=== PATIENT | female | born 1950 | race Caucasian/White ===

== ENCOUNTER 2024-05-28 11:23 | Observation (INO) | payer MEDICARE, MEDICAID, SELFPAY ==
[2024-05-28] VITALS (17 sets, daily range): BP systolic 111–168; BP diastolic 46–69; PULSE 56–88; RESP 15–20; TEMP 36.1–37.3; O2SAT 97–100; BMI 27.0
--- OUTSIDE RECORDS SUMMARY | 2024-05-28 11:27 | XMS_ITS | Patient Health Record ---
Author Organization [facility] [address] Address [address] [place] [address] Care Team Providers Care Computational Sciences Professor Name Role Phone Rojas Hanson Primary Care Provider UnavailCarolyn Carlson Unavailable Allergies No Known Allergies Reason For Referral No Information Medications Medication SIG (Take, Route, Frequency, Duration) Notes Start Date End Date Status Ipratropium [place] 0.03 % 2 sprays in e ach nostril Nasally Twice a day Active Aspirin 81 MG 1 tablet Orally Once a day Active [place] 3 340 MG 1 capsule Orally Twi ce a day Active Flaxseed Oil 1000 MG as directed Orally Active Famotidine 20 MG 1 tablet at bedtime as needed Orally Once a day Active Claritin 10 MG 1 tablet Orally Once a day Active Carvedilol 12.5 MG 1 tablet with food O rally Twice a day Active Losartan Potassium 100 MG 0.5 tablet Ora lly Once a day Active metFORMIN HCl 1000 MG 0.5 tablet Orally Twice a day Active Vitamin D 25 MCG (1000 UT) 1 tablet Oral ly Once a day Active Atorvastatin Calcium 40 MG 1 tablet Oral ly Once a day Active Sertraline HCl 100 MG 1 tablet Orally On ce a day Active Albuterol Sulfate HFA 108 (90 Base) MCG/ACT 1 puff as needed Inhalation every 4 hrs Active Social History Tobacco Use: Social History Observation Description Date Details (start date - stop date) Current Smoker NA - NA Tobacco Use/Smoking Question Answer Notes Are you a current smoker How often do you smoke cigarettes? every day How many cigarettes a day do you smoke? 5 or les s Problems Problem Type SNOMED Code ICD Code Onset Dates Problem Status W/U Status Risk Notes Problem Atherosclerotic hear t disease of [place] coronary artery without angina pectoris (349992241463390) Atherosclerotic heart disease of [place] coronary artery without angina pectoris (I25.10) Active confirmed Problem hypercholesterolemia (disorder) (76572767) Hypercholesteremia (E78.00) Active confirmed Problem Hyperuricemia withou t signs of inflammatory arthritis and tophaceous disease (447199973) Hyperuricemia without signs inflammatory arthritis/tophaceou s disease (E79.0) Active confirmed Problem Cerebrovascular accident (093377784) Cerebrovascular accident (CVA), unspecified mechanism (I63.9) Active confirmed Problem Diabetic renal disea se (228587537) 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) Active confirmed Problem Smoking (49294767) Smoking (F17.200) Active con firmed Problem Renal cyst (043484512) Renal cyst (N28.1) Active confirmed Problem Peripheral arterial disease (018683349) Peripheral arterial disease (I73.9) Active confirmed Problem Benign essential hypertension (7961027) Benign essential hypertension (I10) Active confirmed Problem Chronic kidney disea se stage 2 (326006957) Stage 2 chronic kidney disease (N18.2) Active confirmed Plan Of Treatment Pending Test Test Name Order Date CBC With Platelet And Differential 09/15 Comprehensive Metabolic Panel (CMP) 11/2022 Complement C3 09/15/2022 Complement C4 09/15/2022 dsDNA Antibodies 09/15/2022 Hemoglobin A1C 09/15/2022 Protein Electrophoresis (serum) with Int erpretation, rfx TONIO 09/15/2022 Phosphorus 09/15/2022 Lipid Panel 09/15/2022 Parathyroid Hormone (PTH) Intact with To chandni Calcium 09/15/2022 Urinalysis (UA) with reflex to Microscop ic and Culture 09/15/2022 Microalbumin/Creatinine, Random Urine Sa mple 09/15/2022 Uric Acid 09/15/2022 Insurance Providers Payer Name Payer Address Payer Phone Subscriber Number Group Number Insured Name Patient Relationship to Insured Coverage Start Date Coverage End Date [employer] Care Plan [address] [address] [place] [phone] [id number] Rosa Martino Self - patient is the insured Medical (General) History Medical History History ICD Code CABG HTN Hyperlipidemia Anxiety Vitamin D deficiency Surgical History Surgery Date(Month/Year) Hysterectomy 1985 Heart surgery 2012 LT eye cataract 04/2022
--- OUTSIDE RECORDS SUMMARY | 2024-05-28 11:27 | XMS_ITS | Patient Health Record ---
Author Organization [facility] Address [address] [place] [address] Care Team Providers Care Ad Trafficker Name Role Phone [facility] Langston, Tanda Unavailable [phone] Rojas Hanson Unavailable Unavailable Allergies No Known Allergies Reason For Referral No Information Medications Medication SIG (Take, Route, Fr equency, Duration) Notes Start Date End Date Status atorvastatin 20 mg 1 tab(s) orally once a day for 30 day(s) Active Aspir 81 Active sertraline 50 mg 1 tab(s) orally once a day for 30 day(s) Active metFORMIN 500 mg 1 tab(s) orally 2 ti mes a day for 30 day(s) Active losartan 50 mg 1 tab(s) orally once a day for 30 day(s) Active Social History Tobacco Use: Social History Observation Description Date Details (start date - stop date) Never Smoker NA - NA Smoking Question Answer Notes Are you a: never smoker Additional Findings: Tobacco Non-User Current no n-smoker Problems No Known Problems Plan Of Treatment No Information Insurance Providers Payer Name Payer Address Payer Phone Subscriber Number Group Number Insured Name Patient Relationship to Insured Coverage Start Date Coverage End Date [employer] Claims [address] [address] [place], [place] [id number] Rosa Martino Self - patient is the insured Medical (General) History Medical History History ICD Code HTN Diabetes Hyperlipidemia, unspecified hyperlipidem ia type E78.5 Surgical History Surgery Date(Month/Year)
[2024-05-28 12:18] LABS: Basophils Percent Auto 0.3 % (0.2-1.2); Eosinophils Absolute Auto 0.1 K/mm3 (0-0.3); Eosinophils Percent Auto 1.2 % (0-4.4); Immature Granulocyte Absolute 0.04 K/mm3 (0.00-0.031); Immature Granulocyte Percent A 0.7 % (0-0.5); Lymphocytes Absolute Auto 1.25 K/mm3 (0.9-3.2); Lymphocytes Percent Auto 21.6 % (18.3-44.2); Mean Corpuscular HGB Conc 27.3 g/dl (32-36); Mean Corpuscular Hemoglobin 18.5 pg (26-34); Mean Corpuscular Volume 67.8 fl (80-100); Mean Platelet Volume 9.9 fl (7.4-10.4); Monocytes Absolute Auto 0.7 K/mm3 (0.1-0.6); Monocytes Percent Auto 11.8 % (2.6-8.5); Neutrophils Absolute Auto 3.7 K/mm3 (1.3-6.7); Neutrophils Percent Auto 64.4 % (45.5-73.1); Platelet Count Result 259 k/mm3 (150-375); Red Blood Count 2.92 M/mm3 (4.2-5.4); Red Cell Distribution Width 18.7 % (11.5-14.5); White Blood Count 5.8 K/mm3 (4.5-10.0)
--- NOTE | 2024-05-28 12:19 | ED_ITS ---
HPI - General Adult General Chief complaint: Recheck/Abnormal Lab/Rx Stated complaint: anemia Time Seen by Provider: 05/28/24 11:59 History of Present Illness HPI narrative: 73-year-old female presented emergency department for evaluation for increased fatigue he, exertional shortness of breath lightheaded dizziness. Patient does have a prior history of anemia but is unsure other than having level iron. Patient denies any prior history of GI bleed and patient has no complaints hematemesis melena or blood in her stool. Patient denies any associated chest pain. Patient's family had noted that she had been moving slowly but they thought it was most likely due to her hip pain for which he is currently being worked up by Orthopedics. When the family noticed that she was sleeping more they had her evaluated and patient was called to return to the emergency department after outpatient labs. Patient is alert but tired appearing and does have pallor. Patient does take aspirin Patient's initial episode of anemia requiring transfusion was approximately 4 years ago and occurred [facility]. Patient states that no source for the bleeding was identified at that time. Patient did have an additional colonoscopy EGD done at [facility] approximately 2 years ago and no evidence of GI bleeding was identified at that time. Related Data Home Medications ?Medication ?Instructions ?Recorded ?Confirmed ?Last Taken ?Type atorvastatin 40 mg tablet 40 mg PO DAILY 08/18/23 05/28/24 05/27/24 History metformin 500 mg tablet 500 mg PO BID 08/18/23 05/28/24 05/27/24 History sertraline 100 mg tablet 100 mg PO BID 08/18/23 05/28/24 05/27/24 History calcium 500 mg (as 1 tablet PO DAILY 11/22/23 05/28/24 05/27/24 History carbonate)-vitamin D3 10 mcg (400 unit) tablet metformin 500 mg tablet 500 mg PO BID 05/28/24 05/28/24 05/27/24 History Allergies Allergy/AdvReac Type Severity Reaction Status Date / Time No Known Allergies Allergy Verified 05/28/24 16:32 Review of Systems 2 Review of Systems: All systems reviewed & are unremarkable except as noted in HPI and below PMFSH Past Medical History Medical History Chronic obstructive pulmonary disease Osteoarthritis of hips, bilateral Cigarette nicotine dependence with nicotine-induced disorder Stage 3a chronic kidney disease Obstructive sleep apnea Major depressive disorder in partial remission Iron deficiency Atherosclerosis of [place] coronary artery of [place] heart without angina pectoris Pure hypercholesterolemia, unspecified Essential (primary) hypertension Type 2 diabetes mellitus with chronic kidney disease Carpal tunnel syndrome Surgical History Surgical History History of coronary artery bypass graft x 2 (2012) History of carotid endarterectomy (2007) Family History Family History Unknown Asthma Hypertension Depression Heart disease Lung disease Arthritis Cerebrovascular accident High cholesterol Social History Social History (Updated 05/28/24 @ 20:13 by Kyleigh Chowdary PA-C) Social History: Surrogate medical decision maker: Lynn Mccarthy, daughter. Code status: Full code. Smoking packs per day: 0.5 Smoking cigarettes per day: 10.0 Years smoked: 45 Smoking pack-years: 22.50 Smoking status: Current every day smoker Alcohol intake: never Substance use: never Substance use type: does not use Do You Feel Safe in your Home?: Yes Lack of Transportation: No Lack of Food: Never True Current Housing: I Have Housing Concerned About Future Housing: No Difficulty Paying Gas/Electric Bills: No Difficulty Paying for Meds: No Currently Unemployed: No Education: High School Diploma/GED Difficulty w/ Childcare or Family Care: No Living arrangements: with family Occupation/Education: retired Spiritual care concerns: No Exam 2 Narrative: APPEARANCE: Well appearing, no pain, no distress, well-nourished. HEAD: normocephalic, atraumatic. EYES: PERRLA/EOMI, pale conjunctiva NOSE: Normal no drainage EARS:TMS clear with good light reflex. THROAT: Pharynx clear, no exudate. NECK: Supple. No adenopathy, no masses. RESPIRATORY: Airway patent, respirations nonlabored. Clear to auscultation bilaterally, no rales, rhonchi, wheezing. CARDIOVASCULAR: Regular rate and rhythm without murmurs rubs or gallops. ABDOMINAL: Soft, nontender, nondistended, normal bowel sounds MUSCULOSKELETAL: Moves all extremities. Strength/ROM intact, No edema, No calf tenderness. NEURO: Alert. Cranial nerves II through XII intact. Good gait. Good coordination SKIN: Warm, dry. Normal Color Rectal exam: Hemoccult positive Course Vital Signs Vital signs: Vital Signs Temperature 97.5 F L 05/28/24 11:39 Pulse Rate 64 05/28/24 11:39 Respiratory Rate 16 05/28/24 11:39 Blood Pressure 129/46 L 05/28/24 11:39 Pulse Oximetry 100 05/28/24 11:39 Oxygen Delivery Room Air 05/28/24 11:39 Temperature 99.0 F 05/28/24 20:21 Pulse Rate 63 05/28/24 20:21 Respiratory Rate 18 05/28/24 20:21 Blood Pressure 153/60 H 05/28/24 20:21 Pulse Oximetry 99 05/28/24 20:21 Oxygen Delivery Room Air 05/28/24 17:16 Medical Decision Making MDM Narrative Medical decision making narrative: 73-year-old female present to the emergency department for evaluation for increased weakness and outpatient anemia. Patient's hemoglobin here was 5.4. Iron studies do show that the patient has iron deficiency. Patient was Hemoccult positive on the rectal exam and GI was consulted. With her hemoglobin of 5.42 units of packed red blood cells were ordered. Patient family updated on the results of the workup and plan for admission. Case was discussed with hospitalist patient was accepted for admission. Differential Diagnosis Differential Diagnosis: GI bleed, anemia, Vital Signs Vital Signs: Vital Signs Temperature 97.5 F L 05/28/24 11:39 Pulse Rate 64 05/28/24 11:39 Respiratory Rate 16 05/28/24 11:39 Blood Pressure 129/46 L 05/28/24 11:39 Pulse Oximetry 100 05/28/24 11:39 Oxygen Delivery Room Air 05/28/24 11:39 Temperature 99.0 F 05/28/24 20:21 Pulse Rate 63 05/28/24 20:21 Respiratory Rate 18 05/28/24 20:21 Blood Pressure 153/60 H 05/28/24 20:21 Pulse Oximetry 99 05/28/24 20:21 Oxygen Delivery Room Air 05/28/24 17:16 Lab Data Lab results reviewed: Yes I reviewed the patient's lab results. 05/28/24 12:11 05/28/24 12:11 Labs: Lab Results 05/28/24 Range/Units 12:11 WBC 5.8 (4.5-10.0) K/mm3 RBC 2.92 L (4.2-5.4) M/mm3 Hgb 5.4 L* (12.0-15.0) g/dL Hct 19.8 L* (37.0-47.0) % MCV 67.8 L (80-100) fl MCH 18.5 L (26-34) pg MCHC 27.3 L (32-36) g/dl RDW 18.7 H (11.5-14.5) % Plt Count 259 (150-375) k/mm3 MPV 9.9 (7.4-10.4) fl Immature Gran % (Auto) 0.7 H (0-0.5) % Neut % (Auto) 64.4 (45.5-73.1) % Lymph % (Auto) 21.6 (18.3-44.2) % [place] % (Auto) 11.8 H (2.6-8.5) % Eos % (Auto) 1.2 (0-4.4) % Baso % (Auto) 0.3 (0.2-1.2) % Lymph # (Auto) 1.25 (0.9-3.2) K/mm3 [place] # (Auto) 0.7 H (0.1-0.6) K/mm3 Eos # (Auto) 0.1 (0-0.3) K/mm3 Baso # (Auto) 0.0 (0.0-0.1) K/mm3 Abs Immat Gran (auto) 0.04 H (0.00-0.031) K/mm3 Absolute Neuts (auto) 3.7 (1.3-6.7) K/mm3 Absolute Nucleated RBC 0.000 (0.0-0.012) K/mm3 Band Neutrophils % 0 (0-6) % Nucleated RBC % 0.0 (0.0-0.2) % Platelet Estimate Adequate (Adequate) Polychromasia 1+ Hypochromasia 2+ Anisocytosis 1+ Microcytosis 1+ (NORMAL) Target Cells 1+ Ovalocytes 1+ Schistocytes None seen PT 13.7 (11.1-14.7) Seconds INR 1.0 APTT 23.2 (22.3-36.8) Seconds Sodium 139 (137-145) mmol/L Potassium 4.6 (3.4-5.0) mmol/L Chloride 103 (98-107) mmol/L Carbon Dioxide 26 (22-30) mmol/L Anion Gap 10 (4-12) mmol/L BUN 20 H (7-17) mg/dL Creatinine 0.95 (0.7-1.0) mg/dL Estim Creat Clear Calc 42 ml/min Estimated GFR 57 L (59 - ) Glucose 99 (65-110) mg/dL Hemoglobin A1c Cancelled Calcium 9.4 (8.4-10.2) mg/dL Iron 29 L (37-170) ug/dL TIBC 502 H (261-462) ug/dL % Saturation 6 L (20-50) % Transferrin 391 H (206-381) mg/dL Ferritin 6.26 L (11.1-264) ng/mL Total Bilirubin 0.4 (0.2-1.3) mg/dL AST 27 (14-36) U/L ALT 18 (6-35) U/L Alkaline Phosphatase 92 (38-126) U/L Total Protein 7.0 (6.3-8.2) g/dL Albumin 4.3 (3.5-5.1) g/dL Ref Lab Test Name Pending Ref Lab Test Result Pending Blood Type O Positive Antibody Screen Negative Crossmatch See Detail Critical Care Time Critical Care Time Critical Care Time: Yes Total Critical Care Time: 35 Discharge Plan Discharge Clinical Impression: GI bleed, Anemia Patient Disposition: Still a Patient Condition: Stable
[2024-05-28 12:24] LABS: Hematocrit 19.8 % (37.0-47.0); Hemoglobin 5.4 g/dL (12.0-15.0)
[2024-05-28 12:32] LABS: Alanine Aminotransferase 18 U/L (6-35); Albumin Level 4.3 g/dL (3.5-5.1); Alkaline Phosphatase 92 U/L (38-126); Anion Gap 10 mmol/L (4-12); Aspartate Amino Transferase 27 U/L (14-36); Bilirubin,Total 0.4 mg/dL (0.2-1.3); Blood Urea Nitrogen 20 mg/dL (7-17); Calcium 9.4 mg/dL (8.4-10.2); Carbon Dioxide 26 mmol/L (22-30); Chloride 103 mmol/L (98-107); Estimated CRCL calculation 42 ml/min; Estimated Glomerular Filt Rate 57; Glucose 99 mg/dL (65-110); Partial Thromboplastin Time 23.2 Seconds (22.3-36.8); Potassium 4.6 mmol/L (3.4-5.0); Prothrombin Time 13.7 Seconds (11.1-14.7); Sodium 139 mmol/L (137-145)
[2024-05-28 12:36] LABS: Iron 29 ug/dL (37-170)
[2024-05-28 12:39] LABS: Transferrin 391 mg/dL (206-381)
[2024-05-28 12:45] LABS: Anisocytosis 1+; Hypochromasia 2+; Microcytosis 1+ (NORMAL); Ovalocytes 1+; Platelet Estimate Adequate (Adequate); Polychromasia 1+; Schistocytes None Seen; Target Cells 1+
[2024-05-28 12:46] LABS: Band Neutrophils Percent 0 % (0-6); Percent Iron Saturation 6 % (20-50)
--- NOTE | 2024-05-28 12:50 | P.HP_ITS ---
H&P: HPI History of Present Illness Date/Time: 05/28/24 13:00 Chief Complaint: Anemic. Narrative: This is a 73-year-old female smoker with history of iron deficiency anemia, chronic obstructive pulmonary disease, obstructive sleep apnea on CPAP, coronary artery disease, hypertension, hyperlipidemia, chronic kidney disease, and type 2 diabetes who presented to the emergency department for evaluation after she was found to be anemic. The patient provides the following history. She had labs drawn yesterday in anticipation of a yearly visit with her doctor. She received a phone call today that her hemoglobin was 5.4 and she was directed to the ED.. She has history of iron deficiency anemia requiring blood transfusion and it sounds as though she had upper and lower endoscopies done about 5 years ago when she lived in [place] for evaluation. No source of bleeding was found and she was started on iron supplementation though was told that she could stop that about a year ago. With further questioning she reports ongoing problems with hemorrhoids and she has noticed occasional bright red blood per rectum. She denies overt melena. She has also been increasingly fatigued with low energy and dyspnea on exertion for the last several weeks and daughter reports that she appears pale. She denies syncope, near syncope, epistaxis, hemoptysis, hematemesis, epigastric and abdominal pain, bloating, belching, melena, and hematuria. She is not on blood thinners and denies NSAID use but does take a baby aspirin. In the ED: Vital signs were stable on arrival. Labs were significant for a hemoglobin of 5.4, hematocrit 19.8%, MCV 67.8, iron 29, TIBC 502, iron saturation 6%, transferrin 391, ferritin 6.26. Stool was Hemoccult positive on rectal exam per ED physician. 2 units packed red blood cells were ordered and she is being admitted in this setting for close monitoring and GI consultation. Review of Systems Review of Systems: 12 systems were reviewed and are negativ e except for as per HPI. COUNTS INCLUDE 234 BEDS AT THE [facility] Past Medical History Medical History Chronic obstructive pulmonary disease Osteoarthritis of hips, bilateral Cigarette nicotine dependence with nicotine-induced disorder Stage 3a chronic kidney disease Obstructive sleep apnea Major depressive disorder in partial remission Iron deficiency Atherosclerosis of [place] coronary artery of [place] heart without angina pectoris Pure hypercholesterolemia, unspecified Essential (primary) hypertension Type 2 diabetes mellitus with chronic kidney disease Carpal tunnel syndrome Surgical History Surgical History History of coronary artery bypass graft x 2 (2012) History of carotid endarterectomy (2007) Family History Family History Unknown Asthma Hypertension Depression Heart disease Lung disease Arthritis Cerebrovascular accident High cholesterol Social History Social History (Updated 05/28/24 @ 20:13 by Kyleigh Chowdary PA-C) Social History: Surrogate medical decision maker: Lynn Mccarthy, daughter. Code status: Full code. Smoking packs per day: 0.5 Smoking cigarettes per day: 10.0 Years smoked: 45 Smoking pack-years: 22.50 Smoking status: Current every day smoker Alcohol intake: never Substance use: never Substance use type: does not use Do You Feel Safe in your Home?: Yes Lack of Transportation: No Lack of Food: Never True Current Housing: I Have Housing Concerned About Future Housing: No Difficulty Paying Gas/Electric Bills: No Difficulty Paying for Meds: No Currently Unemployed: No Education: High School Diploma/GED Difficulty w/ Childcare or Family Care: No Living arrangements: with family Occupation/Education: retired Spiritual care concerns: No Meds Home Medications and Allergies Home Medications ?Medication ?Instructions ?Recorded ?Confirmed ?Type aspirin 81 mg tablet,delayed 81 mg PO DAILY #90 tabs 08/18/23 05/28/24 Rx release atorvastatin 40 mg tablet 40 mg PO DAILY 08/18/23 05/28/24 History famotidine 20 mg tablet 20 mg PO BID #180 tabs 08/18/23 05/28/24 Rx loratadine 10 mg tablet (Claritin) 10 mg PO DAILY #90 tabs 08/18/23 05/28/24 Rx metformin 500 mg tablet 500 mg PO BID 08/18/23 05/28/24 History xmsebila-pfg-ttxov acid 0.4 1 tablet PO DAILY #90 tabs 08/18/23 05/28/24 Rx mg-lycopene 300 mcg-lutein 250 mcg tablet (Centrum Silver) sertraline 100 mg tablet 100 mg PO BID 08/18/23 05/28/24 History albuterol sulfate 90 mcg/actuation 1 inh inhalation Q4H PRN shortness 11/22/23 05/28/24 Rx aerosol inhaler of breath or wheezing #8.5 grams calcium 500 mg (as 1 tablet PO DAILY 11/22/23 05/28/24 History carbonate)-vitamin D3 10 mcg (400 unit) tablet ipratropium bromide 21 mcg (0.03 2 spray intranasal TID #30 mL 02/13/24 05/28/24 Rx %) nasal spray clobetasol 0.05 % scalp solution 1 applic topical BID #50 mL 04/23/24 05/28/24 Rx ipratropium bromide 21 mcg (0.03 2 spray intranasal TID #30 mL 04/23/24 05/28/24 Rx %) nasal spray ketoconazole 2 % shampoo 1 applic topical 2XW #120 mL 04/23/24 05/28/24 Rx carvedilol 6.25 mg tablet 6.25 mg PO BID #180 tabs 05/10/24 05/28/24 Rx losartan 50 mg tablet 50 mg PO DAILY #90 tabs 05/10/24 05/28/24 Rx metformin 500 mg tablet 500 mg PO BID 05/28/24 05/28/24 History Allergies Allergy/AdvReac Type Severity Reaction Status Date / Time No Known Allergies Allergy Verified 05/28/24 16:32 Vital Signs Vital Signs - 24 hr 05/28/24 11:39 05/28/24 12:17 05/28/24 12:20 Temperature 97.5 F L 97.9 F Pulse Rate 64 56 L Respiratory Rate 16 15 15 Blood Pressure 129/46 L 125/53 L Pulse Oximetry 100 100 100 Oxygen Delivery Room Air Exam Narrative: General: Mildly ill-appearing female in the semi-Wright position in bed. Weight: 69.2 kg. BMI: 27. HEENT: PERRL, EOMI. Sclera anicteric. Pale conjunctiva. Tacky mucous membranes. Neck: Supple. Respiratory: Respirations are nonlabored and lungs are clear to auscultation though a bit diminished. Cardiovascular: Regular rate and rhythm with S1-S2. Gastrointestinal: Abdomen is soft, nontender, and nondistended with positive bowel sounds. Skin: Warm and dry. Generalized pallor. Extremities: No cyanosis, clubbing, or edema. Radial and pedal pulses intact. Neurological: Alert. Cranial nerves 2-12 are grossly intact. No gross focal deficits to casual conversation. Psychiatric: Pleasant and cooperative with normal mood and affect. Judgment and insight intact. H&P: Results Labs Labs: Short CBC 05/28/24 Range/Units 12:11 WBC 5.8 (4.5-10.0) K/mm3 Hgb 5.4 L* (12.0-15.0) g/dL Hct 19.8 L* (37.0-47.0) % Plt Count 259 (150-375) k/mm3 BMP 05/28/24 12:11 Sodium 139 Potassium 4.6 Chloride 103 Carbon Dioxide 26 BUN 20 H Creatinine 0.95 Glucose 99 Calcium 9.4 Liver Function 05/28/24 Range/Units 12:11 Total Bilirubin 0.4 (0.2-1.3) mg/dL AST 27 (14-36) U/L ALT 18 (6-35) U/L Alkaline Phosphatase 92 (38-126) U/L Albumin 4.3 (3.5-5.1) g/dL Assessment and Plan Assessment and plan (1) Symptomatic anemia: Code(s): D64.9 - Anemia, unspecified Status: Acute (2) Heme positive stool: Code(s): R19.5 - Other fecal abnormalities Status: Acute (3) Iron deficiency: Code(s): E61.1 - Iron deficiency Status: Acute (4) Coronary artery disease: Code(s): I25.10 - Atherosclerotic heart disease of [place] coronary artery without angina pectoris Status: Acute (5) Hypertension: Code(s): I10 - Essential (primary) hypertension Status: Acute (6) Type 2 diabetes mellitus: Code(s): E11.9 - Type 2 diabetes mellitus without complications Status: Acute (7) Stage 3a chronic kidney disease: Code(s): N18.31 - Chronic kidney disease, stage 3a Status: Acute (8) Chronic obstructive pulmonary disease: Code(s): J44.9 - Chronic obstructive pulmonary disease, unspecified Status: Acute (9) Obstructive sleep apnea: Code(s): G47.33 - Obstructive sleep apnea (adult) (pediatric) Status: Acute (10) Tobacco abuse: Code(s): Z72.0 - Tobacco use Status: Acute Plan The patient presented to the emergency department after she was found to be profoundly anemic on labs done for evaluation of fatigue and shortness of breath as detailed in HPI. Labs, imaging, EKG, and all reports were personally reviewed. Hemoglobin and hematocrit are 5.4 and 19.8% respectively with microcytic indices and 2 units packed red blood cells have been ordered as well as. Venofer 200 mg IV x1. GI has been consulted she will be NPO after midnight for probable upper and lower endoscopy tomorrow to evaluate for occult GI blood loss. Hold aspirin. Blood pressures were reviewed and they have been stable. No reports of chest pain or concerning history with regards to her cardiac status. Hold metformin while hospitalized. Initiate sliding scale insulin, Accu-Cheks, and hypoglycemic protocol. Renal function is stable on review of previous labs. No exam findings to suggest COPD exacerbation. Smoking cessation imperative and was this fall. She declines the need for nicotine patch at this time. CPAP will be provided for the patient to use while hospitalized. Her home medications will be reviewed and resumed as appropriate. Findings and treatment plan were discussed with the patient. Questions were solicited and answered to satisfaction. The patient's medical management will be taken over by the hospitalist team in a.m. Quality VTE Prophylaxis VTE prophylaxis: mechanical ordered If No VTE Prophylaxis Answer both mechanical and pharmacologic: Reason no pharmacologic proph: medical contraindication (anemia, GI bleed) Hospitalist MIPS Advance Care Plan I have confirmed that the patient's Advanced Care Plan is present, code status is documented, or surrogate decision maker is listed in patient medical record.: Yes Medication Reconciliation I have utilized all available resources to obtain, update and review the patients current medications (includes all prescriptions, OTC, herbals, cannabis, and nutritional supplements).: Yes
--- NOTE | 2024-05-28 12:52 | ECG_ITS ---
Test Date: 2024-05-28 13:25:56 Measurements Intervals [place] Rate: 62 P: 108 [place]: 214 QRS: 47 QRSD: 93 T: 52 QT: 406 QTc: 413 Interpretive Statements SINUS RHYTHM WITH FIRST DEGREE AV BLOCK EARLY PRECORDIAL R/S TRANSITION BORDERLINE ECG No previous ECG available for comparison Electronically Signed On 05-28-2024 13:33:36 REGULATORY LEADER by Jamie Babb D.O.
[2024-05-28 13:13] LABS: Ferritin 6.26 ng/mL (11.1-264)
[2024-05-28] MEDS: SODIUM CHLORIDE 0.9% IV 250 ML 30 ML IV CONT (14:31)
--- NOTE | 2024-05-28 16:29 | ADMGEN ---
This patient, Rosa Martino, was admitted to [facility] Surg Room 331-02. Patient/family oriented to hospital policies and general routines including ID bracelet, bed and alarms, visiting hours, pain management, procedures, bathroom and other care routines, personal items, smoking policy, room service/diet, and visiting hours. Information on how to activate the Rapid Response Team has been discussed. Patient/Family are encouraged to report perceived risks to care and to ask questions if they do not understand what they are told or what they should do.
--- NOTE | 2024-05-28 17:48 | P.CONGI_ITS ---
Assessment and Plan Assessment and plan (1) Iron deficiency anemia: Code(s): D50.9 - Iron deficiency anemia, unspecified Status: Acute Assessment and Plan: the patient has documented severe iron deficiency anemia with a hemoglobin of 5.4 requiring evaluation. Differential diagnosis includes gastro duodenal lesions, and erosive gastritis, hiatal hernia with Ras ulcers, erosive esophagitis or colorectal neoplasia. She will get stable last and transfused and will perform colonoscopy an EGD on 05/30. Plan - Obtain consent for EGD and colonoscopy - EGD and colonoscopy this coming around noon time GI Consult Note Consult date/time: 05/28/24 17:48 HPI: Rosa Martino, a 73-year-old female with a history of iron deficiency anemia requiring transfusion 4 years ago in [place], presented to the emergency room today with complaints of extreme fatigue, shortness of breath, and lightheadedness. At the time of her prior transfusion, she underwent a complete evaluation, including endoscopy and colonoscopy, which did not identify a source for the anemia. She denies any history of melena, hematemesis, changes in bowel habits, or abdominal pain. She takes Aspirin but no NSAIDS. Review of Systems 2 Review of Systems: All systems reviewed & are unremarkable except as noted in HPI and below PMFSH Past Medical History Medical History (Updated 05/28/24 @ 17:52 by Olegario Tinoco MD) Chronic obstructive pulmonary disease Osteoarthritis of hips, bilateral Cigarette nicotine dependence with nicotine-induced disorder Stage 3a chronic kidney disease Obstructive sleep apnea Major depressive disorder in partial remission Iron deficiency Atherosclerosis of [place] coronary artery of [place] heart without angina pectoris Pure hypercholesterolemia, unspecified Essential (primary) hypertension Type 2 diabetes mellitus with chronic kidney disease Carpal tunnel syndrome Surgical History Surgical History (Updated 05/28/24 @ 13:43 by Kyleigh Chowdary PA-C) History of coronary artery bypass graft x 2 (2012) History of carotid endarterectomy (2007) Family History Family History Unknown Asthma Hypertension Depression Heart disease Lung disease Arthritis Cerebrovascular accident High cholesterol Social History Social History (Updated 05/28/24 @ 13:44 by Kyleigh Chowdary PA-C) Social History: Surrogate medical decision maker: Code status: Full code. Smoking packs per day: 0.5 Smoking cigarettes per day: 10.0 Years smoked: 45 Smoking pack-years: 22.50 Smoking status: Current every day smoker Alcohol intake: never Substance use: never Substance use type: does not use Do You Feel Safe in your Home?: Yes Lack of Transportation: No Lack of Food: Never True Current Housing: I Have Housing Concerned About Future Housing: No Difficulty Paying Gas/Electric Bills: No Difficulty Paying for Meds: No Currently Unemployed: No Education: High School Diploma/GED Difficulty w/ Childcare or Family Care: No Living arrangements: with family Occupation/Education: retired Spiritual care concerns: No Meds Home Medications and Allergies Home Medications ?Medication ?Instructions ?Recorded ?Confirmed ?Type aspirin 81 mg tablet,delayed 81 mg PO DAILY #90 tabs 08/18/23 05/28/24 Rx release atorvastatin 40 mg tablet 40 mg PO DAILY 08/18/23 05/28/24 History famotidine 20 mg tablet 20 mg PO BID #180 tabs 08/18/23 05/28/24 Rx loratadine 10 mg tablet (Claritin) 10 mg PO DAILY #90 tabs 08/18/23 05/28/24 Rx metformin 500 mg tablet 500 mg PO BID 08/18/23 05/28/24 History jtgtafkg-izt-ebcay acid 0.4 1 tablet PO DAILY #90 tabs 08/18/23 05/28/24 Rx mg-lycopene 300 mcg-lutein 250 mcg tablet (Centrum Silver) sertraline 100 mg tablet 100 mg PO BID 08/18/23 05/28/24 History albuterol sulfate 90 mcg/actuation 1 inh inhalation Q4H PRN shortness 11/22/23 05/28/24 Rx aerosol inhaler of breath or wheezing #8.5 grams calcium 500 mg (as 1 tablet PO DAILY 11/22/23 05/28/24 History carbonate)-vitamin D3 10 mcg (400 unit) tablet ipratropium bromide 21 mcg (0.03 2 spray intranasal TID #30 mL 02/13/24 05/28/24 Rx %) nasal spray clobetasol 0.05 % scalp solution 1 applic topical BID #50 mL 04/23/24 05/28/24 Rx ipratropium bromide 21 mcg (0.03 2 spray intranasal TID #30 mL 04/23/24 05/28/24 Rx %) nasal spray ketoconazole 2 % shampoo 1 applic topical 2XW #120 mL 04/23/24 05/28/24 Rx carvedilol 6.25 mg tablet 6.25 mg PO BID #180 tabs 05/10/24 05/28/24 Rx losartan 50 mg tablet 50 mg PO DAILY #90 tabs 05/10/24 05/28/24 Rx metformin 500 mg tablet 500 mg PO BID 05/28/24 05/28/24 History Allergies Allergy/AdvReac Type Severity Reaction Status Date / Time No Known Allergies Allergy Verified 05/28/24 16:32 Vital Signs Vital Signs - 24 hr 05/28/24 11:39 05/28/24 12:17 05/28/24 12:20 Temperature 97.5 F L 97.9 F Pulse Rate 64 56 L Respiratory Rate 16 15 15 Blood Pressure 129/46 L 125/53 L Pulse Oximetry 100 100 100 Oxygen Delivery Room Air 05/28/24 13:11 05/28/24 14:26 05/28/24 14:42 Temperature 98.0 F 98.2 F Pulse Rate 68 66 67 Respiratory Rate 19 17 16 Blood Pressure 121/47 L 111/57 L 135/55 L Pulse Oximetry 97 100 99 Oxygen Delivery 05/28/24 14:42 05/28/24 15:42 05/28/24 16:15 Temperature 98.2 F 98.4 F 98.2 F Pulse Rate 67 64 65 Respiratory Rate 16 16 19 Blood Pressure 135/55 L 145/55 H 154/63 H Pulse Oximetry 99 99 100 Oxygen Delivery 05/28/24 17:06 05/28/24 17:16 05/28/24 17:21 Temperature 97.4 F L 96.9 F L Pulse Rate 64 62 Respiratory Rate 18 20 Blood Pressure 136/55 L 167/55 H Pulse Oximetry 99 99 100 Oxygen Delivery Room Air Exam 2 Narrative: APPEARANCE: Well appearing, no pain, no distress, well-nourished. HEAD: normocephalic, atraumatic. EYES: PERRLA/EOMI, pale conjunctiva NOSE: Normal no drainage EARS:TMS clear with good light reflex. THROAT: Pharynx clear, no exudate. NECK: Supple. No adenopathy, no masses. RESPIRATORY: Airway patent, respirations nonlabored. Clear to auscultation bilaterally, no rales, rhonchi, wheezing. CARDIOVASCULAR: Regular rate and rhythm without murmurs rubs or gallops. ABDOMINAL: Soft, nontender, nondistended, normal bowel sounds MUSCULOSKELETAL: Moves all extremities. Strength/ROM intact, No edema, No calf tenderness. NEURO: Alert. Cranial nerves II through XII intact. Good gait. Good coordination SKIN: Warm, dry. Normal Color Rectal exam: Hemoccult positive Results Labs 05/28/24 12:11 05/28/24 12:11 Labs: Short CBC 05/28/24 Range/Units 12:11 WBC 5.8 (4.5-10.0) K/mm3 Hgb 5.4 L* (12.0-15.0) g/dL Hct 19.8 L* (37.0-47.0) % Plt Count 259 (150-375) k/mm3 BMP 05/28/24 12:11 Sodium 139 Potassium 4.6 Chloride 103 Carbon Dioxide 26 BUN 20 H Creatinine 0.95 Glucose 99 Calcium 9.4 Liver Function 05/28/24 Range/Units 12:11 Total Bilirubin 0.4 (0.2-1.3) mg/dL AST 27 (14-36) U/L ALT 18 (6-35) U/L Alkaline Phosphatase 92 (38-126) U/L Albumin 4.3 (3.5-5.1) g/dL
[2024-05-28 17:49] LABS: Glucose Point of Care 119 mg/dl (65-105)
[2024-05-28 17:49] LABS: Glucose Point of Care 54 mg/dl (65-105)
[2024-05-28] MEDS: PANTOPRAZOLE SODIUM IV 40 MG VIAL IV PUSH (21:02)
[2024-05-28] MEDS: IRON SUCROSE COMPLEX 200 MG in SODIUM CHLORIDE 0.9% IV 100 ML 220 MG IVPB (21:02)
[2024-05-28] MEDS: SERTRALINE HCL 50 MG TABLET 100 MG PO (21:06)
[2024-05-28] MEDS: carvediloL 6.25 MG TABLET PO (21:06)
[2024-05-28] MEDS: FAMOTIDINE 20 MG TABLET PO (21:06)
[2024-05-28 21:44] LABS: Glucose Point of Care 79 mg/dl (65-105)
[2024-05-28 23:12] LABS: Hematocrit 25.6 % (37.0-47.0); Hemoglobin 7.6 g/dL (12.0-15.0)
[2024-05-29 06:00] VITALS: BP 130/44; PULSE 61; RESP 18; TEMP 36.7; O2SAT 95
[2024-05-29 06:42] VITALS: O2SAT 97
[2024-05-29 07:56] VITALS: PULSE 78
[2024-05-29] MEDS: ATORVASTATIN 40 MG TABLET PO (07:56)
[2024-05-29] MEDS: LORATADINE 10 MG TABLET PO (07:56)
[2024-05-29] MEDS: carvediloL 6.25 MG TABLET PO ×2 (07:56→20:08)
[2024-05-29] MEDS: CALCIUM/VITAMIN D 500 MG/5 MCG (200 I.U.) TABLET PO (07:56)
[2024-05-29] MEDS: FAMOTIDINE 20 MG TABLET PO ×2 (07:57→20:08)
[2024-05-29] MEDS: SERTRALINE HCL 50 MG TABLET 100 MG PO ×2 (07:57→20:08)
[2024-05-29] MEDS: MULTIVITAMINS /C LUTEIN (CENTRUM SILVER) TABLET *BKC 1 TAB PO (07:57)
[2024-05-29] MEDS: LOSARTAN POTASSIUM 50 MG TABLET PO (07:57)
[2024-05-29] MEDS: IPRATROPIUM NASAL SPRAY 0.03% 15 ML BOTTLE 2 SPRAY NASAL ×3 (07:58→17:36)
[2024-05-29] MEDS: CLOBETASOL PROPIONATE 0.05% CREAM 15 GM 1 APPLIC TOPICAL ×2 (07:58→20:08)
[2024-05-29 08:01] LABS: Basophils Percent Auto 0.6 % (0.2-1.2); Eosinophils Absolute Auto 0.1 K/mm3 (0-0.3); Eosinophils Percent Auto 1.6 % (0-4.4); Hematocrit 26.8 % (37.0-47.0); Hemoglobin 7.9 g/dL (12.0-15.0); Immature Granulocyte Absolute 0.05 K/mm3 (0.00-0.031); Lymphocytes Absolute Auto 1.11 K/mm3 (0.9-3.2); Lymphocytes Percent Auto 22.5 % (18.3-44.2); Mean Corpuscular HGB Conc 29.5 g/dl (32-36); Mean Corpuscular Hemoglobin 21.2 pg (26-34); Mean Corpuscular Volume 71.8 fl (80-100); Mean Platelet Volume 9.9 fl (7.4-10.4); Monocytes Absolute Auto 0.6 K/mm3 (0.1-0.6); Monocytes Percent Auto 12.3 % (2.6-8.5); Neutrophils Absolute Auto 3.1 K/mm3 (1.3-6.7); Nucleated Red Blood Cells Perc 0.6 % (0.0-0.2); Platelet Count Result 217 k/mm3 (150-375); Red Blood Count 3.73 M/mm3 (4.2-5.4); Red Cell Distribution Width 22.5 % (11.5-14.5); White Blood Count 4.9 K/mm3 (4.5-10.0)
[2024-05-29 08:27] LABS: Anion Gap 9 mmol/L (4-12); Blood Urea Nitrogen 14 mg/dL (7-17); Calcium 9.1 mg/dL (8.4-10.2); Carbon Dioxide 24 mmol/L (22-30); Chloride 106 mmol/L (98-107); Estimated CRCL calculation 42 ml/min; Estimated Glomerular Filt Rate 57; Glucose 92 mg/dL (65-110); Potassium 4.1 mmol/L (3.4-5.0); Sodium 139 mmol/L (137-145)
[2024-05-29 08:36] LABS: Glucose Point of Care 116 mg/dl (65-105)
[2024-05-29 09:07] LABS: Large Platelets Present; Platelet Estimate Adequate (Adequate)
[2024-05-29 09:08] LABS: Anisocytosis 2+; Hypochromasia 1+; Microcytosis 1+ (NORMAL); Ovalocytes 1+; Schistocytes None Seen
[2024-05-29 12:33] LABS: Glucose Point of Care 132 mg/dl (65-105)
[2024-05-29 14:00] VITALS: BP 126/43; PULSE 64; RESP 14; TEMP 36.3; O2SAT 97
[2024-05-29] MEDS: ACETAMINOPHEN 325 MG TABLET 650 MG PO (15:09)
--- NOTE | 2024-05-29 15:16 | P.PNIM_ITS ---
Progress Note: A&P Assessment and Plan (1) Symptomatic anemia: Code(s): D64.9 - Anemia, unspecified Status: Acute Assessment and Plan: pt sp 2 units packed red blood cells have been ordered as well as. Venofer 200 mg IV x1. GI has been consulted she will be NPO after midnight for probable upper and lower endoscopy on (2) Heme positive stool: Code(s): R19.5 - Other fecal abnormalities Status: Acute Assessment and Plan: history of colonic polyps (3) Iron deficiency: Code(s): E61.1 - Iron deficiency Status: Acute Assessment and Plan: sp blood and venofer hb was 5 on admission no obvious rectal bleed cntinue venofer for total of 3 days watch hb levels daily (4) Coronary artery disease: Code(s): I25.10 - Atherosclerotic heart disease of [place] coronary artery without angina pectoris Status: Acute Assessment and Plan: hold ASA continue statin coreg losartan (5) Hypertension: Code(s): I10 - Essential (primary) hypertension Status: Acute Assessment and Plan: monitor BPs in hospital (6) Type 2 diabetes mellitus: Code(s): E11.9 - Type 2 diabetes mellitus without complications Status: Acute Assessment and Plan: accuchecks ssi glucose is 92 keep npo hattie for EGD and colonoscopy (7) Stage 3a chronic kidney disease: Code(s): N18.31 - Chronic kidney disease, stage 3a Status: Acute Assessment and Plan: watch kidney function (8) Chronic obstructive pulmonary disease: Code(s): J44.9 - Chronic obstructive pulmonary disease, unspecified Status: Acute Assessment and Plan: inhalers restarted albuterol and ipratropium bromide (9) Obstructive sleep apnea: Code(s): G47.33 - Obstructive sleep apnea (adult) (pediatric) Status: Acute Assessment and Plan: CPAP will be provided for the patient to use while hospitalized. (10) Tobacco abuse: Code(s): Z72.0 - Tobacco use Status: Acute Assessment and Plan: nicotine patch ordered Subjective Date/time seen: 05/29/24 15:16 Interval history: 73-year-old female smoker with history of iron deficiency anemia, chronic obstructive pulmonary disease, obstructive sleep apnea on CPAP, coronary artery disease, hypertension, hyperlipidemia, chronic kidney disease, and type 2 diabetes who presented to the emergency department for evaluation after she was found to be anemic. The patient provides the following history. She had labs drawn yesterday in anticipation of a yearly visit with her doctor. She received a phone call today that her hemoglobin was 5.4 and she was directed to the ED.. She has history of iron deficiency anemia requiring blood transfusion and it sounds as though she had upper and lower endoscopies done about 5 years ago when she lived in [place] for evaluation. No source of bleeding was found and she was started on iron supplementation though was told that she could stop that about a year ago. With further questioning she reports ongoing problems with hemorrhoids and she has noticed occasional bright red blood per rectum. She denies overt melena. She has also been increasingly fatigued with low energy and dyspnea on exertion for the last several weeks and daughter reports that she appears pale. Pt states she has been having reflux symptoms for long time pt sp blood transfusion hb is 7.9 post transfusion pt had colonoscopy showing colonic polyps GI will do EGd and colonoscopy hattie watch hb hattie pt may benefit from iv venofer pt is a smoker and uses ASA daily Review of Systems Review of Systems: tired weak Exam Narrative: General: pale appearing middle aged lady Neck: Supple. Respiratory: Respirations are nonlabored and lungs are clear to auscultation though a bit diminished. Cardiovascular: Regular rate and rhythm with S1-S2. Gastrointestinal: Abdomen is soft, nontender, and nondistended with positive bowel sounds. Skin: Warm and dry. Generalized pallor. Extremities: No cyanosis, clubbing, or edema. Radial and pedal pulses intact. Neurological: Alert. Cranial nerves 2-12 are grossly intact. No gross focal deficits to casual conversation. Psychiatric: Pleasant and cooperative with normal mood and affect. Judgment and insight intact. Objective Data Vital Signs Vital Signs: Vital Signs - 24 hr 05/28/24 15:42 05/28/24 16:15 05/28/24 17:06 Temperature 36.9 C 36.8 C 36.3 C L Pulse Rate 64 65 64 Respiratory Rate 16 19 18 Blood Pressure 145/55 H 154/63 H 136/55 L Pulse Oximetry 99 100 99 Oxygen Delivery 05/28/24 17:16 05/28/24 17:21 05/28/24 18:21 Temperature 36.1 C L 36.5 C Pulse Rate 62 65 Respiratory Rate 20 18 Blood Pressure 167/55 H 153/57 H Pulse Oximetry 99 100 100 Oxygen Delivery Room Air 05/28/24 19:21 05/28/24 20:00 05/28/24 20:21 Temperature 36.9 C 37.2 C Pulse Rate 88 64 63 Respiratory Rate 18 18 18 Blood Pressure 168/69 H 153/60 H Pulse Oximetry 98 97 99 Oxygen Delivery Room Air 05/28/24 21:19 05/28/24 22:00 05/29/24 06:00 Temperature 36.7 C 37.3 C 36.7 C Pulse Rate 64 75 61 Respiratory Rate 18 18 18 Blood Pressure 143/53 H 142/53 H 130/44 L Pulse Oximetry 97 98 95 Oxygen Delivery 05/29/24 06:42 05/29/24 07:56 05/29/24 08:00 Temperature Pulse Rate 78 Respiratory Rate Blood Pressure Pulse Oximetry 97 Oxygen Delivery Room Air Room Air Intake/Output Intake/Output: Intake & Output 05/26/24 05/27/24 05/28/24 05/29/24 23:59 23:59 23:59 23:59 Intake Total 2024.5 797 Balance 2024.5 797 Meds/Results Medications: Active Medications Generic Name Dose Route Start Last Admin Trade Name Freq PRN Reason Stop Dose Admin Acetaminophen 650 mg 05/28/24 13:53 05/29/24 15:09 Acetaminophen 325 Mg Tablet PO 650 mg Q6H PRN Administration Mild Pain (1-3) or Fever Albuterol 1 puff 05/28/24 20:16 Albuterol Sulfate (*Sp) Aerosol 1 Puff INHALATION Q4HRT PRN shortness of breath or wheezing Atorvastatin Calcium 40 mg 05/29/24 09:00 05/29/24 07:56 Atorvastatin 40 Mg Tablet PO 40 mg DAILY JANNIE Administration Calcium Carbonate 500 mg 05/29/24 09:00 05/29/24 07:56 Calcium/Vitamin D 500 Mg/5 Mcg (200 I.U.) Tablet PO 500 mg DAILY JANNIE Administration Carvedilol 6.25 mg 05/28/24 21:00 05/29/24 07:56 Carvedilol 6.25 Mg Tablet PO 6.25 mg Q12HR JANNIE Administration Clobetasol Propionate 1 applic 05/28/24 21:00 05/29/24 07:58 Clobetasol Propionate 0.05% Cream 15 Gm TOPICAL 1 applic Q12HR JANNIE Administration Dextrose 12.5 gm 05/28/24 13:53 Dextrose 50% 25 Gm/50 Ml Syringe IV PUSH PRN PRN Hypoglycemia Protocol Famotidine 20 mg 05/28/24 21:00 05/29/24 07:57 Famotidine 20 Mg Tablet PO 20 mg Q12HR JANNIE Administration Glucagon 1 mg 05/28/24 13:53 Glucagon For Inj 1 Mg Vial IM PRN PRN Hypoglycemia Protocol Glucose 15 gm 05/28/24 13:53 Glucose Oral Gel 15 Gm Of Glucse In 37.5 Gm Tube PO PRN PRN Hypoglycemia Protocol Dextrose 1,000 mls @ 100 mls/hr 05/28/24 13:53 Dextrose 5% 1,000 Ml IVPB PRN PRN Hypoglycemia Protocol Lactated Ringer's 1,000 mls @ 150 mls/hr 05/29/24 14:00 Lr - Lactated Ringers Iv IV CONT .Q6H40M [facility] Insulin Aspart 2 - 5 units 05/28/24 17:00 05/29/24 12:34 Insulin Aspart (*Bkc) 100 Units/Ml SUB-Q Not Given TIDWM [facility] Protocol Insulin Aspart 1 - 2 units 05/28/24 21:00 05/29/24 01:07 Insulin Aspart (*Bkc) 100 Units/Ml SUB-Q Not Given HS [facility] Protocol Ipratropium Lysite 2 spray 05/29/24 09:00 05/29/24 12:44 Ipratropium Nasal [place] 0.03% 15 Ml Bottle NASAL 2 spray TID JANNIE Administration Loratadine 10 mg 05/29/24 09:00 05/29/24 07:56 Loratadine 10 Mg Tablet PO 10 mg DAILY JANNIE Administration Losartan Potassium 50 mg 05/29/24 09:00 05/29/24 07:57 Losartan Potassium 50 Mg Tablet PO 50 mg DAILY JANNIE Administration Multivitamins/Minerals 1 tab 05/29/24 09:00 05/29/24 07:57 Multivitamins /C Lutein (Centrum Silver) Tablet *Bkc PO 1 tab DAILY JANNIE Administration Polyethylene Glycol 119 gm 05/29/24 20:00 Polyethylene Glycol 3350 238 Gm Bottle PO 05/30/24 05:01 BID@0500,2000 [facility] Sertraline HCl 100 mg 05/28/24 21:00 05/29/24 07:57 Sertraline Hcl 50 Mg Tablet PO 100 mg Q12HR JANNIE Administration Labs Labs: Laboratory Results - last 24 hr 05/28/24 05/28/24 05/28/24 12:11 17:14 17:42 WBC RBC Hgb Hct MCV MCH MCHC RDW Plt Count MPV Immature Gran % (Auto) Neut % (Auto) Lymph % (Auto) [place] % (Auto) Eos % (Auto) Baso % (Auto) Lymph # (Auto) [place] # (Auto) Eos # (Auto) Baso # (Auto) Abs Immat Gran (auto) Absolute Neuts (auto) Absolute Nucleated RBC Band Neutrophils % Nucleated RBC % Platelet Estimate Large Platelets Hypochromasia Anisocytosis Microcytosis Ovalocytes Schistocytes Sodium Potassium Chloride Carbon Dioxide Anion Gap BUN Creatinine Estim Creat Clear Calc Estimated GFR Glucose POC Capillary Glucose 54 L* 119 H Hemoglobin A1c Cancelled Calcium Magnesium Blood Type O Positive Antibody Screen Negative Crossmatch See Detail 05/28/24 05/28/24 05/29/24 21:35 23:07 07:20 WBC 4.9 RBC 3.73 L Hgb 7.6 L 7.9 L Hct 25.6 L 26.8 L MCV 71.8 L D MCH 21.2 L D MCHC 29.5 L RDW 22.5 H Plt Count 217 MPV 9.9 Immature Gran % (Auto) 1.0 H Neut % (Auto) 62.0 Lymph % (Auto) 22.5 [place] % (Auto) 12.3 H Eos % (Auto) 1.6 Baso % (Auto) 0.6 Lymph # (Auto) 1.11 [place] # (Auto) 0.6 Eos # (Auto) 0.1 Baso # (Auto) 0.0 Abs Immat Gran (auto) 0.05 H Absolute Neuts (auto) 3.1 Absolute Nucleated RBC 0.030 H Band Neutrophils % Not Reportable Nucleated RBC % 0.6 H Platelet Estimate Adequate Large Platelets Present Hypochromasia 1+ Anisocytosis 2+ Microcytosis 1+ Ovalocytes 1+ Schistocytes None seen Sodium 139 Potassium 4.1 Chloride 106 Carbon Dioxide 24 Anion Gap 9 BUN 14 D Creatinine 0.95 Estim Creat Clear Calc 42 Estimated GFR 57 L Glucose 92 POC Capillary Glucose 79 Hemoglobin A1c Calcium 9.1 Magnesium 2.0 Blood Type Antibody Screen Crossmatch 05/29/24 05/29/24 08:32 11:47 WBC RBC Hgb Hct MCV MCH MCHC RDW Plt Count MPV Immature Gran % (Auto) Neut % (Auto) Lymph % (Auto) [place] % (Auto) Eos % (Auto) Baso % (Auto) Lymph # (Auto) [place] # (Auto) Eos # (Auto) Baso # (Auto) Abs Immat Gran (auto) Absolute Neuts (auto) Absolute Nucleated RBC Band Neutrophils % Nucleated RBC % Platelet Estimate Large Platelets Hypochromasia Anisocytosis Microcytosis Ovalocytes Schistocytes Sodium Potassium Chloride Carbon Dioxide Anion Gap BUN Creatinine Estim Creat Clear Calc Estimated GFR Glucose POC Capillary Glucose 116 H 132 H Hemoglobin A1c Calcium Magnesium Blood Type Antibody Screen Crossmatch
[2024-05-29] MEDS: IRON SUCROSE COMPLEX 200 MG, IRON SUCROSE COMPLEX 100 MG in SODIUM CHLORIDE 0.9% IV 250 ML 176.67 MG IVPB (16:51)
[2024-05-29 17:30] LABS: Glucose Point of Care 97 mg/dl (65-105)
[2024-05-29] MEDS: polyethylene glycoL 3350 238 GM BOTTLE 119 GM PO (17:33)
[2024-05-29 19:39] VITALS: PULSE 64; RESP 14; O2SAT 97
[2024-05-29 20:30] VITALS: BP 162/57; PULSE 60; RESP 18; TEMP 36.1; O2SAT 98
[2024-05-29 21:16] LABS: Glucose Point of Care 103 mg/dl (65-105)
[2024-05-30] MEDS: polyethylene glycoL 3350 238 GM BOTTLE 119 GM PO (05:46)
[2024-05-30 08:04] LABS: Glucose Point of Care 105 mg/dl (65-105)
[2024-05-30 08:18] LABS: Hematocrit 30.5 % (37.0-47.0); Hemoglobin 8.8 g/dL (12.0-15.0); Mean Corpuscular HGB Conc 28.9 g/dl (32-36); Mean Corpuscular Hemoglobin 21.4 pg (26-34); Mean Platelet Volume 10.3 fl (7.4-10.4); Platelet Count Result 238 k/mm3 (150-375); Red Blood Count 4.12 M/mm3 (4.2-5.4); Red Cell Distribution Width 23.5 % (11.5-14.5)
[2024-05-30 08:34] LABS: Anion Gap 11 mmol/L (4-12); Blood Urea Nitrogen 8 mg/dL (7-17); Calcium 9.8 mg/dL (8.4-10.2); Carbon Dioxide 25 mmol/L (22-30); Chloride 105 mmol/L (98-107); Estimated CRCL calculation 42 ml/min; Estimated Glomerular Filt Rate 58; Glucose 99 mg/dL (65-110); Potassium 4.4 mmol/L (3.4-5.0); Sodium 141 mmol/L (137-145)
--- NOTE | 2024-05-30 09:29 | P.PNAN_ITS ---
Anes - Initial Pre Proc Eval Procedure: Operation Date: 05/30/24 10:15 Proposed Procedures p Esophagogastroduodenoscopy & Colonoscopy - Olegario Tinoco MD Date/Time: 05/30/24 09:29 Surgeon: Eli Burks MD Pre Op Diagnosis: Anemia/Hemoccult Positive Stool Patient Data Age: 73 Gender: F Height: 1.6 m Weight: 69.1 kg Last Vital Signs Temp 97.0 F L 05/29/24 20:30 Pulse 60 05/29/24 20:30 Resp 18 05/29/24 20:30 BP 162/57 H 05/29/24 20:30 Pulse Ox 98 05/29/24 20:30 O2 Del Method Room Air 05/30/24 08:00 Allergies Allergy/AdvReac Type Severity Reaction Status Date / Time No Known Allergies Allergy Verified 05/28/24 16:32 Home Medications ?Medication ?Instructions ?Recorded ?Confirmed ?Type aspirin 81 mg tablet,delayed 81 mg PO DAILY #90 tabs 08/18/23 05/28/24 Rx release atorvastatin 40 mg tablet 40 mg PO DAILY 08/18/23 05/28/24 History famotidine 20 mg tablet 20 mg PO BID #180 tabs 08/18/23 05/28/24 Rx loratadine 10 mg tablet (Claritin) 10 mg PO DAILY #90 tabs 08/18/23 05/28/24 Rx metformin 500 mg tablet 500 mg PO BID 08/18/23 05/28/24 History jfosvfkb-nqg-amrhd acid 0.4 1 tablet PO DAILY #90 tabs 08/18/23 05/28/24 Rx mg-lycopene 300 mcg-lutein 250 mcg tablet (Centrum Silver) sertraline 100 mg tablet 100 mg PO BID 08/18/23 05/28/24 History albuterol sulfate 90 mcg/actuation 1 inh inhalation Q4H PRN shortness 11/22/23 05/28/24 Rx aerosol inhaler of breath or wheezing #8.5 grams calcium 500 mg (as 1 tablet PO DAILY 11/22/23 05/28/24 History carbonate)-vitamin D3 10 mcg (400 unit) tablet ipratropium bromide 21 mcg (0.03 2 spray intranasal TID #30 mL 02/13/24 05/28/24 Rx %) nasal spray clobetasol 0.05 % scalp solution 1 applic topical BID #50 mL 04/23/24 05/28/24 Rx ipratropium bromide 21 mcg (0.03 2 spray intranasal TID #30 mL 04/23/24 05/28/24 Rx %) nasal spray ketoconazole 2 % shampoo 1 applic topical 2XW #120 mL 04/23/24 05/28/24 Rx carvedilol 6.25 mg tablet 6.25 mg PO BID #180 tabs 05/10/24 05/28/24 Rx losartan 50 mg tablet 50 mg PO DAILY #90 tabs 05/10/24 05/28/24 Rx metformin 500 mg tablet 500 mg PO BID 05/28/24 05/28/24 History Laboratory Tests 05/29/24 05/29/24 05/29/24 11:47 16:55 21:03 WBC RBC Hgb Hct MCV MCH MCHC RDW Plt Count MPV Sodium Potassium Chloride Carbon Dioxide Anion Gap BUN Creatinine Estim Creat Clear Calc Estimated GFR Glucose POC Capillary Glucose 132 H mg/dl 97 mg/dl 103 mg/dl (65-105) (65-105) (65-105) Calcium 05/30/24 05/30/24 07:51 07:56 WBC 5.0 K/mm3 (4.5-10.0) RBC 4.12 L M/mm3 (4.2-5.4) Hgb 8.8 L g/dL (12.0-15.0) Hct 30.5 L % (37.0-47.0) MCV 74.0 L fl (80-100) MCH 21.4 L pg (26-34) MCHC 28.9 L g/dl (32-36) RDW 23.5 H % (11.5-14.5) Plt Count 238 k/mm3 (150-375) MPV 10.3 fl (7.4-10.4) Sodium 141 mmol/L (137-145) Potassium 4.4 mmol/L (3.4-5.0) Chloride 105 mmol/L (98-107) Carbon Dioxide 25 mmol/L (22-30) Anion Gap 11 mmol/L (4-12) BUN 8 D mg/dL (7-17) Creatinine 0.94 mg/dL (0.7-1.0) Estim Creat Clear Calc 42 ml/min Estimated GFR 58 L (59 - ) Glucose 99 mg/dL (65-110) POC Capillary Glucose 105 mg/dl (65-105) Calcium 9.8 mg/dL (8.4-10.2) Patient hx anesthesia problems: none Family hx anesthesia problems: none Results Review: All pre-operative results and documents have been reviewed as part of the pre- operative evaluation. [facility] Past Medical History Medical History Chronic obstructive pulmonary disease Osteoarthritis of hips, bilateral Cigarette nicotine dependence with nicotine-induced disorder Stage 3a chronic kidney disease Obstructive sleep apnea Major depressive disorder in partial remission Iron deficiency Atherosclerosis of [place] coronary artery of [place] heart without angina pectoris Pure hypercholesterolemia, unspecified Essential (primary) hypertension Type 2 diabetes mellitus with chronic kidney disease Carpal tunnel syndrome Surgical History Surgical History History of coronary artery bypass graft x 2 (2012) History of carotid endarterectomy (2007) Family History Family History Unknown Asthma Hypertension Depression Heart disease Lung disease Arthritis Cerebrovascular accident High cholesterol Social History Social History (Updated 05/28/24 @ 20:13 by Kyleigh Chowdary PA-C) Social History: Surrogate medical decision maker: Lynn Mccarthy, daughter. Code status: Full code. Smoking packs per day: 0.5 Smoking cigarettes per day: 10.0 Years smoked: 45 Smoking pack-years: 22.50 Smoking status: Current every day smoker Alcohol intake: never Substance use: never Substance use type: does not use Do You Feel Safe in your Home?: Yes Lack of Transportation: No Lack of Food: Never True Current Housing: I Have Housing Concerned About Future Housing: No Difficulty Paying Gas/Electric Bills: No Difficulty Paying for Meds: No Currently Unemployed: No Education: High School Diploma/GED Difficulty w/ Childcare or Family Care: No Living arrangements: with family Occupation/Education: retired Spiritual care concerns: No Anes - Eval Final PreProcedure Day of Procedure 05/30/24 09:29 Patient weight: overweight Lungs: normal air movement Airway: Mallampati scale and special considerations (Edentulous. ) Neurological: alert and oriented Last oral intake: >/= 8 hours ASA classification: IV Emergent: no Anesthetic plan: proceed Anesthesia type and monitoring: general GIVS and standard monitoring Results Review: All pre-operative results and documents have been reviewed as part of the pre- operative evaluation. Complicated pt w anemia on admission, now s/p transfusion 2 U PRBCs. HTN, hyperlipidemia, DM,CKD 3, ASPEN on CPAP. COPD still smoking 1/2 ppd. Informed Consent: The patient's anesthetic plan and its attendant risks and benefits were discussed with the patient/family/POA. Questions were solicited and answers provided to the satisfaction of the patient/family/POA.
[2024-05-30 09:30] VITALS: BP 155/52; PULSE 58; RESP 16; TEMP 36.6; O2SAT 97
[2024-05-30 09:39] LABS: Glucose Point of Care 108 mg/dl (65-105)
[2024-05-30] MEDS: SODIUM CHLORIDE 0.9% IV 500 ML IV CONT (09:41)
--- NOTE | 2024-05-30 10:35 | SUR.OPER ---
egd ended at 1028 and colonoscopy begun at 1035
[2024-05-30] MEDS: SODIUM CHLORIDE 0.9% IV 500 ML 10 ML IV CONT (10:58)
[2024-05-30 11:01] VITALS: BP 162/76; PULSE 79; RESP 20; O2SAT 99
--- NOTE | 2024-05-30 11:05 | P.PNGI_ITS ---
Progress Note: A&P Assessment and Plan (1) Iron deficiency anemia: Code(s): D50.9 - Iron deficiency anemia, unspecified Status: Acute Plan EGD did not reveal significant lesions. completing colonoscopy was not possible due to severe angulation in the sigmoid colon. Patient will be referred to [facility] for 2nd attempt completing colonoscopy with thinner scopes. She can be discharged with oral iron for 2 months and follow up with us in clinic. If colonoscopy is completed and did not reveal lesions, a capsule endoscopy is also requested To search for small-bowel lesions. Time Spent With Patient Time with patient: less than 15 minutes Subjective Date/time seen: 05/30/24 11:05 Interval history: See EGD and colonoscopy report. Objective Data Vital Signs Vital Signs: Vital Signs - 24 hr 05/29/24 14:00 05/29/24 19:39 05/29/24 20:30 Temperature 97.3 F L 97.0 F L Pulse Rate 64 64 60 Respiratory Rate 14 14 18 Blood Pressure 126/43 L 162/57 H Pulse Oximetry 97 97 98 Oxygen Delivery Room Air 05/30/24 08:00 05/30/24 09:30 Temperature 97.8 F Pulse Rate 58 L Respiratory Rate 16 Blood Pressure 155/52 H Pulse Oximetry 97 Oxygen Delivery Room Air Room Air Intake/Output Intake/Output: Intake & Output 05/27/24 05/28/24 05/29/24 05/30/24 23:59 23:59 23:59 23:59 Intake Total 5.5 1634 0 Balance 2024.5 1634 0 Meds/Results Medications: Active Medications Generic Name Dose Route Start Last Admin Trade Name Freq PRN Reason Stop Dose Admin Acetaminophen 650 mg 05/28/24 13:53 05/29/24 15:09 Acetaminophen 325 Mg Tablet PO 650 mg Q6H PRN Administration Mild Pain (1-3) or Fever Albuterol 1 puff 05/28/24 20:16 Albuterol Sulfate (*Sp) Aerosol 1 Puff INHALATION Q4HRT PRN shortness of breath or wheezing Atorvastatin Calcium 40 mg 05/29/24 09:00 05/29/24 07:56 Atorvastatin 40 Mg Tablet PO 40 mg DAILY JANNIE Administration Calcium Carbonate 500 mg 05/29/24 09:00 05/29/24 07:56 Calcium/Vitamin D 500 Mg/5 Mcg (200 I.U.) Tablet PO 500 mg DAILY JANNIE Administration Carvedilol 6.25 mg 05/28/24 21:00 05/29/24 20:08 Carvedilol 6.25 Mg Tablet PO 6.25 mg Q12HR JANNIE Administration Clobetasol Propionate 1 applic 05/28/24 21:00 05/29/24 20:08 Clobetasol Propionate 0.05% Cream 15 Gm TOPICAL 1 applic Q12HR JANNIE Administration Dextrose 12.5 gm 05/28/24 13:53 Dextrose 50% 25 Gm/50 Ml Syringe IV PUSH PRN PRN Hypoglycemia Protocol Glucagon 1 mg 05/28/24 13:53 Glucagon For Inj 1 Mg Vial IM PRN PRN Hypoglycemia Protocol Glucose 15 gm 05/28/24 13:53 Glucose Oral Gel 15 Gm Of Glucse In 37.5 Gm Tube PO PRN PRN Hypoglycemia Protocol Dextrose 1,000 mls @ 100 mls/hr 05/28/24 13:53 Dextrose 5% 1,000 Ml IVPB PRN PRN Hypoglycemia Protocol Lactated Ringer's 1,000 mls @ 150 mls/hr 05/29/24 14:00 Lr - Lactated Ringers Iv IV CONT .Q6H40M [facility] Sodium Chloride 500 mls @ 10 mls/hr 05/30/24 11:00 05/30/24 10:59 Normal Saline Iv IV CONT Infused .Q24H JANNIE Infusion Insulin Aspart 2 - 5 units 05/28/24 17:00 05/30/24 08:14 Insulin Aspart (*Bkc) 100 Units/Ml SUB-Q Not Given TIDWM [facility] Protocol Insulin Aspart 1 - 2 units 05/28/24 21:00 05/29/24 21:17 Insulin Aspart (*Bkc) 100 Units/Ml SUB-Q Not Given HS [facility] Protocol Ipratropium [place] 2 spray 05/29/24 09:00 05/29/24 17:36 Ipratropium Nasal [place] 0.03% 15 Ml Bottle NASAL 2 spray TID JANNIE Administration Loratadine 10 mg 05/29/24 09:00 05/29/24 07:56 Loratadine 10 Mg Tablet PO 10 mg DAILY JANNIE Administration Losartan Potassium 50 mg 05/29/24 09:00 05/29/24 07:57 Losartan Potassium 50 Mg Tablet PO 50 mg DAILY JANNIE Administration Multivitamins/Minerals 1 tab 05/29/24 09:00 05/29/24 07:57 Multivitamins /C Lutein (Centrum Silver) Tablet *Bkc PO 1 tab DAILY JANNIE Administration Sertraline HCl 100 mg 05/28/24 21:00 05/29/24 20:08 Sertraline Hcl 50 Mg Tablet PO 100 mg Q12HR JANNIE Administration Labs Labs: Laboratory Results - last 24 hr 05/29/24 05/29/24 05/29/24 11:47 16:55 21:03 WBC RBC Hgb Hct MCV MCH MCHC RDW Plt Count MPV Sodium Potassium Chloride Carbon Dioxide Anion Gap BUN Creatinine Estim Creat Clear Calc Estimated GFR Glucose POC Capillary Glucose 132 H 97 103 Calcium 05/30/24 05/30/24 05/30/24 07:51 07:56 09:37 WBC 5.0 RBC 4.12 L Hgb 8.8 L Hct 30.5 L MCV 74.0 L MCH 21.4 L MCHC 28.9 L RDW 23.5 H Plt Count 238 MPV 10.3 Sodium 141 Potassium 4.4 Chloride 105 Carbon Dioxide 25 Anion Gap 11 BUN 8 D Creatinine 0.94 Estim Creat Clear Calc 42 Estimated GFR 58 L Glucose 99 POC Capillary Glucose 105 108 H Calcium 9.8
[2024-05-30 11:11] VITALS: BP 145/75; PULSE 74; RESP 19; O2SAT 97
[2024-05-30 11:21] VITALS: BP 147/80; PULSE 76; RESP 19; O2SAT 98
[2024-05-30 11:58] LABS: Glucose Point of Care 97 mg/dl (65-105)
[2024-05-30 12:52] VITALS: PULSE 68
[2024-05-30] MEDS: carvediloL 6.25 MG TABLET PO (12:52)
[2024-05-30] MEDS: CALCIUM/VITAMIN D 500 MG/5 MCG (200 I.U.) TABLET PO (12:52)
[2024-05-30] MEDS: ATORVASTATIN 40 MG TABLET PO (12:52)
[2024-05-30] MEDS: CLOBETASOL PROPIONATE 0.05% CREAM 15 GM 1 APPLIC TOPICAL (12:52)
[2024-05-30] MEDS: IPRATROPIUM NASAL SPRAY 0.03% 15 ML BOTTLE 2 SPRAY NASAL (12:52)
[2024-05-30] MEDS: MULTIVITAMINS /C LUTEIN (CENTRUM SILVER) TABLET *BKC 1 TAB PO (12:53)
[2024-05-30] MEDS: LORATADINE 10 MG TABLET PO (12:53)
[2024-05-30] MEDS: SERTRALINE HCL 50 MG TABLET 100 MG PO (12:53)
[2024-05-30] MEDS: LOSARTAN POTASSIUM 50 MG TABLET PO (12:53)
--- NOTE | 2024-05-30 13:31 | PM.DS ---
DS: Admitting Diagnosis Discharge Date 05/30/2024 Admitting Diagnosis Anemia, GI bleed DS: Discharge Diagnosis Discharge Diagnosis (1) Symptomatic anemia: Code(s): D64.9 - Anemia, unspecified Status: Acute Assessment and Plan: ## 2 units packed red blood cells hg of 5.2 --> trended to 8.8 today --> Venofer 200 mg IV x3 total doses.. -->GI has been consulted NPO after midnight for probable upper and lower endoscopy --> upper and lower scope performed, however patient has thinned Sigmoid junction, unable to complete colonoscopy --> ok to D/c with PO Iron x 2 months, will refer to [facility] for colonoscopy outpatient at follow up. (2) Heme positive stool: Code(s): R19.5 - Other fecal abnormalities Status: Acute Assessment and Plan: history of colonic polyps (3) Iron deficiency: Code(s): E61.1 - Iron deficiency Status: Chronic Assessment and Plan: #sp PRBC x2 and venofer x3 -->hb was 5 on admission --> 8.8 today -no obvious rectal bleed -watch hb levels daily (4) Coronary artery disease: Code(s): I25.10 - Atherosclerotic heart disease of [place] coronary artery without angina pectoris Status: Acute Assessment and Plan: --hold ASA --continue statin coreg losartan (5) Hypertension: Code(s): I10 - Essential (primary) hypertension Status: Acute Assessment and Plan: --monitor BPs in hospital (6) Type 2 diabetes mellitus: Code(s): E11.9 - Type 2 diabetes mellitus without complications Status: Acute Assessment and Plan: --accuchecks ssi --glucose is 92 (7) Stage 3a chronic kidney disease: Code(s): N18.31 - Chronic kidney disease, stage 3a Status: Acute Assessment and Plan: stable (8) Chronic obstructive pulmonary disease: Code(s): J44.9 - Chronic obstructive pulmonary disease, unspecified Status: Acute Assessment and Plan: --inhalers restarted albuterol and ipratropium bromide (9) Obstructive sleep apnea: Code(s): G47.33 - Obstructive sleep apnea (adult) (pediatric) Status: Acute Assessment and Plan: --CPAP will be provided for the patient to use while hospitalized. (10) Tobacco abuse: Code(s): Z72.0 - Tobacco use Status: Acute Assessment and Plan: --nicotine patch ordered DS: Summary Hospital Course Reason for hospitalization: GI Bleed Anemia Hospital Course: This is a 73-year-old female smoker with history of iron deficiency anemia, chronic obstructive pulmonary disease, obstructive sleep apnea on CPAP, coronary artery disease, hypertension, hyperlipidemia, chronic kidney disease, and type 2 diabetes who presented to the emergency department for evaluation after she was found to be anemic. The patient provides the following history. She had labs drawn yesterday in anticipation of a yearly visit with her doctor. She received a phone call today that her hemoglobin was 5.4 and she was directed to the ED.. She has history of iron deficiency anemia requiring blood transfusion and it sounds as though she had upper and lower endoscopies done about 5 years ago when she lived in [place] for evaluation. No source of bleeding was found and she was started on iron supplementation though was told that she could stop that about a year ago. With further questioning she reports ongoing problems with hemorrhoids and she has noticed occasional bright red blood per rectum. She denies overt melena. She has also been increasingly fatigued with low energy and dyspnea on exertion for the last several weeks and daughter reports that she appears pale. She denies syncope, near syncope, epistaxis, hemoptysis, hematemesis, epigastric and abdominal pain, bloating, belching, melena, and hematuria. She is not on blood thinners and denies NSAID use but does take a baby aspirin. In the ED: Vital signs were stable on arrival. Labs were significant for a hemoglobin of 5.4, hematocrit 19.8%, MCV 67.8, iron 29, TIBC 502, iron saturation 6%, transferrin 391, ferritin 6.26. Stool was Hemoccult positive on rectal exam per ED physician. 2 units packed red blood cells were ordered and she is being admitted in this setting for close monitoring and GI consultation. Patient GI has been consulted and kept NPO after midnight for upper and lower endoscopy. The upper and lower scope performed, however patient has thinned Sigmoid junction, unable to complete colonoscopy. per GI, they refer to [facility] for colonoscopy outpatient at follow up. Patient received a total of 2 units packed red blood cells, a total of 3 units of Venofer. Patient hemoglobin was 8.8 today. Doing well after the scopes, requesting discharge. GI stated she was okay to be discharged longer she continued with oral iron x2 months. She is to follow up with them outpatient as well as PCP. Explained patient's sinus symptoms for immediately, diet discussed in great detail she is agreeable to this plan. Time Spent with Patient Time attestation: Total time spent providing and/or coordinating discharge services: Time spent: Greater than 30 minutes Exam Narrative: General: Normal appearing female in no signs of distress Neck: Supple. Respiratory: Respirations are nonlabored and lungs are clear to auscultation though a bit diminished. Cardiovascular: Regular rate and rhythm with S1-S2. Gastrointestinal: Abdomen is soft, nontender, and nondistended with positive bowel sounds. Skin: Warm and dry. Generalized pallor. Extremities: No cyanosis, clubbing, or edema. Radial and pedal pulses intact. Neurological: Alert. Cranial nerves 2-12 are grossly intact. No gross focal deficits to casual conversation. Psychiatric: Pleasant and cooperative with normal mood and affect. Judgment and insight intact. DS: Data Data Completed and Pending Pending studies at discharge: Pending at discharge 05/30/24 10:33 Surgical [PTH] Routine Labs on day of discharge: Labs from last 24 hours 05/30/24 05/30/24 05/30/24 11:50 09:37 07:56 WBC RBC Hgb Hct MCV MCH MCHC RDW Plt Count MPV Sodium Potassium Chloride Carbon Dioxide Anion Gap BUN Creatinine Estim Creat Clear Calc Estimated GFR Glucose POC Capillary Glucose 97 108 H 105 Calcium 05/30/24 05/29/24 05/29/24 07:51 21:03 16:55 WBC 5.0 RBC 4.12 L Hgb 8.8 L Hct 30.5 L MCV 74.0 L MCH 21.4 L MCHC 28.9 L RDW 23.5 H Plt Count 238 MPV 10.3 Sodium 141 Potassium 4.4 Chloride 105 Carbon Dioxide 25 Anion Gap 11 BUN 8 D Creatinine 0.94 Estim Creat Clear Calc 42 Estimated GFR 58 L Glucose 99 POC Capillary Glucose 103 97 Calcium 9.8 Discharge Plan Discharge Attending physician on discharge: Luz Maria Bridges Consulting providers: Olegario Tinoco Discharging Clinician: Luz Maria Bridges Anticipated Discharge Date/Time: 05/30/24 13:23 Patient Disposition: Home, Self-Care Activity: may shower, no straining and as tolerated Diet: heart healthy Discharge Instructions: Continue with oral iron as instructed daily. Avoid any heavy greasy or spicy foods. Increase fluid intake. No straining, heavy lifting. Follow up with GI and PCP in the next week. Call office for appointment. Return to the ER with any chest pain, Shortness of Breath or distress. Continue with home medications as prior. Patient Instructions: Iron Supplements (By mouth), Anemia (DC) Patient Language: [place] Stand Alone Forms: General Discharge Information Follow-up/Referrals: Santy Sarkar MD [Primary Care Provider] - Olegario Tinoco MD [Physician] - Discharge Medications: New ferrous gluconate 324 mg (38 mg iron) tablet 324 mg PO DAILY Qty: 30 3RF Continued sertraline 100 mg tablet 100 mg PO BID metformin 500 mg tablet 500 mg PO BID atorvastatin 40 mg tablet 40 mg PO DAILY aspirin 81 mg tablet,delayed release (DR/EC) 81 mg PO DAILY Qty: 90 0RF famotidine 20 mg tablet 20 mg PO BID Qty: 180 0RF loratadine [Claritin] 10 mg tablet 10 mg PO DAILY Qty: 90 0RF Centrum Silver 0.4 mg-300 mcg- 250 mcg tablet 1 tablet PO DAILY Qty: 90 0RF calcium carbonate-vitamin D3 500 mg-10 mcg (400 unit) tablet 1 tablet PO DAILY albuterol sulfate 90 mcg/actuation HFA aerosol inhaler 1 inh inhalation Q4H PRN (Reason: shortness of breath or wheezing) Qty: 8.5 0RF clobetasol 0.05 % solution 1 applic topical BID Qty: 50 1RF ketoconazole 2 % shampoo 1 applic topical 2XW Qty: 120 1RF ipratropium bromide 21 mcg (0.03 %) spray,non-aerosol 2 spray intranasal TID Qty: 30 3RF Rx Instructions: administer into each nostril metformin 500 mg tablet 500 mg PO BID ipratropium bromide 21 mcg (0.03 %) spray,non-aerosol 2 spray intranasal TID Qty: 30 0RF Rx Instructions: administer into each nostril carvedilol 6.25 mg tablet 6.25 mg PO BID Qty: 180 0RF losartan 50 mg tablet 50 mg PO DAILY Qty: 90 1RF Date of admission: 05/28/24 12:51 Primary Care Provider: Santy Sarkar Admitting Provider: Eli Burks Attending physician on admission: Eli Burks Condition: Stable Quality VTE Prophylaxis VTE prophylaxis: mechanical ordered Hospitalist MIPS Heart Failure (Exclusion) Patient has history of Heart Transplant or Left Ventricular Assistive Device?: No IF YES, STOP HERE Heart Failure (Qualifier) Patient has current or prior documentation of LVEF less than or equal to 40%, or mod/servere depressed LVSF?: No IF NO, STOP HERE
[2024-05-30 14:00] VITALS: BP 159/62; PULSE 58; RESP 18; TEMP 36.6; O2SAT 99
[2024-05-30] MEDS: IRON SUCROSE COMPLEX 200 MG in SODIUM CHLORIDE 0.9% IV 100 ML 220 MG IVPB (14:24)
== END 2024-05-30 15:55 | disposition home or self-care (01) ==
LOC: ANHED 12:55 → ANH3MEDSUR 14:37
PROVIDERS: Family Medicine; Internal Medicine Gastroenterology; Physician Assistant; Admitting Provider Hospitalist; Emergency Provider Emergency Medicine; PCP Family Medicine; Visit Provider Hospitalist
PROC: 0DJ08ZZ Inspection of Upper Intestinal Tract, Via Natural or Artificial Opening Endoscopic (ICD-10-PCS; CPT 45378; principal; 2024-05-30 10:15)
DX: D50.9 Iron deficiency anemia, unspecified (principal); R19.5 Other fecal abnormalities; K29.30 Chronic superficial gastritis without bleeding; Z12.11 Encounter for screening for malignant neoplasm of colon; K56.609 Unspecified intestinal obstruction, unspecified as to partial versus complete obstruction; F17.210 Nicotine dependence, cigarettes, uncomplicated; I25.10 Atherosclerotic heart disease of native coronary artery without angina pectoris; E11.22 Type 2 diabetes mellitus with diabetic chronic kidney disease; I12.9 Hypertensive chronic kidney disease with stage 1 through stage 4 chronic kidney disease, or unspecified chronic kidney disease; N18.31 Chronic kidney disease, stage 3a; E78.00 Pure hypercholesterolemia, unspecified; J44.9 Chronic obstructive pulmonary disease, unspecified; G47.33 Obstructive sleep apnea (adult) (pediatric); Z95.1 Presence of aortocoronary bypass graft; Z99.89 Dependence on other enabling machines and devices; Z79.51 Long term (current) use of inhaled steroids; Z79.84 Long term (current) use of oral hypoglycemic drugs; Z79.82 Long term (current) use of aspirin; Z79.899 Other long term (current) drug therapy
CPT/HCPCS: 43239; 45330; 36415; 36430; 80048; 80053; 82728; 82948; 83540; 83550; 83735; 84466; 85014; 85018; 85025; 85027; 85610; 85730; 86850; 86900; 86901; 86923; 88305; 93005; 96361; 96365; 96375; 96376; 99285; A9270; G0378; J1596; J1756; J2470; J2704; J7040; J7050; P9016

== ENCOUNTER 2024-06-21 13:58 | Outpatient (CLI) | payer MEDICARE, MEDICAID, SELFPAY ==
--- NOTE | ~2024-06-21 | CT_ITS ---
CT Scan of the Chest without Contrast: Clinical Indication: Lung cancer screening, nicotine dependence Technique: Contiguous sections were acquired throughout the chest without intravenous contrast. Dose reduction technique was used on this scan by utilizing automated exposure control and iterative recon struction technique. The dose-length product (DLP) was 81.13 mGy-cm. Findings: There is no evidence of any significant mediastinal, hilar or axillary lymphadenopathy. There are ath erosclerotic calcifications of the aorta and coronary arteries. There is no evidence of pleural or pericardial effusion. There is focal scarring in the anteromedial right upper lobe. No pulmonary nodule evident. Images through the upper abdomen reveal no abnormalities. Impression: Lung RADS 1: Negative. 12 month follow-up screening CT advised. Reviewed, dictated and finalized at location . Impression: Lung RADS 1: Negative. 12 month follow-up screening CT advised.
--- NOTE | ~2024-06-21 | XR_ITS ---
EXAMINATION: XR lg joint inject/asp w image DATE: 06/21/2024 16:07 INDICATION: Left hip pain TECHNIQUE: Radiographs of the left hip were obtained. A time-out was performed to verify the patien t's name, date of , and procedure to be performed. The procedure including the risks, benefits, and alternatives was discussed with the patient. Risks discussed included bleeding and infection. The patient understood the risks and agreed to proceed. The skin overlying the left hip joint was preppe d and draped in usual sterile fashion. Anesthetic was administered with 1% lidocaine subcutaneously. A 22 G spinal needle was advanced under fluoroscopic guidance into the right hip joint. Injectate consisting of 5;1 concentration of 1% lidocaine and Omnipaque 240 was instilled to confirm appropriat e placement within the right joint capsule. Once appropriate positioning was confirmed, an injectate consisting of 5% Marcaine (5 mL) along with 80 mg of Depo-Medrol, and 4 mL of 1% lidocaine was instil led. The needle was then removed and the entry site was cleaned and dressed. There were no immediate complications. Fluoroscopy exposure time was 1.9 minutes. DOSE AREA PRODUCT: 9.45 Gy-cm2 The total number of images was 1. FINDINGS: Real-time fluoroscopy demonstrates the needle and contrast in the left femoral acetabular j oint. IMPRESSION: Technically successful fluoroscopic guided left hip injection, as detailed above. Reviewed, dictated and finalized at location A. IMPRESSION: Technically successful fluoroscopic guided left hip injection, as detailed boo schulte
--- NOTE | ~2024-06-21 | XR_ITS ---
EXAMINATION: XR lg joint inject/asp w image DATE: 06/21/2024 16:07 INDICATION: Right hip pain TECHNIQUE: Radiographs of the right hip were obtained. A time-out was performed to verify the patie nt's name, date of , and procedure to be performed. The procedure including the risks, benefits, and alternatives was discussed with the patient. Risks discussed included bleeding and infection. Th e patient understood the risks and agreed to proceed. The skin overlying the right hip joint was prep ped and draped in usual sterile fashion. Anesthetic was administered with 1% lidocaine subcutaneousl y. A 22 G spinal needle was advanced under fluoroscopic guidance into the right hip joint. Injectat e consisting of 5;1 concentration of 1% lidocaine and Omnipaque 240 was instilled to confirm appropri ate placement within the right joint capsule. Once appropriate positioning was confirmed, an injectat e consisting of 5% Marcaine (5 mL) along with 80 mg of Depo-Medrol, and 4 mL of 1% lidocaine was inst illed. The needle was then removed and the entry site was cleaned and dressed. There were no immedia te complications. Fluoroscopy exposure time was 1.9 minutes. DOSE AREA PRODUCT: 9.45 Gy-cm2 The total number of images was 1. FINDINGS: Real-time fluoroscopy demonstrates the needle and contrast in the right femoral acetabular joint. IMPRESSION: Technically successful fluoroscopic guided right hip injection, as detailed above. Reviewed, dictated and finalized at location A. IMPRESSION: Technically successful fluoroscopic guided right hip injection, as detailed abo ve.
--- OUTSIDE RECORDS SUMMARY | 2024-06-21 14:02 | XMS_ITS | Clinical Summary ---
Author Organization [facility] Address [address] [place] [address] Care Team Providers Care Sports Administrator Name Role Phone Unavailable Primary Care Provider Unavailabl e Source Comments [facility],non-owned Affiliates and Associated Physician Practices is amultiple site organization consisting of ambulatory clinics and hospital sitesin [place], [place], [place] and [place]. This disclosure is being madepursuant to the Care Everywhere program and may not contain all information available regarding this patient. Last updated 17.[facility] Encounters Date Type Department Care Team Description 06/10/2024 Telephone [facility] ENDOSCOPY [address] [place] [address] Phyllis Hi Procedure (Colonoscopy Referral) from Last 3 Months Social History Tobacco Use Types Packs/Day Years Used Date Smoking Tobacco: Never Assessed Sex and Gender Information Value Date Recorded Sex Assigned at Not on file Gender Identity Not on file Sexual Orientation Not on file Plan of Treatment Health Maintenance Due Date Last Done Comments BONE DENSITY TESTING 1948 COLOGUARD (AGES 45-75) - COL ON CA SCREENING 1948 COLON MONITORING 1948 COLONOSCOPY - COLON CA SCREENING 1948 CT COLONOGRAPHY - COLON CA SCREENING 1948 Colorectal Cancer Screening 1948 FIT - COLON CA SCREENING 1948 FLEX SIG - COLON CA SCREENING 1948 LIPID TESTING 1948 MAMMOGRAM 1948 HEPATITIS C SCREENING 09/24/1966 DTAP/TDAP/TD VACCINES (1 - Tdap) 09/29/1967 PNEUMOCOCCAL VACCINE 50+ (1 of 1 - PCV) 1998 ZOSTER VACCINE (1 of 2) 1998 Respiratory Syncytial Virus (RSV) Vaccine Pt: or over 60 yrs (1 - 1-dose 75+ series) 09/29/2023 COVID-19 VACCINE (2023-2 5 season) 2023 INFLUENZA VACCINE (#1) 2023 01/08/2023 DEPRESSION SCREENING 04/10/2024 HEPATITIS B VACCINE Aged Out No longe r eligible based on patient's age to complete this topic HIB VACCINE Aged Out No longer eligi ble based on patient's age to complete this topic HPV VACCINE Aged Out No longer eligi ble based on patient's age to complete this topic MENINGOCOCCAL (Group B) VACC INE SHARED DECISION-MAKING Aged Out No longer eligibl e based on patient's age to complete this topic MENINGOCOCCAL GROUPS A/C/Y/W VACCINE Aged Out No longer eligible b ased on patient's age to complete this topic
--- OUTSIDE RECORDS SUMMARY | 2024-06-21 14:02 | XMS_ITS | Referral Summary ---
Author Organization [facility] Address [address] [place] [address] Care Team Providers Care Talent Scout Name Role Phone Unavailable Primary Care Provider Unavailabl e Source Comments [facility],non-owned Affiliates and Associated Physician Practices is amultiple site organization consisting of ambulatory clinics and hospital sitesin [place], [place], [place] and [place]. This disclosure is being madepursuant to the Care Everywhere program and may not contain all information available regarding this patient. Last updated 17.[facility] Encounters Date Type Department Care Team Description 06/10/2024 Telephone [facility] ENDOSCOPY [address] [place] [address] Phyllis Hi Procedure (Colonoscopy Referral) from Last 3 Months Social History Tobacco Use Types Packs/Day Years Used Date Smoking Tobacco: Never Assessed Sex and Gender Information Value Date Recorded Sex Assigned at Not on file Gender Identity Not on file Sexual Orientation Not on file Plan of Treatment Not on file
--- OUTSIDE RECORDS SUMMARY | 2024-06-21 14:02 | XMS_ITS | Patient Health Record ---
Author Organization [facility] Address [address] [place] [address] Care Team Providers Care Importer Or Exporter Name Role Phone [facility] Langston, Tanda Unavailable [phone] Rojas Hanson Unavailable Unavailable Allergies No Known [...] Coverage End Date [employer] Claims [address] [address] [place], [place] [id number] Rosa Martino Self - patient is the insured Medical (General) History Medical History History ICD Code HTN Diabetes Hyperlipidemia, unspecified hyperlipidem ia type E78.5 Surgical History Surgery Date(Month/Year)
--- OUTSIDE RECORDS SUMMARY | 2024-06-21 14:02 | XMS_ITS | Patient Health Summary ---
Author Organization [facility] Address [address] [place] [address] Care Team Providers Care Ceramic Worker Name Role Phone Unavailable Primary Care Provider Unavailabl e Note from [facility],non-owned Affiliates and Associated Physician Practices is amultiple site organization consisting of ambulatory clinics and hospital sitesin [place], [place], [place] and [place]. This disclosure is being madepursuant to the Care Everywhere program and may not contain all information available regarding this patient. Last updated 17.[facility] Social History Tobacco Use Types Packs/Day Years Used Date Smoking Tobacco: Never Assessed Sex and Gender Information Value Date Recorded Sex Assigned at Not on file Gender Identity Not on file Sexual Orientation Not on file
--- OUTSIDE RECORDS SUMMARY | 2024-06-21 14:02 | XMS_ITS | Patient Health Record ---
Author Organization [facility] Address [address] [place] [address] Care Team Providers Care Yarn Mercerizer Operator Helper Name Role Phone Rojas Hanson Primary Care Provider UnavailCarolyn Carlson Unavailable Allergies No Known Allergies Reason For Referral No Information Medications Medication SIG (Take, Route, Frequency, Duration) Notes Start Date End Date Status Ipratropium [place] 0.03 % 2 sprays in e ach nostril Nasally Twice a day Active Aspirin 81 MG 1 tablet Orally Once a day Active [place] 3 340 MG 1 capsule Orally Twi [...] Notes Problem Atherosclerotic hear t disease of [place] coronary artery without angina pectoris (359121847856004) Atherosclerotic heart disease of [place] coronary artery without angina pectoris (I25.10) Active confirmed Problem hypercholesterolemia (disorder) (62575517) Hypercholesteremia (E78.00) Active confirmed Problem Hyperuricemia withou t signs of inflammatory arthritis and tophaceous disease (820711315) Hyperuricemia without signs inflammatory arthritis/tophaceou s disease (E79.0) Active confirmed Problem Cerebrovascular accident (512379068) Cerebrovascular accident (CVA), unspecified mechanism (I63.9) Active confirmed Problem Diabetic renal disea se (219894244) 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) Active confirmed Problem Smoking (43786270) Smoking (F17.200) Active con firmed Problem Renal cyst (799895569) Renal cyst (N28.1) Active confirmed Problem Peripheral arterial disease (875443843) Peripheral arterial disease (I73.9) Active confirmed Problem Benign essential hypertension (3189036) Benign essential hypertension (I10) Active confirmed Problem Chronic kidney disea se stage 2 (087722140) Stage 2 chronic kidney disease (N18.2) Active [...] End Date [employer] Care Plan [address] [address] [place] [address] [id number] Rosa Martino Self - patient is the insured Medical (General) History Medical History History ICD Code CABG HTN Hyperlipidemia Anxiety Vitamin D deficiency Surgical History Surgery Date(Month/Year) Hysterectomy 1985 Heart surgery 2012 LT eye cataract 04/2022
== END 2024-06-21 13:59 | disposition home or self-care (01) ==
LOC: ANHIMG 14:00
PROVIDERS: PCP Family Medicine; Visit Provider Orthopaedic Surgery
DX: Z12.2 Encounter for screening for malignant neoplasm of respiratory organs (principal); Z87.891 Personal history of nicotine dependence; M16.11 Unilateral primary osteoarthritis, right hip; M16.12 Unilateral primary osteoarthritis, left hip
CPT/HCPCS: 20610; 71271; 77002

== ENCOUNTER 2024-07-09 14:14 | Outpatient (CLI) | payer MEDICARE, MEDICAID, SELFPAY ==
--- NOTE | ~2024-07-09 | MM_ITS ---
EXAMINATION: MM screening sebastian BI w gee HISTORY: Screening TECHNIQUE: Craniocaudal and mediolateral oblique 3-D tomosynthesis images were obtained and synthetic 2-D images were generated. CAD analysis was submitted and interpreted. COMPARISON: No prior mammogram is available for comparison at this institution. BREAST PARENCHYMAL COMPOSITION: Dense: The breasts are extremely dense, which lowers the sensitivity of mammography. FINDINGS: There is no evidence of suspicious mass, calcification, or architectural distortion to sugg est malignancy in either breast. There has been no suspicious interval change. IMPRESSION: 1. No mammographic evidence of malignancy. 2. Recommend routine screening mammography in one year. BI-RADS Category 1: Negative Reviewed, dictated and finalized at location A.
== END 2024-07-09 14:15 | disposition home or self-care (01) ==
LOC: MICIMG 14:14
PROVIDERS: PCP Family Medicine; Visit Provider Family Medicine
DX: Z12.31 Encounter for screening mammogram for malignant neoplasm of breast (principal)
CPT/HCPCS: 77063; 77067

== ENCOUNTER 2024-07-12 11:41 | Emergency (ER) | payer MEDICARE, MEDICAID, SELFPAY ==
--- NOTE | ~2024-07-12 | XR_ITS ---
XR chest 2V 07/12/2024 13:03 Indication: Stroke symptoms Procedure: 2 view chest Comparison: No prior studies for comparison. Findings: Status post median sternotomy for CABG. Heart size normal. Left basilar atelectasis. No foc al pneumonia, pleural effusion, edema or pneumothorax. Impression: 1: Subsegmental atelectasis left lung base. Reviewed, dictated and finalized at location A. Impression: 1: Subsegmental atelectasis left lung base.
--- NOTE | ~2024-07-12 | CT_ITS ---
EXAMINATION: CTA BRAIN/CAROTID DATE: 07/12/2024 12:59 INDICATION: Dysarthria. Visual changes. TECHNIQUE: Computed tomographic angiography (CTA) of the head and neck was performed with 100 mL Omni paque-350 intravenous contrast. Multiplanar reconstructions and maximum intensity projection 3D-recon structions of the carotid arteries and of the intracranial arteries were created by the technologist on a separate workstation. Precontrast CT of the head was also obtained. Automated exposure control and iterative reconstruction technique were employed.The dose-length product was 1478.83 mGy-cm. COMPARISON: None. FINDINGS: Carotid arteries: Atherosclerotic calcification without hemodynamically significant stenosis along the normal caliber a ortic arch and great vessels arising from the arch with no dissection. There is atherosclerotic plaqu e with 0% stenosis of the right carotid bulb relative to normal distal artery lumen diameter (NASCET criteria). There are some surgical clips about the right carotid bulb suggesting prior carotid endart erectomy. There is 25% stenosis of the left carotid bulb relative to normal distal artery lumen diame ter. Mild emphysema. Moderate cervical spondylosis. Head: Small old lacunar infarct in the right frontal lobe arvizu radiata. No acute intracranial hemorrhage, acute infarction or abnormal extra axial fluid collection. There is mild scattered white matter hypo attenuation consistent with chronic small vessel ischemic disease. Symmetric prominence of the sulci and subarachnoid spaces overlying the convexities and cerebellar hemispheres consistent with mild to moderate age-appropriate diffuse cerebral volume loss. Ventricles are normal and symmetric. No mass/m ass effect. No abnormally enhancing lesions on the postcontrast imaging. Changes of bilateral intraoc ular lens replacement. The orbits, paranasal sinuses and mastoid air cells are normal. Intracranial arteries Left vertebral artery is dominant. Mild atherosclerotic plaque at the bilateral carotid siphons and a long the right vertebral artery without hemodynamically significant stenosis. There is no hemodynamic ally significant stenosis in the vertebral, basilar and internal carotid arteries. There are no aneur ysms identified. Both A1 and P1 segments are patent. Cerebral arterial arborization appears symmetr ic. IMPRESSION: 1. Atherosclerotic plaque with 0% stenosis of the right carotid bulb relative to normal distal artery lumen diameter (NASCET criteria). 2. 25% stenosis of the left carotid bulb relative to normal distal artery lumen diameter. 3. No hemodynamically significant stenosis, aneurysm or thrombosis of the intracranial arteries. 4. Small old lacunar infarct at the right frontal lobe arvizu radiata. No acute intracranial process or abnormally enhancing brain lesions. 5. Age-related changes including mild to moderate diffuse on loss and mild scattered white matter hyp oattenuation consistent with chronic small vessel ischemic disease. Reviewed, dictated and finalized at location A. IMPRESSION: 1. Atherosclerotic plaque with 0% stenosis of the right carotid bulb relative t o normal distal artery lumen diameter (NASCET criteria). 2. 25% stenosis of the left carotid bulb relative to normal distal artery lumen diameter. 3. No hemodynamically significant stenosis, aneurysm or thrombosis of the intra cranial arteries. 4. Small old lacunar infarct at the right frontal lobe arvizu radiata. No acute intracranial process or abnormally enhancing brain lesions. 5. Age-related changes including mild to moderate diffuse on loss and mild scat tered white matter hypoattenuation consistent with chronic small vessel ischemi c disease.
[2024-07-12 11:46] VITALS: BP 140/59; PULSE 56; RESP 18; TEMP 36.2; O2SAT 99
--- NOTE | 2024-07-12 11:56 | ECG_ITS ---
Test Date: 2024-07-12 12:30:57 Measurements Intervals Sutton Rate: 57 P: 87 DC: 207 QRS: 36 QRSD: 93 T: 52 QT: 425 QTc: 416 Interpretive Statements SINUS BRADYCARDIA WITH OCCASIONAL SUPRAVENTRICULAR PREMATURE COMPLEXES BORDERLINE ECG Compared to ECG 05/28/2024 13:25:56 HEART RATE HAS DECREASED Electronically Signed On 07-12-2024 13:54:29 CDT by Jamie Babb D.O.
--- OUTSIDE RECORDS SUMMARY | 2024-07-12 11:58 | XMS_ITS | Clinical Summary ---
Author Organization [facility] Address [address] [place] [address] Care Team Providers Care Quality Control Director Name Role Phone Unavailable Primary Care Provider Unavailabl e Source Comments [facility],non-owned Affiliates and Associated Physician Practices is amultiple site organization consisting of ambulatory clinics and hospital sitesin [place], [place], [place] and [place]. This disclosure is being madepursuant to the Care Everywhere program and may not contain all information available regarding this patient. Last updated 17.[facility] Encounters Date Type Department Care Team Description 06/10/2024 Telephone [facility] [address] [place] [address] Phyllis Hi Procedure (Colonoscopy Referral) [...]
--- OUTSIDE RECORDS SUMMARY | 2024-07-12 11:58 | XMS_ITS | Patient Health Record ---
Author Organization [facility] Address [address] [place] [address] Care Team Providers Care Gre Tutor Name Role Phone Rojas Hanson Primary Care Provider UnavailCarolyn Carlson Unavailable Allergies No Known Allergies Reason For Referral No Information Medications Medication SIG (Take, Route, Frequency, Duration) Notes Start Date End Date Status Ipratropium Lanse 0.03 % 2 sprays in e ach nostril Nasally Twice a day Active Aspirin 81 MG 1 tablet Orally Once a day Active [place] 3 340 MG 1 capsule Orally Twi [...] Notes Problem Atherosclerotic hear t disease of [place] coronary artery without angina pectoris (318242506698986) 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.10) Active confirmed Problem hypercholesterolemia (disorder) (01275571) Hypercholesteremia (E78.00) Active confirmed Problem Hyperuricemia withou t signs of inflammatory arthritis and tophaceous disease (530193462) Hyperuricemia without signs inflammatory arthritis/tophaceou s disease (E79.0) Active confirmed Problem Cerebrovascular accident (004691893) Cerebrovascular accident (CVA), unspecified mechanism (I63.9) Active confirmed Problem Diabetic renal disea se (663140042) 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) Active confirmed Problem Smoking (64976512) Smoking (F17.200) Active con firmed Problem Renal cyst (071574567) Renal cyst (N28.1) Active confirmed Problem Peripheral arterial disease (452577587) Peripheral arterial disease (I73.9) Active confirmed Problem Benign essential hypertension (8148668) Benign essential hypertension (I10) Active confirmed Problem Chronic kidney disea se stage 2 (633044613) Stage 2 chronic kidney disease (N18.2) Active [...] End Date [employer] Care Plan [address] [address] [place] [address] [id number] Rosa Martino Self - patient is the insured Medical (General) History Medical History History ICD Code CABG HTN Hyperlipidemia Anxiety Vitamin D deficiency Surgical History Surgery Date(Month/Year) Hysterectomy 1985 Heart surgery 2012 LT eye cataract 04/2022
--- OUTSIDE RECORDS SUMMARY | 2024-07-12 11:58 | XMS_ITS | Patient Health Record ---
Author Organization [facility] Address [address] [place] [address] Care Team Providers Care Grocery Manager Name Role Phone [facility] Langston, Tanda Unavailable [phone] Rojas Hanson Unavailable Unavailable Allergies No Known [...] Coverage End Date [employer] Claims [address] [address] [place], [place] [id number] Rosa Martino Self - patient is the insured Medical (General) History Medical History History ICD Code HTN Diabetes Hyperlipidemia, unspecified hyperlipidem ia type E78.5 Surgical History Surgery Date(Month/Year)
[2024-07-12 12:02] VITALS: BP 150/73; RESP 18; TEMP 36.9; O2SAT 100
[2024-07-12 12:06] VITALS: RESP 18; O2SAT 100
[2024-07-12 12:24] VITALS: BP 141/63; PULSE 87; O2SAT 100
[2024-07-12 12:34] LABS: Basophils Percent Auto 0.2 % (0.2-1.2); Eosinophils Absolute Auto 0.2 K/mm3 (0-0.3); Eosinophils Percent Auto 3.2 % (0-4.4); Hematocrit 37.5 % (37.0-47.0); Hemoglobin 11.5 g/dL (12.0-15.0); Immature Granulocyte Absolute 0.02 K/mm3 (0.00-0.031); Immature Granulocyte Percent A 0.4 % (0-0.5); Lymphocytes Percent Auto 26.2 % (18.3-44.2); Mean Corpuscular HGB Conc 30.7 g/dl (32-36); Mean Corpuscular Hemoglobin 26.4 pg (26-34); Mean Corpuscular Volume 86.2 fl (80-100); Mean Platelet Volume 10.2 fl (7.4-10.4); Monocytes Absolute Auto 0.5 K/mm3 (0.1-0.6); Monocytes Percent Auto 10.7 % (2.6-8.5); Neutrophils Absolute Auto 2.9 K/mm3 (1.3-6.7); Neutrophils Percent Auto 59.3 % (45.5-73.1); Platelet Count Result 213 k/mm3 (150-375); Red Blood Count 4.35 M/mm3 (4.2-5.4)
[2024-07-12 12:38] LABS: Alanine Aminotransferase 28 U/L (6-35); Albumin Level 4.5 g/dL (3.5-5.1); Alkaline Phosphatase 82 U/L (38-126); Anion Gap 8 mmol/L (4-12); Aspartate Amino Transferase 43 U/L (14-36); Bilirubin,Total 0.4 mg/dL (0.2-1.3); Blood Urea Nitrogen 20 mg/dL (7-17); Calcium 9.4 mg/dL (8.4-10.2); Carbon Dioxide 29 mmol/L (22-30); Chloride 102 mmol/L (98-107); Estimated CRCL calculation 39 ml/min; Estimated Glomerular Filt Rate 53; Glucose 92 mg/dL (65-110); Potassium 4.5 mmol/L (3.4-5.0); Sodium 139 mmol/L (137-145)
[2024-07-12 12:40] LABS: Prothrombin Time 13.3 Seconds (11.1-14.7)
[2024-07-12 12:50] LABS: Troponin I < 0.012 ng/mL (0.000-0.034)
[2024-07-12 12:55] LABS: Anisocytosis 2+; Ovalocytes 1+; Platelet Estimate Adequate (Adequate)
--- NOTE | 2024-07-12 13:53 | ED_ITS ---
HPI - General Adult General Chief complaint: Unspecified Stated complaint: sent in by PMD for CVA eval-several days old Time Seen by Provider: 07/12/24 12:05 History of Present Illness HPI narrative: Patient is a 73-year-old female who presents ER with concerns for stroke symptoms. Four days ago patient began having expressive aphasia with dysarthria as well as having floating white spots in her vision. She would get dizzy when she would lean forward. The symptoms were constant until this morning when they resolved after waking. She had called her PCP yesterday who told her she should come to the ER for evaluation but she opted wait till today. Denies any medication changes. No complaints at this time. Daughter present reports patient has history of CVA 2007. Daughter witnessed poor speech over last few days. She 2 reports that the patient is back to her baseline. Related Data Home Medications ?Medication ?Instructions ?Recorded ?Confirmed ?Last Taken ?Type atorvastatin 40 mg tablet 40 mg PO DAILY 08/18/23 06/14/24 05/27/24 History sertraline 100 mg tablet 100 mg PO BID 08/18/23 06/14/24 05/27/24 History calcium 500 mg (as 1 tablet PO DAILY 11/22/23 06/14/24 05/27/24 History carbonate)-vitamin D3 10 mcg (400 unit) tablet Allergies Allergy/AdvReac Type Severity Reaction Status Date / Time No Known Allergies Allergy Verified 07/12/24 11:43 Review of Systems 2 Review of Systems: All systems reviewed & are unremarkable except as noted in HPI and below Constitutional: Constitutional: Reports no additional constitutional complaints ENT: Reports system reviewed and no additional complaints, except as documented Cardiovascular: Cardiovascular: Reports no additional cardiovascular complaints Respiratory: Respiratory: Reports no additional respiratory complaints Gastrointestinal: Gastrointestinal: Reports no additional gastrointestinal complaints Musculoskeletal: Musculoskeletal: Reports no additional musculoskeletal complaints [facility] Past Medical History Medical History Chronic obstructive pulmonary disease Osteoarthritis of hips, bilateral Cigarette nicotine dependence with nicotine-induced disorder Stage 3a chronic kidney disease Obstructive sleep apnea Major depressive disorder in partial remission Iron deficiency Atherosclerosis of [place] coronary artery of [place] heart without angina pectoris Pure hypercholesterolemia, unspecified Essential (primary) hypertension Type 2 diabetes mellitus with chronic kidney disease Carpal tunnel syndrome Surgical History Surgical History History of coronary artery bypass graft x 2 (2013) History of carotid endarterectomy (2007) Family History Family History Unknown Asthma Hypertension Depression Heart disease Lung disease Arthritis Cerebrovascular accident High cholesterol Social History Social History Social History: Surrogate medical decision maker: Lynn Mccarthy, daughter. Code status: Full code. Smoking packs per day: 0.5 Smoking cigarettes per day: 10.0 Years smoked: 45 Smoking pack-years: 22.50 Smoking status: Current every day smoker Alcohol intake: never Substance use: never Substance use type: does not use Do You Feel Safe in your Home?: Yes Lack of Transportation: No Lack of Food: Never True Current Housing: I Have Housing Concerned About Future Housing: No Difficulty Paying Gas/Electric Bills: No Difficulty Paying for Meds: No Currently Unemployed: No Education: High School Diploma/GED Difficulty w/ Childcare or Family Care: No Living arrangements: with family Occupation/Education: retired Spiritual care concerns: No Exam 2 Narrative: GENERAL: Well-appearing, well-nourished, and in no acute distress. HEAD: Normocephalic, atraumatic. EYES: PERRL and EOMI. ENT: Mucous membranes moist. CHEST: Clear to auscultation. No respiratory distress. HEART: Regular rate and rhythm. Normal peripheral pulses. EXTREMITIES: Normal range of motion. No edema. SKIN: Warm, dry, no rash. NEURO: No focal deficits. Clear speech and no expressive aphasia. No upper or lower extremity drift. Normal swde-jt-uliy testing and hivfov-hf-qhot testing. Face symmetric. Alert and oriented x3. NIH stroke scale 0. PSYCH: Normal mood and affect. Course Course Emergency Course: Patient and family informed of results. Recommend admission to hospitalist service for further workup and Neurology consultation tomorrow. Patient declines, she is not willing to stay in the hospital. I have discussed with her PCP, though he would recommend she stay in the hospital she continues to refuse. She will be started on dual anti-platelet therapy for the next 21 days and can follow-up with her PCP. Vital Signs Vital signs: Vital Signs Temperature 97.2 F L 07/12/24 11:46 Pulse Rate 56 L 07/12/24 11:46 Respiratory Rate 18 07/12/24 11:46 Blood Pressure 140/59 L 07/12/24 11:46 Pulse Oximetry 99 07/12/24 11:46 Oxygen Delivery Room Air 07/12/24 11:46 Temperature 98.4 F 07/12/24 12:02 Pulse Rate 87 07/12/24 12:24 Respiratory Rate 18 07/12/24 12:06 Blood Pressure 141/63 H 07/12/24 12:24 Pulse Oximetry 100 07/12/24 12:24 Oxygen Delivery Room Air 07/12/24 12:02 Medical Decision Making Vital Signs Vital Signs: Vital Signs Temperature 97.2 F L 07/12/24 11:46 Pulse Rate 56 L 07/12/24 11:46 Respiratory Rate 18 07/12/24 11:46 Blood Pressure 140/59 L 07/12/24 11:46 Pulse Oximetry 99 07/12/24 11:46 Oxygen Delivery Room Air 07/12/24 11:46 Temperature 98.4 F 07/12/24 12:02 Pulse Rate 87 07/12/24 12:24 Respiratory Rate 18 07/12/24 12:06 Blood Pressure 141/63 H 07/12/24 12:24 Pulse Oximetry 100 07/12/24 12:24 Oxygen Delivery Room Air 07/12/24 12:02 Lab Data 07/12/24 12:22 07/12/24 12:22 Labs: Lab Results 07/12/24 Range/Units 12:22 WBC 5.0 (4.5-10.0) K/mm3 RBC 4.35 (4.2-5.4) M/mm3 Hgb 11.5 L (12.0-15.0) g/dL Hct 37.5 (37.0-47.0) % MCV 86.2 (80-100) fl MCH 26.4 (26-34) pg MCHC 30.7 L (32-36) g/dl RDW TNP Plt Count 213 (150-375) k/mm3 MPV 10.2 (7.4-10.4) fl Immature Gran % (Auto) 0.4 (0-0.5) % Neut % (Auto) 59.3 (45.5-73.1) % Lymph % (Auto) 26.2 (18.3-44.2) % [place] % (Auto) 10.7 H (2.6-8.5) % Eos % (Auto) 3.2 (0-4.4) % Baso % (Auto) 0.2 (0.2-1.2) % Lymph # (Auto) 1.30 (0.9-3.2) K/mm3 [place] # (Auto) 0.5 (0.1-0.6) K/mm3 Eos # (Auto) 0.2 (0-0.3) K/mm3 Baso # (Auto) 0.0 (0.0-0.1) K/mm3 Abs Immat Gran (auto) 0.02 (0.00-0.031) K/mm3 Absolute Neuts (auto) 2.9 (1.3-6.7) K/mm3 Absolute Nucleated RBC 0.000 (0.0-0.012) K/mm3 Band Neutrophils % Not Reportable Nucleated RBC % 0.0 (0.0-0.2) % Platelet Estimate Adequate (Adequate) Anisocytosis 2+ Ovalocytes 1+ Schistocytes Not Reportable PT 13.3 (11.1-14.7) Seconds INR 1.0 APTT 23.0 (22.3-36.8) Seconds Sodium 139 (137-145) mmol/L Potassium 4.5 (3.4-5.0) mmol/L Chloride 102 (98-107) mmol/L Carbon Dioxide 29 (22-30) mmol/L Anion Gap 8 (4-12) mmol/L BUN 20 H D (7-17) mg/dL Creatinine 1.01 H (0.7-1.0) mg/dL Estim Creat Clear Calc 39 ml/min Estimated GFR 53 L (59 - ) Glucose 92 (65-110) mg/dL Calcium 9.4 (8.4-10.2) mg/dL Total Bilirubin 0.4 (0.2-1.3) mg/dL AST 43 H (14-36) U/L ALT 28 (6-35) U/L Alkaline Phosphatase 82 (38-126) U/L Troponin I < 0.012 (0.000-0.034) ng/mL Total Protein 8.0 (6.3-8.2) g/dL Albumin 4.5 (3.5-5.1) g/dL Imaging Data Radiologist's impression: ITS Impressions Head/Neck CTA 07/12/24 13:05 IMPRESSION: 1. Atherosclerotic plaque with 0% stenosis of the right carotid bulb relative to normal distal artery lumen diameter (NASCET criteria). 2. 25% stenosis of the left carotid bulb relative to normal distal artery lumen diameter. 3. No hemodynamically significant stenosis, aneurysm or thrombosis of the intracranial arteries. 4. Small old lacunar infarct at the right frontal lobe arvizu radiata. No acute intracranial process or abnormally enhancing brain lesions. 5. Age-related changes including mild to moderate diffuse on loss and mild scattered white matter hypoattenuation consistent with chronic small vessel ischemic disease. Chest X-Ray 07/12/24 13:15 Impression: 1: Subsegmental atelectasis left lung base. ECG Data EKG #1: ECG completion date: 07/12/24 ECG completion time: 12:30 EKG Interpretation: bradycardia (57), sinus rhythm, PACs, normal QRS, normal QT and NL axis Discharge Plan Discharge Clinical Impression: Brain TIA Patient Disposition: Home, Self-Care Condition: Stable Instructions: Transient Ischemic Attack (ED) Additional Instructions: Return the ER if you have new weakness or numbness to any arm or leg, you have slurred speech, or you have additional concerns. Follow-up with your primary care doctor. Continue to take your baby aspirin and also begin taking Plavix. Patient Language: Jordanian Prescriptions: New clopidogrel [Plavix] 75 mg tablet 75 mg PO DAILY Qty: 21 0RF No Action sertraline 100 mg tablet 100 mg PO BID atorvastatin 40 mg tablet 40 mg PO DAILY aspirin 81 mg tablet,delayed release (DR/EC) 81 mg PO DAILY Qty: 90 0RF famotidine 20 mg tablet 20 mg PO BID Qty: 180 0RF loratadine [Claritin] 10 mg tablet 10 mg PO DAILY Qty: 90 0RF Centrum Silver 0.4 mg-300 mcg- 250 mcg tablet 1 tablet PO DAILY Qty: 90 0RF calcium carbonate-vitamin D3 500 mg-10 mcg (400 unit) tablet 1 tablet PO DAILY clobetasol 0.05 % solution 1 applic topical BID Qty: 50 1RF ketoconazole 2 % shampoo 1 applic topical 2XW Qty: 120 1RF ferrous gluconate 324 mg (38 mg iron) tablet 324 mg PO DAILY Qty: 30 3RF ipratropium bromide 21 mcg (0.03 %) spray,non-aerosol 2 spray intranasal TID Qty: 30 0RF Rx Instructions: administer into each nostril carvedilol 6.25 mg tablet 6.25 mg PO BID Qty: 180 0RF losartan 50 mg tablet 50 mg PO DAILY Qty: 90 1RF fluticasone propion-salmeterol [Advair Diskus] 250-50 mcg/dose blister with device 1 inh inhalation BID Qty: 60 1RF Follow-up/Referrals: Santy Sarkar MD [Primary Care Provider] - 1 Week
[2024-07-12] MEDS: CLOPIDOGREL BISULFATE 300 MG TABLET PO (15:31)
== END 2024-07-12 15:46 | disposition home or self-care (01) ==
PROVIDERS: Emergency Provider Emergency Medicine; PCP Family Medicine
DX: G45.9 Transient cerebral ischemic attack, unspecified (principal); J44.9 Chronic obstructive pulmonary disease, unspecified; I12.9 Hypertensive chronic kidney disease with stage 1 through stage 4 chronic kidney disease, or unspecified chronic kidney disease; E11.22 Type 2 diabetes mellitus with diabetic chronic kidney disease; N18.31 Chronic kidney disease, stage 3a; I25.10 Atherosclerotic heart disease of native coronary artery without angina pectoris; F17.210 Nicotine dependence, cigarettes, uncomplicated
CPT/HCPCS: 36415; 70496; 70498; 71046; 80053; 84484; 85025; 85610; 85730; 93005; 99284; A9270; Q9967

== ENCOUNTER 2024-08-06 07:38 | Outpatient (CLI) | payer MEDICARE, MEDICAID, SELFPAY ==
--- NOTE | ~2024-08-06 | MR_ITS ---
EXAMINATION: MR brain/brain stem wo con DATE: 08/06/2024 08:20 INDICATION: Transient cerebral ischemic attack TECHNIQUE: Magnetic resonance imaging (MRI) of the brain and brainstem was performed without intraven ous contrast. Sequences included sagittal and axial T1-weighted SE, axial diffusion-weighted FS SE, a xial 3D SWAN, axial T2-weighted FLAIR, and axial T2-weighted FSE. Apparent diffusion coefficient (ADC ) maps were created. COMPARISON: Head CT and CT angiogram dated 07/12/2024 FINDINGS: Again seen are small infarcts along a right parieto-occipital gyrus and in the right frontal lobe whi te matter. There are no areas of restricted diffusion to suggest acute infarction. No intracranial he morrhage or abnormal intracranial mass lesion. There are no intraparenchymal signal abnormalities se en on the other pulse sequences. Symmetric prominence of the sulci and and subarachnoid spaces overly ing the convexities consistent with mild to moderate age-appropriate diffuse cerebral volume loss. T he ventricles are symmetric and normal in size. There are no abnormal extra-axial fluid collections. Flow voids are seen in the cerebral arteries on the T2-weighted sequences consistent with their expec kaley patency. Changes of bilateral intraocular lens replacement. Visualized orbits and soft tissues a re unremarkable. IMPRESSION: 1. Small old right parieto-occipital and right frontal lobe infarcts. No acute intracranial process. Reviewed, dictated and finalized at location B.
--- OUTSIDE RECORDS SUMMARY | 2024-08-06 07:45 | XMS_ITS | Clinical Summary ---
Author Organization [facility] Address [address] [place] [address] Care Team Providers Care Director Private Name Role Phone Unavailable Primary Care Provider Unavailabl e Source Comments [facility],non-owned Affiliates and Associated Physician Practices is amultiple site organization consisting of ambulatory clinics and hospital sitesin [place], [place], [place] and [place]. This disclosure is being madepursuant to the Care Everywhere program and may not contain all information available regarding this patient. 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 Gender Identity Not on file Sexual Orientation [...] - 1-dose 75+ series) 09/29/2023 COVID-19 VACCINE ( - 2023-2 5 season) 2023 DEPRESSION SCREENING 04/10/2024 INFLUENZA VACCINE (Season Ended) 2024 01/09/20 23 HEPATITIS B VACCINE Aged Out No longe [...] on patient's age to complete this topic Insurance [employer] MED[employer] - [place] SELF PAY NO INSURANCE Member Subscriber Plan / Payer (Ef fective for All Dates) Name:Jagdeep Leon Member ID:Not on file Relation to Subscriber:Not on file Name:JAGDEEP LEON Subscriber ID:Not on file (Home) Address: [address] [place] [phone] Payer ID:Not on file Group ID:Not on file Type:Self Pay Address: [place], [place]
== END 2024-08-06 07:39 | disposition home or self-care (01) ==
PROVIDERS: PCP Family Medicine; Visit Provider Family Medicine
DX: I69.314 Frontal lobe and executive function deficit following cerebral infarction (principal); I63.9 Cerebral infarction, unspecified; G45.9 Transient cerebral ischemic attack, unspecified
CPT/HCPCS: 70551

== ENCOUNTER 2024-09-08 12:29 | Outpatient (CLI) | payer MEDICARE, MEDICAID, SELFPAY ==
--- NOTE | ~2024-09-08 | CT_ITS ---
EXAMINATION: CT abdomen pelvis wo con DATE: 09/08/2024 12:56 INDICATION: Left lower quadrant pain TECHNIQUE: Computed tomography (CT) of the abdomen and pelvis was performed without intravenous contr ast. The dose-length product was 188.28 mGy-cm. Automated exposure control and iterative reconstructi on technique were employed. COMPARISON: None. FINDINGS: Lung bases are unremarkable. Heart size normal. No significant pleural or pericardial effus ion. The liver, spleen, pancreas, adrenal glands and left kidney are unremarkable. There is focal cor tical thinning of the lower pole of the left kidney. There is a 3.8 cm lower pole cyst of the right k idney. No hydronephrosis. Gallbladder is present. There is thickening of the sigmoid colon with diver ticulosis and focal areas of surrounding inflammation in the proximal sigmoid colon, consistent with acute diverticulitis. Cannot exclude underlying mass. No evidence for perforation or abscess. There i s suprarenal 3.1 cm abdominal aortic aneurysm. Severe lumbar spondylosis. No free air or lymphadenopa thy. IMPRESSION: 1. Acute uncomplicated severe lumbar spondylosis. There is focal suprarenal abdominal aortic aneurysm measuring 3.1 cm. No free air. Proximal sigmoid diverticulitis. Cannot exclude underlying mass. Steven mmend GI consultation. Reviewed, dictated and finalized at location A. IMPRESSION: 1. Acute uncomplicated severe lumbar spondylosis. There is focal suprarenal abd ominal aortic aneurysm measuring 3.1 cm. No free air. Proximal sigmoid divertic ulitis. Cannot exclude underlying mass. Recommend GI consultation.
--- OUTSIDE RECORDS SUMMARY | 2024-09-08 18:05 | XMS_ITS | Referral Summary ---
Author Organization [facility] [address] [place] [address] Address [address] [facility] [address] [place] [address] Care Team Providers Care Brewery Representative Name Role Phone Shana Sarkar MD Primary Care Provider [phone] Encounters Date Type Department Care Team Description 08/22/2024 9:15 AM CDT Ancillary Procedure [facility] Medical [facility] Cardiology [address] [place] [address] [address] [place] [address] Transient cerebral ischemia, unspecified type 08/14/2024 11:45 AM CDT Office Visit [facility] Cardiology [address] [place] [address] [address] [place] [address] Jr Petit MD Preop cardiovascular exam (Primary Dx); Coronary artery disease involving ambler coronary artery 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 pectoris; S/P CABG x 2; Primary hypertension; Chronic obstructive pulmonary disease, unspecified COPD type (HCC); Tobacco abuse from Last 3 Months Allergies No known active allergies Medications carvediloL (COREG) 6.25 mg tablet Take 1 tablet (6.25 mg total) by mouth 2 (two) times a day with meals 5 Active fluticasone propion-salmet Allegra (ADVAIR DISKUS) 250-50 mcg/dose diskus inhaler Inhale 1 puff 2 (two) times a day 5 Active losartan (COZAAR) 50 mg tablet Take 1 tablet (50 mg total) by mouth daily 5 Active ipratropium (ATROVENT) 21 mcg (0.03 %) nasal spray Administer 1 spray into each nostril 2 (two) times a day 5 Active sertraline (ZOLOFT) 100 mg tablet Take 1 tablet (100 mg total) by mouth daily 5 Active ferrous gluconate 324 mg (37.5 mg of elemental iron) tablet Take 1 tablet (324 mg total) by mouth daily Active aspirin 81 mg enteric coated tablet Take 1 tablet (81 mg total) by mouth daily Active famotidine (PEPCID) 20 mg tablet Take 1 tablet (20 mg total) by mouth 2 (two) times a day Active atorvastatin (LIPITOR) 80 mg tablet Take 1 tablet (80 mg total) by mouth nightly 90 tablet 6 5 Active atorvastatin (LIPITOR) 40 mg tablet Take 1 tablet (40 mg total) by mouth daily 5 08/15/19 25 Discontinu ed(Alterna te therapy) Active Problems No known active problems Social History Tobacco Use Types Packs/Day Years Used Date Smoking Tobacco: Never Assessed Comments Unknown Sex and Gender Information Value Date Recorded Sex Assigned at Not on file 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 Gender Identity Not on file Sexual Orientation Not on file Last Filed Vital Signs Vital Sign Reading Time Taken Comments Blood Pressure 114/62 08/14/2024 12:08 PM CDT Pulse 66 08/14/2024 12:08 PM CDT Temperature - - Respiratory Rate - - Oxygen Saturation 99% 08/14/2024 12:08 PM CDT Inhaled Oxygen Concentration - - Weight 68 kg (150 lb) 08/14/2024 12:08 PM CDT Height 160 cm (5' 3) 08/14/2024 12:08 PM CDT Body Mass Index 26.57 08/14/2024 12:08 PM CDT Plan of Treatment Not on file Procedures Procedure Name Priority Date/Time Associated Diagnosis Comments TRANSTHORACIC ECHO (TTE) COMPLETE W DOPPLER/CF WO CONTRAST W BUBBLE Routine 08/22/2024 10:15 AM CDT Transient cerebral ischemia, unspecified type POCT LIPID PANEL Routine 08/14/2024 11:4 3 AM CDT Coronary artery disease involving ambler coronary artery 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 pectoris ELECTROCARDIOGRAM REPORT Routine 08/14/2024 Preop cardiovascular exam Coronary artery disease involving ambler coronary artery 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 pectoris S/P CABG x 2 from Last 3 Months Results * TRANSTHORACIC ECHO (TTE) COMPLETE W DOPPLER/CF WO CONTRAST W BUBBLE (08/22/2024 10:15 AM CDT) Estimated EF 60-65 % CONS SCIMAGE EF Mod BP 66 % CONS SCIMAGE Anatomical Region Laterality Modality Ultrasound 08/22/2024 9:17 AM CDT Narrative 08/22/2024 12:43 PM CDT [facility] Medical Group Cardiology [address], [place] [address] [address] [facility] [address], [place] [address] P:[phone] P:[phone] Echocardiographic Report Patient Name: ROSA LEON : 1950 Study Date: 08/22/2024 9:17:44 AM Gender: F Tech: [facility] Location: [facility] Provider: SHANA SARKAR Height(Cm): 160 BSA: 1.74 Weight(Kg): 68 Heart Rate: 56 BP: 114 / 62 Quality: Good Order Provider: SHANA SARKAR PROCEDURES: Echocardiographic Report: Transthoracic echocardiogram with complete 2D, M-Mode, and color Doppler examination. Saline Contrast Study. INDICATIONS: Transient Cerebral Ischemia. MEASUREMENTS: 2D/MM Value Range Doppler Value Range EF Mod BP 66 % [ 54 - 74 ] SAMIR Vmax 2.13 cm2 [ 2.00 - 4.00 ] EF Teich MM 68 % [ 54 - 74 ] AV Mean PG 4 mmHg Estimated EF 60-65 % AV Peak Ambrose 1.44 m/s [ 1.00 - 1.70 ] LVIDd 2D 5.00 cm [ 3.80 - 5.20 ] AV Peak PG 8 mmHg LVIDd MM 5.19 cm [ 3.80 - 5.20 ] AV VTI 32.36 cm LVIDs 2D 2.91 cm [ 2.20 - 3.50 ] LVOT Diam 2.00 cm [ 1.70 - 2.10 ] LVIDs MM 3.20 cm [ 2.20 - 3.50 ] LVOT Peak Ambrose 0.98 m/s [ 0.70 - 1.10 ] LVPWd 2D 0.79 cm [ 0.60 - 0.90 ] LVOT VTI 22.22 cm LVPWd MM 0.92 cm [ 0.60 - 0.90 ] MV E Peak Ambrose 0.79 m/s [ 0.60 - 1.30 ] IVSd 2D 0.83 cm [ 0.60 - 0.90 ] MV A Peak Ambrose 0.75 m/s [ 1.00 - 1.20 ] IVSd MM 0.84 cm [ 0.60 - 0.90 ] MV Mean PG 1 mmHg [ 0 - 5 ] LA Dimension 2D 3.45 cm [ 2.70 - 3.80 ] MV PHT 65 msec [ 20 - 100 ] LA Dimension MM 3.95 cm [ 2.70 - 3.80 ] MVA PHT 3.41 cm2 [ 2.00 - 4.00 ] AoR Diam 2D 3.40 cm [ 2.70 - 3.70 ] MV Decel Time 191 msec [ 104 - 258 ] AoR Diam MM 3.32 cm [ 2.70 - 3.70 ] PV Peak Ambrose 0.89 m/s [ 0.40 - 0.80 ] LA Volume Index 52 cc/m2 [ 16 - 34 ] TR Peak Ambrose 2.00 m/s [ 1.00 - 2.80 ] TR Peak PG 16 mmHg RVSP 19.00 mmHg [ 10.00 - 36.00 ] Lateral E` 0.10 m/s [ 0.10 - 0.15 ] E` 0.09 m/s E/E` 8 2D/MM Value Range Doppler Value Range - FINDINGS: Interpretation Site: Exam was interpreted at [facility]. Left Ventricle: Normal left ventricular systolic function. No focal wall motion abnormalities. Normal left ventricular size. Normal left ventricular wall thickness. Impaired diastolic relaxation Grade I. Ejection fraction is measured at 66 %. Ejection Fraction is visually estimated to be 60-65 %. Global Longitudinal Strain is -18 %. GLS is borderline. Right Ventricle: Normal right ventricular size. Normal right ventricular systolic function. Left Atrium: There is mild enlargement of left atrium. Right Atrium: The right atrium is normal in size. Atrial Septum: Normal atrial septum. Saline contrast study performed without evidence of right to left shunt. Mitral Valve: Normal appearance of the mitral valve. Mild mitral valve regurgitation. There is no hemodynamically significant mitral stenosis by Doppler. Aortic Valve: No evidence of hemodynamically significant aortic stenosis by Doppler. Aortic cusps appear mildly calcified. Trileaflet aortic valve. Trace aortic valve regurgitation. Tricuspid Valve: Normal appearance of the tricuspid valve. Normal right ventricular systolic pressure. Estimated peak RVSP is 19 mmHg. Mild tricuspid regurgitation. Pulmonic Valve: Normal appearance of the pulmonic valve. No pulmonic stenosis. Trivial regurgitation in the pulmonic valve. Pericardium: Normal pericardium with no significant pericardial effusion. Aorta: There is mild atherosclerosis in the aortic root. IVC: Normal size and normal respiratory collapse consistent with normal right atrial pressure (<5 mmHg). CONCLUSIONS: Normal left ventricular systolic function. No focal wall motion abnormalities. Normal left ventricular size. Normal left ventricular wall thickness. Impaired diastolic relaxation Grade I. Ejection fraction is measured at 66 %. Ejection Fraction is visually estimated to be 60-65 %. Global Longitudinal Strain is -18 %. GLS is borderline. There is mild enlargement of left atrium. Normal atrial septum. Saline contrast study performed without evidence of right to left shunt. Mild mitral valve regurgitation. Aortic cusps appear mildly calcified. Mild tricuspid regurgitation. Normal sinus rhythm. Electronically Signed By: Sacha Younger MD 08/22/2024 12:43:01 PM CDT Procedure Note Sacha Younger MD - 08/22/2024 [facility] Medical Group Cardiology [address] [facility] [address], [place] [address] [address] [facility] [address], [place] [address] P:[phone] P:[phone] Echocardiographic Report Patient Name: ROSA LEON : 1950 Study Date: 08/22/2024 9:17:44 AM Gender: F Tech: TIANA Location: [facility] Provider: SHANA SARKAR Height(Cm): 160 BSA: 1.74 Weight(Kg): 68 Heart Rate: 56 BP: 114 / 62 Quality: Good Order Provider: SHANA SARKAR PROCEDURES: Echocardiographic Report: Transthoracic echocardiogram with complete 2D, M-Mode, and color Dopplerexamination. Saline Contrast Study. INDICATIONS: Transient Cerebral Ischemia. MEASUREMENTS: 2D/MM Value Range Doppler ValueRange EF Mod BP 66 % [ 54 - 74 ] SAMIR Vmax 2.13cm2 [ 2.00 - 4.00 ] EF Teich MM 68 % [ 54 - 74 ] AV Mean PG 4mmHg Estimated EF 60-65 % AV Peak Ambrose 1.44m/s [ 1.00 - 1.70 ] LVIDd 2D 5.00 cm [ 3.80 - 5.20 ] AV Peak PG 8mmHg LVIDd MM 5.19 cm [ 3.80 - 5.20 ] AV VTI 32.36cm LVIDs 2D 2.91 cm [ 2.20 - 3.50 ] LVOT Diam 2.00 cm[ 1.70 - 2.10 ] LVIDs MM 3.20 cm [ 2.20 - 3.50 ] LVOT Peak Ambrose 0.98m/s [ 0.70 - 1.10 ] LVPWd 2D 0.79 cm [ 0.60 - 0.90 ] LVOT VTI 22.22cm LVPWd MM 0.92 cm [ 0.60 - 0.90 ] MV E Peak Ambrose 0.79m/s [ 0.60 - 1.30 ] IVSd 2D 0.83 cm [ 0.60 - 0.90 ] MV A Peak Ambrose 0.75m/s [ 1.00 - 1.20 ] IVSd MM 0.84 cm [ 0.60 - 0.90 ] MV Mean PG 1 mmHg[ 0 - 5 ] LA Dimension 2D 3.45 cm [ 2.70 - 3.80 ] MV PHT 65 msec[ 20 - 100 ] LA Dimension MM 3.95 cm [ 2.70 - 3.80 ] MVA PHT 3.41cm2 [ 2.00 - 4.00 ] AoR Diam 2D 3.40 cm [ 2.70 - 3.70 ] MV Decel Time 191msec [ 104 - 258 ] AoR Diam MM 3.32 cm [ 2.70 - 3.70 ] PV Peak Ambrose 0.89m/s [ 0.40 - 0.80 ] LA Volume Index 52 cc/m2 [ 16 - 34 ] TR Peak Ambrose 2.00m/s [ 1.00 - 2.80 ] TR Peak PG 16 mmHg RVSP 19.00 mmHg [ 10.00 - 36.00 ] Lateral E` 0.10 m/s [ 0.10 - 0.15 ] E` 0.09 m/s E/E` 8 2D/MM Value Range Doppler ValueRange - FINDINGS: Interpretation Site: Exam was interpreted at [facility]. Left Ventricle: Normal left ventricular systolic function. No focal wall motionabnormalities. Normal left ventricular size. Normal left ventricular wall thickness. Impaireddiastolic relaxation Grade I. Ejection fraction is measured at 66 %. EjectionFraction is visually estimated to be 60-65 %. Global Longitudinal Strain is -18 %. GLS isborderline. Right Ventricle: Normal right ventricular size. Normal right ventricular systolicfunction. Left Atrium: There is mild enlargement of left atrium. Right Atrium: The right atrium is normal in size. Atrial Septum: Normal atrial septum. Saline contrast study performed without evidence ofright to left shunt. Mitral Valve: Normal appearance of the mitral valve. Mild mitral valve regurgitation.There is no hemodynamically significant mitral stenosis by Doppler. Aortic Valve: No evidence of hemodynamically significant aortic stenosis by Doppler.Aortic cusps appear mildly calcified. Trileaflet aortic valve. Trace aortic valveregurgitation. Tricuspid Valve: Normal appearance of the tricuspid valve. Normal right ventricularsystolic pressure. Estimated peak RVSP is 19 mmHg. Mild tricuspid regurgitation. Pulmonic Valve: Normal appearance of the pulmonic valve. No pulmonic stenosis. Trivialregurgitation in the pulmonic valve. Pericardium: Normal pericardium with no significant pericardial effusion. Aorta: There is mild atherosclerosis in the aortic root. IVC: Normal size and normal respiratory collapse consistent with normal rightatrial pressure (<5 mmHg). CONCLUSIONS: Normal left ventricular systolic function. No focal wall motionabnormalities. Normal left ventricular size. Normal left ventricular wall thickness. Impaireddiastolic relaxation Grade I. Ejection fraction is measured at 66 %. EjectionFraction is visually estimated to be 60-65 %. Global Longitudinal Strain is -18 %. GLS isborderline. There is mild enlargement of left atrium. Normal atrial septum. Saline contrast study performed without evidence ofright to left shunt. Mild mitral valve regurgitation. Aortic cusps appear mildly calcified. Mild tricuspid regurgitation. Normal sinus rhythm. Electronically Signed By: Sacha Younger MD 08/22/2024 12:43:01 PM CDT Shana Sarkar MD CV ECHO PROCEDURES Final Resu lt * (ABNORMAL) POCT lipid panel (08/14/2024 11:43 AM CDT) Cholesterol, POC 243 <200 MG/DL HDL, POC 16(A) >=40 mg/dL Triglycerides, POC 85 <=149 mg/dL LDL Cholesterol POC 210(A) <=129 mg/dL Chol/HDL Ratio, POC 12.9 NONE Non-HDL Cholesterol, POC 227 NONE mg/dL Cholesterol Total, POC 243(A) 30 - 199 mg/dL Capillary blood 08/14/2024 1 1:43 AM CDT Jr Petit MD POINT OF CARE TEST ORDERABLES Fi nal Result * Electrocardiogram Report (08/14/2024) 08/14/2024 Jr Petit MD ECG ORDERABLES Edited Result - Final from Last 3 Months Insurance [employer] MEDICARE HMO Care Teams Brewery Representative Relationship Specialty Start Date End Date Shana Sarkar MD [address] [place] [address] [place] [id number] PCP - General Family Medicine 05/22/24
--- OUTSIDE RECORDS SUMMARY | 2024-09-08 18:05 | XMS_ITS | Clinical Summary ---
Author Organization [facility] [address] Address [address] [place] [address] Care Team Providers Care Claim Inspector Name Role Phone Shana Sarkar MD Primary Care Provider [phone] Allergies No known active allergies Medications carvediloL [...] tablet (40 mg total) by mouth daily 08/15/19 25 Discontinu ed(Alterna te therapy) Active Problems No known active problems Encounters Date Type Department Care Team Description 08/22/2024 9:15 AM CDT Ancillary Procedure [facility] Medical [facility] Cardiology [address] [place] [address] Transient cerebral ischemia, unspecified type 08/14/2024 11:45 AM CDT Office Visit [facility] Medical [facility] Cardiology [address] [place] [address] Jr Petit MD Preop cardiovascular exam (Primary Dx); Coronary artery disease involving [place] coronary artery of [place] heart without angina pectoris; S/P CABG x 2; Primary hypertension; Chronic obstructive pulmonary disease, unspecified COPD type (HCC); Tobacco abuse from Last 3 Months Social History Tobacco Use Types Packs/Day Years Used Date Smoking Tobacco: Never Assessed Comments Unknown Sex and Gender Information Value Date Recorded Sex Assigned at Not on file 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 Gender Identity Not on file Sexual Orientation [...] 08/14/2024 12:08 PM CDT Plan of Treatment Health Maintenance Due Date Last Done Comments Colon Cancer Screening-Colonoscopy 1950 Depression Screening 1950 Fall Risk Assessment 1950 Hepatitis C Screening 1950 Osteoporosis Screening-Bone Density Scan 1950 DTaP/Tdap/Td Vaccine (1 - Tdap) 09/29/1959 Hepatitis B Screening 1966 Pneumococcal vaccine 65+ (1 of 2 - PCV) 09/29/1967 Well Visit 65+ 2013 Zoster Vaccine Completed 10/24/2023, 08/25/2023 Influenza Vaccine Completed 01/23/2024 Procedures Procedure Name Priority Date/Time Associated Diagnosis Comments TRANSTHORACIC ECHO (TTE) COMPLETE W DOPPLER/CF WO CONTRAST W BUBBLE Routine 08/22/2024 10:15 AM CDT Transient cerebral ischemia, unspecified type POCT LIPID PANEL Routine 08/14/2024 11:4 3 AM CDT Coronary artery disease involving [place] coronary artery of [place] heart without angina pectoris ELECTROCARDIOGRAM REPORT Routine 08/14/2024 Preop cardiovascular exam Coronary artery disease involving [place] coronary artery of [place] heart without angina pectoris S/P CABG x 2 from Last 3 Months Results * TRANSTHORACIC ECHO (TTE) COMPLETE W DOPPLER/CF WO CONTRAST W BUBBLE (08/22/2024 10:15 AM CDT) Estimated EF 60-65 % CONS SCIMAGE EF Mod BP 66 % CONS SCIMAGE Anatomical Region Laterality Modality Ultrasound 08/22/2024 9:17 AM CDT Narrative 08/22/2024 12:43 PM CDT [facility] Medical Group Cardiology [address] [facility] [address] [address] [address] [facility] [address], [place] [address] P:[phone] P:[phone] Echocardiographic Report Patient Name: ROSA LEON : 1950 Study Date: 08/22/2024 9:17:44 AM Gender: F Tech: [facility] Location: [place] Ref Provider: SHANA SARKAR Height(Cm): 160 BSA: 1.74 [...] FINDINGS: Interpretation Site: Exam was interpreted at [facility]. Left Ventricle: Normal left ventricular systolic function. [...] Procedure Note Sacha Younger MD - 08/22/2024 [facility] Cardiology [address], [place] [address] [address] [facility] [address], [place] [address] P:[phone] P:[phone] Echocardiographic Report Patient Name: ROSA LEON : 1950 Study Date: 08/22/2024 9:17:44 AM Gender: F Tech: [facility] Location: [facility] Provider: SHANA SARKAR Height(Cm): 160 BSA: [...] FINDINGS: Interpretation Site: Exam was interpreted at [facility]. Left Ventricle: Normal left ventricular systolic function. [...] Capillary blood 08/14/2024 1 1:43 AM CDT us Jr Petit MD POINT OF CARE TEST ORDERABLES Fi nal Result * Electrocardiogram Report (08/14/2024) 08/14/2024 Jr Petit MD ECG ORDERABLES Edited Result - Final from Last 3 Months Insurance [employer] MEDICARE HMO Care Teams Claim Inspector Relationship Specialty Start Date End Date Shana Sarkar MD [address] [place] [address] [place] [id number] PCP - General Family Medicine 05/22/24
--- OUTSIDE RECORDS SUMMARY | 2024-09-08 18:05 | XMS_ITS | Patient Health Record ---
Author Organization [facility] Address [address] [place] [address] Care Team Providers Care Is Analyst Name Role Phone Rojas Hanson Primary Care Provider UnavailCarolyn Carlson Unavailable Allergies No Known Allergies Reason For Referral No Information Medications Medication SIG (Take, Route, Frequency, Duration) Notes Start Date End Date Status Ipratropium [place] 0.03 % 2 sprays in e ach nostril Nasally Twice a day Active Aspirin 81 MG 1 tablet Orally Once a day Active Challis 3 340 MG 1 capsule Orally Twi [...] Notes Problem Atherosclerotic hear t disease of [place] coronary artery without angina pectoris (822253217030064) Atherosclerotic heart disease of [place] coronary artery without angina pectoris (I25.10) Active confirmed Problem hypercholesterolemia (disorder) (90039816) Hypercholesteremia (E78.00) Active confirmed Problem Hyperuricemia withou t signs of inflammatory arthritis and tophaceous disease (758590855) Hyperuricemia without signs inflammatory arthritis/tophaceou s disease (E79.0) Active confirmed Problem Cerebrovascular accident (319679038) Cerebrovascular accident (CVA), unspecified mechanism (I63.9) Active confirmed Problem Diabetic renal disea se (652395068) 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) Active confirmed Problem Smoking (54604419) Smoking (F17.200) Active con firmed Problem Renal cyst (414920373) Renal cyst (N28.1) Active confirmed Problem Peripheral arterial disease (477185852) Peripheral arterial disease (I73.9) Active confirmed Problem Benign essential hypertension (0712613) Benign essential hypertension (I10) Active confirmed Problem Chronic kidney disea se stage 2 (906585742) Stage 2 chronic kidney disease (N18.2) Active [...] End Date [employer] Care Plan [address] [address] [place] [address] [phone] [id number] Rosa Martino Self - patient is the insured Medical (General) History Medical History History ICD Code CABG HTN Hyperlipidemia Anxiety Vitamin D deficiency Surgical History Surgery Date(Month/Year) Hysterectomy 1985 Heart surgery 2012 LT eye cataract 04/2022
--- OUTSIDE RECORDS SUMMARY | 2024-09-08 18:05 | XMS_ITS | Clinical Summary ---
Author Organization [facility] Address [address] [facility] [place] [address] Care Team Providers Care Dynamite Shooter Name Role Phone Unavailable Primary Care Provider Unavailabl e Source Comments [facility],non-owned Affiliates and Associated Physician Practices is amultiple site organization consisting of ambulatory clinics and hospital sitesin [place] and [place]. This disclosure is being madepursuant to the Care Everywhere program and may not contain all information available regarding this patient. 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
--- OUTSIDE RECORDS SUMMARY | 2024-09-08 18:05 | XMS_ITS | Patient Health Record ---
Author Organization [facility] Address [address] [place] [address] Care Team Providers Care Clinical Program Director Name Role Phone [facility] Langston, Tanda Unavailable [phone] Rojas Hanson Unavailable Unavailable Allergies No Known [...] Coverage End Date [employer] Claims [address] [address] [place], [place] [id number] Rosa Martino Self - patient is the insured Medical (General) History Medical History History ICD Code HTN Diabetes Hyperlipidemia, unspecified hyperlipidem ia type E78.5 Surgical History Surgery Date(Month/Year)
== END 2024-09-08 12:30 | disposition home or self-care (01) ==
PROVIDERS: PCP Family Medicine; Visit Provider Family Medicine
DX: M47.816 Spondylosis without myelopathy or radiculopathy, lumbar region (principal); I71.41 Pararenal abdominal aortic aneurysm, without rupture; K57.32 Diverticulitis of large intestine without perforation or abscess without bleeding
CPT/HCPCS: 74176

== ENCOUNTER 2024-09-19 02:27 | Day surgery (SDC) | payer MEDICARE, MEDICAID, SELFPAY ==
[2024-09-09 10:04] VITALS: BMI 26.7
--- OUTSIDE RECORDS SUMMARY | 2024-09-19 02:30 | XMS_ITS | Patient Health Record ---
Author Organization [facility] Address [address] [place] [address] Care Team Providers Care Metal Punch Press Operator Name Role Phone Benjamin Langston, Tanda Unavailable [phone] Rojas Hanson Unavailable Unavailable Allergies No Known [...] Coverage End Date [employer] Claims [address] [address] [place], [place] [id number] Rosa Martino Self - patient is the insured Medical (General) History Medical History History ICD Code HTN Diabetes Hyperlipidemia, unspecified hyperlipidem ia type E78.5 Surgical History Surgery Date(Month/Year)
--- OUTSIDE RECORDS SUMMARY | 2024-09-19 02:30 | XMS_ITS | Clinical Summary ---
Author Organization [facility] [address] Address [address] [place] [address] Care Team Providers Care Batch And Furnace Manager Name Role Phone Shana Sarkar MD Primary Care Provider [phone] Allergies No known active allergies Medications carvediloL (COREG) 6.25 mg tablet Take 1 tablet (6.25 mg total) by mouth 2 (two) times a day with meals 5 Active fluticasone propion-salmete roL (ADVAIR DISKUS) 250-50 mcg/dose diskus inhaler Inhale [...] mouth nightly 90 tablet 6 5 Active Active Problems No known active problems Encounters Date Type Department Care Team Description 08/22/2024 9:15 AM CDT Ancillary Procedure [facility]iology [address] [place] [address] Transient cerebral ischemia, unspecified type 08/14/2024 11:45 AM CDT Office Visit [facility] Cardiology [address] [place] [address] Jr Petit MD Preop cardiovascular exam (Primary Dx); Coronary artery disease involving [place] coronary artery of [place] heart without angina pectoris; S/P CABG x 2; Primary hypertension; Chronic obstructive pulmonary disease, unspecified COPD type (HCC); Tobacco abuse from Last 3 Months Social History Tobacco Use Types Packs/Day Years Used Date Smoking Tobacco: Never Assessed Comments Unknown Sex and Gender Information Value Date Recorded Sex Assigned at Not on file 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 Gender Identity Not on file Sexual Orientation [...] 3 AM CDT Coronary artery disease involving [place] coronary artery of [place] heart without angina pectoris ELECTROCARDIOGRAM REPORT Routine 08/14/2024 Preop cardiovascular exam Coronary artery disease involving [place] coronary artery of [place] heart without angina pectoris S/P CABG x 2 from Last 3 Months Results * TRANSTHORACIC ECHO (TTE) COMPLETE W DOPPLER/CF WO CONTRAST W BUBBLE (08/22/2024 10:15 AM CDT) Estimated EF 60-65 % CONS SCIMAGE EF Mod BP 66 % CONS SCIMAGE Anatomical Region Laterality Modality Ultrasound 08/22/2024 9:17 AM CDT Narrative 08/22/2024 12:43 PM CDT [facility] Cardiology [address] [facility] [address], [place] [address] [address] [facility] [address], [place] [address] P:[phone] P:[phone] Echocardiographic Report Patient Name: ROSA LEON : 1950 Study Date: 08/22/2024 9:17:44 AM Gender: F Tech: [facility] Location: [facility] [place] Provider: SHANA SARKAR Height(Cm): 160 BSA: 1.74 [...] FINDINGS: Interpretation Site: Exam was interpreted at [facility]. Left Ventricle: Normal left ventricular [...] Procedure Note Sacha Younger MD - 08/22/2024 [facility] Cardiology [address] [facility] [address], [place] [address] [address] [facility] [address], [place] [address] P:[phone] P:[phone] Echocardiographic Report Patient Name: ROSA LEON : 1950 Study Date: 08/22/2024 9:17:44 AM Gender: F Tech: [facility] Location: [facility] Provider: SHANA SARKAR Height(Cm): 160 BSA: 1.74 [...] FINDINGS: Interpretation Site: Exam was interpreted at [facility]. Left Ventricle: Normal left ventricular [...] nal Result * Electrocardiogram Report (08/14/2024) 08/14/2024 us Jr Petit MD ECG ORDERABLES Edited Result - Final from Last 3 Months Insurance [employer] MEDICARE HMO Care Teams Batch And Furnace Manager Relationship Specialty Start Date End Date Shana Sarkar MD [address] [place] [address] GINNY RANDALL [id number] PCP - General Family Medicine 05/22/24
--- OUTSIDE RECORDS SUMMARY | 2024-09-19 02:30 | XMS_ITS | Referral Summary ---
Author Organization [facility] [address] [place] [address] [address] [place] [address] Care Team Providers Care Client Relations Representative Name Role Phone Shana Sarkar MD Primary Care Provider [phone] Encounters Date Type Department Care Team Description 08/22/2024 9:15 AM CDT Ancillary Procedure [facility] Medical [facility] Cardiology [address] [place] [address] [address] [place] [address] Transient cerebral ischemia, unspecified type 08/14/2024 11:45 AM CDT Office Visit [facility] Cardiology [address] [place] [address] [address] [place] [address] Jr Petit MD Preop cardiovascular exam (Primary Dx); Coronary artery disease involving [place] coronary artery of [place] heart without angina pectoris; S/P CABG x [...] tablet (100 mg total) by mouth daily Active ferrous gluconate 324 mg (37.5 mg [...] Active Active Problems No known active problems Social History Tobacco Use Types Packs/Day Years Used Date Smoking Tobacco: Never Assessed Comments Unknown Sex and Gender Information Value Date Recorded Sex Assigned at Not on file 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 Gender Identity Not on file Sexual Orientation [...] 3 AM CDT Coronary artery disease involving [place] coronary artery of [place] heart without angina pectoris ELECTROCARDIOGRAM REPORT Routine 08/14/2024 Preop cardiovascular exam Coronary artery disease involving [place] coronary artery of [place] heart without angina pectoris S/P CABG x 2 from Last 3 Months Results * TRANSTHORACIC ECHO (TTE) COMPLETE W DOPPLER/CF WO CONTRAST W BUBBLE (08/22/2024 10:15 AM CDT) Estimated EF 60-65 % CONS SCIMAGE EF Mod BP 66 % CONS SCIMAGE Anatomical Region Laterality Modality Ultrasound 08/22/2024 9:17 AM CDT Narrative 08/22/2024 12:43 PM CDT [facility] Cardiology [address] [facility] [address], [place] [address] [address] [facility] [address], [place] [address] P:[phone] P:[phone] Echocardiographic Report Patient Name: ROSA LEON : 1950 Study Date: 08/22/2024 9:17:44 AM Gender: F Tech: [facility] Location: [facility] Provider: SHANA SARKAR Height(Cm): 160 BSA: [...] Site: Exam was interpreted at [facility]. Left Ventricle: Normal left ventricular systolic [...] Procedure Note Sacha Younger MD - 08/22/2024 [facility] Cardiology [address] [facility] [address] [address] [address] [facility] [address], [address], [place] [address] P:[phone] P:[phone] Echocardiographic Report Patient Name: ROSA LEON : 1950 Study Date: 08/22/2024 9:17:44 AM Gender: F Tech: [facility] Location: [place] Ref Provider: SHANA SARKAR Height(Cm): 160 BSA: [...] Site: Exam was interpreted at [facility]. Left Ventricle: Normal left ventricular systolic [...] Months Insurance [employer] MEDICARE HMO Care Teams Client Relations Representative Relationship Specialty Start Date End Date Shana Sarkar MD [address] [place] [id number] PCP - General Family Medicine 05/22/24
--- OUTSIDE RECORDS SUMMARY | 2024-09-19 02:30 | XMS_ITS | Clinical Summary ---
Author Organization [facility] Address [address] [facility] [place] [address] Care Team Providers Care Batch Dumper Name Role Phone Unavailable Primary Care Provider Unavailabl e Source Comments [facility],non-owned Affiliates and Associated Physician Practices is amultiple site organization consisting of ambulatory clinics and hospital sitesin [place] and [place]. This disclosure is being madepursuant to the Care Everywhere program and may not contain all information available regarding this patient. 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
--- OUTSIDE RECORDS SUMMARY | 2024-09-19 02:31 | XMS_ITS | Patient Health Record ---
Author Organization [facility] Address [address] [place] [address] Care Team Providers Care Moving Picture Operator Name Role Phone Rojas Hanson Primary Care Provider UnavailCarolyn Carlson Unavailable Allergies No Known Allergies Reason For Referral No Information Medications Medication SIG (Take, Route, Frequency, Duration) Notes Start Date End Date Status Ipratropium [place] 0.03 % 2 sprays in e ach nostril Nasally Twice a day Active Aspirin 81 MG 1 tablet Orally Once a day Active [place] 3 340 MG 1 capsule Orally Twi [...] Notes Problem Atherosclerotic hear t disease of [place] coronary artery without angina pectoris (937169100255009) Atherosclerotic heart disease of [place] coronary artery without angina pectoris (I25.10) Active confirmed Problem hypercholesterolemia (disorder) (49431979) Hypercholesteremia (E78.00) Active confirmed Problem Hyperuricemia withou t signs of inflammatory arthritis and tophaceous disease (920403945) Hyperuricemia without signs inflammatory arthritis/tophaceou s disease (E79.0) Active confirmed Problem Cerebrovascular accident (384805495) Cerebrovascular accident (CVA), unspecified mechanism (I63.9) Active confirmed Problem Diabetic renal disea se (669458561) 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) Active confirmed Problem Smoking (65666392) Smoking (F17.200) Active con firmed Problem Renal cyst (600939276) Renal cyst (N28.1) Active confirmed Problem Peripheral arterial disease (106813871) Peripheral arterial disease (I73.9) Active confirmed Problem Benign essential hypertension (5525924) Benign essential hypertension (I10) Active confirmed Problem Chronic kidney disea se stage 2 (569881608) Stage 2 chronic kidney disease (N18.2) Active [...] End Date [employer] Care Plan [address] [address] [place] [address] [id number] Rosa Martino Self - patient is the insured Medical (General) History Medical History History ICD Code CABG HTN Hyperlipidemia Anxiety Vitamin D deficiency Surgical History Surgery Date(Month/Year) Hysterectomy 1985 Heart surgery 2012 LT eye cataract 04/2022
[2024-09-19 12:30] VITALS: BP 125/64; PULSE 79; RESP 20; TEMP 36.7; O2SAT 98
[2024-09-19] MEDS: LACTATED RINGERS 1,000 ML 150 ML IV CONT (12:46)
--- NOTE | 2024-09-19 13:39 | P.PNAN_ITS ---
Anes - Initial Pre Proc Eval Procedure: Operation Date: 09/19/24 13:30 Proposed Procedures p Colonoscopy - Franklin Leyva MD Date/Time: 09/19/24 13:39 Surgeon: Franklin Leyva MD Pre Op Diagnosis: Personal history of colon polyps, unspecified Patient Data Age: 73 Gender: F Height: 1.6 m Weight: 63.3 kg Last Vital Signs Temp 98.1 F 09/19/24 12:30 Pulse 79 09/19/24 12:30 Resp 20 09/19/24 12:30 BP 125/64 09/19/24 12:30 Pulse Ox 98 09/19/24 12:30 O2 Del Method Room Air 09/19/24 12:30 Allergies Allergy/AdvReac Type Severity Reaction Status Date / Time No Known Allergies Allergy Verified 09/19/24 12:27 Home Medications ?Medication ?Instructions ?Recorded ?Confirmed ?Type aspirin 81 mg tablet,delayed 81 mg PO DAILY #90 tabs 08/18/23 09/19/24 Rx release famotidine 20 mg tablet 20 mg PO BID #180 tabs 08/18/23 09/19/24 Rx loratadine 10 mg tablet (Claritin) 10 mg PO DAILY #90 tabs 08/18/23 09/19/24 Rx kbbxveot-mqe-zczss acid 0.4 1 tablet PO DAILY #90 tabs 08/18/23 09/19/24 Rx mg-lycopene 300 mcg-lutein 250 mcg tablet (Centrum Silver) sertraline 100 mg tablet 100 mg PO BID 08/18/23 09/19/24 History calcium 500 mg (as 1 tablet PO DAILY 11/22/23 09/19/24 History carbonate)-vitamin D3 10 mcg (400 unit) tablet ipratropium bromide 21 mcg (0.03 2 spray intranasal TID #30 mL 02/13/24 09/19/24 Rx %) nasal spray losartan 50 mg tablet 50 mg PO DAILY #90 tabs 05/10/24 09/19/24 Rx carvedilol 6.25 mg tablet 6.25 mg PO BID #180 tabs 08/07/24 09/19/24 Rx ferrous gluconate 324 mg (38 mg 324 mg PO DAILY #30 tabs 08/28/24 09/09/24 Rx iron) tablet fluticasone 250 mcg-salmeterol 50 1 inh inhalation BID #60 ea 08/28/24 09/19/24 Rx mcg/dose blistr powdr for inhalation (Advair Diskus) atorvastatin 40 mg tablet 80 mg PO DAILY 09/03/24 09/19/24 History ciprofloxacin HCl 500 mg tablet 500 mg PO Q12H #20 tabs 09/03/24 09/19/24 Rx Patient hx anesthesia problems: none Family hx anesthesia problems: none Results Review: All pre-operative results and documents have been reviewed as part of the pre- operative evaluation. COUNTS INCLUDE 234 BEDS AT [facility] Past Medical History Medical History Chronic obstructive pulmonary disease Osteoarthritis of hips, bilateral Cigarette nicotine dependence with nicotine-induced disorder Stage 3a chronic kidney disease Obstructive sleep apnea Major depressive disorder in partial remission Iron deficiency Atherosclerosis of [place] coronary artery of [place] heart without angina pectoris Pure hypercholesterolemia, unspecified Essential (primary) hypertension Type 2 diabetes mellitus with chronic kidney disease Carpal tunnel syndrome Surgical History Surgical History History of coronary artery bypass graft x 2 (2012) History of carotid endarterectomy (2007) Family History Family History Unknown Asthma Hypertension Depression Heart disease Lung disease Arthritis Cerebrovascular accident High cholesterol Social History Social History Social History: Surrogate medical decision maker: Lynn Mccarthy, daughter. Code status: Full code. Smoking packs per day: 0.5 Smoking cigarettes per day: 10.0 Years smoked: 45 Smoking pack-years: 22.50 Smoking status: Current every day smoker Tobacco type: cigarettes Alcohol intake: never Substance use: never Substance use type: does not use Do You Feel Safe in your Home?: Yes Lack of Transportation: No Lack of Food: Never True Current Housing: I Have Housing Concerned About Future Housing: No Difficulty Paying Gas/Electric Bills: No Difficulty Paying for Meds: No Currently Unemployed: No Education: High School Diploma/GED Difficulty w/ Childcare or Family Care: No Living arrangements: with family Occupation/Education: retired Spiritual care concerns: No Anes - Eval Final PreProcedure Day of Procedure 06/12/25 13:39 Patient weight: normal Heart: regular rate and rhythm Lungs: clear to auscultation Airway: Mallampati scale class II Neurological: alert and oriented Last oral intake: >/= 8 hours ASA classification: III Emergent: no Anesthetic plan: proceed Anesthesia type and monitoring: general GIVS and standard monitoring Results Review: All pre-operative results and documents have been reviewed as part of the pre- operative evaluation. Informed Consent: The patient's anesthetic plan and its attendant risks and benefits were discussed with the patient/family/POA. Questions were solicited and answers provided to the satisfaction of the patient/family/POA.
--- NOTE | 2024-09-19 13:52 | P.HP_ITS ---
History of Present Illness History of Present Illness Consent: Risks, benefits, and alternatives have been discussed and questions answered. Patient agrees to proceed with procedure. Chief complaint: Personal history of colon polyps, unspecified Narrative: Rosa Martino is a 73 year old female with recent diverticulitis in sigmoid treated with abx, had colonoscopy 5 years elsewhere with polyp. May 2024 attempted colonoscopy because [place] but unable to complete because sharp angulation. Review of Systems Review of Systems: All systems reviewed & are unremarkable except as noted in HPI and below PMFSH Past Medical History Medical History (Updated 09/19/24 @ 13:53 by Franklin Leyva MD) History of diverticulitis Chronic obstructive pulmonary disease Osteoarthritis of hips, bilateral Cigarette nicotine dependence with nicotine-induced disorder Stage 3a chronic kidney disease Obstructive sleep apnea Major depressive disorder in partial remission Iron deficiency Atherosclerosis of [place] coronary artery of [place] heart without angina pectoris Pure hypercholesterolemia, unspecified Essential (primary) hypertension Type 2 diabetes mellitus with chronic kidney disease Carpal tunnel syndrome Surgical History Surgical History History of coronary artery bypass graft x 2 (2012) History of carotid endarterectomy (2007) Family History Family History Unknown Asthma Hypertension Depression Heart disease Lung disease Arthritis Cerebrovascular accident High cholesterol Social History Social History Social History: Surrogate medical decision maker: Lynn Mccarthy, daughter. Code status: Full code. Smoking packs per day: 0.5 Smoking cigarettes per day: 10.0 Years smoked: 45 Smoking pack-years: 22.50 Smoking status: Current every day smoker Tobacco type: cigarettes Alcohol intake: never Substance use: never Substance use type: does not use Do You Feel Safe in your Home?: Yes Lack of Transportation: No Lack of Food: Never True Current Housing: I Have Housing Concerned About Future Housing: No Difficulty Paying Gas/Electric Bills: No Difficulty Paying for Meds: No Currently Unemployed: No Education: High School Diploma/GED Difficulty w/ Childcare or Family Care: No Living arrangements: with family Occupation/Education: retired Spiritual care concerns: No Meds Home Medications and Allergies Home Medications ?Medication ?Instructions ?Recorded ?Confirmed ?Type aspirin 81 mg tablet,delayed 81 mg PO DAILY #90 tabs 08/18/23 09/19/24 Rx release famotidine 20 mg tablet 20 mg PO BID #180 tabs 08/18/23 09/19/24 Rx loratadine 10 mg tablet (Claritin) 10 mg PO DAILY #90 tabs 08/18/23 09/19/24 Rx awfgnxdq-icb-bqeai acid 0.4 1 tablet PO DAILY #90 tabs 08/18/23 09/19/24 Rx mg-lycopene 300 mcg-lutein 250 mcg tablet (Centrum Silver) sertraline 100 mg tablet 100 mg PO BID 08/18/23 09/19/24 History calcium 500 mg (as 1 tablet PO DAILY 11/22/23 09/19/24 History carbonate)-vitamin D3 10 mcg (400 unit) tablet ipratropium bromide 21 mcg (0.03 2 spray intranasal TID #30 mL 02/13/24 09/19/24 Rx %) nasal spray losartan 50 mg tablet 50 mg PO DAILY #90 tabs 05/10/24 09/19/24 Rx carvedilol 6.25 mg tablet 6.25 mg PO BID #180 tabs 08/07/24 09/19/24 Rx ferrous gluconate 324 mg (38 mg 324 mg PO DAILY #30 tabs 08/28/24 09/09/24 Rx iron) tablet fluticasone 250 mcg-salmeterol 50 1 inh inhalation BID #60 ea 08/28/24 09/19/24 Rx mcg/dose blistr powdr for inhalation (Advair Diskus) atorvastatin 40 mg tablet 80 mg PO DAILY 09/03/24 09/19/24 History ciprofloxacin HCl 500 mg tablet 500 mg PO Q12H #20 tabs 09/03/24 09/19/24 Rx Allergies Allergy/AdvReac Type Severity Reaction Status Date / Time No Known Allergies Allergy Verified 09/19/24 12:27 Vital Signs Vital Signs - 24 hr 09/19/24 12:30 Temperature 98.1 F Pulse Rate 79 Respiratory Rate 20 Blood Pressure 125/64 Pulse Oximetry 98 Oxygen Delivery Room Air Exam Const: General: comfortable and no acute distress HENMT: Face/Nose/Sinus: Normal nares present Eyes: General: appearance normal, both eyes and all related structures Neck: Neck: no JVD Resp: Auscultation: clear to auscultation bilaterally Cardio: Rate: regular rate Rhythm: regular rhythm GI: Inspection: non-distended GI Palp: Yes Soft to palpation Skin: General skin exam: normal color Neuro: Speech: normal speech Extrem: General: normal to inspection Psych: Mental Status: mental status grossly normal Assessment and Plan Assessment and plan (1) History of diverticulitis: Code(s): Z87.19 - Personal history of other diseases of the digestive system Status: Acute Assessment and Plan: completed treatment no more abdominal pain will attempt colonoscopy (last time could not advance scope)- this discussed with patient and family (2) Anemia: Code(s): D64.9 - Anemia, unspecified Status: Acute
[2024-09-19 14:12] VITALS: BP 109/52; PULSE 64; RESP 22; O2SAT 98
[2024-09-19 14:22] VITALS: BP 104/72; PULSE 57; RESP 19; O2SAT 99
[2024-09-19 14:32] VITALS: BP 116/66; PULSE 63; RESP 20; O2SAT 99
== END 2024-09-19 14:49 | disposition home or self-care (01) ==
PROVIDERS: PCP Family Medicine; Referring Provider Family Medicine; Visit Provider Internal Medicine Gastroenterology
PROC: 0DJD8ZZ Inspection of Lower Intestinal Tract, Via Natural or Artificial Opening Endoscopic (ICD-10-PCS; CPT 45378; principal; 2024-09-19 13:30)
DX: D64.9 Anemia, unspecified (principal); K56.699 Other intestinal obstruction unspecified as to partial versus complete obstruction; K57.30 Diverticulosis of large intestine without perforation or abscess without bleeding; E11.22 Type 2 diabetes mellitus with diabetic chronic kidney disease; I12.9 Hypertensive chronic kidney disease with stage 1 through stage 4 chronic kidney disease, or unspecified chronic kidney disease; N18.31 Chronic kidney disease, stage 3a; J44.9 Chronic obstructive pulmonary disease, unspecified; M16.0 Bilateral primary osteoarthritis of hip; G47.33 Obstructive sleep apnea (adult) (pediatric); F32.4 Major depressive disorder, single episode, in partial remission; E61.1 Iron deficiency; I25.10 Atherosclerotic heart disease of native coronary artery without angina pectoris; E78.00 Pure hypercholesterolemia, unspecified; G56.00 Carpal tunnel syndrome, unspecified upper limb; F17.210 Nicotine dependence, cigarettes, uncomplicated; Z79.82 Long term (current) use of aspirin; Z79.51 Long term (current) use of inhaled steroids; Z98.890 Other specified postprocedural states; Z95.5 Presence of coronary angioplasty implant and graft; Z86.0100 Personal history of colon polyps, unspecified; Z87.19 Personal history of other diseases of the digestive system; Z82.49 Family history of ischemic heart disease and other diseases of the circulatory system
CPT/HCPCS: 45330; J2003; J2704; J7120

== ENCOUNTER 2024-10-18 10:12 | Outpatient (CLI) | payer MEDICARE, MEDICAID, SELFPAY ==
--- NOTE | ~2024-10-18 | XR_ITS ---
EXAMINATION: XR enema water soluble DATE: 10/18/2024 11:19 INDICATION: Constipation, anemia and bloating. Incomplete colonoscopy. TECHNIQUE: A manufacturing accountant radiograph was obtained. A catheter was inserted into the patient's rectum. Initia l attempt was made with barium contrast which was infused by gravity. A high-grade stenosis was encou ntered in the distal distal sigmoid colon and the catheter was spontaneously ejected. Given the steno sis was elected to transition to water-soluble contrast for a second attempt. After several minutes o nly minimal amount of contrast can be seen extending through the region of stenosis with no contrast reaching a more normal caliber lumen. At this point it was elected to terminate the study. Fluoroscop y exposure time was 1.1 minutes. COMPARISON: None. FINDINGS/IMPRESSION: Normal rectum. Contrast was unable to be passes beyond a high-grade stricture in the distal sigmoid c olon which could be related to acute diverticulitis, scarring related to chronic diverticulitis or ma lignancy. Reviewed, dictated and finalized at location A.
--- OUTSIDE RECORDS SUMMARY | 2024-10-18 10:19 | XMS_ITS | Patient Health Record ---
Author Organization [facility] Address [address] [place] [address] Care Team Providers Care Traffic Supervisor Name Role Phone Rojas Hanson Primary Care Provider UnavailCarolyn Carlson Unavailable [phone] Allergies No Known Allergies Reason For Referral No Information Medications Medication SIG (Take, Route, Frequency, Duration) Notes Start Date End Date Status Ipratropium [place] 0.03 % 2 sprays in e ach nostril Nasally Twice a day Active Aspirin 81 MG 1 tablet Orally Once a day Active [place] 3 340 MG 1 capsule Orally Twi [...] Notes Problem Atherosclerotic hear t disease of [place] coronary artery without angina pectoris (706492089291352) Atherosclerotic heart disease of [place] coronary artery without angina pectoris (I25.10) Active confirmed Problem hypercholesterolemia (disorder) (37031581) Hypercholesteremia (E78.00) Active confirmed Problem Hyperuricemia withou t signs of inflammatory arthritis and tophaceous disease (264733066) Hyperuricemia without signs inflammatory arthritis/tophaceou s disease (E79.0) Active confirmed Problem Cerebrovascular accident (950539755) Cerebrovascular accident (CVA), unspecified mechanism (I63.9) Active confirmed Problem Diabetic renal disea se (272175997) 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) Active confirmed Problem Smoking (68465458) Smoking (F17.200) Active con firmed Problem Renal cyst (049214157) Renal cyst (N28.1) Active confirmed Problem Peripheral arterial disease (004539254) Peripheral arterial disease (I73.9) Active confirmed Problem Benign essential hypertension (2349141) Benign essential hypertension (I10) Active confirmed Problem Chronic kidney disea se stage 2 (379485689) Stage 2 chronic kidney disease (N18.2) Active [...] End Date [employer] Care Plan [address] [address] [place] [address] [id number] Rosa Martino Self - patient is the insured Medical (General) History Medical History History ICD Code CABG HTN Hyperlipidemia Anxiety Vitamin D deficiency Surgical History Surgery Date(Month/Year) Hysterectomy 1985 Heart surgery 2012 LT eye cataract 04/2022
--- OUTSIDE RECORDS SUMMARY | 2024-10-18 10:19 | XMS_ITS | Referral Summary ---
Author Organization [facility] [address] [place] [address] [address] [place] [address] Care Team Providers Care Flagger Name Role Phone Shana Sarkar MD Primary Care Provider [phone] Encounters Date Type Department Care Team Description 08/22/2024 9:15 AM CDT Ancillary Procedure 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 Gender Identity Not on file Sexual Orientation [...] 3 AM CDT Coronary artery disease involving [place] coronary artery of [place] heart without angina pectoris ELECTROCARDIOGRAM REPORT Routine 08/14/2024 Preop cardiovascular exam Coronary artery disease involving [place] coronary artery of [place] heart without angina pectoris S/P CABG x 2 from Last 3 Months Results * TRANSTHORACIC ECHO (TTE) COMPLETE W DOPPLER/CF WO CONTRAST W BUBBLE (08/22/2024 10:15 AM CDT) Estimated EF 60-65 % CONS SCIMAGE EF Mod BP 66 % CONS SCIMAGE Anatomical Region Laterality Modality Ultrasound 08/22/2024 9:17 AM CDT Narrative 08/22/2024 12:[address] [facility] Cardiology [address] [facility] [place] [facility] [address], [place] [address] [address] [facility] [address], [place] [address] P:[phone] P:[phone] Echocardiographic Report Patient Name: ROSA LEON : 1950 Study Date: 08/22/2024 9:17:44 AM Gender: F Tech: [facility] Location: [facility] Provider: SHANA SARKAR Height(Cm): 160 BSA: [...] FINDINGS: Interpretation Site: Exam was interpreted at [facility]. Left Ventricle: Normal left ventricular systolic [...] Procedure Note Sacha Younger MD - 08/22/2024 [facility] Medical Group Cardiology [address] [facility] [place] [facility] [address] [address] [address] [facility] [address], [place] [address] P:[phone] P:[phone] Echocardiographic Report Patient Name: ROSA LEON : 1950 Study Date: 08/22/2024 9:17:44 AM Gender: F Tech: [facility] Location: [place] Ref Provider: SHANA SARKAR Height(Cm): 160 BSA: [...] FINDINGS: Interpretation Site: Exam was interpreted at [facility]. Left Ventricle: Normal left ventricular systolic [...] Months Insurance [employer] MEDICARE HMO Care Teams Flagger Relationship Specialty Start Date End Date Shana Sarkar MD [address] [place] [id number] PCP - General Family Medicine 05/22/24
--- OUTSIDE RECORDS SUMMARY | 2024-10-18 10:19 | XMS_ITS | Clinical Summary ---
Author Organization [facility] [address] Address [address] [place] [address] Care Team Providers Care Cigar Brander Name Role Phone Shana Sarkar MD Primary Care Provider [phone] Allergies No known active allergies Medications carvediloL [...] Cardiology [address] [place] [address] Transient cerebral ischemia, unspecified type 08/14/2024 11:45 AM CDT Office Visit [facility] Medical Group Cardiology [address] [place] [address] Jr Petit MD Preop cardiovascular exam (Primary Dx); Coronary artery disease involving [place] coronary artery of [place] heart without angina pectoris; S/P CABG x 2; Primary hypertension; Chronic obstructive pulmonary disease, unspecified COPD type (HCC); Tobacco abuse from Last 3 Months Social History Tobacco Use Types Packs/Day Years Used Date Smoking Tobacco: Never Assessed Comments Unknown Sex and Gender Information Value Date Recorded Sex Assigned at Not on file Legal Sex 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 Gender Identity Not on file Sexual Orientation [...] Health Maintenance Due Date Last Done Comments Depression Screening 1950 Fall Risk Assessment 1950 [...] 3 AM CDT Coronary artery disease involving [place] coronary artery of [place] heart without angina pectoris ELECTROCARDIOGRAM REPORT Routine 08/14/2024 Preop cardiovascular exam Coronary artery disease involving [place] coronary artery of [place] heart without angina pectoris S/P CABG x 2 from Last 3 Months Results * TRANSTHORACIC ECHO (TTE) COMPLETE W DOPPLER/CF WO CONTRAST W BUBBLE (08/22/2024 10:15 AM CDT) Estimated EF 60-65 % CONS SCIMAGE EF Mod BP 66 % CONS SCIMAGE Anatomical Region Laterality Modality Ultrasound 08/22/2024 9:17 AM CDT Narrative 08/22/2024 12:43 PM CDT [facility] Medical Group Cardiology [address] [facility] [address], [place] [address] [address] [facility] [address], [place] [address] P:[phone] P:[phone] Echocardiographic Report Patient Name: ROSA LEON : 1950 Study Date: 08/22/2024 9:17:44 AM Gender: F Tech: [facility] Location: [facility] Provider: SHANA SARKAR Height(Cm): 160 BSA: [...] FINDINGS: Interpretation Site: Exam was interpreted at [facility]. Left Ventricle: Normal left ventricular systolic function. [...] Procedure Note Sacha Younger MD - 08/22/2024 [facility] Medical Group Cardiology [address], [place] [address] [address] [facility] [address], [place] [address] P:[phone] P:[phone] Echocardiographic Report Patient Name: ROSA LEON : 1950 Study Date: 08/22/2024 9:17:44 AM Gender: F Tech: [facility] Location: [facility] Provider: SHANA SARKAR Height(Cm): 160 BSA: [...] FINDINGS: Interpretation Site: Exam was interpreted at [facility]. Left Ventricle: Normal left ventricular systolic function. [...] Months Insurance [employer] MEDICARE HMO Care Teams Cigar Brander Relationship Specialty Start Date End Date Shana Sarkar MD [address] [place] [address] G[place] RANDALL [phone] PCP - General Family Medicine 05/22/24
--- OUTSIDE RECORDS SUMMARY | 2024-10-18 10:19 | XMS_ITS | Clinical Summary ---
Author Organization [facility] Address [address] [place] [address] Care Team Providers Care Pan Tank Worker Name Role Phone Unavailable Primary Care Provider Unavailabl e Source Comments [facility] [employer],non-owned Affiliates and Associated Physician Practices is amultiple site organization consisting of ambulatory clinics and hospital sitesin [place], [place], [place] and [place]. This disclosure is being madepursuant to the Care Everywhere program and may not contain all information available regarding this patient. 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 Gender Identity Not on file Sexual Orientation Not on file Plan of Treatment Health Maintenance Due Date Last Done Comments BONE DENSITY TESTING 1950 HEPATITIS C SCREENING 09/24/1966 DTAP/TDAP/TD VACCINES (1 - Tdap) 09/29/1967 PNEUMOCOCCAL VACCINE 50+ (1 of 1 - PCV) 1998 ZOSTER VACCINE (1 of 2) 1998 Respiratory Syncytial Virus (RSV) Vaccine Pt: or over 60 yrs (1 - 1-dose 75+ series) 09/29/2023 COVID-19 VACCINE (1 - 2023-2 5 season) 2023 DEPRESSION SCREENING 04/10/2024 INFLUENZA VACCINE (#1) 2024 01/08/2023 HEPATITIS B VACCINE Aged Out No longe [...] LEON Subscriber ID:Not on file (Home) Address: [address] [place] [id number] Payer ID:Not on file Group ID:Not on file Type:Self Pay Address: [place], [place]
--- OUTSIDE RECORDS SUMMARY | 2024-10-18 10:19 | XMS_ITS | Patient Health Record ---
Author Organization [facility] Address [address] [place] [address] Care Team Providers Care Utility Bill Collection Clerk Name Role Phone Benjamin Langston, Tanda Unavailable [phone] Rojas Hanson Unavailable Unavailable Allergies No Known Allergies Reason For Referral No Information Medications Medication SIG (Take, Route, Fr equency, Duration) Notes Start Date End Date Status atorvastatin 20 mg 1 tab(s) orally once a day; Duration: 30 day(s) Active Aspir 81 Active sertraline 50 mg 1 tab(s) orally once a day; Duration: 30 day(s) Active metFORMIN 500 mg 1 tab(s) orally 2 ti mes a day; Duration: 30 day(s) Active losartan 50 mg 1 tab(s) orally once a day; Duration: 30 day(s) Active Social History Tobacco Use: [...] Coverage End Date [employer] Claims [address] [address] [place], [place] [id number] Rosa Martino Self - patient is the insured Medical (General) History Medical History History ICD Code HTN Diabetes Hyperlipidemia, unspecified hyperlipidem ia type E78.5 Surgical History Surgery Date(Month/Year)
== END 2024-10-18 10:13 | disposition home or self-care (01) ==
LOC: ANHIMG 10:14
PROVIDERS: PCP Family Medicine; Visit Provider Internal Medicine Gastroenterology
DX: K56.699 Other intestinal obstruction unspecified as to partial versus complete obstruction (principal); D64.9 Anemia, unspecified
CPT/HCPCS: 74270

== ENCOUNTER 2024-10-29 14:10 | Inpatient (IN) | payer MEDICARE, MEDICAID, SELFPAY ==
--- NOTE | ~2024-10-29 | XR_ITS ---
CHEST RADIOGRAPH CLINICAL HISTORY: sob . COMPARISON: 11/03/2024 TECHNIQUE: Single portable view of the chest. FINDINGS Sternal wires and mediastinal clips are identified, the wires are midline and intact. The remainder of the cardiomediastinal silhouette is enlarged, but otherwise unremarkable. Worsening bilateral pulmonary edema when compared with previous examination. Hazy opacification of the left hemidiaphragm, consistent with a small left-sided pleural effusion The right costophrenic sulcus is unremarkable. IMPRESSION: Worsening bilateral pulmonary edema, when compared with previous examinations for which aggressive di uresis is recommended, if the patient is clinically able. A CTA of the chest is ordered, for which the patient will likely not be able to tolerate given her cu rrent respiratory status) respiratory rate close to 30, with a pCO2 within the 60's on BIPAP. Reviewed, dictated and finalized at location A. IMPRESSION: Worsening bilateral pulmonary edema, when compared with previous examinations f or which aggressive diuresis is recommended, if the patient is clinically able. A CTA of the chest is ordered, for which the patient will likely not be able to tolerate given her current respiratory status) respiratory rate close to 30, w ith a pCO2 within the 60's on BIPAP.
--- NOTE | ~2024-10-29 | XR_ITS ---
EXAMINATION: XR chest 1V portable Exam Date/Time: 11/03/2024 21:25 CDT HISTORY: dyspnea Comparison: 11/03/2024 at 5:49 AM; 11/02/2024. RESULT: Lines, tubes, and devices: Intact sternotomy wires. Lungs and pleura: Moderate bilateral patchy airspace disease and worsening interstitial opacities. Cardiomediastinal silhouette: Stable. Other: No acute osseous or upper abdominal finding. IMPRESSION: Worsening bilateral pulmonary opacities may reflect worsening moderate pulmonary edema, with or witho ut infection. Reviewed, dictated and finalized at location K. IMPRESSION: Worsening bilateral pulmonary opacities may reflect worsening moderate pulmonar y edema, with or without infection.
--- NOTE | ~2024-10-29 | XR_ITS ---
XR chest 1V portable 11/05/2024 06:09 Indication: Shortness of breath Procedure: AP portable chest Comparison: Comparison to multiple prior studies sequentially, with oldest reviewed study dated 11/02. Findings: Status post median sternotomy for CABG. Diffuse bilateral airspace disease is not significa ntly changed. No significant effusion or pneumothorax. There is likely a background of chronic inters titial lung disease. Impression: 1: Diffuse bilateral airspace disease stable, most likely edema versus pneumonia. Reviewed, dictated and finalized at location B. Impression: 1: Diffuse bilateral airspace disease stable, most likely edema versus pneumoni a.
--- NOTE | ~2024-10-29 | XR_ITS ---
XR chest 1V portable 11/06/2024 08:21 Indication: Shortness of breath Procedure: AP portable chest Comparison: Comparison to multiple prior studies sequentially, with oldest reviewed study dated 11/04. Findings: Diffuse bilateral airspace disease with possible mild subtle improvement. Status post media n sternotomy for CABG. Cardiomediastinal silhouette is normal. PICC line tip in the SVC. No pneumotho rax. No significant effusion. Impression: 1: Possible mild improvement of diffuse bilateral airspace disease which may represent edema, pneumon ia or ARDS. Reviewed, dictated and finalized at location [] Impression: 1: Possible mild improvement of diffuse bilateral airspace disease which may re present edema, pneumonia or ARDS.
--- NOTE | ~2024-10-29 | CT_ITS ---
CLINICAL INDICATION: Abdominal pain and distention. Sigmoid colon obstruction suspected clinically COMPARISON: Reference is made to a CT examination of the abdomen and pelvis dated 09/08/2024. Reference is also made to a Gastrografin enema performed 10/18/2024 which demonstrated high-grade obstruction r etrograde through the sigmoid colon. TECHNIQUE: Multiple contiguous axial images of the abdomen and pelvis were performed following the ad ministration of with 100 mL Omnipaque-350 intravenous contrast The dose-length product (DLP) was 353.11 mGy-cm. Automated exposure control and iterative reconstruction technique were employed. FINDINGS/OBSERVATIONS: Visualized lower thorax: Peripheral honeycombing is identified within the right lung base. The remainder of the bilateral lung bases are clear. The heart is of normal size, without pericardial effusion. Liver: The liver demonstrates homogeneous enhancement and is not enlarged. Gallbladder and biliary system: The gallbladder is only minimally distended, and otherwise unremarkable. Pancreas: The pancreas enhances homogeneously without ductal dilatation. Spleen: The spleen enhances homogeneously and is not enlarged. Kidneys: Rounded focus of fluid attenuation is identified within the lower pole of the right kidney, consistent with a simple cyst. The remainder of the bilateral kidneys otherwise enhance symmetrically without hydronephrosis or carmen al calculi. Adrenal glands: Unremarkable. Gastrointestinal tract: Aerated stool (versus pneumatosis) distends the entirety of the colon. Edematous mural thickening is identified within the distal colon to the level of the mid to distal sigmoid colon, likely the source of patient's left lower quadrant pain, for which a malignancy is suspected. Intraluminal contrast is identified within the rectum, consistent with prior Gastrografin enema. Appendix: The appendix is not definitively visualized. However, no pericecal inflammatory change is identified suggest the presence of acute appendicitis. Vasculature: Redemonstration of saccular aneurysmal dilatation of the infrarenal abdominal aorta measuring 3.1 cm in greatest dimension, unchanged from prior. The inferior vena cava is slit like, consistent with severe hypovolemia. Lymph nodes: Within the soft tissues of the upper pelvis, just beneath the undersurface of the anteri or abdominal wall is a focus of soft tissue attenuation measuring 14.5 x 17 x 20 mm, consistent with an enlarged mesenteric lymph node. Scattered lymph nodes are identified within the retroperitoneum, the largest at the level of the retr oaortic left renal vein measuring 12 mm in short axis dimension. Pelvic structures: The bladder is only minimally distended, and otherwise unremarkable. The uterus is anteverted and anteflexed. Soft tissue attenuation within the left hemipelvis adjacent to the focus of narrowing measuring 4.5 x 3.0 cm, possibly representing the left ovary. Body wall and musculoskeletal: Fat-containing bilateral inguinal hernias. Age-appropriate degenerative disease within the lower thoracic and lumbosacral spine. IMPRESSION: High-grade obstruction within the mid to distal sigmoid colon for which a malignancy is suspected. Aerated stool (with pneumatosis less likely) within the entirety of the colon, proximal to the mid to distal sigmoid colon. Retroperitoneal and mesenteric lymphadenopathy. Secondary signs suggesting hypovolemia. 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 Reviewed, dictated and finalized at location A. IMPRESSION: High-grade obstruction within the mid to distal sigmoid colon for which a malig paloma is suspected. Aerated stool (with pneumatosis less likely) within the entirety of the colon, proximal to the mid to distal sigmoid colon. Retroperitoneal and mesenteric lymphadenopathy. Secondary signs suggesting hypovolemia. Redemonstration of saccular aneurysmal dilatation of the infrarenal abdominal a rebecca.
--- NOTE | ~2024-10-29 | XR_ITS ---
CHEST RADIOGRAPH CLINICAL HISTORY: abnormal xr/CONGESTION . COMPARISON: 11/02/2024 TECHNIQUE: Single portable view of the chest. FINDINGS Sternal wires and mediastinal clips are identified, the wires are midline and intact. The remainder of the cardiomediastinal silhouette is otherwise unremarkable. Improved aeration of the bilateral lung zamorano when compared with previous days examination. Peribronchial thickening persists, although to a lesser degree. Groundglass opacification of the left hemithorax entirety, an interval change. Persistent right-sided coarse lung markings with patchy opacification suggesting multifocal pneumonia . Left-sided pleural plaques persist. IMPRESSION: Improved aeration of the bilateral lung zones with interval development of hazy opacification of the left hemithorax for which posterior layering of the pleural effusion is suspected. Multifocal infiltrates, right greater than left, persist. Reviewed, dictated and finalized at location A. IMPRESSION: Improved aeration of the bilateral lung zones with interval development of hazy opacification of the left hemithorax for which posterior layering of the pleur al effusion is suspected. Multifocal infiltrates, right greater than left, persist.
--- NOTE | ~2024-10-29 | XR_ITS ---
CHEST RADIOGRAPH CLINICAL HISTORY: cough . COMPARISON: 07/12/2024 TECHNIQUE: Single portable view of the chest. FINDINGS Sternal wires and mediastinal clips are identified, the wires are midline and intact. The remainder of the cardiomediastinal silhouette is otherwise unremarkable. Interval development of patchy opacification of the bilateral lung zamorano with significant peribronch ial thickening and air bronchograms suggesting multifocal pneumonia. Small left-sided pleural effusion and left pleural plaques are suspected. IMPRESSION: Significant peribronchial thickening. Multifocal infiltrates and small left-sided pleural effusion, as detailed above. Reviewed, dictated and finalized at location A. IMPRESSION: Significant peribronchial thickening. Multifocal infiltrates and small left-sided pleural effusion, as detailed above .
--- NOTE | ~2024-10-29 | XR_ITS ---
XR chest PICC line 11/05/2024 12:16 Indication: PICC line placement Procedure: AP portable chest Comparison: 11/03/2024 Findings: Stable diffuse bilateral airspace disease. PICC line tip in the SVC. Status post median taylor rnotomy for CABG. Stable cardiomediastinal silhouette. No pneumothorax or significant effusion. No ac dinorah osseous abnormality. Impression: 1: Stable diffuse bilateral airspace disease, most likely edema. Reviewed, dictated and finalized at location B. Impression: 1: Stable diffuse bilateral airspace disease, most likely edema.
--- OUTSIDE RECORDS SUMMARY | 2024-10-29 14:18 | XMS_ITS | Clinical Summary ---
Author Organization [facility] Address [address] [place] [address] Care Team Providers Care Laboratory Technician Name Role Phone Unavailable Primary Care Provider Unavailabl e Source Comments [facility] [employer],non-owned Affiliates and Associated Physician Practices is amultiple site organization consisting of ambulatory clinics and hospital sitesin [place], [place], [place] and [place]. This disclosure is being madepursuant to the Care Everywhere program and may not contain all information available regarding this patient. 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
--- OUTSIDE RECORDS SUMMARY | 2024-10-29 14:18 | XMS_ITS | Referral Summary ---
Author Organization [facility] [address] [place] [address] Address [address] [place] [address] Care Team Providers Care Math And Science Instructor Name Role Phone Shana Sarkar MD Primary Care Provider [phone] Encounters Date Type Department Care Team Description 08/22/2024 9:15 AM CDT Ancillary Procedure [facility] Medical [facility] Cardiology [address] [place] [address] [address] [place] [address] Transient cerebral ischemia, unspecified type 08/14/2024 11:45 AM CDT Office Visit [facility] Cardiology [address] [place] [address] [address] [place] [address] Jr Petit MD Preop cardiovascular exam (Primary Dx); Coronary artery disease involving [place] coronary artery of campo heart without angina pectoris; S/P CABG x [...] on file 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 Gender Identity Not on file Sexual Orientation [...] 3 AM CDT Coronary artery disease involving [place] coronary artery of campo heart without angina pectoris ELECTROCARDIOGRAM REPORT Routine 08/14/2024 Preop cardiovascular exam Coronary artery disease involving [place] coronary artery of campo heart without angina pectoris S/P CABG x 2 from Last 3 Months Results * TRANSTHORACIC ECHO (TTE) COMPLETE W DOPPLER/CF WO CONTRAST W BUBBLE (08/22/2024 10:15 AM CDT) Estimated EF 60-65 % CONS SCIMAGE EF Mod BP 66 % CONS SCIMAGE Anatomical Region Laterality Modality Ultrasound 08/22/2024 9:17 AM CDT Narrative 08/22/2024 12:43 PM CDT [facility] Medical Group Cardiology [address] [facility] [address], [place] [address] [address] [facility] [address], [place] [address] P:[phone] P:[phone] Echocardiographic Report Patient Name: ROSA LEON : 1950 Study Date: 08/22/2024 9:17:44 AM Gender: F Tech: [facility] Location: [facility] Provider: SHANA SARKAR Height(Cm): 160 BSA: 1.74 [...] Procedure Note Sacha Younger MD - 08/22/2024 [facility] Medical Group Cardiology [address] [facility] [address] [address] [address] [facility] [address], [address], [place] [address] P:[phone] P:[phone] Echocardiographic Report Patient Name: ROSA LEON : 1950 Study Date: 08/22/2024 9:17:44 AM Gender: F Tech: [facility] Location: [place] Ref Provider: SHANA SARKAR Height(Cm): 160 BSA: [...] Months Insurance [employer] MEDICARE HMO Care Teams Math And Science Instructor Relationship Specialty Start Date End Date Shana Sarkar MD [address] [place] [id number] PCP - General Family Medicine 05/22/24
--- OUTSIDE RECORDS SUMMARY | 2024-10-29 14:18 | XMS_ITS | Clinical Summary ---
Author Organization [facility] [address] Address [address] [place] [address] Care Team Providers Care Fire Inspector Name Role Phone Shana Sarkar MD Primary Care Provider [phone] Allergies No known active allergies Medications carvediloL [...] Cardiology [address] [place] [address] Transient cerebral ischemia, unspecified type 08/14/2024 11:45 AM CDT Office Visit [facility] Medical Group Cardiology [address] [place] [address] Jr Petit MD Preop cardiovascular exam (Primary Dx); Coronary artery disease involving [place] coronary artery of [place] heart without angina pectoris; S/P CABG x 2; Primary hypertension; Chronic obstructive pulmonary disease, unspecified COPD type (HCC); Tobacco abuse from Last 3 Months Social History Tobacco Use Types Packs/Day Years Used Date Smoking Tobacco: Never Assessed Comments Unknown Sex and Gender Information Value Date Recorded Sex Assigned at Not on file 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 Gender Identity Not on file Sexual Orientation [...] 3 AM CDT Coronary artery disease involving [place] coronary artery of [place] heart without angina pectoris ELECTROCARDIOGRAM REPORT Routine 08/14/2024 Preop cardiovascular exam Coronary artery disease involving [place] coronary artery of [place] heart without angina pectoris S/P CABG x 2 from Last 3 Months Results * TRANSTHORACIC ECHO (TTE) COMPLETE W DOPPLER/CF WO CONTRAST W BUBBLE (08/22/2024 10:15 AM CDT) Estimated EF 60-65 % CONS SCIMAGE EF Mod BP 66 % CONS SCIMAGE Anatomical Region Laterality Modality Ultrasound 08/22/2024 9:17 AM CDT Narrative 08/22/2024 12:43 PM CDT [facility] Medical Group Cardiology [address] [facility] [address], [place] [address] [address] [facility] [address], [place] [address] P:[phone] P:[phone] Echocardiographic Report Patient Name: ROSA LEON : 1950 Study Date: 08/22/2024 9:17:44 AM Gender: F Tech: [facility] Location: [facility] Provider: SHANA SARKAR Height(Cm): 160 BSA: [...] FINDINGS: Interpretation Site: Exam was interpreted at [facility]. Left Ventricle: Normal left ventricular systolic [...] Procedure Note Sacha Younger MD - 08/22/2024 [facility] Medical Group Cardiology [address], [place] [address] [address] [facility] [address], [place] [address] P:[phone] P:[phone] Echocardiographic Report Patient Name: ROSA LEON : 1950 Study Date: 08/22/2024 9:17:44 AM Gender: F Tech: [facility] Location: [facility] Provider: SHANA SARKAR Height(Cm): 160 BSA: [...] FINDINGS: Interpretation Site: Exam was interpreted at [facility]. Left Ventricle: Normal left ventricular systolic [...] Months Insurance [employer] MEDICARE HMO Care Teams Fire Inspector Relationship Specialty Start Date End Date Shana Sarkar MD [address] [place] [address] G[place] [id number] PCP - General Family Medicine 05/22/24
--- NOTE | 2024-10-29 14:30 | ADMGEN ---
This patient, Rosa Martino, was admitted to [facility] Surg Room 330-01. Patient/family oriented to hospital policies and general routines including ID bracelet, bed and alarms, visiting hours, pain management, procedures, bathroom and other care routines, personal items, smoking policy, room service/diet, and visiting hours. Information on how to activate the Rapid Response Team has been discussed. Patient/Family are encouraged to report perceived risks to care and to ask questions if they do not understand what they are told or what they should do.
[2024-10-29 14:42] VITALS: BMI 25.0
--- NOTE | 2024-10-29 14:57 | P.HP_ITS ---
H&P: HPI History of Present Illness Date/Time: 10/29/24 14:57 Chief Complaint: Abdominal pain Narrative: Patient is a 74-year-old female with past medical history of diverticulitis, COPD, stage IIIA CKD, ASPEN, HTN, T2DM and multiple other medical problems who was seen earlier today in outpatient general surgery clinic by Dr. Campos for evaluation of diverticulitis. Patient had been experiencing lower abdominal p ain, nausea and constipation for roughly 2 months. She has previously been following with Dr. Templeton in GI, who referred her to our office. Patient was hospitalized roughly 5 months ago for iron deficiency anemia. GI was consulted at this time and obtained EGD and colonoscopy. Stool was hemoccult positive at this time. EGD was fairly benign. Colonoscopy was attempted, but due to extreme angulation in the sigmoid, only sigmoidoscopy was performed. The instrument was changed to a gastroscope but it was still not possible to advance proximally. Patient had a repeat sigmoidoscopy done on 09/19/2024, but again was unable to have full colonoscopy due to stenosis noted in the sigmoid colon with significant sigmoid angulation. Multiple nonbleeding diverticula present in sigmoid colon. On 10/18/2024, a barium enema was performed and demonstrated a normal rectum, however contrast was unable to be passed beyond the high-grade stricture in the distal sigmoid colon which could be related to acute diverticulitis, scarring related to chronic diverticulitis, or malignancy. At this point, patient was referred to general surgery. Upon office visit this morning, patient's abdomen was soft, moderately distended with mild diffuse tenderness. It was noted that patient likely has a near total obstruction of the sigmoid colon based on clinical evidence and imaging. Patient also admitted that she has not had a bowel movement in almost [address] Campos recommended admission to the hospital and possible urgent colonic diversion. Upon my interview on the floor with the patient, she notes that the abdominal pain has worsened to a level she rated as a 10. Daughter at bedside mentions that she will get the abdominal pain more frequently after eating unhealthy foods that are not homemade. She has had a lack of appetite and has not been eating an adequate amount for the past 2 months. She notes some associated nausea and bloating. Past abdominal surgical history includes vaginal hysterectomy. [facility] Past Medical History Medical History History of diverticulitis Chronic obstructive pulmonary disease Osteoarthritis of hips, bilateral Cigarette nicotine dependence with nicotine-induced disorder Stage 3a chronic kidney disease Obstructive sleep apnea Major depressive disorder in partial remission Iron deficiency Atherosclerosis of [place] coronary artery of [place] heart without angina pectoris Pure hypercholesterolemia, unspecified Essential (primary) hypertension Type 2 diabetes mellitus with chronic kidney disease Carpal tunnel syndrome Surgical History Surgical History History of coronary artery bypass graft x 2 (2012) History of carotid endarterectomy (2007) Family History Family History Unknown Asthma Hypertension Depression Heart disease Lung disease Arthritis Cerebrovascular accident High cholesterol Social History Social History Social History: Surrogate medical decision maker: Lynn Mccarthy, daughter. Code status: Full code. Smoking packs per day: 0.5 Smoking cigarettes per day: 10.0 Years smoked: 45 Smoking pack-years: 22.50 Smoking status: Current every day smoker Tobacco type: cigarettes Alcohol intake: never Substance use: never Substance use type: does not use Do You Feel Safe in your Home?: Yes Lack of Transportation: No Lack of Food: Never True Current Housing: I Have Housing Concerned About Future Housing: No Difficulty Paying Gas/Electric Bills: No Difficulty Paying for Meds: No Currently Unemployed: No Education: High School Diploma/GED Difficulty w/ Childcare or Family Care: No Living arrangements: with family Occupation/Education: retired Spiritual care concerns: No Meds Home Medications and Allergies Home Medications ?Medication ?Instructions ?Recorded ?Confirmed ?Type aspirin 81 mg tablet,delayed 81 mg PO DAILY #90 tabs 08/18/23 10/29/24 Rx release famotidine 20 mg tablet 20 mg PO BID #180 tabs 08/18/23 10/29/24 Rx loratadine 10 mg tablet (Claritin) 10 mg PO DAILY #90 tabs 08/18/23 10/29/24 Rx rrddrbdc-znw-fqmuv acid 0.4 1 tablet PO DAILY #90 tabs 08/18/23 10/29/24 Rx mg-lycopene 300 mcg-lutein 250 mcg tablet (Centrum Silver) calcium 500 mg (as 1 tablet PO DAILY 11/22/23 10/29/24 History carbonate)-vitamin D3 10 mcg (400 unit) tablet losartan 50 mg tablet 50 mg PO DAILY #90 tabs 05/10/24 10/29/24 Rx carvedilol 6.25 mg tablet 6.25 mg PO BID #180 tabs 08/07/24 10/29/24 Rx ferrous gluconate 324 mg (38 mg 324 mg PO DAILY #30 tabs 08/28/24 10/29/24 Rx iron) tablet atorvastatin 40 mg tablet 80 mg PO DAILY 09/03/24 10/29/24 History sertraline 100 mg tablet 100 mg PO BID #200 tabs 10/14/24 10/29/24 Rx ciprofloxacin HCl 500 mg tablet 500 mg PO Q12H #20 tabs 10/21/24 10/29/24 Rx ipratropium bromide 21 mcg (0.03 2 spray intranasal TID #30 mL 10/21/24 10/29/24 Rx %) nasal spray metronidazole 500 mg tablet 500 mg PO TID 10 days #30 tabs 10/21/24 10/29/24 Rx fluticasone 250 mcg-salmeterol 50 1 inh inhalation BID PRN COPD 10/29/24 10/29/24 History mcg/dose blistr powdr for inhalation (Advair Diskus) Allergies Allergy/AdvReac Type Severity Reaction Status Date / Time No Known Allergies Allergy Verified 10/29/24 10:13 Exam Const: General: uncomfortable Eyes: General: appearance normal, both eyes and all related structures Neck: Neck: supple Resp: Effort & Inspection: normal respiratory effort Cardio: Rate: regular rate GI: Inspection: distended GI Palp: Yes Tenderness to palpation present (GI) and Yes Guarding due to palpation present (GI) Other: Diffuse abdominal tenderness with guarding. Skin: General skin exam: normal color and no rashes or lesions noted Neuro: Speech: normal speech Sensory Exam: normal sensation Extrem: General: normal to inspection Psych: Mental Status: mental status grossly normal Assessment and Plan Assessment and plan (1) Colonic obstruction: Code(s): K56.609 - Unspecified intestinal obstruction, unspecified as to partial versus complete obstruction Status: Acute Assessment and Plan: Patient presented with 2 months of lower abdominal pain, nausea, and constipation. She has been followed by GI for this issue and after multiple failed attempts at colonoscopy and barium enema due to obstruction, she was referred to general surgery. Patient was seen in outpatient clinic this morning and recommended admission to hospital for possible urgent colonic diversion. Patient now rating pain a 10. No BM since 10/17. Notes nausea and bloating. Labs obtained - potassium 3.2. Oral KCl given. Normal BUN/Cr. Normal albumin. CEA 2.6. Plan for slow bowel prep tomorrow pending CT results. (2) Type 2 diabetes mellitus with chronic kidney disease: Qualifiers: Diabetes mellitus termite control representative insulin use: without termite control representative use Chronic kidney disease stage: unspecified stage Qualified Code(s): E11.22 - Type 2 diabetes mellitus with diabetic chronic kidney disease Code(s): E11.22 - Type 2 diabetes mellitus with diabetic chronic kidney disease Status: Acute Assessment and Plan: Well controlled. Manage per hospitalist recs. (3) COPD (chronic obstructive pulmonary disease): Qualifiers: COPD type: chronic bronchitis Chronic bronchitis type: mixed simple and mucopurulent Qualified Code(s): J41.8 - Mixed simple and mucopurulent chronic bronchitis Code(s): J44.9 - Chronic obstructive pulmonary disease, unspecified Status: Acute Plan Discussed patient's case and plan of care with Dr. Campos.
[2024-10-29 15:09] LABS: Hematocrit 39.7 % (37.0-47.0); Hemoglobin 12.5 g/dL (12.0-15.0); Immature Granulocyte Percent A 0.9 % (0-0.5); Lymphocytes Absolute Auto 1.81 K/mm3 (0.9-3.2); Mean Corpuscular HGB Conc 31.5 g/dl (32-36); Mean Corpuscular Hemoglobin 27.8 pg (26-34); Mean Corpuscular Volume 88.2 fl (80-100); Nucleated Red Blood Cells Absolute Auto 0.000 K/mm3 (0.0-0.012); Nucleated Red Blood Cells Perc 0.0 % (0.0-0.2); Platelet Count Result 256 k/mm3 (150-375); Red Blood Count 4.50 M/mm3 (4.2-5.4); White Blood Count 6.7 K/mm3 (4.5-10.0)
[2024-10-29 15:17] LABS: Alanine Aminotransferase 26 U/L (6-35); Albumin Level 4.0 g/dL (3.5-5.1); Alkaline Phosphatase 81 U/L (38-126); Anion Gap 9 mmol/L (4-12); Aspartate Amino Transferase 55 U/L (14-36); Bilirubin,Total 0.4 mg/dL (0.2-1.3); Blood Urea Nitrogen 16 mg/dL (7-17); Calcium 9.0 mg/dL (8.4-10.2); Carbon Dioxide 23 mmol/L (22-30); Chloride 107 mmol/L (98-107); Estimated Glomerular Filt Rate 54; Glucose 110 mg/dL (65-110); Potassium 3.2 mmol/L (3.4-5.0); Sodium 139 mmol/L (137-145); Total Protein 7.0 g/dL (6.3-8.2)
[2024-10-29 15:21] VITALS: BP 106/58; PULSE 54; RESP 16; TEMP 36.8; O2SAT 96
[2024-10-29 15:53] LABS: Carcinoembryonic Antigen 2.6 ng/mL (0.0-3.0)
[2024-10-29] MEDS: SERTRALINE HCL 50 MG TABLET 100 MG PO (17:36)
[2024-10-29] MEDS: CEFEPIME 2 GM in SODIUM CHLORIDE 0.9% IV 50 ML 100 ML IVPB (17:37)
[2024-10-29] MEDS: POTASSIUM CHLORIDE 20 MEQ PACKET (FOR LIQUID) 40 MEQ PO (17:37)
[2024-10-29] MEDS: metroNIDAZOLE 500 MG/ISO 100ML 500 MG/100 ML BAG 100 MG IVPB (18:27)
[2024-10-29] MEDS: MORPHINE SULFATE (*CRX) 2 MG/ML INJ IV PUSH (20:47)
[2024-10-29 21:08] VITALS: PULSE 62
--- NOTE | 2024-10-29 21:10 | P.CONIM_ITS ---
Assessment and Plan Assessment and plan (1) Colonic obstruction: Code(s): K56.609 - Unspecified intestinal obstruction, unspecified as to partial versus complete obstruction Status: Acute Assessment and Plan: CT scan today showed high-grade obstruction within the mid to distal sigmoid colon, lymphadenopathy, and aerated stool within the entirety of the colon. Sigmoidoscopy in mid September showed diverticulosis but was otherwise unremarkable. Continue empiric antibiotic to cover for possible diverticulitis. Further and definitive management as per the surgical service. (2) Hypertension: Code(s): I10 - Essential (primary) hypertension Status: Acute Assessment and Plan: Blood pressures were reviewed and they have been stable. Continue to monitor closely as she is currently NPO. (3) Obstructive sleep apnea: Code(s): G47.33 - Obstructive sleep apnea (adult) (pediatric) Status: Acute Assessment and Plan: CPAP will be provided for the patient to use while hospitalized. (4) Chronic obstructive pulmonary disease: Code(s): J44.9 - Chronic obstructive pulmonary disease, unspecified Status: Acute Assessment and Plan: No acute issues. Continue Advair Diskus. Plan Thank you for allowing us to participate in this patient's care. Please do not hesitate to contact us with any questions. HPI Date of Consult Consult date: 10/30/24 Requesting Physician: Subhash Campos MD Primary Care Provider: Santy Sarkar MD Consult Narrative Reason for consult: Medical management. Narrative: This is a 74-year-old female with history of diverticulitis, chronic kidney disease, coronary artery disease with history of bypass, stroke, carotid artery disease status post carotid endarterectomy, hypertension, hyperlipidemia, type 2 diabetes mellitus, obstructive sleep apnea on CPAP, and iron deficiency anemia whom the hospitalist service has been consulted for help managing her medical conditions. She was admitted to the hospital per Dr. Campos with concerns for colonic obstruction. Over the past couple of months she has had several episodes of lower abdominal pain, nausea, and constipation. A sigmoidoscopy on 09/19/2024 showed diverticulosis without evidence of perforation, abscess, bleeding, or colonic stenosis. She was unable to have a full colonoscopy due to colon angulation and torturous colon. A barium enema on 10/18/2024 showed a normal rectum with the contrast was unable to pass beyond a high-grade stricture in the distal sigmoid colon. She has not had a good, full bowel movement since the day prior to the enema and she has ongoing nausea and bloating. She was referred to Dr. Campos and he saw her in office today at which time the decision was made to admit the patient for further testing and possible urgent colonic diversion pending that workup. She continues to have nausea and no bowel movement. No fever, vomiting, or rectal bleeding. Review of Systems 2 Review of Systems: 12 systems were reviewed and are negativ e except for as per HPI. 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 History of diverticulitis Chronic obstructive pulmonary disease Osteoarthritis of hips, bilateral Cigarette nicotine dependence with nicotine-induced disorder Stage 3a chronic kidney disease Obstructive sleep apnea Major depressive disorder in partial remission Iron deficiency Atherosclerosis of [place] coronary artery of [place] heart without angina pectoris Pure hypercholesterolemia, unspecified Essential (primary) hypertension Type 2 diabetes mellitus with chronic kidney disease Carpal tunnel syndrome Surgical History Surgical History History of coronary artery bypass graft x 2 (2012) History of carotid endarterectomy (2007) Family History Family History Unknown Asthma Hypertension Depression Heart disease Lung disease Arthritis Cerebrovascular accident High cholesterol Social History Social History Social History: Surrogate medical decision maker: Lynn Mccarthy, daughter. Code status: Full code. Smoking packs per day: 0.5 Smoking cigarettes per day: 10.0 Years smoked: 45 Smoking pack-years: 22.50 Smoking status: Current every day smoker Alcohol intake: never Substance use: never Substance use type: does not use Do You Feel Safe in your Home?: Yes Lack of Transportation: No Lack of Food: Never True Current Housing: I Have Housing Concerned About Future Housing: No Difficulty Paying Gas/Electric Bills: No Difficulty Paying for Meds: No Currently Unemployed: No Education: High School Diploma/GED Difficulty w/ Childcare or Family Care: No Living arrangements: with family Occupation/Education: retired Spiritual care concerns: No Meds Home Medications and Allergies Home Medications ?Medication ?Instructions ?Recorded ?Confirmed ?Type aspirin 81 mg tablet,delayed 81 mg PO DAILY #90 tabs 08/18/23 10/29/24 Rx release famotidine 20 mg tablet 20 mg PO BID #180 tabs 08/18/23 10/29/24 Rx loratadine 10 mg tablet (Claritin) 10 mg PO DAILY #90 tabs 08/18/23 10/29/24 Rx vxcfhavc-tya-lhrip acid 0.4 1 tablet PO DAILY #90 tabs 08/18/23 10/29/24 Rx mg-lycopene 300 mcg-lutein 250 mcg tablet (Centrum Silver) calcium 500 mg (as 1 tablet PO DAILY 11/22/23 10/29/24 History carbonate)-vitamin D3 10 mcg (400 unit) tablet losartan 50 mg tablet 50 mg PO DAILY #90 tabs 05/10/24 10/29/24 Rx carvedilol 6.25 mg tablet 6.25 mg PO BID #180 tabs 08/07/24 10/29/24 Rx ferrous gluconate 324 mg (38 mg 324 mg PO DAILY #30 tabs 08/28/24 10/29/24 Rx iron) tablet atorvastatin 40 mg tablet 80 mg PO DAILY 09/03/24 10/29/24 History sertraline 100 mg tablet 100 mg PO BID #200 tabs 10/14/24 10/29/24 Rx ciprofloxacin HCl 500 mg tablet 500 mg PO Q12H #20 tabs 10/21/24 10/29/24 Rx ipratropium bromide 21 mcg (0.03 2 spray intranasal TID #30 mL 10/21/24 10/29/24 Rx %) nasal spray metronidazole 500 mg tablet 500 mg PO TID 10 days #30 tabs 10/21/24 10/29/24 Rx fluticasone 250 mcg-salmeterol 50 1 inh inhalation BID PRN COPD 10/29/24 10/29/24 History mcg/dose blistr powdr for inhalation (Advair Diskus) Allergies Allergy/AdvReac Type Severity Reaction Status Date / Time No Known Allergies Allergy Verified 10/29/24 10:13 Vital Signs Vital Signs - 24 hr 10/29/24 15:21 10/29/24 21:08 Temperature 98.2 F Pulse Rate 54 L 62 Respiratory Rate 16 Blood Pressure 106/58 L Pulse Oximetry 96 Exam 2 Narrative: General: Nontoxic. Weight: 64 kg. BMI: 25. HEENT: PERRL, EOMI. Moist mucous membranes. Neck: Supple. Respiratory: Respirations are nonlabored and lungs are clear to auscultation though a bit diminished. Cardiovascular: Regular rate and rhythm with S1-S2. Gastrointestinal: Abdomen is a bit distended and tender to palpation throughout the abdomen. No rebound tenderness. Skin: Warm and dry. Extremities: No cyanosis, clubbing, or edema. Radial and pedal pulses intact. Neurological: Alert. Cranial nerves grossly intact. No gross focal deficits to casual conversation. Psychiatric: Pleasant and cooperative. Results Labs 10/29/24 14:52 10/29/24 14:52 Labs: Short CBC 10/29/24 Range/Units 14:52 WBC 6.7 (4.5-10.0) K/mm3 Hgb 12.5 (12.0-15.0) g/dL Hct 39.7 (37.0-47.0) % Plt Count 256 (150-375) k/mm3 BMP 10/29/24 14:52 Sodium 139 Potassium 3.2 L Chloride 107 Carbon Dioxide 23 BUN 16 Creatinine 1.00 Glucose 110 Calcium 9.0 Liver Function 10/29/24 Range/Units 14:52 Total Bilirubin 0.4 (0.2-1.3) mg/dL AST 55 H (14-36) U/L ALT 26 (6-35) U/L Alkaline Phosphatase 81 (38-126) U/L Albumin 4.0 (3.5-5.1) g/dL Imaging Abdomen/Pelvis CT 10/29/24 17:43 IMPRESSION: High-grade obstruction within the mid to distal sigmoid colon for which a malignancy is suspected. Aerated stool (with pneumatosis less likely) within the entirety of the colon, proximal to the mid to distal sigmoid colon. Retroperitoneal and mesenteric lymphadenopathy. Secondary signs suggesting hypovolemia. 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 Quality VTE Prophylaxis VTE prophylaxis: mechanical ordered If No VTE Prophylaxis Answer both mechanical and pharmacologic: Reason no pharmacologic proph: medical contraindication (may require surgery) Hospitalist MIPS Advance Care Plan I have confirmed that the patient's Advanced Care Plan is present, code status is documented, or surrogate decision maker is listed in patient medical record.: Yes Medication Reconciliation I have utilized all available resources to obtain, update and review the patients current medications (includes all prescriptions, OTC, herbals, cannabis, and nutritional supplements).: Yes
[2024-10-29 22:00] VITALS: BP 146/61; PULSE 55; RESP 18; TEMP 36.3; O2SAT 98
[2024-10-29] MEDS: FLUTICASONE/SALMETEROL 115-21 MCG INHALER 1 PUFF 2 PUFF INHALATION (22:03)
[2024-10-29 22:06] VITALS: PULSE 60; RESP 20
[2024-10-29 22:24] VITALS: PULSE 80; O2SAT 97
[2024-10-30] VITALS (9 sets, daily range): BP systolic 124–137; BP diastolic 56–69; PULSE 52–61; RESP 18–20; TEMP 36.4–36.6; O2SAT 94–99; BMI 25.0
[2024-10-30] MEDS: ONDANSETRON INJ 4 MG/2 ML VIAL IV PUSH ×2 (01:05→21:43)
[2024-10-30] MEDS: CEFEPIME 2 GM in SODIUM CHLORIDE 0.9% IV 50 ML 100 ML IVPB ×2 (03:32→16:10)
[2024-10-30] MEDS: metroNIDAZOLE 500 MG/ISO 100ML 500 MG/100 ML BAG 100 MG IVPB ×3 (05:18→21:50)
[2024-10-30 06:09] LABS: INR 1.2; Prothrombin Time 14.6 Seconds (11.1-14.7)
[2024-10-30 06:30] LABS: Alanine Aminotransferase 21 U/L (6-35); Albumin Level 3.3 g/dL (3.5-5.1); Alkaline Phosphatase 67 U/L (38-126); Anion Gap 5 mmol/L (4-12); Aspartate Amino Transferase 47 U/L (14-36); Bilirubin,Total 0.1 mg/dL (0.2-1.3); Blood Urea Nitrogen 14 mg/dL (7-17); Calcium 8.6 mg/dL (8.4-10.2); Carbon Dioxide 22 mmol/L (22-30); Chloride 108 mmol/L (98-107); Estimated CRCL calculation 37 ml/min; Estimated Glomerular Filt Rate 57; Glucose 106 mg/dL (65-110); Potassium 3.5 mmol/L (3.4-5.0); Sodium 135 mmol/L (137-145); Total Protein 5.9 g/dL (6.3-8.2)
[2024-10-30] MEDS: CALCIUM/VITAMIN D 500 MG/5 MCG (200 I.U.) TABLET PO (08:57)
[2024-10-30] MEDS: SERTRALINE HCL 50 MG TABLET 100 MG PO ×2 (08:57→16:11)
[2024-10-30] MEDS: ATORVASTATIN 40 MG TABLET 80 MG PO (08:57)
[2024-10-30] MEDS: LOSARTAN POTASSIUM 50 MG TABLET PO (08:57)
[2024-10-30] MEDS: PANTOPRAZOLE SODIUM IV 40 MG VIAL IV PUSH (08:58)
[2024-10-30] MEDS: FLUTICASONE/SALMETEROL 115-21 MCG INHALER 1 PUFF 2 PUFF INHALATION ×2 (09:17→20:40)
--- NOTE | 2024-10-30 09:41 | PM.IMPN ---
Progress Note: A&P Assessment and Plan (1) Colonic obstruction: Code(s): K56.609 - Unspecified intestinal obstruction, unspecified as to partial versus complete obstruction Status: Acute Plan (1) Colonic obstruction: Code(s): K56.609 - Unspecified intestinal obstruction, unspecified as to partial versus complete obstruction Status: Acute Assessment and Plan: CT scan today showed high-grade obstruction within the mid to distal sigmoid colon, lymphadenopathy, and aerated stool within the entirety of the colon. Sigmoidoscopy in mid September showed diverticulosis but was otherwise unremarkable. Continue empiric antibiotic to cover for possible diverticulitis. Further and definitive management as per the surgical service. possible urgent colonic diversion. CKD stage 3 Kidney function stable Hypokalemia, hyponatremia Replete with potassium chloride Patient is on normal saline IV Hypertension: Code(s): I10 - Essential (primary) hypertension Status: Acute Assessment and Plan: Blood pressures stable. Continue to monitor closely as she is currently NPO. Obstructive sleep apnea: Code(s): G47.33 - Obstructive sleep apnea (adult) (pediatric) Status: Acute Assessment and Plan: CPAP will be provided for the patient to use while hospitalized. (4) Chronic obstructive pulmonary disease: Code(s): J44.9 - Chronic obstructive pulmonary disease, unspecified Status: Acute Assessment and Plan: No acute issues. Continue Advair Diskus. Subjective Date/time seen: 10/30/24 09:41 Interval history: Patient feels comfortable, denies nausea vomiting, still has moderate lower abdominal pain. Patient denies chest pain shortness breast cough Exam Narrative: GENERAL: Pleasant, in no acute distress. Well-nourished. - EYES: EOMI. Anicteric. - HENT: Moist mucous membranes. - LUNGS: Clear to auscultation bilaterally, no wheezing, rhonchi, or rales. - CARDIOVASCULAR: Regular rate and rhythm. No murmur. No JVD. - ABDOMEN: Soft, diffuse abdominal tender and non-distended. No palpable masses. - EXTREMITIES: No edema. Peripheral pulses 2+. Non-tender. - NEUROLOGIC: No focal neurological deficits. CN II-XII grossly intact. - PSYCHIATRIC: Awake, Alert and oriented x 3. Appropriate mood and affect. - SKIN: No rashes or lesions. Warm. - LYMPH: No cervical lymphadenopathy. Objective Data Vital Signs Vital Signs: Vital Signs - 24 hr 07/22/25 15:21 10/29/24 21:08 10/29/24 22:00 Temperature 98.2 F 97.4 F L Pulse Rate 54 L 62 55 L Respiratory Rate 16 18 Blood Pressure 106/58 L 146/61 H Pulse Oximetry 96 98 Oxygen Delivery Fraction of Inspired Oxygen 10/29/24 22:06 10/29/24 22:24 10/30/24 04:08 Temperature Pulse Rate 60 80 Respiratory Rate 20 Blood Pressure Pulse Oximetry 97 Oxygen Delivery Autopap Room Air Fraction of Inspired Oxygen 10/30/24 05:13 10/30/24 06:00 10/30/24 08:58 Temperature 97.7 F Pulse Rate 58 L 61 Respiratory Rate 18 Blood Pressure 137/69 Pulse Oximetry 95 99 Oxygen Delivery Room Air Fraction of Inspired Oxygen 21 10/30/24 09:18 10/30/24 09:18 Temperature Pulse Rate 58 L 58 L Respiratory Rate 20 20 Blood Pressure Pulse Oximetry 96 Oxygen Delivery Room Air Fraction of Inspired Oxygen Intake/Output Intake/Output: Intake & Output 10/27/24 10/28/24 10/29/24 10/30/24 23:59 23:59 23:59 23:59 Intake Total 540 440 Balance 540 440 Meds/Results Medications: Active Medications Generic Name Dose Route Start Last Admin Trade Name Augieq PRN Reason Stop Dose Admin Atorvastatin Calcium 80 mg 10/30/24 09:00 10/30/24 08:57 Atorvastatin 40 Mg Tablet PO 80 mg DAILY JANNIE Administration Calcium Carbonate 500 mg 10/30/24 09:00 10/30/24 08:57 Calcium/Vitamin D 500 Mg/5 Mcg (200 I.U.) Tablet PO 500 mg DAILY JANNIE Administration Carvedilol 6.25 mg 10/29/24 21:00 10/30/24 08:58 Carvedilol 6.25 Mg Tablet PO 6.25 mg Q12HR JANNIE Administration Dextrose 12.5 gm 10/29/24 22:59 Dextrose 50% 25 Gm/50 Ml Syringe IV PUSH PRN PRN Hypoglycemia Protocol Glucagon 1 mg 10/29/24 22:59 Glucagon For Inj 1 Mg Vial IM PRN PRN Hypoglycemia Protocol Glucose 15 gm 10/29/24 22:59 Glucose Oral Gel 15 Gm Of Glucse In 37.5 Gm Tube PO PRN PRN Hypoglycemia Protocol Cefepime HCl 2 gm/ Sodium 50 mls @ 100 mls/hr 10/29/24 16:00 10/30/24 03:32 Chloride IVPB 100 mls/hr Q12H JANNIE Administration Metronidazole 500 mg in 100 mls @ 100 mls/hr 10/30/24 06:00 10/30/24 05:18 Flagyl 500 Mg/Iso Soln 100 Ml IVPB 100 mls/hr Q8HR JANNIE Administration Dextrose 1,000 mls @ 100 mls/hr 10/29/24 22:59 Dextrose 5% 1,000 Ml IVPB PRN PRN Hypoglycemia Protocol Insulin Aspart 2 - 5 units 10/30/24 00:00 10/30/24 07:11 Insulin Aspart (*Bkc) 100 Units/Ml SUB-Q Not Given Q6HR [facility] Protocol Ipratropium [place] 2 spray 10/29/24 17:00 10/30/24 08:58 Ipratropium Nasal [place] 0.03% 15 Ml Bottle NASAL Not Given TID [facility] Losartan Potassium 50 mg 10/30/24 09:00 10/30/24 08:57 Losartan Potassium 50 Mg Tablet PO 50 mg DAILY JANNIE Administration Morphine Sulfate 2 mg 10/29/24 14:54 10/29/24 20:47 Morphine Sulfate (*Crx) 2 Mg/Ml Inj IV PUSH 2 mg Q2H PRN Administration Pain Rated 4-6 Morphine Sulfate 4 mg 10/29/24 14:54 Morphine Sulfate (*Crx) 4 Mg/Ml Inj IV PUSH Q2H PRN Pain Rated 7-10 Ondansetron HCl 4 mg 10/29/24 15:17 10/30/24 01:05 Ondansetron Inj 4 Mg/2 Ml Vial IV PUSH 4 mg Q4H PRN Administration Nausea And Vomiting Ondansetron HCl 4 mg 10/29/24 15:30 Ondansetron Inj 4 Mg/2 Ml Vial IV PUSH Q4H PRN Nausea And Vomiting Pantoprazole Sodium 40 mg 10/30/24 09:00 10/30/24 08:58 Pantoprazole Sodium Iv 40 Mg Vial IV PUSH 40 mg QAM JANNIE Administration Fluticasone/Salmeterol 2 puff 10/29/24 20:00 10/30/24 09:17 Fluticasone/Salmeterol 115-21 Mcg Inhaler 1 Puff INHALATION 2 puff Q12HRT JANNIE Administration Sertraline HCl 100 mg 10/29/24 17:00 10/30/24 08:57 Sertraline Hcl 50 Mg Tablet PO 100 mg BID JANNIE Administration Radiology Results: ITS Impressions Abdomen/Pelvis CT 10/29/24 17:43 IMPRESSION: High-grade obstruction within the mid to distal sigmoid colon for which a malignancy is suspected. Aerated stool (with pneumatosis less likely) within the entirety of the colon, proximal to the mid to distal sigmoid colon. Retroperitoneal and mesenteric lymphadenopathy. Secondary signs suggesting hypovolemia. 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 Labs Labs: Laboratory Results - last 24 hr 10/29/24 10/30/24 10/30/24 14:52 00:55 05:47 WBC 6.7 RBC 4.50 Hgb 12.5 Hct 39.7 MCV 88.2 MCH 27.8 MCHC 31.5 L RDW 14.8 H Plt Count 256 MPV 9.5 Immature Gran % (Auto) 0.9 H Neut % (Auto) 59.9 Lymph % (Auto) 26.9 [place] % (Auto) 10.5 H Eos % (Auto) 1.5 Baso % (Auto) 0.3 Lymph # (Auto) 1.81 [place] # (Auto) 0.7 H Eos # (Auto) 0.1 Baso # (Auto) 0.0 Abs Immat Gran (auto) 0.06 H Absolute Neuts (auto) 4.0 Absolute Nucleated RBC 0.000 Nucleated RBC % 0.0 PT 14.6 INR 1.2 Sodium 139 135 L Potassium 3.2 L 3.5 Chloride 107 108 H Carbon Dioxide 23 22 Anion Gap 9 5 BUN 16 14 Creatinine 1.00 0.95 Estim Creat Clear Calc Not Reportable 37 Estimated GFR 54 L 57 L Glucose 110 106 POC Capillary Glucose 120 H Calcium 9.0 8.6 Total Bilirubin 0.4 0.1 L AST 55 H 47 H ALT 26 21 Alkaline Phosphatase 81 67 Total Protein 7.0 5.9 L Albumin 4.0 3.3 L Carcinoembryonic Ag 2.6 Blood Type O Positive Antibody Screen Negative
--- NOTE | 2024-10-30 12:19 | WPDPN ---
Progress Note: A&P Assessment and Plan (1) Colonic obstruction: Code(s): K56.609 - Unspecified intestinal obstruction, unspecified as to partial versus complete obstruction Status: Acute Assessment and Plan: Patient has a near obstructive her completely obstructed stricture in the mid to distal sigmoid colon. This could be due to recurrent diverticulitis versus malignancy. CT scan did show evidence of possible mesenteric lymphadenopathy raising the question of malignancy. At this point she is symptomatic for her colonic obstruction. Inability to pass colonoscope by GI with fixation of the colon making tortuous pre clues her from being able to get another colonoscopy. For now will need to address the colonic obstruction before she has a perforation. I discussed this with the patient and explained to her that we need to relieve the obstruction likely with a diverting loop colostomy. My plan is to attempt to do a robotic assisted laparoscopic loop colostomy to the possible conversion to an open placement of the loop colostomy tomorrow to relieve the obstruction and then further workup the mass to see if it is malignant or just a benign stricture. As a right now she is not able to eat or drink and so the obstruction well help us address her malnutrition. If it is malignant then there possibly could be options for neoadjuvant therapy prior to definitive resection. The patient understands and wished to proceed with surgery as outlined. 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 We need to do the diverting colostomy on a more urgent basis and so will have to go ahead and take the risk of the surgery despite the cardiac risk. Subjective Date/time seen: 10/30/24 12:19 Interval history: Patient complains of having some mild diffuse abdominal pain today. About the same as yesterday. Had 1 episode of emesis with nausea last evening. No bowel movements or flatus. No fever tachycardia. CT scan abdomen pelvis with IV contrast last evening showed a stricture which could be a malignant stricture in the mid to distal sigmoid colon. There was stool throughout the colon consistent with the distal colonic obstruction. No perforation or free air was seen. Suggestion of some insert lymphadenopathy the which raises the question of possible malignancy rather than just a benign diverticular stricture. CEA level was normal however. No definite liver lesions seen on CT scan. Exam GI: Other: Abdomen is soft and moderately distended. Minimal diffuse tenderness to palpation. No masses. No ventral hernias. No generalized peritoneal signs. Objective Data Vital Signs Vital Signs: Vital Signs - 24 hr 10/29/24 15:21 10/29/24 21:08 10/29/24 22:00 Temperature 36.8 C 36.3 C L Pulse Rate 54 L 62 55 L Respiratory Rate 16 18 Blood Pressure 106/58 L 146/61 H Pulse Oximetry 96 98 Oxygen Delivery Fraction of Inspired Oxygen 10/29/24 22:06 10/29/24 22:24 10/30/24 04:08 Temperature Pulse Rate 60 80 Respiratory Rate 20 Blood Pressure Pulse Oximetry 97 Oxygen Delivery Autopap Room Air Fraction of Inspired Oxygen 10/30/24 05:13 10/30/24 06:00 10/30/24 08:00 Temperature 36.5 C Pulse Rate 58 L Respiratory Rate 18 Blood Pressure 137/69 Pulse Oximetry 95 99 Oxygen Delivery Room Air Room Air Fraction of Inspired Oxygen 21 10/30/24 08:58 10/30/24 09:18 10/30/24 09:18 Temperature Pulse Rate 61 58 L 58 L Respiratory Rate 20 20 Blood Pressure Pulse Oximetry 96 Oxygen Delivery Room Air Fraction of Inspired Oxygen Intake/Output Intake/Output: Intake & Output 10/27/24 10/28/24 10/29/24 10/30/24 23:59 23:59 23:59 23:59 Intake Total 540 440 Balance 540 440 Meds/Results Medications: Active Medications Generic Name Dose Route Start Last Admin Trade Name Freq PRN Reason Stop Dose Admin Atorvastatin Calcium 80 mg 10/30/24 09:00 10/30/24 08:57 Atorvastatin 40 Mg Tablet PO 80 mg DAILY JANNIE Administration Calcium Carbonate 500 mg 10/30/24 09:00 10/30/24 08:57 Calcium/Vitamin D 500 Mg/5 Mcg (200 I.U.) Tablet PO 500 mg DAILY JANNIE Administration Carvedilol 6.25 mg 10/29/24 21:00 10/30/24 08:58 Carvedilol 6.25 Mg Tablet PO 6.25 mg Q12HR JANNIE Administration Dextrose 12.5 gm 10/29/24 22:59 Dextrose 50% 25 Gm/50 Ml Syringe IV PUSH PRN PRN Hypoglycemia Protocol Glucagon 1 mg 10/29/24 22:59 Glucagon For Inj 1 Mg Vial IM PRN PRN Hypoglycemia Protocol Glucose 15 gm 10/29/24 22:59 Glucose Oral Gel 15 Gm Of Glucse In 37.5 Gm Tube PO PRN PRN Hypoglycemia Protocol Cefepime HCl 2 gm/ Sodium 50 mls @ 100 mls/hr 10/29/24 16:00 10/30/24 03:32 Chloride IVPB 100 mls/hr Q12H JANNIE Administration Metronidazole 500 mg in 100 mls @ 100 mls/hr 10/30/24 06:00 10/30/24 05:18 Flagyl 500 Mg/Iso Soln 100 Ml IVPB 100 mls/hr Q8HR JANNIE Administration Dextrose 1,000 mls @ 100 mls/hr 10/29/24 22:59 Dextrose 5% 1,000 Ml IVPB PRN PRN Hypoglycemia Protocol Insulin Aspart 2 - 5 units 10/30/24 00:00 10/30/24 12:04 Insulin Aspart (*Bkc) 100 Units/Ml SUB-Q Not Given Q6HR [facility] Protocol Ipratropium [place] 2 spray 10/29/24 17:00 10/30/24 08:58 Ipratropium Nasal [place] 0.03% 15 Ml Bottle NASAL Not Given TID JANNIE Losartan Potassium 50 mg 10/30/24 09:00 10/30/24 08:57 Losartan Potassium 50 Mg Tablet PO 50 mg DAILY JANNIE Administration Morphine Sulfate 2 mg 10/29/24 14:54 10/29/24 20:47 Morphine Sulfate (*Crx) 2 Mg/Ml Inj IV PUSH 2 mg Q2H PRN Administration Pain Rated 4-6 Morphine Sulfate 4 mg 10/29/24 14:54 Morphine Sulfate (*Crx) 4 Mg/Ml Inj IV PUSH Q2H PRN Pain Rated 7-10 Ondansetron HCl 4 mg 10/29/24 15:17 10/30/24 01:05 Ondansetron Inj 4 Mg/2 Ml Vial IV PUSH 4 mg Q4H PRN Administration Nausea And Vomiting Ondansetron HCl 4 mg 10/29/24 15:30 Ondansetron Inj 4 Mg/2 Ml Vial IV PUSH Q4H PRN Nausea And Vomiting Pantoprazole Sodium 40 mg 10/30/24 09:00 10/30/24 08:58 Pantoprazole Sodium Iv 40 Mg Vial IV PUSH 40 mg QAM JANNIE Administration Fluticasone/Salmeterol 2 puff 10/29/24 20:00 10/30/24 09:17 Fluticasone/Salmeterol 115-21 Mcg Inhaler 1 Puff INHALATION 2 puff Q12HRT JANNIE Administration Sertraline HCl 100 mg 10/29/24 17:00 10/30/24 08:57 Sertraline Hcl 50 Mg Tablet PO 100 mg BID JANNIE Administration Radiology Results: ITS Impressions Abdomen/Pelvis CT 10/29/24 17:43 IMPRESSION: High-grade obstruction within the mid to distal sigmoid colon for which a malignancy is suspected. Aerated stool (with pneumatosis less likely) within the entirety of the colon, proximal to the mid to distal sigmoid colon. Retroperitoneal and mesenteric lymphadenopathy. Secondary signs suggesting hypovolemia. 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 Labs Labs: Laboratory Results - last 24 hr 10/29/24 10/30/24 10/30/24 14:52 00:55 05:47 WBC 6.7 RBC 4.50 Hgb 12.5 Hct 39.7 MCV 88.2 MCH 27.8 MCHC 31.5 L RDW 14.8 H Plt Count 256 MPV 9.5 Immature Gran % (Auto) 0.9 H Neut % (Auto) 59.9 Lymph % (Auto) 26.9 [place] % (Auto) 10.5 H Eos % (Auto) 1.5 Baso % (Auto) 0.3 Lymph # (Auto) 1.81 [place] # (Auto) 0.7 H Eos # (Auto) 0.1 Baso # (Auto) 0.0 Abs Immat Gran (auto) 0.06 H Absolute Neuts (auto) 4.0 Absolute Nucleated RBC 0.000 Nucleated RBC % 0.0 PT 14.6 INR 1.2 Sodium 139 135 L Potassium 3.2 L 3.5 Chloride 107 108 H Carbon Dioxide 23 22 Anion Gap 9 5 BUN 16 14 Creatinine 1.00 0.95 Estim Creat Clear Calc Not Reportable 37 Estimated GFR 54 L 57 L Glucose 110 106 POC Capillary Glucose 120 H Calcium 9.0 8.6 Total Bilirubin 0.4 0.1 L AST 55 H 47 H ALT 26 21 Alkaline Phosphatase 81 67 Total Protein 7.0 5.9 L Albumin 4.0 3.3 L Carcinoembryonic Ag 2.6 Blood Type O Positive Antibody Screen Negative 10/30/24 11:40 WBC RBC Hgb Hct MCV MCH MCHC RDW Plt Count MPV Immature Gran % (Auto) Neut % (Auto) Lymph % (Auto) [place] % (Auto) Eos % (Auto) Baso % (Auto) Lymph # (Auto) [place] # (Auto) Eos # (Auto) Baso # (Auto) Abs Immat Gran (auto) Absolute Neuts (auto) Absolute Nucleated RBC Nucleated RBC % PT INR Sodium Potassium Chloride Carbon Dioxide Anion Gap BUN Creatinine Estim Creat Clear Calc Estimated GFR Glucose POC Capillary Glucose 95 Calcium Total Bilirubin AST ALT Alkaline Phosphatase Total Protein Albumin Carcinoembryonic Ag Blood Type Antibody Screen
[2024-10-30] MEDS: SODIUM CHLORIDE 0.9% IV 1,000 ML 120 ML IV CONT (12:42)
[2024-10-30 14:50] LABS: Hematocrit 38.6 % (37.0-47.0); Hemoglobin 11.8 g/dL (12.0-15.0); Immature Granulocyte Percent A 0.5 % (0-0.5); Lymphocytes Absolute Auto 1.49 K/mm3 (0.9-3.2); Mean Corpuscular HGB Conc 30.6 g/dl (32-36); Mean Corpuscular Hemoglobin 27.5 pg (26-34); Mean Corpuscular Volume 90.0 fl (80-100); Nucleated Red Blood Cells Absolute Auto 0.000 K/mm3 (0.0-0.012); Nucleated Red Blood Cells Perc 0.0 % (0.0-0.2); Platelet Count Result 209 k/mm3 (150-375); Red Blood Count 4.29 M/mm3 (4.2-5.4); White Blood Count 5.6 K/mm3 (4.5-10.0)
[2024-10-31] VITALS (16 sets, daily range): BP systolic 101–170; BP diastolic 51–95; PULSE 56–70; RESP 12–20; TEMP 36.1–36.6; O2SAT 91–100
[2024-10-31] MEDS: SODIUM CHLORIDE 0.9% IV 1,000 ML 120 ML IV CONT ×2 (02:25→21:04)
[2024-10-31] MEDS: CEFEPIME 2 GM in SODIUM CHLORIDE 0.9% IV 50 ML 100 ML IVPB ×2 (04:06→17:02)
[2024-10-31] MEDS: metroNIDAZOLE 500 MG/ISO 100ML 500 MG/100 ML BAG 100 MG IVPB ×2 (05:34→21:06)
--- NOTE | 2024-10-31 06:26 | PC.NURSE ---
Patient left S unit at 0600 for Colostomy procedure with Dr. Campos.
[2024-10-31] MEDS: ONDANSETRON INJ 4 MG/2 ML VIAL IV PUSH (07:39)
[2024-10-31] MEDS: MORPHINE SULFATE (*CRX) 2 MG/ML INJ IV PUSH (07:40)
--- NOTE | 2024-10-31 07:49 | P.CDI_ITS ---
CDI Query Clarification Request BMI: 25.0 Nutritional Diagnostic Statement: Please refer to the comprehensive nutrition assessment for further information. If you agree with diagnosis of Moderate protein calorie malnutrition related to altered GI function as evidenced by intakes <75% needs >1 month; weight loss 6%/1 month; moderate muscle wasting and fat loss. Please specify severity if known: * Mild * Moderate * Severe * Other/Unknown <Phyllis Blount RN - Last Filed: 10/31/24 07:50> BMI: 25.0 Nutritional Diagnostic Statement: Please refer to the comprehensive nutrition assessment for further information. If you agree with diagnosis of Moderate protein calorie malnutrition related to altered GI function as evidenced by intakes <75% needs >1 month; weight loss 6%/1 month; moderate muscle wasting and fat loss. Please specify severity if known: * mild * Moderate * Severe * Other/Unknown <Eli Burks MD - Last Filed: 10/31/24 08:28> Clarified Diagnosis Clarified Diagnosis: mild <Eli Burks MD - Last Filed: 10/31/24 08:28>
--- NOTE | 2024-10-31 08:28 | P.PNIM_ITS ---
Progress Note: A&P Assessment and Plan (1) Colonic obstruction: Code(s): K56.609 - Unspecified intestinal obstruction, unspecified as to partial versus complete obstruction Status: Acute Plan (1) Colonic obstruction: Code(s): K56.609 - Unspecified intestinal obstruction, unspecified as to partial versus complete obstruction Status: Acute Assessment and Plan: CT scan today showed high-grade obstruction within the mid to distal sigmoid colon, lymphadenopathy, and aerated stool within the entirety of the colon. Sigmoidoscopy in mid September showed diverticulosis but was otherwise unremarkable. Continue empiric antibiotic to cover for possible diverticulitis. Further and definitive management as per the surgical service. robotic assisted laparoscopic loop colostomy today CKD stage 3 Kidney function stable Hypokalemia, hyponatremia Replete with potassium chloride Patient is on normal saline IV Hypertension: Code(s): I10 - Essential (primary) hypertension Status: Acute Assessment and Plan: Blood pressures stable. Continue to monitor closely as she is currently NPO. Obstructive sleep apnea: Code(s): G47.33 - Obstructive sleep apnea (adult) (pediatric) Status: Acute Assessment and Plan: CPAP will be provided for the patient to use while hospitalized. (4) Chronic obstructive pulmonary disease: Code(s): J44.9 - Chronic obstructive pulmonary disease, unspecified Status: Acute Assessment and Plan: No acute issues. Continue Advair Diskus. 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 Well-nourished. - EYES: EOMI. Anicteric. - HENT: Moist mucous membranes. - LUNGS: Clear to auscultation bilateral ly, no wheezing, rhonchi, or rales. - CARDIOVASCULAR: Regular rate and rhyth m. No murmur. No JVD. - ABDOMEN: Soft, diffuse abdominal tende r and non-distended. No palpable masses. - EXTREMITIES: No edema. Peripheral puls es 2+. Non-tender. - NEUROLOGIC: No focal neurological defi cits. CN II-XII grossly intact. - PSYCHIATRIC: Awake, Alert and oriented x 3. Appropriate mood and affect. - SKIN: No rashes or lesions. Warm. - LYMPH: No cervical lymphadenopathy. Objective Data Vital Signs Vital Signs: Vital Signs - 24 hr 10/30/24 08:58 10/30/24 09:18 10/30/24 09:18 Temperature Pulse Rate 61 58 L 58 L Respiratory Rate 20 20 Blood Pressure Pulse Oximetry 96 Oxygen Delivery Room Air 10/30/24 16:00 10/30/24 20:48 10/30/24 20:50 Temperature 97.6 F Pulse Rate 55 L 57 L Respiratory Rate 18 Blood Pressure 125/58 L Pulse Oximetry 97 94 96 Oxygen Delivery Room Air Room Air 10/30/24 21:43 10/30/24 22:00 10/31/24 06:30 Temperature 97.8 F 97.2 F L Pulse Rate 59 L 52 L 56 L Respiratory Rate 18 Blood Pressure 124/56 L 142/58 H Pulse Oximetry 96 94 Oxygen Delivery Room Air Intake/Output Intake/Output: Intake & Output 10/28/24 10/29/24 10/30/24 10/31/24 23:59 23:59 23:59 23:59 Intake Total 540 1320 1870 Balance 540 1320 1870 Meds/Results Medications: Active Medications Generic Name Dose Route Start Last Admin Trade Name Freq PRN Reason Stop Dose Admin Atorvastatin Calcium 80 mg 10/30/24 09:00 10/30/24 08:57 Atorvastatin 40 Mg Tablet PO 80 mg DAILY JANNIE Administration Calcium Carbonate 500 mg 10/30/24 09:00 10/30/24 08:57 Calcium/Vitamin D 500 Mg/5 Mcg (200 I.U.) Tablet PO 500 mg DAILY JANNIE Administration Carvedilol 6.25 mg 10/29/24 21:00 10/30/24 21:43 Carvedilol 6.25 Mg Tablet PO 6.25 mg Q12HR JANNIE Administration Dextrose 12.5 gm 10/29/24 22:59 Dextrose 50% 25 Gm/50 Ml Syringe IV PUSH PRN PRN Hypoglycemia Protocol Glucagon 1 mg 10/29/24 22:59 Glucagon For Inj 1 Mg Vial IM PRN PRN Hypoglycemia Protocol Glucose 15 gm 10/29/24 22:59 Glucose Oral Gel 15 Gm Of Glucse In 37.5 Gm Tube PO PRN PRN Hypoglycemia Protocol Cefepime HCl 2 gm/ Sodium 50 mls @ 100 mls/hr 10/29/24 16:00 10/31/24 04:36 Chloride IVPB Infused Q12H JANNIE Infusion Metronidazole 500 mg in 100 mls @ 100 mls/hr 10/30/24 06:00 10/31/24 07:05 Flagyl 500 Mg/Iso Soln 100 Ml IVPB Infused Q8HR [facility] Infusion Dextrose 1,000 mls @ 100 mls/hr 10/29/24 22:59 Dextrose 5% 1,000 Ml IVPB PRN PRN Hypoglycemia Protocol Sodium Chloride 1,000 mls @ 120 mls/hr 10/30/24 12:30 10/31/24 05:55 Normal Saline Iv IV CONT 0 mls/hr .Q8H20M [facility] Infusion Insulin Aspart 2 - 5 units 10/30/24 00:00 10/31/24 06:12 Insulin Aspart (*Bkc) 100 Units/Ml SUB-Q Not Given Q6HR [facility] Protocol Ipratropium [place] 2 spray 10/29/24 17:00 10/30/24 16:12 Ipratropium Nasal [place] 0.03% 15 Ml Bottle NASAL Not Given TID [facility] Losartan Potassium 50 mg 10/30/24 09:00 10/30/24 08:57 Losartan Potassium 50 Mg Tablet PO 50 mg DAILY [facility] Administration Morphine Sulfate 2 mg 10/29/24 14:54 10/29/24 20:47 Morphine Sulfate (*Crx) 2 Mg/Ml Inj IV PUSH 2 mg Q2H PRN Administration Pain Rated 4-6 Morphine Sulfate 4 mg 10/29/24 14:54 Morphine Sulfate (*Crx) 4 Mg/Ml Inj IV PUSH Q2H PRN Pain Rated 7-10 Ondansetron HCl 4 mg 10/29/24 15:17 10/30/24 21:43 Ondansetron Inj 4 Mg/2 Ml Vial IV PUSH 4 mg Q4H PRN Administration Nausea And Vomiting Ondansetron HCl 4 mg 10/29/24 15:30 Ondansetron Inj 4 Mg/2 Ml Vial IV PUSH Q4H PRN Nausea And Vomiting Pantoprazole Sodium 40 mg 10/30/24 09:00 10/30/24 08:58 Pantoprazole Sodium Iv 40 Mg Vial IV PUSH 40 mg QAM JANNIE Administration Fluticasone/Salmeterol 2 puff 10/29/24 20:00 10/30/24 20:40 Fluticasone/Salmeterol 115-21 Mcg Inhaler 1 Puff INHALATION 2 puff Q12HRT JANNIE Administration Sertraline HCl 100 mg 10/29/24 17:00 10/30/24 16:11 Sertraline Hcl 50 Mg Tablet PO 100 mg BID JANNIE Administration Radiology Results: ITS Impressions Abdomen/Pelvis CT 10/29/24 17:43 IMPRESSION: High-grade obstruction within the mid to distal sigmoid colon for which a malignancy is suspected. Aerated stool (with pneumatosis less likely) within the entirety of the colon, proximal to the mid to distal sigmoid colon. Retroperitoneal and mesenteric lymphadenopathy. Secondary signs suggesting hypovolemia. 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 Labs Labs: Laboratory Results - last 24 hr 10/30/24 10/30/24 10/30/24 11:40 14:32 16:52 WBC 5.6 RBC 4.29 Hgb 11.8 L Hct 38.6 MCV 90.0 MCH 27.5 MCHC 30.6 L RDW 15.1 H Plt Count 209 MPV 9.9 Immature Gran % (Auto) 0.5 Neut % (Auto) 61.3 Lymph % (Auto) 26.5 [place] % (Auto) 10.1 H Eos % (Auto) 1.4 Baso % (Auto) 0.2 Lymph # (Auto) 1.49 [place] # (Auto) 0.6 Eos # (Auto) 0.1 Baso # (Auto) 0.0 Abs Immat Gran (auto) 0.03 Absolute Neuts (auto) 3.4 Absolute Nucleated RBC 0.000 Nucleated RBC % 0.0 POC Capillary Glucose 95 99 10/31/24 10/31/24 10/31/24 00:42 05:39 06:13 WBC RBC Hgb Hct MCV MCH MCHC RDW Plt Count MPV Immature Gran % (Auto) Neut % (Auto) Lymph % (Auto) [place] % (Auto) Eos % (Auto) Baso % (Auto) Lymph # (Auto) [place] # (Auto) Eos # (Auto) Baso # (Auto) Abs Immat Gran (auto) Absolute Neuts (auto) Absolute Nucleated RBC Nucleated RBC % POC Capillary Glucose 99 103 103
--- NOTE | 2024-10-31 09:08 | WPDHPUPDATE1 ---
History and Physical Update Update Date/Time: 10/31/24 09:08 History and Physical has been reviewed, including an updated exam of the patient. There are NO changes in the patient's condition. Risks, benefits, and alternatives have been discussed and questions answered. Patient agrees to proceed with procedure.
--- NOTE | 2024-10-31 09:16 | P.PNAN_ITS ---
Anes - Initial Pre Proc Eval Procedure: Operation Date: 10/31/24 11:15 Proposed Procedures p Robotic Assisted Laparoscopic Loop Transverse Colostomy, Possible Open - Subhash Campos MD Date/Time: 10/31/24 09:16 Surgeon: Subhash Campos MD Pre Op Diagnosis: colonic obstruction Patient Data Age: 74 Gender: F Height: 1.6 m Weight: 64 kg Last Vital Signs Temp 97.2 F L 10/31/24 06:30 Pulse 56 L 10/31/24 06:30 Resp 18 10/30/24 22:00 BP 142/58 H 10/31/24 06:30 Pulse Ox 94 10/31/24 06:30 O2 Del Method Room Air 10/31/24 06:30 FiO2 21 10/30/24 05:13 Allergies Allergy/AdvReac Type Severity Reaction Status Date / Time No Known Allergies Allergy Verified 10/31/24 06:22 Home Medications ?Medication ?Instructions ?Recorded ?Confirmed ?Type aspirin 81 mg tablet,delayed 81 mg PO DAILY #90 tabs 08/18/23 10/29/24 Rx release famotidine 20 mg tablet 20 mg PO BID #180 tabs 08/18/23 10/29/24 Rx loratadine 10 mg tablet (Claritin) 10 mg PO DAILY #90 tabs 08/18/23 10/29/24 Rx nwuzheqv-hdk-dnhft acid 0.4 1 tablet PO DAILY #90 tabs 08/18/23 10/29/24 Rx mg-lycopene 300 mcg-lutein 250 mcg tablet (Centrum Silver) calcium 500 mg (as 1 tablet PO DAILY 11/22/23 10/29/24 History carbonate)-vitamin D3 10 mcg (400 unit) tablet losartan 50 mg tablet 50 mg PO DAILY #90 tabs 05/10/24 10/29/24 Rx carvedilol 6.25 mg tablet 6.25 mg PO BID #180 tabs 08/07/24 10/29/24 Rx ferrous gluconate 324 mg (38 mg 324 mg PO DAILY #30 tabs 08/28/24 10/29/24 Rx iron) tablet atorvastatin 40 mg tablet 80 mg PO DAILY 09/03/24 10/29/24 History sertraline 100 mg tablet 100 mg PO BID #200 tabs 10/14/24 10/29/24 Rx ciprofloxacin HCl 500 mg tablet 500 mg PO Q12H #20 tabs 10/21/24 10/29/24 Rx ipratropium bromide 21 mcg (0.03 2 spray intranasal TID #30 mL 10/21/24 10/29/24 Rx %) nasal spray metronidazole 500 mg tablet 500 mg PO TID 10 days #30 tabs 10/21/24 10/29/24 Rx fluticasone 250 mcg-salmeterol 50 1 inh inhalation BID PRN COPD 10/29/24 10/29/24 History mcg/dose blistr powdr for inhalation (Advair Diskus) Laboratory Tests 10/30/24 10/30/24 10/30/24 11:40 14:32 16:52 WBC 5.6 K/mm3 (4.5-10.0) RBC 4.29 M/mm3 (4.2-5.4) Hgb 11.8 L g/dL (12.0-15.0) Hct 38.6 % (37.0-47.0) MCV 90.0 fl (80-100) MCH 27.5 pg (26-34) MCHC 30.6 L g/dl (32-36) RDW 15.1 H % (11.5-14.5) Plt Count 209 k/mm3 (150-375) MPV 9.9 fl (7.4-10.4) Immature Gran % (Auto) 0.5 % (0-0.5) Neut % (Auto) 61.3 % (45.5-73.1) Lymph % (Auto) 26.5 % (18.3-44.2) [place] % (Auto) 10.1 H % (2.6-8.5) Eos % (Auto) 1.4 % (0-4.4) Baso % (Auto) 0.2 % (0.2-1.2) Lymph # (Auto) 1.49 K/mm3 (0.9-3.2) [place] # (Auto) 0.6 K/mm3 (0.1-0.6) Eos # (Auto) 0.1 K/mm3 (0-0.3) Baso # (Auto) 0.0 K/mm3 (0.0-0.1) Abs Immat Gran (auto) 0.03 K/mm3 (0.00-0.031) Absolute Neuts (auto) 3.4 K/mm3 (1.3-6.7) Absolute Nucleated RBC 0.000 K/mm3 (0.0-0.012) Nucleated RBC % 0.0 % (0.0-0.2) POC Capillary Glucose 95 mg/dl 99 mg/dl (65-105) (65-105) 10/31/24 10/31/24 10/31/24 00:42 05:39 06:13 WBC RBC Hgb Hct MCV MCH MCHC RDW Plt Count MPV Immature Gran % (Auto) Neut % (Auto) Lymph % (Auto) [place] % (Auto) Eos % (Auto) Baso % (Auto) Lymph # (Auto) [place] # (Auto) Eos # (Auto) Baso # (Auto) Abs Immat Gran (auto) Absolute Neuts (auto) Absolute Nucleated RBC Nucleated RBC % POC Capillary Glucose 99 mg/dl 103 mg/dl 103 mg/dl (65-105) (65-105) (65-105) Patient hx anesthesia problems: none Family hx anesthesia problems: none Results Review: All pre-operative results and documents have been reviewed as part of the pre- operative evaluation. 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 History of diverticulitis Chronic obstructive pulmonary disease Osteoarthritis of hips, bilateral Cigarette nicotine dependence with nicotine-induced disorder Stage 3a chronic kidney disease Obstructive sleep apnea Major depressive disorder in partial remission Iron deficiency Atherosclerosis of [place] coronary artery of [place] heart without angina pect ashly Pure hypercholesterolemia, unspecified Essential (primary) hypertension Type 2 diabetes mellitus with chronic kidney disease Carpal tunnel syndrome Surgical History Surgical History History of coronary artery bypass graft x 2 (2012) History of carotid endarterectomy (2007) Family History Family History Unknown Asthma Hypertension Depression Heart disease Lung disease Arthritis Cerebrovascular accident High cholesterol Social History Social History Social History: Surrogate medical decision maker: Lynn Mccarthy, daughter. Code status: Full code. Smoking packs per day: 0.5 Smoking cigarettes per day: 10.0 Years smoked: 45 Smoking pack-years: 22.50 Smoking status: Current every day smoker Alcohol intake: never Substance use: never Substance use type: does not use Do You Feel Safe in your Home?: Yes Lack of Transportation: No Lack of Food: Never True Current Housing: I Have Housing Concerned About Future Housing: No Difficulty Paying Gas/Electric Bills: No Difficulty Paying for Meds: No Currently Unemployed: No Education: High School Diploma/GED Difficulty w/ Childcare or Family Care: No Living arrangements: with family Occupation/Education: retired Spiritual care concerns: No Anes - Eval Final PreProcedure Day of Procedure 10/31/24 09:16 Patient weight: normal Lungs: normal air movement Airway: Mallampati scale class II and special considerations (Edentulous. ) Neurological: alert and oriented Last oral intake: >/= 8 hours ASA classification: IV Emergent: no Anesthetic plan: proceed Anesthesia type and monitoring: general ETT and standard monitoring Results Review: All pre-operative results and documents have been reviewed as part of the pre-operative evaluation. HTN, hyperlipidemia, hx CABG 2012, hx R CEA 2007, pt w COPD and cont to smoke 5- 6 cigs/day. Now for colon sx for bowel obstruction. Informed Consent: The patient's anesthetic plan and its attendant risks and benefits were discussed with the patient/family/POA. Questions were solicited and answers provided to the satisfaction of the patient/family/POA.
[2024-10-31] MEDS: LACTATED RINGERS 1,000 ML 30 ML IV CONT ×2 (09:41→13:30)
--- NOTE | 2024-10-31 10:52 | S_PTH ---
PATIENT: Rosa Martino LOC: [facility] U#:[id number] AGE/SX: 74/F ROOM: 231 RE10/29/[address]: Jasmin Stubbs MD : [id number] BED: 01 DIS: 11/08/2024 SPEC #: [id number] RECD: 10/31/24 10:58 STATUS: TITA REJessica #: [id number] CARROL: 10/31/24 10:[address]: Subhash Campos DEPT: [facility] Surgical RECD BY: Sol Rose ENTERED: 10/31/24 10:59 SP TYPE: Surgical OTHR DR: JOSÉ Luna MD Tissues: FSA - Frozen Section B - Peritoneal Bx Procedures: Kiser Keratin Hematoxylin and Eosin Stain Frozen Section Gross and Microscopic Level 4 CD45 CDX2
[2024-10-31] MEDS: LIDO 1%/EPINEPHRINE 1:100,000 20 ML VIAL 30 ML INFILTRATE (11:19)
[2024-10-31] MEDS: BUPivacaine HCL 0.5% 10 ML AMP 30 ML INFILTRATE (11:21)
--- NOTE | 2024-10-31 11:23 | SUR.OPER ---
Peritoneum biopsy Frozen specimen excised at 1053, transported to Pathology per [facility] Bridget. Specimen handed to [facility] at 1058. Pathologist called and spoke to Dr. Campos at 1122.
[2024-10-31] MEDS: fentaNYL CITRATE INJ (*CRX) 100 MCG/2 ML VIAL 25 MCG IV PUSH ×2 (14:13→14:48)
[2024-10-31] MEDS: IBUPROFEN IV 800 MG/200 ML 800 MG/200 ML BAG 400 MG IVPB ×2 (15:25→21:06)
[2024-10-31 16:22] LABS: Hematocrit 39.8 % (37.0-47.0); Hemoglobin 12.3 g/dL (12.0-15.0); Immature Granulocyte Percent A 0.7 % (0-0.5); Lymphocytes Absolute Auto 0.72 K/mm3 (0.9-3.2); Mean Corpuscular HGB Conc 30.9 g/dl (32-36); Mean Corpuscular Hemoglobin 27.4 pg (26-34); Mean Corpuscular Volume 88.6 fl (80-100); Nucleated Red Blood Cells Absolute Auto 0.000 K/mm3 (0.0-0.012); Nucleated Red Blood Cells Perc 0.0 % (0.0-0.2); Platelet Count Result 243 k/mm3 (150-375); Red Blood Count 4.49 M/mm3 (4.2-5.4); White Blood Count 6.9 K/mm3 (4.5-10.0)
--- NOTE | 2024-10-31 16:29 | P.OP_ITS ---
Procedure Note - Detailed Date of Procedure 10/31/24 Pre-op Diagnosis Distal sigmoid colonic obstruction Post-op Diagnosis Other (Distal sigmoid colonic obstruction, diffuse lower abdominal peritoneal nodules) Procedure Performed Attempted robotic assisted laparoscopic transverse loop colostomy with conversion open transverse end colostomy and placement of mucous fistula Laparoscopic incisional peritoneal biopsy x2 Surgeon Subhash Campos MD Adjunct Art History Instructor Jimmy Cunningham FLE[employer] TIER Anesthesia General Indications Patient is a 74-year-old female who was initially sent to my office for an outpatient evaluation due to a diagnosis of diverticulitis. She had had episodes of diverticulitis in the past and had a colonoscopy performed about 2 weeks ago at which time the endoscopist was not able to traverse a strictured area in the mid to distal sigmoid colon with the colonoscope. A barium enema wa s then ordered and the barium would not traverse the area and so Gastrografin was then used and it showed a small amount of contrast that we get past the near obstruction. The patient then presented to my office for evaluation and she stated she had been feeling nauseous and not eating well for the past 2 weeks. She had not had a bowel movement in almost 2 weeks. She was admitted to the hospital because of the obstruction and CT scan abdomen pelvis was done showing severe stricturing of the mid to distal sigmoid colon with a differential diagnosis including diverticular stricture and but malignancy certainly was a possibility as well. There were no liver lesions. CEA level was within normal limits. There was copious amounts of stool within the colon consistent with a distal colonic obstruction. No evidence of perforation was seen. She presents now for an attempt at a robotic assisted laparoscopic transverse loop colostomy with possible conversion open. Findings The patient very long redundant transverse colon. It was dilated due to the large amount of stool within the transverse colon. Upon entering the abdomen laparoscopically I could see that there was diffuse to peritoneal nodules in the lower abdomen below the umbilicus. These were whitish and there were additional but few were scattered whitish nodules on the serosa on a few loops of small bowel. I was concerned this could represent peritoneal metastasis of a malignant process which probably be from the sigmoid colon. Incisional laparoscopic biopsy x2 of the peritoneum with some of these nodules was obtained. The 1st was sent to pathology for frozen section and fortunately the results were indeterminate. A 2nd piece was then taken and sent to pathology for permanent sections. Description of Procedure After informed consent was obtained patient brought to the operating room she was placed supine position and general endotracheal anesthesia was administered. Alas catheter was placed decompress the bladder. An orogastric tube was placed decompress the stomach. The abdomen was then prepped and draped usual sterile fashion. A time-out was then performed correctly identifying the patient as well as the procedure to be performed. She was already on scheduled IV antibiotics. I then started by entering the abdomen left upper quadrant utilizing a 5mm Optiview port. Once inside the abdomen insufflated to adequate pneumoperitoneum of 15mmHg of CO2. The laparoscopic was advanced into the abdo men to revealed diffuse to peritoneal nodularity in the lower abdomen and pelvis below the area the umbilicus. There were also a few scattered whitish nodules on the serosal of some loops of bowel but no matting between loops of bowel with these nodules or masses. There did not appear to be in the the nodules or masses in the omentum. I did not see any abnormal masses in the surface of liver. The small bowel was all decompressed but the colon was mildly dilated full of stool. I then proceeded to place additional robotic trocar ports across the mid abdomen at the level the umbilicus. This is all done under direct visualization. Working through these robotic trocar port utilizing traditional laparoscopic instruments I then proceeded to perform an incisional peritoneal biopsy to include some of these nodules in the lower anterior abdominal wall. Laparoscopic Endo-DOUG tessie was used to remove the tissue and was sent to pathology for frozen section. Unfortunately the results of the frozen section as per the pathologist was inconclusive for the tentative diagnosis of metastatic disease. With this being the case the pathologist requested a 2nd piece of tissue to be sent for permanent sections. I then sent a 2nd piece of peritoneum with these nodules in it removed in a similar fashion to what was just described above. This tissue was sent to pathology for permanent section ing. The area the biopsy was hemostatic. I then turned my attention towards trying to perform the robotic assisted laparoscopic transverse loop colostomy. I 1st started by having Paul robot brought to the patient's bedside and docked. The robotic arms were then attached robotic ports. Robotic instruments were then advanced into the abdomen under direct visualization. I then scrubbed out the procedure sent down at the robotic console to perform the dissection. The patient had a very redundant transverse colon. I traced the colon back to the hepatic flexure and identified by visualization the right ascending colon. I then went distal into the redundant transverse colon and what I would think was the midportion and then lifted this up and held with robotic graspers. Utilizing the tip up instrument and the vessel sealer I then tried to make a defect through the mesentery close to the wall of the transverse colon. I started to dissect through the mesentery with the vessel sealer which was successful and then I attempted to place the tip up through the mesenteric defect to make a corresponding defect through the other side of the mesentery. Unforeseen due to the dilated colon I made a enterotomy within the colon on the mesenteric side. This small defect and a small amount of stool came out of the defect. This was quickly suctioned up with the robotic suction device. At this point I felt it would be difficult to perform a transverse loop colostomy given that the defect was in the mesenteric side. I then decided to convert the procedure to an open placement of a diverting colostomy and placement of a long mucous fistula. The robotic instruments were then removed from the abdomen and I scrubbed back into the procedure. The [employer] robot was undocked from the patient's bedside. I then proceeded to make an upper midline incision measuring about 10cm in length. Dissection was carried down through the subcutaneous tissue electrocautery. Midline fascia in this area was incised and the abdomen was opened in the pneumoperitoneum was allowed to decompress. The area had dissected out with the small colonic perforation was identified and delivered up into the incision. I then completed making the defect through the mesentery and then divided the transverse colon this area with a single firing of a 75mm DOUG stapler. I then divided the patched omentum with the LigaSure energy device and then divided more the mesentery utilizing LigaSure device. I then proceeded to place the end transverse colostomy in the right upper quadrant of the abdomen and then the distal part of the transverse colon will be brought up to the left upper quadrant of the abdomen for a long mucous fistula. I 1st started by making a transverse incision in the right upper quadrant over the rectus muscle. Dissection was carried down through the subcu tissue electrocautery. The anterior rectus fascia was incised utilized electrocautery and then the rectus muscle fibers were split bluntly with finger dissection and then the posterior rectus fascia was incised utilized electrocautery. The proximal end of the transverse colon was then brought through the abdominal wall and then the bowel was secured to the undersurface of the anterior abdominal wall with 3-0 silk sutures. I then made transverse incision left upper quadrant of the abdomen and then dissected down through the subcu tissue electrocautery. The anterior rectus fascia to the left rectus muscle was incised electrocautery and the muscle fibers were split and the posterior rectus fascia was divided elect rocautery. The aperture was dilated to a diameter 2 finger breath. The distal end of the stapled transverse colon was then brought up through the abdominal wall in the left upper quadrant for the mucous fistula. It was secured to the undersurface of the anterior abdominal wall utilizing some 3-0 silk sutures. I then proceeded to close the midline incision. This is done utilizing a running 1. Looped PDS suture started at each an incision around to the middle with then the sutures were then tied together. The subcutaneous tissues were irrigated sterile saline solution and then the skin edges were closed utilizing skin ernie. I then irrigated out the port site incisions with sterile saline solution and then these were closed at the skin level utilizing skin ernie as well. I then proceeded to resect off the staple line to include the small enterotomy in the transverse colon this area. I then proceeded to suture the mucosa and serosa to the dermis of the skin in the left upper quadrant to create the mucous fistula. This done with interrupted 3-0 Vicryl sutures. I then turned my attention towards creating the diverting end colostomy in the right upper quadrant. The staple line to the and the proximal segment of the transverse colon was resected utilizing scissors and then on the 4 cardinal points I attempted to place 3-0 Vicryl sutures to latia the mucosa and serosa. A portion of this was not very successful but I was able to secure the mucosa and serosa to the dermis. I then placed additional interrupted 3-0 Vicryl sutures to approximate the mucosa and serosa to the dermis in between these 4 cardinal sutures. I then placed my finger into the colostomy opening at easily went into the abdomen without any evidence of twisting of the end of the colon. This was also done with the mucous fistula and again there was no evidence of twisting of the colon. I then proceeded to clean out the incisions and then sterile dressings were applied to the incisions. Ostomy appliances were applied to the right upper quadrant end transverse colostomy and the left upper quadrant mucous fistula. The patient tolerated the procedure well no complications. All sponges, needles, and instrument counts were correct at the end procedure. EBL was _50__cc. The patient was awakened and taken to recovery in stable and satisfactory condition. Implants None Estimated Blood Loss 50 Drains No Packing No Pathology Yes (Peritoneal biopsies x2 to pathology) Complications No immediate complications Condition Stable Disposition PACU [facility] Billing Surgery - Charge Forward: Surgery Billing
[2024-10-31 16:52] LABS: Alanine Aminotransferase 19 U/L (6-35); Albumin Level 3.3 g/dL (3.5-5.1); Alkaline Phosphatase 70 U/L (38-126); Anion Gap 11 mmol/L (4-12); Aspartate Amino Transferase 41 U/L (14-36); Bilirubin,Total 0.3 mg/dL (0.2-1.3); Blood Urea Nitrogen 12 mg/dL (7-17); Calcium 8.5 mg/dL (8.4-10.2); Carbon Dioxide 19 mmol/L (22-30); Chloride 111 mmol/L (98-107); Estimated CRCL calculation 41 ml/min; Estimated Glomerular Filt Rate > 60; Glucose 131 mg/dL (65-110); Potassium 3.9 mmol/L (3.4-5.0); Sodium 141 mmol/L (137-145); Total Protein 6.1 g/dL (6.3-8.2)
[2024-10-31] MEDS: HYDROmorphone HCL INJ (*CRX) 2 MG/ML VIAL 1 MG IV PUSH (18:24)
[2024-10-31] MEDS: SERTRALINE HCL 50 MG TABLET 100 MG PO (18:24)
[2024-10-31] MEDS: IPRATROPIUM NASAL SPRAY 0.03% 15 ML BOTTLE 2 SPRAY NASAL (18:24)
[2024-10-31] MEDS: FLUTICASONE/SALMETEROL 115-21 MCG INHALER 1 PUFF 2 PUFF INHALATION (21:20)
[2024-11-01] VITALS (9 sets, daily range): BP systolic 83–135; BP diastolic 49–77; PULSE 60–67; RESP 16–20; TEMP 36.4–36.9; O2SAT 88–99
[2024-11-01] MEDS: HYDROmorphone HCL INJ (*CRX) 2 MG/ML VIAL 1 MG IV PUSH ×4 (00:52→23:47)
[2024-11-01] MEDS: CEFEPIME 2 GM in SODIUM CHLORIDE 0.9% IV 50 ML 100 ML IVPB ×2 (03:26→17:05)
[2024-11-01] MEDS: metroNIDAZOLE 500 MG/ISO 100ML 500 MG/100 ML BAG 100 MG IVPB ×3 (05:11→21:57)
[2024-11-01] MEDS: IBUPROFEN IV 800 MG/200 ML 800 MG/200 ML BAG 400 MG IVPB ×3 (05:12→21:14)
[2024-11-01 06:21] LABS: Hematocrit 34.3 % (37.0-47.0); Hemoglobin 10.5 g/dL (12.0-15.0); Immature Granulocyte Percent A 0.5 % (0-0.5); Lymphocytes Absolute Auto 1.18 K/mm3 (0.9-3.2); Mean Corpuscular HGB Conc 30.6 g/dl (32-36); Mean Corpuscular Hemoglobin 27.7 pg (26-34); Mean Corpuscular Volume 90.5 fl (80-100); Nucleated Red Blood Cells Absolute Auto 0.000 K/mm3 (0.0-0.012); Nucleated Red Blood Cells Perc 0.0 % (0.0-0.2); Platelet Count Result 210 k/mm3 (150-375); Red Blood Count 3.79 M/mm3 (4.2-5.4); White Blood Count 10.3 K/mm3 (4.5-10.0)
[2024-11-01 06:52] LABS: Anisocytosis 1+; Ovalocytes 1+
[2024-11-01 06:53] LABS: Burr Cells 1+; Schistocytes None Seen
[2024-11-01 07:01] LABS: Alanine Aminotransferase 19 U/L (6-35); Albumin Level 2.8 g/dL (3.5-5.1); Alkaline Phosphatase 51 U/L (38-126); Anion Gap 7 mmol/L (4-12); Aspartate Amino Transferase 37 U/L (14-36); Bilirubin,Total 0.4 mg/dL (0.2-1.3); Blood Urea Nitrogen 16 mg/dL (7-17); Calcium 7.8 mg/dL (8.4-10.2); Carbon Dioxide 19 mmol/L (22-30); Chloride 113 mmol/L (98-107); Estimated CRCL calculation 37 ml/min; Estimated Glomerular Filt Rate 59; Glucose 106 mg/dL (65-110); Potassium 3.6 mmol/L (3.4-5.0); Sodium 139 mmol/L (137-145); Total Protein 5.4 g/dL (6.3-8.2)
[2024-11-01] MEDS: FLUTICASONE/SALMETEROL 115-21 MCG INHALER 1 PUFF 2 PUFF INHALATION ×2 (08:28→20:22)
[2024-11-01] MEDS: SODIUM CHLORIDE 0.9% IV 1,000 ML 120 ML IV CONT ×2 (09:13→21:12)
[2024-11-01] MEDS: CALCIUM/VITAMIN D 500 MG/5 MCG (200 I.U.) TABLET PO (09:14)
[2024-11-01] MEDS: ATORVASTATIN 40 MG TABLET 80 MG PO (09:14)
[2024-11-01] MEDS: PANTOPRAZOLE SODIUM IV 40 MG VIAL IV PUSH (09:14)
[2024-11-01] MEDS: SERTRALINE HCL 50 MG TABLET 100 MG PO ×2 (09:14→17:06)
[2024-11-01] MEDS: LOSARTAN POTASSIUM 50 MG TABLET PO (09:14)
[2024-11-01] MEDS: ENOXAPARIN 40 MG/0.4 ML SYRINGE SUB-Q (09:15)
[2024-11-01] MEDS: IPRATROPIUM NASAL SPRAY 0.03% 15 ML BOTTLE 2 SPRAY NASAL ×3 (09:15→17:08)
--- NOTE | 2024-11-01 13:31 | PM.IMPN ---
Progress Note: A&P Assessment and Plan (1) Colonic obstruction: Code(s): K56.609 - Unspecified intestinal obstruction, unspecified as to partial versus complete obstruction Status: Acute Plan # Colonic obstruction: CT scan showed high-grade obstruction within the mid to distal sigmoid colon, lymphadenopathy, and aerated stool within the entirety of the colon. Sigmoidoscopy in mid September showed diverticulosis but was otherwise unremarkable. Continue empiric antibiotic to cover for possible diverticulitis. Further and definitive management as per the surgical service. Status post open transverse end colostomy and placement of mucous fistula and peritoneal biopsy x2 on 10/31/2024 # CKD stage 3 Kidney function stable # Hypokalemia, hyponatremia Replete with potassium chloride Patient is on normal saline IV # Hypertension: # Obstructive sleep apnea: CPAP will be provided for the patient to use while hospitalized. # Chronic obstructive pulmonary disease: No acute issues. Continue Advair Diskus. # postoperative hypoxia mild improving continue incentive spirometry. Discussed with the patient Subjective Date/time seen: 11/01/24 13:31 Interval history: No overnight events. Sore in her abdomen. Denies shortness of breath or chest pain. Review of Systems Review of Systems: All systems reviewed & are unremarkable except as noted in HPI and below Exam Narrative: GENERAL: Pleasant, in no acute distress. Well-nourished. - EYES: EOMI. Anicteric. - HENT: Moist mucous membranes. - LUNGS: Diminished breath sounds bilaterally, no wheezing, rhonchi, or rales. - CARDIOVASCULAR: Regular rate and rhythm. No murmur. No JVD. - ABDOMEN: Soft, mildly distended bowel sound positive, colostomy on left and ostomy bag on right midline incision covered with dressing which is clean dry and intact. - EXTREMITIES: No edema. Peripheral pulses 2+. Non-tender. - NEUROLOGIC: No focal neurological deficits. CN II-XII grossly intact. - PSYCHIATRIC: Awake, Alert and oriented x 3. Appropriate mood and affect. - SKIN: No rashes or lesions. Warm. - LYMPH: No cervical lymphadenopathy. Objective Data Vital Signs Vital Signs: Vital Signs - 24 hr 10/31/24 13:45 10/31/24 14:00 10/31/24 14:15 Temperature Pulse Rate 58 L 59 L 61 Respiratory Rate 12 14 12 Blood Pressure 170/58 H 166/95 H 163/71 H Pulse Oximetry 100 99 100 Oxygen Delivery Simple Face Mask Simple Face Mask Simple Face Mask Oxygen Flow Rate 8 8 8 10/31/24 14:30 10/31/24 14:45 10/31/24 14:59 Temperature Pulse Rate 64 63 64 Respiratory Rate 14 14 16 Blood Pressure 129/58 L 158/62 H 150/88 H Pulse Oximetry 94 94 94 Oxygen Delivery Nasal Cannula Room Air Nasal Cannula Oxygen Flow Rate 2 2 10/31/24 15:15 10/31/24 15:30 10/31/24 16:00 Temperature 97.6 F 97.6 F 97.5 F L Pulse Rate 63 70 63 Respiratory Rate 20 20 20 Blood Pressure 165/59 H 158/62 H 121/58 L Pulse Oximetry 91 93 94 Oxygen Delivery Oxygen Flow Rate 10/31/24 17:00 10/31/24 21:28 10/31/24 21:28 Temperature 97.8 F Pulse Rate 65 64 64 Respiratory Rate 20 16 16 Blood Pressure 141/70 H Pulse Oximetry 97 98 Oxygen Delivery Nasal Cannula Oxygen Flow Rate 1 10/31/24 22:00 10/31/24 23:00 11/01/24 05:59 Temperature 97 F L 97.5 F L Pulse Rate 61 64 66 Respiratory Rate 18 17 Blood Pressure 101/51 L 106/59 L Pulse Oximetry 98 99 Oxygen Delivery Oxygen Flow Rate 11/01/24 08:29 11/01/24 08:31 Temperature Pulse Rate 60 Respiratory Rate 17 Blood Pressure Pulse Oximetry 92 Oxygen Delivery Nasal Cannula Oxygen Flow Rate 1 Intake/Output Intake/Output: Intake & Output 10/29/24 10/30/24 10/31/24 11/01/24 23:59 23:59 23:59 23:59 Intake Total 540 1320 3260 3010 Output Total 110 700 Balance 540 1320 3150 2310 Meds/Results Medications: Active Medications Generic Name Dose Route Start Last Admin Trade Name Freq PRN Reason Stop Dose Admin Atorvastatin Calcium 80 mg 10/30/24 09:00 11/01/24 09:14 Atorvastatin 40 Mg Tablet PO 80 mg DAILY JANNIE Administration Calcium Carbonate 500 mg 10/30/24 09:00 11/01/24 09:14 Calcium/Vitamin D 500 Mg/5 Mcg (200 I.U.) Tablet PO 500 mg DAILY JANNIE Administration Carvedilol 6.25 mg 10/29/24 21:00 11/01/24 09:14 Carvedilol 6.25 Mg Tablet PO 6.25 mg Q12HR JANNIE Administration Dextrose 12.5 gm 10/29/24 22:59 Dextrose 50% 25 Gm/50 Ml Syringe IV PUSH PRN PRN Hypoglycemia Protocol Enoxaparin Sodium 40 mg 11/01/24 09:00 11/01/24 09:15 Enoxaparin 40 Mg/0.4 Ml Syringe SUB-Q 40 mg DAILY JANNIE Administration Glucagon 1 mg 10/29/24 22:59 Glucagon For Inj 1 Mg Vial IM PRN PRN Hypoglycemia Protocol Glucose 15 gm 10/29/24 22:59 Glucose Oral Gel 15 Gm Of Glucse In 37.5 Gm Tube PO PRN PRN Hypoglycemia Protocol Hydromorphone HCl 1 mg 10/31/24 13:20 11/01/24 06:03 Hydromorphone Hcl Inj (*Crx) 2 Mg/Ml Vial IV PUSH 1 mg Q3H PRN Administration Pain Rated 7-10 Cefepime HCl 2 gm/ Sodium 50 mls @ 100 mls/hr 10/29/24 16:00 11/01/24 03:26 Chloride IVPB 100 mls/hr Q12H JANNIE Administration Metronidazole 500 mg in 100 mls @ 100 mls/hr 10/30/24 06:00 11/01/24 05:11 Flagyl 500 Mg/Iso Soln 100 Ml IVPB 100 mls/hr Q8HR JANNIE Administration Dextrose 1,000 mls @ 100 mls/hr 10/29/24 22:59 Dextrose 5% 1,000 Ml IVPB PRN PRN Hypoglycemia Protocol Sodium Chloride 1,000 mls @ 120 mls/hr 10/30/24 12:30 11/01/24 09:13 Normal Saline Iv IV CONT 120 mls/hr .Q8H20M JANNIE Administration Ibuprofen 800 mg in 200 mls @ 400 mls/hr 10/31/24 15:02 11/01/24 05:12 Caldolor 800 Mg/200 Ml IVPB 400 mls/hr Q8HR JANNIE Administration Insulin Aspart 2 - 5 units 10/30/24 00:00 11/01/24 12:12 Insulin Aspart (*Bkc) 100 Units/Ml SUB-Q Not Given Q6HR JANNIE Protocol Ipratropium [place] 2 spray 10/29/24 17:00 11/01/24 09:15 Ipratropium Nasal [place] 0.03% 15 Ml Bottle NASAL 2 spray TID JANNIE Administration Losartan Potassium 50 mg 10/30/24 09:00 11/01/24 09:14 Losartan Potassium 50 Mg Tablet PO 50 mg DAILY JANNIE Administration Ondansetron HCl 4 mg 10/29/24 15:17 10/30/24 21:43 Ondansetron Inj 4 Mg/2 Ml Vial IV PUSH 4 mg Q4H PRN Administration Nausea And Vomiting Ondansetron HCl 4 mg 10/29/24 15:30 Ondansetron Inj 4 Mg/2 Ml Vial IV PUSH Q4H PRN Nausea And Vomiting Pantoprazole Sodium 40 mg 10/30/24 09:00 11/01/24 09:14 Pantoprazole Sodium Iv 40 Mg Vial IV PUSH 40 mg QAM JANNIE Administration Fluticasone/Salmeterol 2 puff 10/29/24 20:00 11/01/24 08:28 Fluticasone/Salmeterol 115-21 Mcg Inhaler 1 Puff INHALATION 2 puff Q12HRT JANNIE Administration Sertraline HCl 100 mg 10/29/24 17:00 11/01/24 09:14 Sertraline Hcl 50 Mg Tablet PO 100 mg BID JANNIE Administration Radiology Results: ITS Impressions Abdomen/Pelvis CT 10/29/24 17:43 IMPRESSION: High-grade obstruction within the mid to distal sigmoid colon for which a malignancy is suspected. Aerated stool (with pneumatosis less likely) within the entirety of the colon, proximal to the mid to distal sigmoid colon. Retroperitoneal and mesenteric lymphadenopathy. Secondary signs suggesting hypovolemia. 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 Labs Labs: Laboratory Results - last 24 hr 10/31/24 10/31/24 10/31/24 14:08 16:17 17:08 WBC 6.9 RBC 4.49 Hgb 12.3 Hct 39.8 MCV 88.6 MCH 27.4 MCHC 30.9 L RDW 15.3 H Plt Count 243 MPV 9.5 Immature Gran % (Auto) 0.7 H Neut % (Auto) 82.7 H Lymph % (Auto) 10.4 L [place] % (Auto) 6.1 Eos % (Auto) 0.0 Baso % (Auto) 0.1 L Lymph # (Auto) 0.72 L [place] # (Auto) 0.4 Eos # (Auto) 0.0 Baso # (Auto) 0.0 Abs Immat Gran (auto) 0.05 H Absolute Neuts (auto) 5.7 Absolute Nucleated RBC 0.000 Band Neutrophils % Nucleated RBC % 0.0 Platelet Estimate Anisocytosis Ovalocytes [place] Cells Schistocytes Sodium 141 Potassium 3.9 Chloride 111 H Carbon Dioxide 19 L Anion Gap 11 BUN 12 Creatinine 0.84 Estim Creat Clear Calc 41 Estimated GFR > 60 Glucose 131 H POC Capillary Glucose 159 H 124 H Calcium 8.5 Total Bilirubin 0.3 AST 41 H ALT 19 Alkaline Phosphatase 70 Total Protein 6.1 L Albumin 3.3 L 11/01/24 11/01/24 11/01/24 00:27 05:43 06:19 WBC 10.3 H RBC 3.79 L Hgb 10.5 L Hct 34.3 L MCV 90.5 MCH 27.7 MCHC 30.6 L RDW 15.4 H Plt Count 210 MPV 10.2 Immature Gran % (Auto) 0.5 Neut % (Auto) 81.8 H Lymph % (Auto) 11.5 L [place] % (Auto) 6.0 Eos % (Auto) 0.1 Baso % (Auto) 0.1 L Lymph # (Auto) 1.18 [place] # (Auto) 0.6 Eos # (Auto) 0.0 Baso # (Auto) 0.0 Abs Immat Gran (auto) 0.05 H Absolute Neuts (auto) 8.4 H Absolute Nucleated RBC 0.000 Band Neutrophils % Not Reportable Nucleated RBC % 0.0 Platelet Estimate Adequate Anisocytosis 1+ Ovalocytes 1+ [place] Cells 1+ Schistocytes None seen Sodium 139 Potassium 3.6 Chloride 113 H Carbon Dioxide 19 L Anion Gap 7 BUN 16 Creatinine 0.93 Estim Creat Clear Calc 37 Estimated GFR 59 Glucose 106 POC Capillary Glucose 96 113 H Calcium 7.8 L Total Bilirubin 0.4 AST 37 H ALT 19 Alkaline Phosphatase 51 Total Protein 5.4 L Albumin 2.8 L 11/01/24 11/01/24 08:05 12:04 WBC RBC Hgb Hct MCV MCH MCHC RDW Plt Count MPV Immature Gran % (Auto) Neut % (Auto) Lymph % (Auto) [place] % (Auto) Eos % (Auto) Baso % (Auto) Lymph # (Auto) [place] # (Auto) Eos # (Auto) Baso # (Auto) Abs Immat Gran (auto) Absolute Neuts (auto) Absolute Nucleated RBC Band Neutrophils % Nucleated RBC % Platelet Estimate Anisocytosis Ovalocytes [place] Cells Schistocytes Sodium Potassium Chloride Carbon Dioxide Anion Gap BUN Creatinine Estim Creat Clear Calc Estimated GFR Glucose POC Capillary Glucose 102 90 Calcium Total Bilirubin AST ALT Alkaline Phosphatase Total Protein Albumin
--- NOTE | 2024-11-01 14:02 | PCNFU ---
Nutrition Follow-Up Complete: Moderate protein calorie malnutrition related to altered GI function as evidenced by intakes <75% needs >1 month; weight loss 6%/1 month; moderate muscle wasting and fat loss Goal:Meet estimated nutrition needs Diet advancement as medically able Pt slowly progressing to goal Pt current nutrition is Clear liquids. Nutrition recommendation: continue and advance as appropriate Last recorded weight is 65.2 kg. Bowel Motility: No BM yet, pt has had gas Labs Reviewed: Hgb:13.3, HCT:39.6, NA:132 Meds Noted: protonix, lovenox Skin: WNL Additional Notes: Pt continues on clear liquids, tolerating ok, encouraged Ensure Clear. No stool output yet. Monitoring diet orders, output, weights, labs, plan of care Follow up in 3 days for NPO/CL
--- NOTE | 2024-11-01 14:24 | P.PNAN_ITS ---
Anes - Prog Note Post-Op Date/Time: 11/01/24 14:24 Cardiovascular status: normal Respiratory status: normal Airway patency: baseline Mental status: baseline Post-Op hydration status: normal Vital Signs: Last Vital Signs Temp 36.4 C L 11/01/24 05:59 Pulse 60 11/01/24 08:31 Resp 17 11/01/24 08:31 BP 106/59 L 11/01/24 05:59 Pulse Ox 92 11/01/24 08:29 O2 Del Method Nasal Cannula 11/01/24 08:29 O2 Flow Rate 1 11/01/24 08:29 FiO2 21 10/31/24 08:00 Pain Score (VAS): 06/17 I/O: Intake & Output 10/31/24 11/01/24 11/01/24 23:59 07:59 15:59 Intake Total 637 559 7864 Output Total 700 Balance 990 -220 2730 Laboratory Tests 11/01/24 05:43 11/01/24 05:43 10/31/24 10/31/24 11/01/24 16:17 17:08 00:27 WBC 6.9 RBC 4.49 Hgb 12.3 Hct 39.8 MCV 88.6 MCH 27.4 MCHC 30.9 L RDW 15.3 H Plt Count 243 MPV 9.5 Immature Gran % (Auto) 0.7 H Neut % (Auto) 82.7 H Lymph % (Auto) 10.4 L [place] % (Auto) 6.1 Eos % (Auto) 0.0 Baso % (Auto) 0.1 L Lymph # (Auto) 0.72 L [place] # (Auto) 0.4 Eos # (Auto) 0.0 Baso # (Auto) 0.0 Abs Immat Gran (auto) 0.05 H Absolute Neuts (auto) 5.7 Absolute Nucleated RBC 0.000 Band Neutrophils % Nucleated RBC % 0.0 Platelet Estimate Anisocytosis Ovalocytes [place] Cells Schistocytes Sodium 141 Potassium 3.9 Chloride 111 H Carbon Dioxide 19 L Anion Gap 11 BUN 12 Creatinine 0.84 Estim Creat Clear Calc 41 Estimated GFR > 60 Glucose 131 H POC Capillary Glucose 124 H 96 Calcium 8.5 Total Bilirubin 0.3 AST 41 H ALT 19 Alkaline Phosphatase 70 Total Protein 6.1 L Albumin 3.3 L 11/01/24 11/01/24 11/01/24 05:43 06:19 08:05 WBC 10.3 H RBC 3.79 L Hgb 10.5 L Hct 34.3 L MCV 90.5 MCH 27.7 MCHC 30.6 L RDW 15.4 H Plt Count 210 MPV 10.2 Immature Gran % (Auto) 0.5 Neut % (Auto) 81.8 H Lymph % (Auto) 11.5 L [place] % (Auto) 6.0 Eos % (Auto) 0.1 Baso % (Auto) 0.1 L Lymph # (Auto) 1.18 [place] # (Auto) 0.6 Eos # (Auto) 0.0 Baso # (Auto) 0.0 Abs Immat Gran (auto) 0.05 H Absolute Neuts (auto) 8.4 H Absolute Nucleated RBC 0.000 Band Neutrophils % Not Reportable Nucleated RBC % 0.0 Platelet Estimate Adequate Anisocytosis 1+ Ovalocytes 1+ [place] Cells 1+ Schistocytes None seen Sodium 139 Potassium 3.6 Chloride 113 H Carbon Dioxide 19 L Anion Gap 7 BUN 16 Creatinine 0.93 Estim Creat Clear Calc 37 Estimated GFR 59 Glucose 106 POC Capillary Glucose 113 H 102 Calcium 7.8 L Total Bilirubin 0.4 AST 37 H ALT 19 Alkaline Phosphatase 51 Total Protein 5.4 L Albumin 2.8 L 11/01/24 12:04 WBC RBC Hgb Hct MCV MCH MCHC RDW Plt Count MPV Immature Gran % (Auto) Neut % (Auto) Lymph % (Auto) [place] % (Auto) Eos % (Auto) Baso % (Auto) Lymph # (Auto) [place] # (Auto) Eos # (Auto) Baso # (Auto) Abs Immat Gran (auto) Absolute Neuts (auto) Absolute Nucleated RBC Band Neutrophils % Nucleated RBC % Platelet Estimate Anisocytosis Ovalocytes [place] Cells Schistocytes Sodium Potassium Chloride Carbon Dioxide Anion Gap BUN Creatinine Estim Creat Clear Calc Estimated GFR Glucose POC Capillary Glucose 90 Calcium Total Bilirubin AST ALT Alkaline Phosphatase Total Protein Albumin Post-procedural complaints: none Patient Feedback: Patient satisfied with anesthetic care.
--- NOTE | 2024-11-01 14:37 | P.PNGS_ITS ---
Progress Note: A&P Assessment and Plan (1) Colonic obstruction: Code(s): K56.609 - Unspecified intestinal obstruction, unspecified as to partial versus complete obstruction Status: Acute Assessment and Plan: Pod 1 status post attempted robotic assisted laparoscopic transverse loop colostomy with conversion to open transverse end-colostomy placed mucous fistula. Patient tolerating clear liquids, with mild nausea but no vomiting. WBC 10.3, likely reactive to surgery. Afebrile overnight. Ostomy and fistula seem to be functioning well with dark fluid in each bag. We will discontinue Alas catheter today. Continue with clear liquids, and consider advancing diet later this weekend. Pathology still pending. Will follow up with the results. (2) Coronary artery disease: Code(s): I25.10 - Atherosclerotic heart disease of [place] coronary artery without angina pectoris Status: Acute Assessment and Plan: Patient tolerated surgery yesterday with no complications. Plan Discussed patient's case and plan of care with Dr. Campos. Subjective Subjective Date/Time Seen: 11/01/24 14:37 Post Op day: 1 Patient reports: no new complaints Interval history: Pod 1 status post attempted robotic assisted laparoscopic transverse loop colostomy with conversion open transverse and colostomy and placement of mucous fistula. Patient tolerated the procedure well with no complications. Tolerating clear liquids. She did note some nausea with soup and Jell-O, but no vomiting. Exam Const: General: comfortable and no acute distress GI: Inspection: non-distended GI Palp: Yes Soft to palpation and No Tenderness to palpation present (GI) Other: Both mucous fistula and colostomy with dark fluid in bag. Stoma slightly darkened, but appear viable. All dressings clean, dry, and intact. Objective Data Vital Signs Vital Signs: Vital Signs - 24 hr 10/31/24 14:45 10/31/24 14:59 10/31/24 15:15 Temperature 97.6 F Pulse Rate 63 64 63 Respiratory Rate 14 16 20 Blood Pressure 158/62 H 150/88 H 165/59 H Pulse Oximetry 94 94 91 Oxygen Delivery Room Air Nasal Cannula Oxygen Flow Rate 2 10/31/24 15:30 10/31/24 16:00 10/31/24 17:00 Temperature 97.6 F 97.5 F L 97.8 F Pulse Rate 70 63 65 Respiratory Rate 20 20 20 Blood Pressure 158/62 H 121/58 L 141/70 H Pulse Oximetry 93 94 97 Oxygen Delivery Oxygen Flow Rate 10/31/24 21:28 10/31/24 21:28 10/31/24 22:00 Temperature 97 F L Pulse Rate 64 64 61 Respiratory Rate 16 16 18 Blood Pressure 101/51 L Pulse Oximetry 98 98 Oxygen Delivery Nasal Cannula Oxygen Flow Rate 1 10/31/24 23:00 11/01/24 05:59 11/01/24 08:29 Temperature 97.5 F L Pulse Rate 64 66 Respiratory Rate 17 Blood Pressure 106/59 L Pulse Oximetry 99 92 Oxygen Delivery Nasal Cannula Oxygen Flow Rate 1 11/01/24 08:31 Temperature Pulse Rate 60 Respiratory Rate 17 Blood Pressure Pulse Oximetry Oxygen Delivery Oxygen Flow Rate Intake/Output Intake/Output: Intake & Output 10/29/24 10/30/24 10/31/24 11/01/24 23:59 23:59 23:59 23:59 Intake Total 540 1320 3260 3210 Output Total 110 700 Balance 540 1320 3150 2510 Meds/Results Medications: Active Medications Generic Name Dose Route Start Last Admin Trade Name Freq PRN Reason Stop Dose Admin Atorvastatin Calcium 80 mg 10/30/24 09:00 11/01/24 09:14 Atorvastatin 40 Mg Tablet PO 80 mg DAILY JANNIE Administration Calcium Carbonate 500 mg 10/30/24 09:00 11/01/24 09:14 Calcium/Vitamin D 500 Mg/5 Mcg (200 I.U.) Tablet PO 500 mg DAILY JANNIE Administration Carvedilol 6.25 mg 10/29/24 21:00 11/01/24 09:14 Carvedilol 6.25 Mg Tablet PO 6.25 mg Q12HR JANNIE Administration Dextrose 12.5 gm 10/29/24 22:59 Dextrose 50% 25 Gm/50 Ml Syringe IV PUSH PRN PRN Hypoglycemia Protocol Enoxaparin Sodium 40 mg 11/01/24 09:00 11/01/24 09:15 Enoxaparin 40 Mg/0.4 Ml Syringe SUB-Q 40 mg DAILY JANNIE Administration Glucagon 1 mg 10/29/24 22:59 Glucagon For Inj 1 Mg Vial IM PRN PRN Hypoglycemia Protocol Glucose 15 gm 10/29/24 22:59 Glucose Oral Gel 15 Gm Of Glucse In 37.5 Gm Tube PO PRN PRN Hypoglycemia Protocol Hydromorphone HCl 1 mg 10/31/24 13:20 11/01/24 13:58 Hydromorphone Hcl Inj (*Crx) 2 Mg/Ml Vial IV PUSH 1 mg Q3H PRN Administration Pain Rated 7-10 Cefepime HCl 2 gm/ Sodium 50 mls @ 100 mls/hr 10/29/24 16:00 11/01/24 03:26 Chloride IVPB 100 mls/hr Q12H JANNIE Administration Metronidazole 500 mg in 100 mls @ 100 mls/hr 10/30/24 06:00 11/01/24 05:11 Flagyl 500 Mg/Iso Soln 100 Ml IVPB 100 mls/hr Q8HR JANNIE Administration Dextrose 1,000 mls @ 100 mls/hr 10/29/24 22:59 Dextrose 5% 1,000 Ml IVPB PRN PRN Hypoglycemia Protocol Sodium Chloride 1,000 mls @ 120 mls/hr 10/30/24 12:30 11/01/24 09:13 Normal Saline Iv IV CONT 120 mls/hr .Q8H20M JANNIE Administration Ibuprofen 800 mg in 200 mls @ 400 mls/hr 10/31/24 15:02 11/01/24 13:58 Caldolor 800 Mg/200 Ml IVPB 400 mls/hr Q8HR JANNIE Administration Insulin Aspart 2 - 5 units 10/30/24 00:00 11/01/24 12:12 Insulin Aspart (*Bkc) 100 Units/Ml SUB-Q Not Given Q6HR JANNIE Protocol Ipratropium [place] 2 spray 10/29/24 17:00 11/01/24 09:15 Ipratropium Nasal [place] 0.03% 15 Ml Bottle NASAL 2 spray TID JANNIE Administration Losartan Potassium 50 mg 10/30/24 09:00 11/01/24 09:14 Losartan Potassium 50 Mg Tablet PO 50 mg DAILY JANNIE Administration Ondansetron HCl 4 mg 10/29/24 15:17 10/30/24 21:43 Ondansetron Inj 4 Mg/2 Ml Vial IV PUSH 4 mg Q4H PRN Administration Nausea And Vomiting Ondansetron HCl 4 mg 10/29/24 15:30 Ondansetron Inj 4 Mg/2 Ml Vial IV PUSH Q4H PRN Nausea And Vomiting Pantoprazole Sodium 40 mg 10/30/24 09:00 11/01/24 09:14 Pantoprazole Sodium Iv 40 Mg Vial IV PUSH 40 mg QAM JANNIE Administration Fluticasone/Salmeterol 2 puff 10/29/24 20:00 11/01/24 08:28 Fluticasone/Salmeterol 115-21 Mcg Inhaler 1 Puff INHALATION 2 puff Q12HRT JANNIE Administration Sertraline HCl 100 mg 10/29/24 17:00 11/01/24 09:14 Sertraline Hcl 50 Mg Tablet PO 100 mg BID JANNIE Administration Radiology Results: ITS Impressions Abdomen/Pelvis CT 10/29/24 17:43 IMPRESSION: High-grade obstruction within the mid to distal sigmoid colon for which a malignancy is suspected. Aerated stool (with pneumatosis less likely) within the entirety of the colon, proximal to the mid to distal sigmoid colon. Retroperitoneal and mesenteric lymphadenopathy. Secondary signs suggesting hypovolemia. 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 Labs Labs: Laboratory Results - last 24 hr 10/31/24 10/31/24 11/01/24 16:17 17:08 00:27 WBC 6.9 RBC 4.49 Hgb 12.3 Hct 39.8 MCV 88.6 MCH 27.4 MCHC 30.9 L RDW 15.3 H Plt Count 243 MPV 9.5 Immature Gran % (Auto) 0.7 H Neut % (Auto) 82.7 H Lymph % (Auto) 10.4 L [place] % (Auto) 6.1 Eos % (Auto) 0.0 Baso % (Auto) 0.1 L Lymph # (Auto) 0.72 L [place] # (Auto) 0.4 Eos # (Auto) 0.0 Baso # (Auto) 0.0 Abs Immat Gran (auto) 0.05 H Absolute Neuts (auto) 5.7 Absolute Nucleated RBC 0.000 Band Neutrophils % Nucleated RBC % 0.0 Platelet Estimate Anisocytosis Ovalocytes [place] Cells Schistocytes Sodium 141 Potassium 3.9 Chloride 111 H Carbon Dioxide 19 L Anion Gap 11 BUN 12 Creatinine 0.84 Estim Creat Clear Calc 41 Estimated GFR > 60 Glucose 131 H POC Capillary Glucose 124 H 96 Calcium 8.5 Total Bilirubin 0.3 AST 41 H ALT 19 Alkaline Phosphatase 70 Total Protein 6.1 L Albumin 3.3 L 11/01/24 11/01/24 11/01/24 05:43 06:19 08:05 WBC 10.3 H RBC 3.79 L Hgb 10.5 L Hct 34.3 L MCV 90.5 MCH 27.7 MCHC 30.6 L RDW 15.4 H Plt Count 210 MPV 10.2 Immature Gran % (Auto) 0.5 Neut % (Auto) 81.8 H Lymph % (Auto) 11.5 L [place] % (Auto) 6.0 Eos % (Auto) 0.1 Baso % (Auto) 0.1 L Lymph # (Auto) 1.18 [place] # (Auto) 0.6 Eos # (Auto) 0.0 Baso # (Auto) 0.0 Abs Immat Gran (auto) 0.05 H Absolute Neuts (auto) 8.4 H Absolute Nucleated RBC 0.000 Band Neutrophils % Not Reportable Nucleated RBC % 0.0 Platelet Estimate Adequate Anisocytosis 1+ Ovalocytes 1+ [place] Cells 1+ Schistocytes None seen Sodium 139 Potassium 3.6 Chloride 113 H Carbon Dioxide 19 L Anion Gap 7 BUN 16 Creatinine 0.93 Estim Creat Clear Calc 37 Estimated GFR 59 Glucose 106 POC Capillary Glucose 113 H 102 Calcium 7.8 L Total Bilirubin 0.4 AST 37 H ALT 19 Alkaline Phosphatase 51 Total Protein 5.4 L Albumin 2.8 L 25/25 12:04 WBC RBC Hgb Hct MCV MCH MCHC RDW Plt Count MPV Immature Gran % (Auto) Neut % (Auto) Lymph % (Auto) [place] % (Auto) Eos % (Auto) Baso % (Auto) Lymph # (Auto) [place] # (Auto) Eos # (Auto) Baso # (Auto) Abs Immat Gran (auto) Absolute Neuts (auto) Absolute Nucleated RBC Band Neutrophils % Nucleated RBC % Platelet Estimate Anisocytosis Ovalocytes [place] Cells Schistocytes Sodium Potassium Chloride Carbon Dioxide Anion Gap BUN Creatinine Estim Creat Clear Calc Estimated GFR Glucose POC Capillary Glucose 90 Calcium Total Bilirubin AST ALT Alkaline Phosphatase Total Protein Albumin
[2024-11-01 15:06] LABS: Hematocrit 28.8 % (37.0-47.0); Hemoglobin 8.8 g/dL (12.0-15.0); Immature Granulocyte Percent A 0.5 % (0-0.5); Lymphocytes Absolute Auto 0.94 K/mm3 (0.9-3.2); Mean Corpuscular HGB Conc 30.6 g/dl (32-36); Mean Corpuscular Hemoglobin 27.9 pg (26-34); Mean Corpuscular Volume 91.4 fl (80-100); Nucleated Red Blood Cells Absolute Auto 0.000 K/mm3 (0.0-0.012); Nucleated Red Blood Cells Perc 0.0 % (0.0-0.2); Platelet Count Result 150 k/mm3 (150-375); Red Blood Count 3.15 M/mm3 (4.2-5.4); White Blood Count 7.5 K/mm3 (4.5-10.0)
[2024-11-02] VITALS (8 sets, daily range): BP systolic 103–134; BP diastolic 50–72; PULSE 61–72; RESP 16–20; TEMP 36.4–36.8; O2SAT 88–94
[2024-11-02] MEDS: CEFEPIME 2 GM in SODIUM CHLORIDE 0.9% IV 50 ML 100 ML IVPB ×2 (04:07→16:59)
--- NOTE | 2024-11-02 04:27 | PC.NURSE ---
Patient stated after using bathroom independently, she felt increased weakness when getting back in bed, and felt like she was wobbly on her feet. I assessed patient stand and ambulate, she had unsteady gait, denies dizziness, confusion, and is orientated x4 at baseline. Vital signs LA 106/51, p 60, R 20, 96.7F, 90% on 2L NC. Rated pain 5 on 1-10 scale which patient says is tolerable for her without medication at that time. Patient stable at this time, call light within reach, bed lowest position, fall precaution alarm turned on with bedside commode next to bed. Instructed patient to call when she needs to use bathroom when needed. Will continue to monitor patient progress with weakness and pain management.
[2024-11-02] MEDS: IBUPROFEN IV 800 MG/200 ML 800 MG/200 ML BAG 400 MG IVPB ×3 (05:08→21:18)
[2024-11-02] MEDS: metroNIDAZOLE 500 MG/ISO 100ML 500 MG/100 ML BAG 100 MG IVPB ×3 (06:08→22:52)
[2024-11-02 06:35] LABS: Hematocrit 33.5 % (37.0-47.0); Hemoglobin 10.1 g/dL (12.0-15.0); Immature Granulocyte Percent A 0.4 % (0-0.5); Lymphocytes Absolute Auto 0.72 K/mm3 (0.9-3.2); Mean Corpuscular HGB Conc 30.1 g/dl (32-36); Mean Corpuscular Hemoglobin 27.6 pg (26-34); Mean Corpuscular Volume 91.5 fl (80-100); Nucleated Red Blood Cells Absolute Auto 0.000 K/mm3 (0.0-0.012); Nucleated Red Blood Cells Perc 0.0 % (0.0-0.2); Platelet Count Result 176 k/mm3 (150-375); Red Blood Count 3.66 M/mm3 (4.2-5.4); White Blood Count 8.2 K/mm3 (4.5-10.0)
[2024-11-02 07:01] LABS: Alanine Aminotransferase 15 U/L (6-35); Albumin Level 2.6 g/dL (3.5-5.1); Alkaline Phosphatase 56 U/L (38-126); Anion Gap 7 mmol/L (4-12); Aspartate Amino Transferase 37 U/L (14-36); Bilirubin,Total 0.4 mg/dL (0.2-1.3); Blood Urea Nitrogen 22 mg/dL (7-17); Calcium 7.8 mg/dL (8.4-10.2); Carbon Dioxide 18 mmol/L (22-30); Chloride 114 mmol/L (98-107); Estimated CRCL calculation 36 ml/min; Estimated Glomerular Filt Rate 55; Glucose 84 mg/dL (65-110); Magnesium 2.0 mg/dL (1.6-2.3); Potassium 3.4 mmol/L (3.4-5.0); Sodium 139 mmol/L (137-145); Total Protein 5.1 g/dL (6.3-8.2)
[2024-11-02] MEDS: FLUTICASONE/SALMETEROL 115-21 MCG INHALER 1 PUFF 2 PUFF INHALATION ×2 (08:15→22:09)
[2024-11-02] MEDS: SERTRALINE HCL 50 MG TABLET 100 MG PO ×2 (09:00→17:00)
[2024-11-02] MEDS: CALCIUM/VITAMIN D 500 MG/5 MCG (200 I.U.) TABLET PO (09:00)
[2024-11-02] MEDS: ATORVASTATIN 40 MG TABLET 80 MG PO (09:00)
[2024-11-02] MEDS: IPRATROPIUM NASAL SPRAY 0.03% 15 ML BOTTLE 2 SPRAY NASAL ×3 (09:01→17:00)
[2024-11-02] MEDS: LOSARTAN POTASSIUM 50 MG TABLET PO (09:01)
[2024-11-02] MEDS: ENOXAPARIN 40 MG/0.4 ML SYRINGE SUB-Q (09:01)
[2024-11-02] MEDS: PANTOPRAZOLE SODIUM IV 40 MG VIAL IV PUSH (09:02)
--- NOTE | 2024-11-02 11:27 | PM.IMPN ---
Progress Note: A&P Assessment and Plan (1) Colonic obstruction: Code(s): K56.609 - Unspecified intestinal obstruction, unspecified as to partial versus complete obstruction Status: Acute Plan # Colonic obstruction: CT scan showed high-grade obstruction within the mid to distal sigmoid colon, lymphadenopathy, and aerated stool within the entirety of the colon. Sigmoidoscopy in mid September showed diverticulosis but was otherwise unremarkable. Continue empiric antibiotic to cover for possible diverticulitis. Further and definitive management as per the surgical service. Status post open transverse end colostomy and placement of mucous fistula and peritoneal biopsy x2 on 10/31/2024 diet advancement as tolerated per general surgery # CKD stage 3 Kidney function stable # Hypokalemia, hyponatremia Replete with potassium chloride Patient is on normal saline IV # Hypertension: # cough: mild. check xr incentive spirometry already on cefepime and flagyl # Obstructive sleep apnea: CPAP will be provided for the patient to use while hospitalized. # Chronic obstructive pulmonary disease: No acute issues. Continue Advair Diskus. # postoperative hypoxia mild improving continue incentive spirometry. Discussed with the patient. recheck cxr Subjective Date/time seen: 11/02/24 11:27 Interval history: no overnight events, rpeorts abdominal soreness. no nausea, vomiting. on clear liquid diet Review of Systems Review of Systems: All systems reviewed & are unremarkable except as noted in HPI and below Exam Narrative: GENERAL: Pleasant, in no acute distress. Well-nourished. - EYES: EOMI. Anicteric. - HENT: Moist mucous membranes. - LUNGS: Diminished breath sounds bilaterally, no wheezing, rhonchi, or rales. - CARDIOVASCULAR: Regular rate and rhythm. No murmur. No JVD. - ABDOMEN: Soft, mildly distended bowel sound positive, colostomy on left and ostomy bag on right midline incision covered with dressing which is clean dry and intact. - EXTREMITIES: No edema. Peripheral pulses 2+. Non-tender. - NEUROLOGIC: No focal neurological deficits. CN II-XII grossly intact. - PSYCHIATRIC: Awake, Alert and oriented x 3. Appropriate mood and affect. - SKIN: No rashes or lesions. Warm. - LYMPH: No cervical lymphadenopathy. Objective Data Vital Signs Vital Signs: Vital Signs - 24 hr 11/01/24 14:30 11/01/24 20:23 11/01/24 20:25 Temperature 98.4 F Pulse Rate 61 67 Respiratory Rate 20 16 Blood Pressure 83/49 L Pulse Oximetry 90 91 Oxygen Delivery Nasal Cannula Oxygen Flow Rate 2 11/01/24 21:17 11/01/24 21:44 11/01/24 22:00 Temperature 97.8 F Pulse Rate 66 66 Respiratory Rate 18 Blood Pressure 135/77 Pulse Oximetry 93 88 L Oxygen Delivery Nasal Cannula Oxygen Flow Rate 2 11/02/24 06:00 11/02/24 08:00 11/02/24 08:15 Temperature 97.7 F Pulse Rate 61 Respiratory Rate 18 Blood Pressure 131/72 Pulse Oximetry 89 L 94 92 Oxygen Delivery Nasal Cannula Nasal Cannula Oxygen Flow Rate 2 2 11/02/24 08:15 Temperature Pulse Rate 72 Respiratory Rate 16 Blood Pressure Pulse Oximetry Oxygen Delivery Oxygen Flow Rate Intake/Output Intake/Output: Intake & Output 10/30/24 10/31/24 11/01/24 11/02/24 23:59 23:59 23:59 23:59 Intake Total 1320 3260 6590 1140 Output Total 110 1100 Balance 1320 3150 5490 1140 Meds/Results Medications: Active Medications Generic Name Dose Route Start Last Admin Trade Name Freq PRN Reason Stop Dose Admin Atorvastatin Calcium 80 mg 10/30/24 09:00 11/02/24 09:00 Atorvastatin 40 Mg Tablet PO 80 mg DAILY JANNIE Administration Calcium Carbonate 500 mg 10/30/24 09:00 11/02/24 09:00 Calcium/Vitamin D 500 Mg/5 Mcg (200 I.U.) Tablet PO 500 mg DAILY JANNIE Administration Carvedilol 6.25 mg 10/29/24 21:00 11/02/24 09:01 Carvedilol 6.25 Mg Tablet PO 6.25 mg Q12HR JANNIE Administration Dextrose 12.5 gm 10/29/24 22:59 Dextrose 50% 25 Gm/50 Ml Syringe IV PUSH PRN PRN Hypoglycemia Protocol Enoxaparin Sodium 40 mg 11/01/24 09:00 11/02/24 09:01 Enoxaparin 40 Mg/0.4 Ml Syringe SUB-Q 40 mg DAILY JANNIE Administration Glucagon 1 mg 10/29/24 22:59 Glucagon For Inj 1 Mg Vial IM PRN PRN Hypoglycemia Protocol Glucose 15 gm 10/29/24 22:59 Glucose Oral Gel 15 Gm Of Glucse In 37.5 Gm Tube PO PRN PRN Hypoglycemia Protocol Hydromorphone HCl 1 mg 10/31/24 13:20 11/01/24 23:47 Hydromorphone Hcl Inj (*Crx) 2 Mg/Ml Vial IV PUSH 1 mg Q3H PRN Administration Pain Rated 7-10 Cefepime HCl 2 gm/ Sodium 50 mls @ 100 mls/hr 10/29/24 16:00 11/02/24 04:37 Chloride IVPB Infused Q12H JANNIE Infusion Metronidazole 500 mg in 100 mls @ 100 mls/hr 10/30/24 06:00 11/02/24 07:08 Flagyl 500 Mg/Iso Soln 100 Ml IVPB Infused Q8HR JANNIE Infusion Dextrose 1,000 mls @ 100 mls/hr 10/29/24 22:59 Dextrose 5% 1,000 Ml IVPB PRN PRN Hypoglycemia Protocol Sodium Chloride 1,000 mls @ 120 mls/hr 10/30/24 12:30 11/02/24 09:00 Normal Saline Iv IV CONT Not Given .Q8H20M JANNIE Ibuprofen 800 mg in 200 mls @ 400 mls/hr 10/31/24 15:02 11/02/24 05:38 Caldolor 800 Mg/200 Ml IVPB Infused Q8HR JANNIE Infusion Insulin Aspart 2 - 5 units 10/30/24 00:00 11/02/24 06:12 Insulin Aspart (*Bkc) 100 Units/Ml SUB-Q Not Given Q6HR [facility] Protocol Ipratropium [place] 2 spray 10/29/24 17:00 11/02/24 09:01 Ipratropium Nasal [place] 0.03% 15 Ml Bottle NASAL 2 spray TID JANNIE Administration Losartan Potassium 50 mg 10/30/24 09:00 11/02/24 09:01 Losartan Potassium 50 Mg Tablet PO 50 mg DAILY JANNIE Administration Ondansetron HCl 4 mg 10/29/24 15:17 10/30/24 21:43 Ondansetron Inj 4 Mg/2 Ml Vial IV PUSH 4 mg Q4H PRN Administration Nausea And Vomiting Ondansetron HCl 4 mg 10/29/24 15:30 Ondansetron Inj 4 Mg/2 Ml Vial IV PUSH Q4H PRN Nausea And Vomiting Pantoprazole Sodium 40 mg 10/30/24 09:00 11/02/24 09:02 Pantoprazole Sodium Iv 40 Mg Vial IV PUSH 40 mg QAM JANNIE Administration Fluticasone/Salmeterol 2 puff 10/29/24 20:00 11/02/24 08:15 Fluticasone/Salmeterol 115-21 Mcg Inhaler 1 Puff INHALATION 2 puff Q12HRT JANNIE Administration Sertraline HCl 100 mg 10/29/24 17:00 11/02/24 09:00 Sertraline Hcl 50 Mg Tablet PO 100 mg BID JANNIE Administration Radiology Results: ITS Impressions Abdomen/Pelvis CT 10/29/24 17:43 IMPRESSION: High-grade obstruction within the mid to distal sigmoid colon for which a malignancy is suspected. Aerated stool (with pneumatosis less likely) within the entirety of the colon, proximal to the mid to distal sigmoid colon. Retroperitoneal and mesenteric lymphadenopathy. Secondary signs suggesting hypovolemia. 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 Labs Labs: Laboratory Results - last 24 hr 11/01/24 11/01/24 11/01/24 12:04 14:57 19:10 WBC 7.5 RBC 3.15 L Hgb 8.8 L Hct 28.8 L MCV 91.4 MCH 27.9 MCHC 30.6 L RDW 15.8 H Plt Count 150 MPV 9.6 Immature Gran % (Auto) 0.5 Neut % (Auto) 78.2 H Lymph % (Auto) 12.6 L [place] % (Auto) 8.2 Eos % (Auto) 0.4 Baso % (Auto) 0.1 L Lymph # (Auto) 0.94 [place] # (Auto) 0.6 Eos # (Auto) 0.0 Baso # (Auto) 0.0 Abs Immat Gran (auto) 0.04 H Absolute Neuts (auto) 5.9 Absolute Nucleated RBC 0.000 Nucleated RBC % 0.0 Sodium Potassium Chloride Carbon Dioxide Anion Gap BUN Creatinine Estim Creat Clear Calc Estimated GFR Glucose POC Capillary Glucose 90 103 Calcium Magnesium Total Bilirubin AST ALT Alkaline Phosphatase Total Protein Albumin 11/01/24 11/02/24 11/02/24 23:51 00:17 06:11 WBC RBC Hgb Hct MCV MCH MCHC RDW Plt Count MPV Immature Gran % (Auto) Neut % (Auto) Lymph % (Auto) [place] % (Auto) Eos % (Auto) Baso % (Auto) Lymph # (Auto) [place] # (Auto) Eos # (Auto) Baso # (Auto) Abs Immat Gran (auto) Absolute Neuts (auto) Absolute Nucleated RBC Nucleated RBC % Sodium Potassium Chloride Carbon Dioxide Anion Gap BUN Creatinine Estim Creat Clear Calc Estimated GFR Glucose POC Capillary Glucose 101 90 87 Calcium Magnesium Total Bilirubin AST ALT Alkaline Phosphatase Total Protein Albumin 11/02/24 06:18 WBC 8.2 RBC 3.66 L Hgb 10.1 L Hct 33.5 L MCV 91.5 MCH 27.6 MCHC 30.1 L RDW 15.9 H Plt Count 176 MPV 10.4 Immature Gran % (Auto) 0.4 Neut % (Auto) 82.0 H Lymph % (Auto) 8.8 L [place] % (Auto) 7.2 Eos % (Auto) 1.5 Baso % (Auto) 0.1 L Lymph # (Auto) 0.72 L [place] # (Auto) 0.6 Eos # (Auto) 0.1 Baso # (Auto) 0.0 Abs Immat Gran (auto) 0.03 Absolute Neuts (auto) 6.7 Absolute Nucleated RBC 0.000 Nucleated RBC % 0.0 Sodium 139 Potassium 3.4 Chloride 114 H Carbon Dioxide 18 L Anion Gap 7 BUN 22 H Creatinine 0.98 Estim Creat Clear Calc 36 Estimated GFR 55 L Glucose 84 POC Capillary Glucose Calcium 7.8 L Magnesium 2.0 Total Bilirubin 0.4 AST 37 H ALT 15 Alkaline Phosphatase 56 Total Protein 5.1 L Albumin 2.6 L
[2024-11-02] MEDS: FUROSEMIDE INJ 40 MG/4 ML VIAL 20 MG IV PUSH (13:31)
[2024-11-02 13:45] LABS: Procalcitonin 2.3 ng/mL
--- NOTE | 2024-11-02 14:02 | P.PNGS_ITS ---
Progress Note: A&P Assessment and Plan (1) Colonic obstruction: Code(s): K56.609 - Unspecified intestinal obstruction, unspecified as to partial versus complete obstruction Status: Acute Assessment and Plan: * advance to full liquids today * final pathology pending (2) Coronary artery disease: Code(s): I25.10 - Atherosclerotic heart disease of [place] coronary artery without angina pectoris Status: Acute Assessment and Plan: Patient tolerated surgery yesterday with no complications. Subjective Subjective Date/Time Seen: 11/02/24 14:02 Interval history: tolerating clear liquids, ostomy output noted, pain controlled Exam GI: Inspection: other ( ostomy patent and functioning, still slightly dark) GI Palp: Yes Soft to palpation and No Guarding due to palpation present (GI) Objective Data Vital Signs Vital Signs: Vital Signs - 24 hr 11/01/24 14:30 11/01/24 20:23 11/01/24 20:25 Temperature 98.4 F Pulse Rate 61 67 Respiratory Rate 20 16 Blood Pressure 83/49 L Pulse Oximetry 90 91 Oxygen Delivery Nasal Cannula Oxygen Flow Rate 2 11/01/24 21:17 11/01/24 21:44 11/01/24 22:00 Temperature 97.8 F Pulse Rate 66 66 Respiratory Rate 18 Blood Pressure 135/77 Pulse Oximetry 93 88 L Oxygen Delivery Nasal Cannula Oxygen Flow Rate 2 11/02/24 06:00 11/02/24 08:00 11/02/24 08:15 Temperature 97.7 F Pulse Rate 61 Respiratory Rate 18 Blood Pressure 131/72 Pulse Oximetry 89 L 94 92 Oxygen Delivery Nasal Cannula Nasal Cannula Oxygen Flow Rate 2 2 11/02/24 08:15 Temperature Pulse Rate 72 Respiratory Rate 16 Blood Pressure Pulse Oximetry Oxygen Delivery Oxygen Flow Rate Intake/Output Intake/Output: Intake & Output 10/30/24 10/31/24 11/01/24 11/02/24 23:59 23:59 23:59 23:59 Intake Total 1320 3260 6590 1140 Output Total 110 1100 Balance 1320 3150 5490 1140 Meds/Results Medications: Active Medications Generic Name Dose Route Start Last Admin Trade Name Freq PRN Reason Stop Dose Admin Atorvastatin Calcium 80 mg 10/30/24 09:00 11/02/24 09:00 Atorvastatin 40 Mg Tablet PO 80 mg DAILY JANNIE Administration Calcium Carbonate 500 mg 10/30/24 09:00 11/02/24 09:00 Calcium/Vitamin D 500 Mg/5 Mcg (200 I.U.) Tablet PO 500 mg DAILY JANNIE Administration Carvedilol 6.25 mg 10/29/24 21:00 11/02/24 09:01 Carvedilol 6.25 Mg Tablet PO 6.25 mg Q12HR JANNIE Administration Dextrose 12.5 gm 10/29/24 22:59 Dextrose 50% 25 Gm/50 Ml Syringe IV PUSH PRN PRN Hypoglycemia Protocol Enoxaparin Sodium 40 mg 11/01/24 09:00 11/02/24 09:01 Enoxaparin 40 Mg/0.4 Ml Syringe SUB-Q 40 mg DAILY JANNIE Administration Glucagon 1 mg 10/29/24 22:59 Glucagon For Inj 1 Mg Vial IM PRN PRN Hypoglycemia Protocol Glucose 15 gm 10/29/24 22:59 Glucose Oral Gel 15 Gm Of Glucse In 37.5 Gm Tube PO PRN PRN Hypoglycemia Protocol Hydromorphone HCl 1 mg 10/31/24 13:20 11/01/24 23:47 Hydromorphone Hcl Inj (*Crx) 2 Mg/Ml Vial IV PUSH 1 mg Q3H PRN Administration Pain Rated 7-10 Cefepime HCl 2 gm/ Sodium 50 mls @ 100 mls/hr 10/29/24 16:00 11/02/24 04:37 Chloride IVPB Infused Q12H JANNIE Infusion Metronidazole 500 mg in 100 mls @ 100 mls/hr 10/30/24 06:00 11/02/24 07:08 Flagyl 500 Mg/Iso Soln 100 Ml IVPB Infused Q8HR JANNIE Infusion Dextrose 1,000 mls @ 100 mls/hr 10/29/24 22:59 Dextrose 5% 1,000 Ml IVPB PRN PRN Hypoglycemia Protocol Ibuprofen 800 mg in 200 mls @ 400 mls/hr 10/31/24 15:02 11/02/24 13:32 Caldolor 800 Mg/200 Ml IVPB 400 mls/hr Q8HR JANNIE Administration Insulin Aspart 2 - 5 units 10/30/24 00:00 11/02/24 11:58 Insulin Aspart (*Bkc) 100 Units/Ml SUB-Q Not Given Q6HR [facility] Protocol Ipratropium [place] 2 spray 10/29/24 17:00 11/02/24 09:01 Ipratropium Nasal [place] 0.03% 15 Ml Bottle NASAL 2 spray TID JANNIE Administration Losartan Potassium 50 mg 10/30/24 09:00 11/02/24 09:01 Losartan Potassium 50 Mg Tablet PO 50 mg DAILY JANNIE Administration Ondansetron HCl 4 mg 10/29/24 15:17 10/30/24 21:43 Ondansetron Inj 4 Mg/2 Ml Vial IV PUSH 4 mg Q4H PRN Administration Nausea And Vomiting Ondansetron HCl 4 mg 10/29/24 15:30 Ondansetron Inj 4 Mg/2 Ml Vial IV PUSH Q4H PRN Nausea And Vomiting Pantoprazole Sodium 40 mg 10/30/24 09:00 11/02/24 09:02 Pantoprazole Sodium Iv 40 Mg Vial IV PUSH 40 mg QAM JANNIE Administration Fluticasone/Salmeterol 2 puff 10/29/24 20:00 11/02/24 08:15 Fluticasone/Salmeterol 115-21 Mcg Inhaler 1 Puff INHALATION 2 puff Q12HRT JANNIE Administration Sertraline HCl 100 mg 10/29/24 17:00 11/02/24 09:00 Sertraline Hcl 50 Mg Tablet PO 100 mg BID JANNIE Administration Radiology Results: ITS Impressions Abdomen/Pelvis CT 10/29/24 17:43 IMPRESSION: High-grade obstruction within the mid to distal sigmoid colon for which a malignancy is suspected. Aerated stool (with pneumatosis less likely) within the entirety of the colon, proximal to the mid to distal sigmoid colon. Retroperitoneal and mesenteric lymphadenopathy. Secondary signs suggesting hypovolemia. 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 Chest X-Ray 11/02/24 12:41 IMPRESSION: Significant peribronchial thickening. Multifocal infiltrates and small left-sided pleural effusion, as detailed above. Labs Labs: Laboratory Results - last 24 hr 11/01/24 11/01/24 11/01/24 14:57 19:10 23:51 WBC 7.5 RBC 3.15 L Hgb 8.8 L Hct 28.8 L MCV 91.4 MCH 27.9 MCHC 30.6 L RDW 15.8 H Plt Count 150 MPV 9.6 Immature Gran % (Auto) 0.5 Neut % (Auto) 78.2 H Lymph % (Auto) 12.6 L [place] % (Auto) 8.2 Eos % (Auto) 0.4 Baso % (Auto) 0.1 L Lymph # (Auto) 0.94 [place] # (Auto) 0.6 Eos # (Auto) 0.0 Baso # (Auto) 0.0 Abs Immat Gran (auto) 0.04 H Absolute Neuts (auto) 5.9 Absolute Nucleated RBC 0.000 Nucleated RBC % 0.0 Sodium Potassium Chloride Carbon Dioxide Anion Gap BUN Creatinine Estim Creat Clear Calc Estimated GFR Glucose POC Capillary Glucose 103 101 Calcium Magnesium Total Bilirubin AST ALT Alkaline Phosphatase Total Protein Albumin Procalcitonin 11/02/24 11/02/24 11/02/24 00:17 06:11 06:18 WBC 8.2 RBC 3.66 L Hgb 10.1 L Hct 33.5 L MCV 91.5 MCH 27.6 MCHC 30.1 L RDW 15.9 H Plt Count 176 MPV 10.4 Immature Gran % (Auto) 0.4 Neut % (Auto) 82.0 H Lymph % (Auto) 8.8 L [place] % (Auto) 7.2 Eos % (Auto) 1.5 Baso % (Auto) 0.1 L Lymph # (Auto) 0.72 L [place] # (Auto) 0.6 Eos # (Auto) 0.1 Baso # (Auto) 0.0 Abs Immat Gran (auto) 0.03 Absolute Neuts (auto) 6.7 Absolute Nucleated RBC 0.000 Nucleated RBC % 0.0 Sodium 139 Potassium 3.4 Chloride 114 H Carbon Dioxide 18 L Anion Gap 7 BUN 22 H Creatinine 0.98 Estim Creat Clear Calc 36 Estimated GFR 55 L Glucose 84 POC Capillary Glucose 90 87 Calcium 7.8 L Magnesium 2.0 Total Bilirubin 0.4 AST 37 H ALT 15 Alkaline Phosphatase 56 Total Protein 5.1 L Albumin 2.6 L Procalcitonin 2.3 11/02/24 11:51 WBC RBC Hgb Hct MCV MCH MCHC RDW Plt Count MPV Immature Gran % (Auto) Neut % (Auto) Lymph % (Auto) [place] % (Auto) Eos % (Auto) Baso % (Auto) Lymph # (Auto) [place] # (Auto) Eos # (Auto) Baso # (Auto) Abs Immat Gran (auto) Absolute Neuts (auto) Absolute Nucleated RBC Nucleated RBC % Sodium Potassium Chloride Carbon Dioxide Anion Gap BUN Creatinine Estim Creat Clear Calc Estimated GFR Glucose POC Capillary Glucose 85 Calcium Magnesium Total Bilirubin AST ALT Alkaline Phosphatase Total Protein Albumin Procalcitonin
[2024-11-02 15:07] LABS: Hematocrit 35.6 % (37.0-47.0); Hemoglobin 10.6 g/dL (12.0-15.0); Immature Granulocyte Percent A 0.3 % (0-0.5); Lymphocytes Absolute Auto 0.60 K/mm3 (0.9-3.2); Mean Corpuscular HGB Conc 29.8 g/dl (32-36); Mean Corpuscular Hemoglobin 27.8 pg (26-34); Mean Corpuscular Volume 93.4 fl (80-100); Nucleated Red Blood Cells Absolute Auto 0.020 K/mm3 (0.0-0.012); Nucleated Red Blood Cells Perc 0.2 % (0.0-0.2); Platelet Count Result 183 k/mm3 (150-375); Red Blood Count 3.81 M/mm3 (4.2-5.4); White Blood Count 8.7 K/mm3 (4.5-10.0)
[2024-11-02 15:46] LABS: Anisocytosis 1+; Burr Cells 1+
[2024-11-02 15:47] LABS: Schistocytes None Seen
[2024-11-03] VITALS (21 sets, daily range): BP systolic 105–171; BP diastolic 51–82; PULSE 62–86; RESP 16–27; TEMP 36.4–36.9; O2SAT 84–94
[2024-11-03] MEDS: CEFEPIME 2 GM in SODIUM CHLORIDE 0.9% IV 50 ML 100 ML IVPB (03:02)
[2024-11-03] MEDS: IBUPROFEN IV 800 MG/200 ML 800 MG/200 ML BAG 400 MG IVPB ×2 (05:29→22:13)
[2024-11-03] MEDS: metroNIDAZOLE 500 MG/ISO 100ML 500 MG/100 ML BAG 100 MG IVPB (06:11)
[2024-11-03 06:42] LABS: Alanine Aminotransferase 16 U/L (6-35); Albumin Level 2.7 g/dL (3.5-5.1); Alkaline Phosphatase 80 U/L (38-126); Anion Gap 10 mmol/L (4-12); Aspartate Amino Transferase 37 U/L (14-36); Bilirubin,Total 0.6 mg/dL (0.2-1.3); Blood Urea Nitrogen 28 mg/dL (7-17); Calcium 8.2 mg/dL (8.4-10.2); Carbon Dioxide 17 mmol/L (22-30); Chloride 111 mmol/L (98-107); Estimated CRCL calculation 32 ml/min; Estimated Glomerular Filt Rate 49; Glucose 96 mg/dL (65-110); Magnesium 2.0 mg/dL (1.6-2.3); Potassium 2.8 mmol/L (3.4-5.0); Sodium 138 mmol/L (137-145); Total Protein 5.4 g/dL (6.3-8.2)
[2024-11-03] MEDS: FLUTICASONE/SALMETEROL 115-21 MCG INHALER 1 PUFF 2 PUFF INHALATION ×2 (07:42→19:35)
[2024-11-03] MEDS: POTASSIUM CHLORIDE INJ 40 MEQ in SODIUM CHLORIDE 0.9% IV 500 ML 130 MEQ IVPB (07:43)
[2024-11-03] MEDS: PANTOPRAZOLE SODIUM IV 40 MG VIAL IV PUSH (08:57)
[2024-11-03] MEDS: LOSARTAN POTASSIUM 50 MG TABLET PO (08:57)
[2024-11-03] MEDS: SERTRALINE HCL 50 MG TABLET 100 MG PO ×2 (08:57→17:26)
[2024-11-03] MEDS: CALCIUM/VITAMIN D 500 MG/5 MCG (200 I.U.) TABLET PO (08:57)
[2024-11-03] MEDS: ATORVASTATIN 40 MG TABLET 80 MG PO (08:57)
[2024-11-03] MEDS: ENOXAPARIN 40 MG/0.4 ML SYRINGE SUB-Q (08:58)
[2024-11-03] MEDS: IPRATROPIUM NASAL SPRAY 0.03% 15 ML BOTTLE 2 SPRAY NASAL ×3 (08:58→17:26)
[2024-11-03 09:54] LABS: NT Pro B Type Natriuretic Pept 15800 pg/mL (19.9-100)
[2024-11-03] MEDS: IPRATROPIUM 0.5 MG/ALBUTEROL SULFATE 2.5 MG AMPUL.NEB 3 ML INHALATION ×3 (09:55→19:35)
[2024-11-03] MEDS: FUROSEMIDE INJ 40 MG/4 ML VIAL IV PUSH (10:03)
[2024-11-03 10:17] LABS: Alveolar/Arterial O2 Gradient 324.1 mmHg; Fractional Inspired Oxygen 60 %; HCO3 ABG 18.4 mEq/l (22.0-26.0); Modified Allen's Test Pass; Oxygen Content ABG 13.5 %vol (16.0-22.0); Oxygen Saturation ABG 92.5 % (95.0-100.0); PCO2 ABG 34.0 mmHg (35.0-45.0); PO2 ABG 66.3 mmHg (80.0-100.0); PO2 FiO2 Ratio Arterial Blood 1.11 %; Site Drawn LEFT RADIAL
[2024-11-03 10:18] LABS: Liters per Minute 8.0 LPM
--- NOTE | 2024-11-03 11:45 | P.PNIM_ITS ---
Progress Note: A&P Assessment and Plan (1) Colonic obstruction: Code(s): K56.609 - Unspecified intestinal obstruction, unspecified as to partial versus complete obstruction Status: Acute Plan # Colonic obstruction: CT scan showed high-grade obstruction within the mid to distal sigmoid colon, lymphadenopathy, and aerated stool within the entirety of the colon. Sigmoidoscopy in mid September showed diverticulosis but was otherwise unremarkable. Continue empiric antibiotic to cover for possible diverticulitis. Further and definitive management as per the surgical service. Status post open transverse end colostomy and placement of mucous fistula and peritoneal biopsy x2 on 10/31/2024 diet advancement as tolerated per general surgery # CKD stage 3 Kidney function stable # Hypokalemia, hyponatremia Replete with potassium chloride Patient is on normal saline IV # Hypertension: # cough: mild. check xr incentive spirometry already on cefepime and flagyl # acute on chronic hypoxic respiratory failure requiring high oxygen 11/03/2024 Procalcitonin was elevated 2.3 Will change antibiotic to meropenem and add vancomycin Sputum culture Chest x-ray with bilateral opacities noted. I suspect these are congestive changes and received 20 mg of Lasix 11/02/2024 Will give another dose of IV Lasix today. She is cumulatively positive 16 L since admission BNP came back elevated at 15,000 as well. Use of CPAP at night time Placed on monitor and continuous oxygen Could also be COPD exacerbation With active wheezing. Give a dose of Solu- Medrol # Obstructive sleep apnea: CPAP will be provided for the patient to use while hospitalized. # Chronic obstructive pulmonary disease: No acute issues. Continue Advair Diskus. # postoperative hypoxia mild improving continue incentive spirometry. Subjective Date/time seen: 11/03/24 11:45 Interval history: Patient more hypoxic this a.m.. Having more cough. No leg swelling. Denies any chest pain. Feels more short of breath. Oxygen was increased to 8 L with improvement in oxygenation. ABG reviewed. Chest x-ray reviewed. Review of Systems Review of Systems: All systems reviewed & are unremarkable except as noted in HPI and below Exam Narrative: GENERAL: Pleasant, in no acute distress. Well-nourished. - EYES: EOMI. Anicteric. - HENT: Moist mucous membranes. - LUNGS: Diminished breath sounds bilat erally, coarse breath sounds with wheezing no respiratory distress - CARDIOVASCULAR: Regular rate and rhyth m. No murmur. No JVD. - ABDOMEN: Soft, mildly distended bowel sound positive, colostomy on left and ostomy bag on right midline incision covered with dressing which is clean dry and intact. - EXTREMITIES: No edema. Peripheral puls es 2+. Non-tender. - NEUROLOGIC: No focal neurological defi cits. CN II-XII grossly intact. - PSYCHIATRIC: Awake, Alert and oriented x 3. Appropriate mood and affect. - SKIN: No rashes or lesions. Warm. - LYMPH: No cervical lymphadenopathy. Objective Data Vital Signs Vital Signs: Vital Signs - 24 hr 11/02/24 14:00 11/02/24 21:03 11/02/24 21:48 Temperature 98.3 F Pulse Rate 67 70 Respiratory Rate 20 Blood Pressure 134/59 L Pulse Oximetry 88 L 92 Oxygen Delivery Nasal Cannula Oxygen Flow Rate 2 11/02/24 22:00 11/02/24 22:10 11/02/24 22:10 Temperature 97.6 F Pulse Rate 66 70 Respiratory Rate 18 18 Blood Pressure 103/50 L Pulse Oximetry 91 92 Oxygen Delivery Nasal Cannula Oxygen Flow Rate 2 11/03/24 05:52 11/03/24 07:42 11/03/24 10:10 Temperature 97.8 F Pulse Rate 62 72 Respiratory Rate 16 18 Blood Pressure 105/51 L Pulse Oximetry 91 84 L Oxygen Delivery Nasal Cannula Oxygen Flow Rate 3 11/03/24 10:20 11/03/24 10:28 Temperature Pulse Rate 77 Respiratory Rate 18 Blood Pressure Pulse Oximetry 92 Oxygen Delivery High Flow Nasal Cannula Oxygen Flow Rate 8 Intake/Output Intake/Output: Intake & Output 10/31/24 11/01/24 11/02/24 11/03/24 23:59 23:59 23:59 23:59 Intake Total 3260 6590 4090 1560 Output Total 110 1100 Balance 3150 5490 4090 1560 Meds/Results Medications: Active Medications Generic Name Dose Route Start Last Admin Trade Name Freq PRN Reason Stop Dose Admin Albuterol/Ipratropium 3 ml 11/03/24 14:00 Ipratropium 0.5 Mg/Albuterol Sulfate 2.5 Mg Ampul.Neb 3 Ml INHALATION Q6HRT [facility] Atorvastatin Calcium 80 mg 10/30/24 09:00 11/03/24 08:57 Atorvastatin 40 Mg Tablet PO 80 mg DAILY JANNIE Administration Calcium Carbonate 500 mg 10/30/24 09:00 11/03/24 08:57 Calcium/Vitamin D 500 Mg/5 Mcg (200 I.U.) Tablet PO 500 mg DAILY JANNIE Administration Carvedilol 6.25 mg 10/29/24 21:00 11/03/24 08:57 Carvedilol 6.25 Mg Tablet PO 6.25 mg Q12HR JANNIE Administration Dextrose 12.5 gm 10/29/24 22:59 Dextrose 50% 25 Gm/50 Ml Syringe IV PUSH PRN PRN Hypoglycemia Protocol Enoxaparin Sodium 40 mg 11/01/24 09:00 11/03/24 08:58 Enoxaparin 40 Mg/0.4 Ml Syringe SUB-Q 40 mg DAILY JANNIE Administration Glucagon 1 mg 10/29/24 22:59 Glucagon For Inj 1 Mg Vial IM PRN PRN Hypoglycemia Protocol Glucose 15 gm 10/29/24 22:59 Glucose Oral Gel 15 Gm Of Glucse In 37.5 Gm Tube PO PRN PRN Hypoglycemia Protocol Hydromorphone HCl 1 mg 10/31/24 13:20 11/01/24 23:47 Hydromorphone Hcl Inj (*Crx) 2 Mg/Ml Vial IV PUSH 1 mg Q3H PRN Administration Pain Rated 7-10 Dextrose 1,000 mls @ 100 mls/hr 10/29/24 22:59 Dextrose 5% 1,000 Ml IVPB PRN PRN Hypoglycemia Protocol Ibuprofen 800 mg in 200 mls @ 400 mls/hr 10/31/24 15:02 11/03/24 05:59 Caldolor 800 Mg/200 Ml IVPB Infused Q8HR [facility] Infusion Meropenem 1 gm/ Sodium 100 mls @ 200 mls/hr 11/03/24 10:00 Chloride IVPB Q12HR JANNIE Vancomycin HCl 1,500 mg in 500 mls @ 250 mls/hr 11/03/24 11:00 Vancomycin 1,500 Mg/Ns 500 Ml IVPB 11/03/24 12:59 ONCE ONE Vancomycin HCl 1,250 mg in 250 mls @ 166.667 mls/hr 11/04/24 23:00 Vancomycin 1,250 Mg/Ns 250 Ml IVPB Q36H JANNIE Insulin Aspart 2 - 5 units 10/30/24 00:00 11/03/24 06:45 Insulin Aspart (*Bkc) 100 Units/Ml SUB-Q Not Given Q6HR [facility] Protocol Ipratropium [place] 2 spray 10/29/24 17:00 11/03/24 08:58 Ipratropium Nasal [place] 0.03% 15 Ml Bottle NASAL 2 spray TID JANNIE Administration Losartan Potassium 50 mg 10/30/24 09:00 11/03/24 08:57 Losartan Potassium 50 Mg Tablet PO 50 mg DAILY JANNIE Administration Ondansetron HCl 4 mg 10/29/24 15:17 10/30/24 21:43 Ondansetron Inj 4 Mg/2 Ml Vial IV PUSH 4 mg Q4H PRN Administration Nausea And Vomiting Ondansetron HCl 4 mg 10/29/24 15:30 Ondansetron Inj 4 Mg/2 Ml Vial IV PUSH Q4H PRN Nausea And Vomiting Pantoprazole Sodium 40 mg 10/30/24 09:00 11/03/24 08:57 Pantoprazole Sodium Iv 40 Mg Vial IV PUSH 40 mg QAM JANNIE Administration Fluticasone/Salmeterol 2 puff 10/29/24 20:00 11/03/24 07:42 Fluticasone/Salmeterol 115-21 Mcg Inhaler 1 Puff INHALATION 2 puff Q12HRT JANNIE Administration Sertraline HCl 100 mg 10/29/24 17:00 11/03/24 08:57 Sertraline Hcl 50 Mg Tablet PO 100 mg BID JANNIE Administration Radiology Results: ITS Impressions Abdomen/Pelvis CT 10/29/24 17:43 IMPRESSION: High-grade obstruction within the mid to distal sigmoid colon for which a malignancy is suspected. Aerated stool (with pneumatosis less likely) within the entirety of the colon, proximal to the mid to distal sigmoid colon. Retroperitoneal and mesenteric lymphadenopathy. Secondary signs suggesting hypovolemia. 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 Chest X-Ray 11/03/24 06:56 IMPRESSION: Improved aeration of the bilateral lung zones with interval development of hazy opacification of the left hemithorax for which posterior layering of the pleural effusion is suspected. Multifocal infiltrates, right greater than left, persist. Labs Labs: Laboratory Results - last 24 hr 11/02/24 11/02/24 11/02/24 06:18 11:51 15:02 WBC 8.7 RBC 3.81 L Hgb 10.6 L Hct 35.6 L MCV 93.4 MCH 27.8 MCHC 29.8 L RDW 15.9 H Plt Count 183 MPV 10.4 Immature Gran % (Auto) 0.3 Neut % (Auto) 85.8 H Lymph % (Auto) 6.9 L [place] % (Auto) 6.2 Eos % (Auto) 0.6 Baso % (Auto) 0.2 Lymph # (Auto) 0.60 L [place] # (Auto) 0.5 Eos # (Auto) 0.1 Baso # (Auto) 0.0 Abs Immat Gran (auto) 0.03 Absolute Neuts (auto) 7.5 H Absolute Nucleated RBC 0.020 H Band Neutrophils % Not Reportable Nucleated RBC % 0.2 Platelet Estimate Adequate Anisocytosis 1+ [place] Cells 1+ Schistocytes None seen Puncture Site ABG pH ABG pCO2 ABG pO2 ABG PO2/FiO2 Ratio ABG HCO3 ABG O2 Saturation ABG O2 Content ABG Base Excess A-a Gradient Oxyhemoglobin Total Hemoglobin O2 Delivery Device O2 Liters/Min FiO2 Sodium Potassium Chloride Carbon Dioxide Anion Gap BUN Creatinine Estim Creat Clear Calc Estimated GFR Glucose POC Capillary Glucose 85 Lactic Acid Calcium Magnesium Total Bilirubin AST ALT Alkaline Phosphatase NT-Pro-B Natriuret Pep Total Protein Albumin Procalcitonin 2.3 11/02/24 11/03/24 11/03/24 17:13 00:38 05:56 WBC RBC Hgb Hct MCV MCH MCHC RDW Plt Count MPV Immature Gran % (Auto) Neut % (Auto) Lymph % (Auto) [place] % (Auto) Eos % (Auto) Baso % (Auto) Lymph # (Auto) [place] # (Auto) Eos # (Auto) Baso # (Auto) Abs Immat Gran (auto) Absolute Neuts (auto) Absolute Nucleated RBC Band Neutrophils % Nucleated RBC % Platelet Estimate Anisocytosis [place] Cells Schistocytes Puncture Site ABG pH ABG pCO2 ABG pO2 ABG PO2/FiO2 Ratio ABG HCO3 ABG O2 Saturation ABG O2 Content ABG Base Excess A-a Gradient Oxyhemoglobin Total Hemoglobin O2 Delivery Device O2 Liters/Min FiO2 Sodium 138 Potassium 2.8 L* Chloride 111 H Carbon Dioxide 17 L Anion Gap 10 BUN 28 H Creatinine 1.09 H Estim Creat Clear Calc 32 Estimated GFR 49 L Glucose 96 POC Capillary Glucose 70 106 H Lactic Acid Calcium 8.2 L Magnesium 2.0 Total Bilirubin 0.6 AST 37 H ALT 16 Alkaline Phosphatase 80 NT-Pro-B Natriuret Pep 53653 H Total Protein 5.4 L Albumin 2.7 L Procalcitonin 11/03/24 11/03/24 11/03/24 06:12 10:02 10:12 WBC RBC Hgb Hct MCV MCH MCHC RDW Plt Count MPV Immature Gran % (Auto) Neut % (Auto) Lymph % (Auto) [place] % (Auto) Eos % (Auto) Baso % (Auto) Lymph # (Auto) [place] # (Auto) Eos # (Auto) Baso # (Auto) Abs Immat Gran (auto) Absolute Neuts (auto) Absolute Nucleated RBC Band Neutrophils % Nucleated RBC % Platelet Estimate Anisocytosis [place] Cells Schistocytes Puncture Site Left radial ABG pH 7.352 ABG pCO2 34.0 L ABG pO2 66.3 L ABG PO2/FiO2 Ratio 1.11 ABG HCO3 18.4 L ABG O2 Saturation 92.5 L ABG O2 Content 13.5 L ABG Base Excess -6.4 A-a Gradient 324.1 Oxyhemoglobin 90.5 Total Hemoglobin 10.6 L O2 Delivery Device Nasal cannula O2 Liters/Min 8.0 FiO2 60 Sodium Potassium Chloride Carbon Dioxide Anion Gap BUN Creatinine Estim Creat Clear Calc Estimated GFR Glucose POC Capillary Glucose 94 Lactic Acid 0.9 Calcium Magnesium Total Bilirubin AST ALT Alkaline Phosphatase NT-Pro-B Natriuret Pep Total Protein Albumin Procalcitonin
[2024-11-03] MEDS: POTASSIUM CHLORIDE 20 MEQ ER TABLET 40 MEQ PO ×2 (13:05→17:26)
--- NOTE | 2024-11-03 14:45 | PM.PNGS ---
Progress Note: A&P Assessment and Plan (1) Colonic obstruction: Code(s): K56.609 - Unspecified intestinal obstruction, unspecified as to partial versus complete obstruction Status: Acute Assessment and Plan: advance to regular diet final pathology pending (2) Coronary artery disease: Code(s): I25.10 - Atherosclerotic heart disease of [place] coronary artery without angina pectoris Status: Acute Assessment and Plan: Patient tolerated surgery with no complications. Subjective Subjective Date/Time Seen: 11/03/24 14:45 Interval history: Tolerating diet. Minimal pain. Exam GI: Inspection: other ( ostomy patent and functioning, hard to see mucosa due to excessive stool) GI Palp: Yes Soft to palpation and No Guarding due to palpation present (GI) Objective Data Vital Signs Vital Signs: Vital Signs - 24 hr 11/02/24 21:03 11/02/24 21:48 11/02/24 22:00 Temperature 97.6 F Pulse Rate 70 66 Respiratory Rate 18 Blood Pressure 103/50 L Pulse Oximetry 92 91 Oxygen Delivery Nasal Cannula Oxygen Flow Rate 2 11/02/24 22:10 11/02/24 22:10 11/03/24 05:52 Temperature 97.8 F Pulse Rate 70 62 Respiratory Rate 18 16 Blood Pressure 105/51 L Pulse Oximetry 92 91 Oxygen Delivery Nasal Cannula Oxygen Flow Rate 2 11/03/24 07:42 11/03/24 08:00 11/03/24 09:40 Temperature Pulse Rate Respiratory Rate Blood Pressure Pulse Oximetry 84 L 87 L 91 Oxygen Delivery Nasal Cannula Nasal Cannula High Flow Nasal Cannula Oxygen Flow Rate 3 5 8 11/03/24 10:10 11/03/24 10:20 11/03/24 10:28 Temperature Pulse Rate 72 77 Respiratory Rate 18 18 Blood Pressure Pulse Oximetry 92 Oxygen Delivery High Flow Nasal Cannula Oxygen Flow Rate 8 Intake/Output Intake/Output: Intake & Output 10/31/24 11/01/24 11/02/24 11/03/24 23:59 23:59 23:59 23:59 Intake Total 3260 6590 4090 1560 Output Total 110 1100 Balance 3150 5490 4090 1560 Meds/Results Medications: Active Medications Generic Name Dose Route Start Last Admin Trade Name Freq PRN Reason Stop Dose Admin Albuterol/Ipratropium 3 ml 11/03/24 14:00 Ipratropium 0.5 Mg/Albuterol Sulfate 2.5 Mg Ampul.Neb 3 Ml INHALATION Q6HRT JANNIE Atorvastatin Calcium 80 mg 10/30/24 09:00 11/03/24 08:57 Atorvastatin 40 Mg Tablet PO 80 mg DAILY JANNIE Administration Calcium Carbonate 500 mg 10/30/24 09:00 11/03/24 08:57 Calcium/Vitamin D 500 Mg/5 Mcg (200 I.U.) Tablet PO 500 mg DAILY JANNIE Administration Carvedilol 6.25 mg 10/29/24 21:00 11/03/24 08:57 Carvedilol 6.25 Mg Tablet PO 6.25 mg Q12HR JANNIE Administration Dextrose 12.5 gm 10/29/24 22:59 Dextrose 50% 25 Gm/50 Ml Syringe IV PUSH PRN PRN Hypoglycemia Protocol Enoxaparin Sodium 40 mg 11/01/24 09:00 11/03/24 08:58 Enoxaparin 40 Mg/0.4 Ml Syringe SUB-Q 40 mg DAILY JANNIE Administration Glucagon 1 mg 10/29/24 22:59 Glucagon For Inj 1 Mg Vial IM PRN PRN Hypoglycemia Protocol Glucose 15 gm 10/29/24 22:59 Glucose Oral Gel 15 Gm Of Glucse In 37.5 Gm Tube PO PRN PRN Hypoglycemia Protocol Hydromorphone HCl 1 mg 10/31/24 13:20 11/01/24 23:47 Hydromorphone Hcl Inj (*Crx) 2 Mg/Ml Vial IV PUSH 1 mg Q3H PRN Administration Pain Rated 7-10 Dextrose 1,000 mls @ 100 mls/hr 10/29/24 22:59 Dextrose 5% 1,000 Ml IVPB PRN PRN Hypoglycemia Protocol Ibuprofen 800 mg in 200 mls @ 400 mls/hr 10/31/24 15:02 11/03/24 14:06 Caldolor 800 Mg/200 Ml IVPB Not Given Q8HR JANNIE Vancomycin HCl 1,250 mg in 250 mls @ 166.667 mls/hr 11/04/24 23:00 Vancomycin 1,250 Mg/Ns 250 Ml IVPB Q36H [facility] Meropenem 1 gm/ Sodium 100 mls @ 200 mls/hr 11/03/24 16:00 Chloride IVPB Q12H [facility] Insulin Aspart 2 - 5 units 10/30/24 00:00 11/03/24 12:12 Insulin Aspart (*Bkc) 100 Units/Ml SUB-Q Not Given Q6HR [facility] Protocol Ipratropium [place] 2 spray 10/29/24 17:00 11/03/24 14:07 Ipratropium Nasal [place] 0.03% 15 Ml Bottle NASAL 2 spray TID JANNIE Administration Losartan Potassium 50 mg 10/30/24 09:00 11/03/24 08:57 Losartan Potassium 50 Mg Tablet PO 50 mg DAILY JANNIE Administration Ondansetron HCl 4 mg 10/29/24 15:17 10/30/24 21:43 Ondansetron Inj 4 Mg/2 Ml Vial IV PUSH 4 mg Q4H PRN Administration Nausea And Vomiting Ondansetron HCl 4 mg 10/29/24 15:30 Ondansetron Inj 4 Mg/2 Ml Vial IV PUSH Q4H PRN Nausea And Vomiting Pantoprazole Sodium 40 mg 10/30/24 09:00 11/03/24 08:57 Pantoprazole Sodium Iv 40 Mg Vial IV PUSH 40 mg QAM JANNIE Administration Potassium Chloride 40 meq 11/03/24 17:48 Potassium Chloride 20 Meq Er Tablet PO 11/03/24 17:49 ONCE ONE Fluticasone/Salmeterol 2 puff 10/29/24 20:00 11/03/24 07:42 Fluticasone/Salmeterol 115-21 Mcg Inhaler 1 Puff INHALATION 2 puff Q12HRT JANNIE Administration Sertraline HCl 100 mg 10/29/24 17:00 11/03/24 08:57 Sertraline Hcl 50 Mg Tablet PO 100 mg BID JANNIE Administration Radiology Results: ITS Impressions Abdomen/Pelvis CT 10/29/24 17:43 IMPRESSION: High-grade obstruction within the mid to distal sigmoid colon for which a malignancy is suspected. Aerated stool (with pneumatosis less likely) within the entirety of the colon, proximal to the mid to distal sigmoid colon. Retroperitoneal and mesenteric lymphadenopathy. Secondary signs suggesting hypovolemia. 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 Chest X-Ray 11/03/24 06:56 IMPRESSION: Improved aeration of the bilateral lung zones with interval development of hazy opacification of the left hemithorax for which posterior layering of the pleural effusion is suspected. Multifocal infiltrates, right greater than left, persist. Labs Labs: Laboratory Results - last 24 hr 07/11/02/24 11/03/24 15:02 17:13 00:38 WBC 8.7 RBC 3.81 L Hgb 10.6 L Hct 35.6 L MCV 93.4 MCH 27.8 MCHC 29.8 L RDW 15.9 H Plt Count 183 MPV 10.4 Immature Gran % (Auto) 0.3 Neut % (Auto) 85.8 H Lymph % (Auto) 6.9 L [place] % (Auto) 6.2 Eos % (Auto) 0.6 Baso % (Auto) 0.2 Lymph # (Auto) 0.60 L [place] # (Auto) 0.5 Eos # (Auto) 0.1 Baso # (Auto) 0.0 Abs Immat Gran (auto) 0.03 Absolute Neuts (auto) 7.5 H Absolute Nucleated RBC 0.020 H Band Neutrophils % Not Reportable Nucleated RBC % 0.2 Platelet Estimate Adequate Anisocytosis 1+ [place] 1+ Schistocytes None seen Puncture Site ABG pH ABG pCO2 ABG pO2 ABG PO2/FiO2 Ratio ABG HCO3 ABG O2 Saturation ABG O2 Content ABG Base Excess A-a Gradient Oxyhemoglobin Total Hemoglobin O2 Delivery Device O2 Liters/Min FiO2 Sodium Potassium Chloride Carbon Dioxide Anion Gap BUN Creatinine Estim Creat Clear Calc Estimated GFR Glucose POC Capillary Glucose 70 106 H Lactic Acid Calcium Magnesium Total Bilirubin AST ALT Alkaline Phosphatase NT-Pro-B Natriuret Pep Total Protein Albumin 11/03/24 11/03/24 11/03/24 05:56 06:12 10:02 WBC RBC Hgb Hct MCV MCH MCHC RDW Plt Count MPV Immature Gran % (Auto) Neut % (Auto) Lymph % (Auto) [place] % (Auto) Eos % (Auto) Baso % (Auto) Lymph # (Auto) [place] # (Auto) Eos # (Auto) Baso # (Auto) Abs Immat Gran (auto) Absolute Neuts (auto) Absolute Nucleated RBC Band Neutrophils % Nucleated RBC % Platelet Estimate Anisocytosis [place] Cells Schistocytes Puncture Site Left radial ABG pH 7.352 ABG pCO2 34.0 L ABG pO2 66.3 L ABG PO2/FiO2 Ratio 1.11 ABG HCO3 18.4 L ABG O2 Saturation 92.5 L ABG O2 Content 13.5 L ABG Base Excess -6.4 A-a Gradient 324.1 Oxyhemoglobin 90.5 Total Hemoglobin 10.6 L O2 Delivery Device Nasal cannula O2 Liters/Min 8.0 FiO2 60 Sodium 138 Potassium 2.8 L* Chloride 111 H Carbon Dioxide 17 L Anion Gap 10 BUN 28 H Creatinine 1.09 H Estim Creat Clear Calc 32 Estimated GFR 49 L Glucose 96 POC Capillary Glucose 94 Lactic Acid Calcium 8.2 L Magnesium 2.0 Total Bilirubin 0.6 AST 37 H ALT 16 Alkaline Phosphatase 80 NT-Pro-B Natriuret Pep 45974 H Total Protein 5.4 L Albumin 2.7 L 11/03/24 11/03/24 10:12 11:55 WBC RBC Hgb Hct MCV MCH MCHC RDW Plt Count MPV Immature Gran % (Auto) Neut % (Auto) Lymph % (Auto) [place] % (Auto) Eos % (Auto) Baso % (Auto) Lymph # (Auto) [place] # (Auto) Eos # (Auto) Baso # (Auto) Abs Immat Gran (auto) Absolute Neuts (auto) Absolute Nucleated RBC Band Neutrophils % Nucleated RBC % Platelet Estimate Anisocytosis [place] Schistocytes Puncture Site ABG pH ABG pCO2 ABG pO2 ABG PO2/FiO2 Ratio ABG HCO3 ABG O2 Saturation ABG O2 Content ABG Base Excess A-a Gradient Oxyhemoglobin Total Hemoglobin O2 Delivery Device O2 Liters/Min FiO2 Sodium Potassium Chloride Carbon Dioxide Anion Gap BUN Creatinine Estim Creat Clear Calc Estimated GFR Glucose POC Capillary Glucose 178 H Lactic Acid 0.9 Calcium Magnesium Total Bilirubin AST ALT Alkaline Phosphatase NT-Pro-B Natriuret Pep Total Protein Albumin
[2024-11-03] MEDS: MEROPENEM 1 GM in SODIUM CHLORIDE 0.9% IV 100 ML 200 ML IVPB (15:08)
[2024-11-03] MEDS: VANCOMYCIN 1,500 MG/NS 500 ML 1,500 MG/500 ML BAG 250 MG IVPB (17:26)
[2024-11-03 17:50] LABS: Hematocrit 34.5 % (37.0-47.0); Hemoglobin 10.8 g/dL (12.0-15.0); Immature Granulocyte Percent A 0.7 % (0-0.5); Lymphocytes Absolute Auto 0.54 K/mm3 (0.9-3.2); Mean Corpuscular HGB Conc 31.3 g/dl (32-36); Mean Corpuscular Hemoglobin 27.5 pg (26-34); Mean Corpuscular Volume 87.8 fl (80-100); Nucleated Red Blood Cells Absolute Auto 0.000 K/mm3 (0.0-0.012); Nucleated Red Blood Cells Perc 0.0 % (0.0-0.2); Platelet Count Result 246 k/mm3 (150-375); Red Blood Count 3.93 M/mm3 (4.2-5.4); White Blood Count 9.1 K/mm3 (4.5-10.0)
[2024-11-03 18:14] LABS: Ovalocytes 1+; Schistocytes None Seen
[2024-11-03 18:35] LABS: Anion Gap 9 mmol/L (4-12); Blood Urea Nitrogen 33 mg/dL (7-17); Calcium 8.6 mg/dL (8.4-10.2); Carbon Dioxide 18 mmol/L (22-30); Chloride 113 mmol/L (98-107); Estimated CRCL calculation 31 ml/min; Estimated Glomerular Filt Rate 47; Glucose 205 mg/dL (65-110); Potassium 3.5 mmol/L (3.4-5.0); Sodium 140 mmol/L (137-145)
[2024-11-03] MEDS: INSULIN ASPART (*BKC) 100 UNITS/ML SUB-Q (19:37)
[2024-11-03 20:15] LABS: MRSA (PCR) NOT DETECTED (NOT DETECTE)
--- NOTE | 2024-11-03 21:03 | PC.NURSE ---
This patient, Rosa Martino, was received from [facility] on 11/03/24 at 2010. Patient/family oriented to unit policies and routines
[2024-11-03 21:42] LABS: Alveolar/Arterial O2 Gradient 259.0 mmHg; Fractional Inspired Oxygen 50 %; HCO3 ABG 20.2 mEq/l (22.0-26.0); Oxygen Content ABG 14.3 %vol (16.0-22.0); Oxygen Saturation ABG 91.9 % (95.0-100.0); PCO2 ABG 32.6 mmHg (35.0-45.0); PO2 ABG 60.8 mmHg (80.0-100.0); PO2 FiO2 Ratio Arterial Blood 1.22 %
[2024-11-03 22:26] LABS: Site Drawn RIGHT RADIAL
[2024-11-03 22:27] LABS: Modified Allen's Test Pass
[2024-11-04] VITALS (31 sets, daily range): BP systolic 135–174; BP diastolic 60–74; PULSE 62–140; RESP 23–29; TEMP 36.4–36.6; O2SAT 90–100
--- NOTE | 2024-11-04 | ECHO_ITS ---
Patient Info Name: Rosa Martino Age: 74 years : 1950 Gender: Female Ht: 63 in Wt: 162 lbs BSA: 1.83 m2 HR: 73 bpm BP: 174 / 74 mmHg Heart Rhythm: Sinus Rhythm Technical Quality: Fair Exam Date: 11/04/2024 4:07 PM Patient Status: I Admit Date: 10/29/2024 Exam Type: CA echo limited w contrast Limited two-dimensional transthoracic echocardiogram is performed with contrast. Staff Referring Physician: Edson Sharp Cyber Engineer: Hayde Hobson Attending Provider: Subhash Campos Contrast/Agitated Saline Contrast/Ag. Saline: Definity Amount: 2.00 ml Administered By: Hayde Hobson Existing IV Access: Yes IV Access Condition: patent with no signs of infiltration Left Ventricle The left ventricular systolic function is moderately reduced. The left ventricular ejection fraction is visually estimated to be 35-40%. There is paradoxical septal motion abnormality suggestive prior cardiac surgery. Right Ventricle The right ventricle is dilated with reduced systolic function. Ventricles Name Value Normal LV Fractional Shortening/Ejection Fraction 2D/MM LV Diastolic Volume (4C MOD) 82 ml LV EF (4C MOD) 54 % LV Diastolic Volume (2C MOD) 58 ml LV EF (2C MOD) 61 % LV Diastolic Volume (BP MOD) 70 ml 46-106 LV Diastolic Volume Index (BP MOD) 38 ml/m2 29-61 LV Systolic Volume (BP MOD) 29 ml 14-42 LV Systolic Volume Index (BP MOD) 16 ml/m2 8-24 LV EF (BP MOD) 58 % 54-74 LV Diastolic Length (4C) 7.7 cm LV Systolic Length (4C) 6.3 cm LV Stroke Volume (4C MOD) 45 ml Report Signatures
[2024-11-04] MEDS: MEROPENEM 1 GM in SODIUM CHLORIDE 0.9% IV 100 ML 200 ML IVPB ×2 (04:25→15:55)
[2024-11-04 04:31] LABS: Hematocrit 31.7 % (37.0-47.0); Hemoglobin 9.9 g/dL (12.0-15.0); Immature Granulocyte Percent A 0.6 % (0-0.5); Lymphocytes Absolute Auto 0.64 K/mm3 (0.9-3.2); Mean Corpuscular HGB Conc 31.2 g/dl (32-36); Mean Corpuscular Hemoglobin 27.7 pg (26-34); Mean Corpuscular Volume 88.5 fl (80-100); Nucleated Red Blood Cells Absolute Auto 0.000 K/mm3 (0.0-0.012); Nucleated Red Blood Cells Perc 0.0 % (0.0-0.2); Platelet Count Result 241 k/mm3 (150-375); Red Blood Count 3.58 M/mm3 (4.2-5.4); White Blood Count 8.9 K/mm3 (4.5-10.0)
[2024-11-04 04:41] LABS: Alanine Aminotransferase 19 U/L (6-35); Albumin Level 2.8 g/dL (3.5-5.1); Alkaline Phosphatase 90 U/L (38-126); Anion Gap 7 mmol/L (4-12); Aspartate Amino Transferase 37 U/L (14-36); Bilirubin,Total 0.4 mg/dL (0.2-1.3); Blood Urea Nitrogen 36 mg/dL (7-17); Carbon Dioxide 19 mmol/L (22-30); Chloride 115 mmol/L (98-107); Estimated CRCL calculation 30 ml/min; Estimated Glomerular Filt Rate 44; Magnesium 2.0 mg/dL (1.6-2.3); Potassium 3.1 mmol/L (3.4-5.0); Sodium 141 mmol/L (137-145); Total Protein 5.8 g/dL (6.3-8.2)
[2024-11-04 04:49] LABS: NT Pro B Type Natriuretic Pept 26000 pg/mL (19.9-100)
[2024-11-04 04:53] LABS: Calcium 8.5 mg/dL (8.4-10.2); Glucose 190 mg/dL (65-110)
[2024-11-04] MEDS: IBUPROFEN IV 800 MG/200 ML 800 MG/200 ML BAG 400 MG IVPB ×2 (06:27→13:27)
[2024-11-04] MEDS: FLUTICASONE/SALMETEROL 115-21 MCG INHALER 1 PUFF 2 PUFF INHALATION ×2 (09:01→20:09)
[2024-11-04] MEDS: IPRATROPIUM 0.5 MG/ALBUTEROL SULFATE 2.5 MG AMPUL.NEB 3 ML INHALATION ×3 (09:02→20:09)
[2024-11-04] MEDS: PANTOPRAZOLE SODIUM IV 40 MG VIAL IV PUSH (09:03)
[2024-11-04] MEDS: ATORVASTATIN 40 MG TABLET 80 MG PO (09:03)
[2024-11-04] MEDS: CALCIUM/VITAMIN D 500 MG/5 MCG (200 I.U.) TABLET PO (09:03)
[2024-11-04] MEDS: SERTRALINE HCL 50 MG TABLET 100 MG PO ×2 (09:03→17:22)
[2024-11-04] MEDS: ENOXAPARIN 40 MG/0.4 ML SYRINGE SUB-Q (09:03)
[2024-11-04] MEDS: FUROSEMIDE INJ 40 MG/4 ML VIAL IV PUSH ×2 (10:19→17:22)
[2024-11-04] MEDS: POTASSIUM CHLORIDE 20 MEQ ER TABLET 40 MEQ PO ×2 (10:19→17:21)
--- NOTE | 2024-11-04 11:47 | PCNFU ---
Nutrition Follow-Up Complete: Moderate protein calorie malnutrition related to altered GI function as evidenced by intakes <75% needs >1 month; weight loss 6%/1 month; moderate muscle wasting and fat loss Goal:Meet estimated nutrition needs Diet advancement as medically able Pt was advancing to goal Pt current nutrition is NPO today, on bipap. Nutrition recommendation: resume diet when able to Last recorded weight is 73.5 kg. Bowel Motility: +BM 11/03 Labs Reviewed: Hgb:9.9, HCT:31.7, Alb:2.8, K:3.1, GFR:44, BUN:36, Cr:1.2, Glu:190 Meds Noted: protnoix, lovenox Skin: WNL Additional Notes: Pt was on clear liquids, then advanced to full liquids and tolerated. NPO today due to bipap and respiratory issues. Will monitor. Recommend to resume diet as soon as medically possible. Monitoring diet orders, output, weights, labs, plan of care Follow up in 3 days
--- NOTE | 2024-11-04 12:39 | P.PNIM_ITS ---
Progress Note: A&P Assessment and Plan (1) Colonic obstruction: Code(s): K56.609 - Unspecified intestinal obstruction, unspecified as to partial versus complete obstruction Status: Acute Plan # Colonic obstruction: CT scan showed high-grade obstruction within the mid to distal sigmoid colon, lymphadenopathy, and aerated stool within the entirety of the colon. Sigmoidoscopy in mid September showed diverticulosis but was otherwise unremarkable. Continue empiric antibiotic to cover for possible diverticulitis. Further and definitive management as per the surgical service. Status post open transverse end colostomy and placement of mucous fistula and peritoneal biopsy x2 on 10/31/2024 diet advancement as tolerated per general surgery pathology back with metastatic adenocarcinoma # CKD stage 3 Kidney function stable # Hypokalemia, hyponatremia Replete with potassium chloride Patient is on normal saline IV # Hypertension: home medications # acute on chronic hypoxic respiratory failure requiring high oxygen 11/03/2024 Procalcitonin was elevated 2.3 changed antibiotic to meropenem and add vancomycin Sputum culture Chest x-ray with bilateral opacities noted. I suspect these are congestive changes and received 20 mg of Lasix 11/02/2024 another dose 11/03. She is cumulatively positive 16 L since admission BNP came back elevated at 15,000 as well. Use of CPAP at night time Placed on monitor and continuous oxygen which has progressively worsened requiring bipap Could also be COPD exacerbation With active wheezing. Give a dose of Solu- Medrol not much wheezing now, so will avoid solumedrol start lasix 40 mg iv bid. check echo fluid restriction 1500 cc per day montior cxr pulmonary consultation, rule out PE. # Obstructive sleep apnea: CPAP will be provided for the patient to use while hospitalized. # Chronic obstructive pulmonary disease: No acute issues. Continue Advair Diskus. Subjective Date/time seen: 11/04/24 12:39 Interval history: overnight transferred to IMU. State on BiPAP overnight. Switched to high-flow nasal cannula this morning. Review of Systems Review of Systems: All systems reviewed & are unremarkable except as noted in HPI and below Exam Narrative: GENERAL: Pleasant, in no acute distress. Well-nourished. - EYES: EOMI. Anicteric. - HENT: Moist mucous membranes. - LUNGS: Diminished breath sounds bilat erally, coarse breath sounds with wheezing no respiratory distress - CARDIOVASCULAR: Regular rate and rhyth m. No murmur. No JVD. - ABDOMEN: Soft, mildly distended bowel sound positive, colostomy on left and ostomy bag on right midline incision covered with dressing which is clean dry and intact. - EXTREMITIES: No edema. Peripheral puls es 2+. Non-tender. - NEUROLOGIC: No focal neurological defi cits. CN II-XII grossly intact. - PSYCHIATRIC: Awake, Alert and oriented x 3. Appropriate mood and affect. - SKIN: No rashes or lesions. Warm. - LYMPH: No cervical lymphadenopathy. Objective Data Vital Signs Vital Signs: Vital Signs - 24 hr 11/03/24 14:00 11/03/24 15:26 11/03/24 15:30 Temperature 98.4 F Pulse Rate 86 67 Respiratory Rate 20 18 Blood Pressure 137/59 L Pulse Oximetry 89 L 91 Oxygen Delivery High Flow Nasal Cannula Oxygen Flow Rate 8 Fraction of Inspired Oxygen 11/03/24 15:32 11/03/24 16:00 11/03/24 19:35 Temperature Pulse Rate 69 71 69 Respiratory Rate 18 20 Blood Pressure Pulse Oximetry Oxygen Delivery Oxygen Flow Rate Fraction of Inspired Oxygen 11/03/24 19:44 11/03/24 20:00 11/03/24 20:15 Temperature Pulse Rate 69 77 Respiratory Rate 20 Blood Pressure Pulse Oximetry 92 Oxygen Delivery High Flow Nasal Cannula Oxygen Flow Rate 8 Fraction of Inspired Oxygen 11/03/24 20:19 11/03/24 20:25 11/03/24 21:37 Temperature 97.5 F L Pulse Rate 78 Respiratory Rate 23 H 27 H Blood Pressure 171/82 H Pulse Oximetry 92 93 Oxygen Delivery High Flow Nasal Cannula BiPAP Oxygen Flow Rate 8 Fraction of Inspired Oxygen 11/03/24 22:00 11/03/24 22:00 11/03/24 23:44 Temperature 97.6 F Pulse Rate 74 68 69 Respiratory Rate 22 H Blood Pressure 147/52 H Pulse Oximetry 94 Oxygen Delivery Oxygen Flow Rate Fraction of Inspired Oxygen 11/04/24 00:00 11/04/24 00:10 11/04/24 00:23 Temperature Pulse Rate 68 68 Respiratory Rate 28 H Blood Pressure Pulse Oximetry 94 95 Oxygen Delivery BiPAP BiPAP Oxygen Flow Rate Fraction of Inspired Oxygen 50 11/04/24 02:00 11/04/24 04:00 11/04/24 04:10 Temperature Pulse Rate 67 71 Respiratory Rate Blood Pressure Pulse Oximetry 90 Oxygen Delivery BiPAP Oxygen Flow Rate Fraction of Inspired Oxygen 60 11/04/24 05:07 11/04/24 06:00 11/04/24 08:00 Temperature 97.6 F 97.6 F Pulse Rate 67 64 65 Respiratory Rate 24 H 26 H Blood Pressure 157/67 H 153/67 H Pulse Oximetry 91 90 Oxygen Delivery Oxygen Flow Rate Fraction of Inspired Oxygen 11/04/24 08:00 11/04/24 09:05 11/04/24 09:05 Temperature Pulse Rate 66 66 Respiratory Rate 27 H Blood Pressure Pulse Oximetry 93 Oxygen Delivery High Flow Therapy with Na Oxygen Flow Rate 18 Fraction of Inspired Oxygen 60 11/04/24 09:06 11/04/24 09:12 11/04/24 10:40 Temperature Pulse Rate 67 67 71 Respiratory Rate 29 H 28 H 23 H Blood Pressure Pulse Oximetry 93 93 Oxygen Delivery BiPAP High Flow Therapy with Na Oxygen Flow Rate 45 Fraction of Inspired Oxygen 75 11/04/24 11:25 Temperature Pulse Rate 69 Respiratory Rate 25 H Blood Pressure Pulse Oximetry 91 Oxygen Delivery BiPAP Oxygen Flow Rate Fraction of Inspired Oxygen Intake/Output Intake/Output: Intake & Output 11/01/24 11/02/24 11/03/24 11/04/24 23:59 23:59 23:59 23:59 Intake Total 6590 4090 4460 240 Output Total 1100 500 500 Balance 5490 4090 3960 -260 Meds/Results Medications: Active Medications Generic Name Dose Route Start Last Admin Trade Name Freq PRN Reason Stop Dose Admin Albuterol/Ipratropium 3 ml 11/03/24 14:00 11/04/24 09:02 Ipratropium 0.5 Mg/Albuterol Sulfate 2.5 Mg Ampul.Neb 3 Ml INHALATION 3 ml Q6HRT JANNIE Administration Atorvastatin Calcium 80 mg 10/30/24 09:00 11/04/24 09:03 Atorvastatin 40 Mg Tablet PO 80 mg DAILY JANNIE Administration Calcium Carbonate 500 mg 10/30/24 09:00 11/04/24 09:03 Calcium/Vitamin D 500 Mg/5 Mcg (200 I.U.) Tablet PO 500 mg DAILY JANNIE Administration Carvedilol 6.25 mg 10/29/24 21:00 11/04/24 09:05 Carvedilol 6.25 Mg Tablet PO 6.25 mg Q12HR JANNIE Administration Dextrose 12.5 gm 10/29/24 22:59 Dextrose 50% 25 Gm/50 Ml Syringe IV PUSH PRN PRN Hypoglycemia Protocol Enoxaparin Sodium 40 mg 11/01/24 09:00 11/04/24 09:03 Enoxaparin 40 Mg/0.4 Ml Syringe SUB-Q 40 mg DAILY JANNIE Administration Furosemide 40 mg 11/04/24 17:00 Furosemide Inj 40 Mg/4 Ml Vial IV PUSH BID JANNIE Glucagon 1 mg 10/29/24 22:59 Glucagon For Inj 1 Mg Vial IM PRN PRN Hypoglycemia Protocol Glucose 15 gm 10/29/24 22:59 Glucose Oral Gel 15 Gm Of Glucse In 37.5 Gm Tube PO PRN PRN Hypoglycemia Protocol Hydromorphone HCl 1 mg 10/31/24 13:20 11/01/24 23:47 Hydromorphone Hcl Inj (*Crx) 2 Mg/Ml Vial IV PUSH 1 mg Q3H PRN Administration Pain Rated 7-10 Dextrose 1,000 mls @ 100 mls/hr 10/29/24 22:59 Dextrose 5% 1,000 Ml IVPB PRN PRN Hypoglycemia Protocol Ibuprofen 800 mg in 200 mls @ 400 mls/hr 10/31/24 15:02 11/04/24 06:27 Caldolor 800 Mg/200 Ml IVPB 400 mls/hr Q8HR JANNIE Administration Meropenem 1 gm/ Sodium 100 mls @ 200 mls/hr 11/03/24 16:00 11/04/24 04:25 Chloride IVPB 200 mls/hr Q12H JANNIE Administration Vancomycin HCl 1,250 mg in 250 mls @ 166.667 mls/hr 11/05/24 05:00 Vancomycin 1,250 Mg/Ns 250 Ml IVPB Q36H JANNIE Insulin Aspart 2 - 5 units 10/30/24 00:00 11/04/24 12:21 Insulin Aspart (*Bkc) 100 Units/Ml SUB-Q Not Given Q6HR [facility] Protocol Ipratropium [place] 2 spray 10/29/24 17:00 11/03/24 17:26 Ipratropium Nasal [place] 0.03% 15 Ml Bottle NASAL 2 spray TID JANNIE Administration Losartan Potassium 50 mg 10/30/24 09:00 11/03/24 08:57 Losartan Potassium 50 Mg Tablet PO 50 mg DAILY JANNIE Administration Ondansetron HCl 4 mg 10/29/24 15:17 10/30/24 21:43 Ondansetron Inj 4 Mg/2 Ml Vial IV PUSH 4 mg Q4H PRN Administration Nausea And Vomiting Ondansetron HCl 4 mg 10/29/24 15:30 Ondansetron Inj 4 Mg/2 Ml Vial IV PUSH Q4H PRN Nausea And Vomiting Pantoprazole Sodium 40 mg 10/30/24 09:00 11/04/24 09:03 Pantoprazole Sodium Iv 40 Mg Vial IV PUSH 40 mg QAM JANNIE Administration Fluticasone/Salmeterol 2 puff 10/29/24 20:00 11/04/24 09:01 Fluticasone/Salmeterol 115-21 Mcg Inhaler 1 Puff INHALATION 2 puff Q12HRT JANNIE Administration Sertraline HCl 100 mg 10/29/24 17:00 11/04/24 09:03 Sertraline Hcl 50 Mg Tablet PO 100 mg BID JANNIE Administration Radiology Results: ITS Impressions Abdomen/Pelvis CT 10/29/24 17:43 IMPRESSION: High-grade obstruction within the mid to distal sigmoid colon for which a malignancy is suspected. Aerated stool (with pneumatosis less likely) within the entirety of the colon, proximal to the mid to distal sigmoid colon. Retroperitoneal and mesenteric lymphadenopathy. Secondary signs suggesting hypovolemia. 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 Chest X-Ray 11/04/24 10:05 IMPRESSION: Worsening bilateral pulmonary edema, when compared with previous examinations for which aggressive diuresis is recommended, if the patient is clinically able. A CTA of the chest is ordered, for which the patient will likely not be able to tolerate given her current respiratory status) respiratory rate close to 30, with a pCO2 within the 60's on BIPAP. Labs Labs: Laboratory Results - last 24 hr 11/03/24 11/03/24 11/03/24 16:44 17:30 18:52 WBC 9.1 RBC 3.93 L Hgb 10.8 L Hct 34.5 L MCV 87.8 D MCH 27.5 MCHC 31.3 L RDW 16.0 H Plt Count 246 MPV 10.5 H Immature Gran % (Auto) 0.7 H Neut % (Auto) 89.7 H Lymph % (Auto) 6.0 L [place] % (Auto) 3.5 Eos % (Auto) 0.0 Baso % (Auto) 0.1 L Lymph # (Auto) 0.54 L [place] # (Auto) 0.3 Eos # (Auto) 0.0 Baso # (Auto) 0.0 Abs Immat Gran (auto) 0.06 H Absolute Neuts (auto) 8.1 H Absolute Nucleated RBC 0.000 Band Neutrophils % Not Reportable Nucleated RBC % 0.0 Platelet Estimate Adequate Ovalocytes 1+ Schistocytes None seen Puncture Site ABG pH ABG pCO2 ABG pO2 ABG PO2/FiO2 Ratio ABG HCO3 ABG O2 Saturation ABG O2 Content ABG Base Excess A-a Gradient Oxyhemoglobin Total Hemoglobin O2 Delivery Device O2 Liters/Min FiO2 Expiratory Pressure Inspiratory Pressure Sodium 140 Potassium 3.5 Chloride 113 H Carbon Dioxide 18 L Anion Gap 9 BUN 33 H Creatinine 1.13 H Estim Creat Clear Calc 31 Estimated GFR 47 L Glucose 205 H POC Capillary Glucose 201 H Calcium 8.6 Magnesium Total Bilirubin AST ALT Alkaline Phosphatase NT-Pro-B Natriuret Pep Total Protein Albumin Nasal MRSA (PCR) Cancelled 11/03/24 11/03/24 11/04/24 18:52 21:17 00:29 WBC RBC Hgb Hct MCV MCH MCHC RDW Plt Count MPV Immature Gran % (Auto) Neut % (Auto) Lymph % (Auto) [place] % (Auto) Eos % (Auto) Baso % (Auto) Lymph # (Auto) [place] # (Auto) Eos # (Auto) Baso # (Auto) Abs Immat Gran (auto) Absolute Neuts (auto) Absolute Nucleated RBC Band Neutrophils % Nucleated RBC % Platelet Estimate Ovalocytes Schistocytes Puncture Site Right radial ABG pH 7.411 ABG pCO2 32.6 L ABG pO2 60.8 L ABG PO2/FiO2 Ratio 1.22 ABG HCO3 20.2 L ABG O2 Saturation 91.9 L ABG O2 Content 14.3 L ABG Base Excess -3.6 A-a Gradient 259.0 Oxyhemoglobin 90.0 Total Hemoglobin 11.3 L O2 Delivery Device Bipap O2 Liters/Min Not Reportable FiO2 50 Expiratory Pressure 6 Inspiratory Pressure 12 Sodium Potassium Chloride Carbon Dioxide Anion Gap BUN Creatinine Estim Creat Clear Calc Estimated GFR Glucose POC Capillary Glucose 193 H Calcium Magnesium Total Bilirubin AST ALT Alkaline Phosphatase NT-Pro-B Natriuret Pep Total Protein Albumin Nasal MRSA (PCR) Not detected 11/04/24 11/04/24 11/04/24 04:12 06:53 12:02 WBC 8.9 RBC 3.58 L Hgb 9.9 L Hct 31.7 L MCV 88.5 MCH 27.7 MCHC 31.2 L RDW 15.9 H Plt Count 241 MPV 10.4 Immature Gran % (Auto) 0.6 H Neut % (Auto) 85.2 H Lymph % (Auto) 7.2 L [place] % (Auto) 6.8 Eos % (Auto) 0.0 Baso % (Auto) 0.2 Lymph # (Auto) 0.64 L [place] # (Auto) 0.6 Eos # (Auto) 0.0 Baso # (Auto) 0.0 Abs Immat Gran (auto) 0.05 H Absolute Neuts (auto) 7.6 H Absolute Nucleated RBC 0.000 Band Neutrophils % Nucleated RBC % 0.0 Platelet Estimate Ovalocytes Schistocytes Puncture Site ABG pH ABG pCO2 ABG pO2 ABG PO2/FiO2 Ratio ABG HCO3 ABG O2 Saturation ABG O2 Content ABG Base Excess A-a Gradient Oxyhemoglobin Total Hemoglobin O2 Delivery Device O2 Liters/Min FiO2 Expiratory Pressure Inspiratory Pressure Sodium 141 Potassium 3.1 L Chloride 115 H Carbon Dioxide 19 L Anion Gap 7 BUN 36 H Creatinine 1.19 H Estim Creat Clear Calc 30 Estimated GFR 44 L Glucose 190 H POC Capillary Glucose 159 H 131 H Calcium 8.5 Magnesium 2.0 Total Bilirubin 0.4 AST 37 H ALT 19 Alkaline Phosphatase 90 NT-Pro-B Natriuret Pep 25785 H Total Protein 5.8 L Albumin 2.8 L Nasal MRSA (PCR)
--- NOTE | 2024-11-04 13:32 | P.PNGS_ITS ---
Progress Note: A&P Assessment and Plan (1) Colonic obstruction: Code(s): K56.609 - Unspecified intestinal obstruction, unspecified as to partial versus complete obstruction Status: Acute Assessment and Plan: * Patient tolerating a regular diet yesterday, but diet is limited today due to her respiratory status. Transverse colostomy and mucous fistula are retracted, but appear viable and are functioning. Wound/ostomy nurses are following and plan to do ostomy teaching with patient once her respiratory status improves. Pathology showing metastatic adenocarcinoma. (2) Acute respiratory failure: Code(s): J96.00 - Acute respiratory failure, unspecified whether with hypoxia or hypercapnia Status: Acute Assessment and Plan: * Patient now requiring BiPAP and transferred to IMU. BNP up to 26,000 today. She is being diuresed and was put on a 1500 cc fluid restriction. Potassium down to 3.1 and being replaced by Hospitalist. Echo and CTA chest ordered by Hospitalist today. (3) Coronary artery disease: Code(s): I25.10 - Atherosclerotic heart disease of [place] coronary artery without angina pectoris Status: Acute Plan I have discussed the patient's case and plan of care with Dr. Campos. Subjective Subjective Date/Time Seen: 11/04/24 13:32 Post Op day: 4 (Attempted robotic assisted laparoscopic transverse loop colostomy with conversion open transverse end colostomy and placement of mucous fistula) Patient reports: bowel movement (ostomy functioning) and shortness of breath Interval history: Patient with increasing oxygen requirements over the weekend and put on BiPAP last night and transferred to IMU. She was tolerating a solid diet yesterday per the patient. She denies any nausea or vomiting. She denies any abdominal pain at this time. Wound care changed her ostomy bags prior to our arrival today. Wound care nurse also changed midline incision dressing and reports the incision looks good with no redness or drainage and edges well approximated. Exam Const: General: no acute distress and ill appearing GI: GI Palp: Yes Soft to palpation, Yes Tenderness to palpation present (GI) and No Guarding due to palpation present (GI) Auscultation: normal bowel sounds Other: Abdomen mildly distended and soft. Midline incision dressing is dry and intact. Transverse colostomy has a small amount of soft formed brown stool in bag, stoma is pink and retracted, but viable. Mucous fistula has a small hard stool ball at the opening of the stoma, which is slightly dark/dusky and retracted. Objective Data Vital Signs Vital Signs: Vital Signs - 24 hr 11/03/24 14:00 11/03/24 15:26 11/03/24 15:30 Temperature 98.4 F Pulse Rate 86 67 Respiratory Rate 20 18 Blood Pressure 137/59 L Pulse Oximetry 89 L 91 Oxygen Delivery High Flow Nasal Cannula Oxygen Flow Rate 8 Fraction of Inspired Oxygen 11/03/24 15:32 11/03/24 16:00 11/03/24 19:35 Temperature Pulse Rate 69 71 69 Respiratory Rate 18 20 Blood Pressure Pulse Oximetry Oxygen Delivery Oxygen Flow Rate Fraction of Inspired Oxygen 11/03/24 19:44 11/03/24 20:00 11/03/24 20:15 Temperature Pulse Rate 69 77 Respiratory Rate 20 Blood Pressure Pulse Oximetry 92 Oxygen Delivery High Flow Nasal Cannula Oxygen Flow Rate 8 Fraction of Inspired Oxygen 11/03/24 20:19 11/03/24 20:25 11/03/24 21:37 Temperature 97.5 F L Pulse Rate 78 Respiratory Rate 23 H 27 H Blood Pressure 171/82 H Pulse Oximetry 92 93 Oxygen Delivery High Flow Nasal Cannula BiPAP Oxygen Flow Rate 8 Fraction of Inspired Oxygen 11/03/24 22:00 11/03/24 22:00 11/03/24 23:44 Temperature 97.6 F Pulse Rate 74 68 69 Respiratory Rate 22 H Blood Pressure 147/52 H Pulse Oximetry 94 Oxygen Delivery Oxygen Flow Rate Fraction of Inspired Oxygen 11/04/24 00:00 11/04/24 00:10 11/04/24 00:23 Temperature Pulse Rate 68 68 Respiratory Rate 28 H Blood Pressure Pulse Oximetry 94 95 Oxygen Delivery BiPAP BiPAP Oxygen Flow Rate Fraction of Inspired Oxygen 50 11/04/24 02:00 11/04/24 04:00 11/04/24 04:10 Temperature Pulse Rate 67 71 Respiratory Rate Blood Pressure Pulse Oximetry 90 Oxygen Delivery BiPAP Oxygen Flow Rate Fraction of Inspired Oxygen 60 11/04/24 05:07 11/04/24 06:00 11/04/24 08:00 Temperature 97.6 F 97.6 F Pulse Rate 67 64 65 Respiratory Rate 24 H 26 H Blood Pressure 157/67 H 153/67 H Pulse Oximetry 91 90 Oxygen Delivery Oxygen Flow Rate Fraction of Inspired Oxygen 11/04/24 08:00 11/04/24 08:00 11/04/24 09:05 Temperature Pulse Rate 62 66 Respiratory Rate Blood Pressure Pulse Oximetry 93 Oxygen Delivery BiPAP Oxygen Flow Rate 18 Fraction of Inspired Oxygen 60 11/04/24 09:05 11/04/24 09:06 11/04/24 09:12 Temperature Pulse Rate 66 67 67 Respiratory Rate 27 H 29 H 28 H Blood Pressure Pulse Oximetry 93 Oxygen Delivery BiPAP Oxygen Flow Rate Fraction of Inspired Oxygen 11/04/24 10:00 11/04/24 10:40 11/04/24 11:25 Temperature Pulse Rate 71 71 69 Respiratory Rate 23 H 25 H Blood Pressure Pulse Oximetry 93 91 Oxygen Delivery High Flow Therapy with Na BiPAP Oxygen Flow Rate 45 Fraction of Inspired Oxygen 75 11/04/24 12:00 11/04/24 12:00 11/04/24 12:00 Temperature 98 F Pulse Rate 70 73 Respiratory Rate 28 H Blood Pressure 174/74 H Pulse Oximetry 93 92 Oxygen Delivery BiPAP Oxygen Flow Rate 18 Fraction of Inspired Oxygen 60 Intake/Output Intake/Output: Intake & Output 11/01/24 11/02/24 11/03/24 11/04/24 23:59 23:59 23:59 23:59 Intake Total 6590 4090 4460 440 Output Total 1100 500 500 Balance 5490 4090 3960 -60 Meds/Results Medications: Active Medications Generic Name Dose Route Start Last Admin Trade Name Freq PRN Reason Stop Dose Admin Albuterol/Ipratropium 3 ml 11/03/24 14:00 11/04/24 09:02 Ipratropium 0.5 Mg/Albuterol Sulfate 2.5 Mg Ampul.Neb 3 Ml INHALATION 3 ml Q6HRT JANNIE Administration Atorvastatin Calcium 80 mg 10/30/24 09:00 11/04/24 09:03 Atorvastatin 40 Mg Tablet PO 80 mg DAILY JANNIE Administration Calcium Carbonate 500 mg 10/30/24 09:00 11/04/24 09:03 Calcium/Vitamin D 500 Mg/5 Mcg (200 I.U.) Tablet PO 500 mg DAILY JANNIE Administration Carvedilol 6.25 mg 10/29/24 21:00 11/04/24 09:05 Carvedilol 6.25 Mg Tablet PO 6.25 mg Q12HR JANNIE Administration Dextrose 12.5 gm 10/29/24 22:59 Dextrose 50% 25 Gm/50 Ml Syringe IV PUSH PRN PRN Hypoglycemia Protocol Enoxaparin Sodium 40 mg 11/01/24 09:00 11/04/24 09:03 Enoxaparin 40 Mg/0.4 Ml Syringe SUB-Q 40 mg DAILY JANNIE Administration Furosemide 40 mg 11/04/24 17:00 Furosemide Inj 40 Mg/4 Ml Vial IV PUSH BID JANNIE Glucagon 1 mg 10/29/24 22:59 Glucagon For Inj 1 Mg Vial IM PRN PRN Hypoglycemia Protocol Glucose 15 gm 10/29/24 22:59 Glucose Oral Gel 15 Gm Of Glucse In 37.5 Gm Tube PO PRN PRN Hypoglycemia Protocol Hydromorphone HCl 1 mg 10/31/24 13:20 11/01/24 23:47 Hydromorphone Hcl Inj (*Crx) 2 Mg/Ml Vial IV PUSH 1 mg Q3H PRN Administration Pain Rated 7-10 Dextrose 1,000 mls @ 100 mls/hr 10/29/24 22:59 Dextrose 5% 1,000 Ml IVPB PRN PRN Hypoglycemia Protocol Ibuprofen 800 mg in 200 mls @ 400 mls/hr 10/31/24 15:02 11/04/24 13:27 Caldolor 800 Mg/200 Ml IVPB 400 mls/hr Q8HR JANNIE Administration Meropenem 1 gm/ Sodium 100 mls @ 200 mls/hr 11/03/24 16:00 11/04/24 04:25 Chloride IVPB 200 mls/hr Q12H JANNIE Administration Vancomycin HCl 1,250 mg in 250 mls @ 166.667 mls/hr 11/05/24 05:00 Vancomycin 1,250 Mg/Ns 250 Ml IVPB Q36H JANNIE Insulin Aspart 2 - 5 units 10/30/24 00:00 11/04/24 12:21 Insulin Aspart (*Bkc) 100 Units/Ml SUB-Q Not Given Q6HR JANNIE Protocol Ipratropium [place] 2 spray 10/29/24 17:00 11/03/24 17:26 Ipratropium Nasal [place] 0.03% 15 Ml Bottle NASAL 2 spray TID JANNIE Administration Losartan Potassium 50 mg 10/30/24 09:00 11/03/24 08:57 Losartan Potassium 50 Mg Tablet PO 50 mg DAILY JANNIE Administration Ondansetron HCl 4 mg 10/29/24 15:17 10/30/24 21:43 Ondansetron Inj 4 Mg/2 Ml Vial IV PUSH 4 mg Q4H PRN Administration Nausea And Vomiting Ondansetron HCl 4 mg 10/29/24 15:30 Ondansetron Inj 4 Mg/2 Ml Vial IV PUSH Q4H PRN Nausea And Vomiting Pantoprazole Sodium 40 mg 10/30/24 09:00 11/04/24 09:03 Pantoprazole Sodium Iv 40 Mg Vial IV PUSH 40 mg QAM JANNIE Administration Perflutren Lipid Microsphere 0 ml 11/04/24 12:42 Perflutren Lipid Microspheres 1.5 Ml Vial Diluted To 10 Ml Total Volume IV PUSH 11/07/24 12:42 ONCE PRN adequate visualization Protocol Fluticasone/Salmeterol 2 puff 10/29/24 20:00 11/04/24 09:01 Fluticasone/Salmeterol 115-21 Mcg Inhaler 1 Puff INHALATION 2 puff Q12HRT JANNIE Administration Sertraline HCl 100 mg 10/29/24 17:00 11/04/24 09:03 Sertraline Hcl 50 Mg Tablet PO 100 mg BID JANNIE Administration Radiology Results: ITS Impressions Abdomen/Pelvis CT 10/29/24 17:43 IMPRESSION: High-grade obstruction within the mid to distal sigmoid colon for which a malignancy is suspected. Aerated stool (with pneumatosis less likely) within the entirety of the colon, proximal to the mid to distal sigmoid colon. Retroperitoneal and mesenteric lymphadenopathy. Secondary signs suggesting hypovolemia. 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 Chest X-Ray 11/04/24 10:05 IMPRESSION: Worsening bilateral pulmonary edema, when compared with previous examinations for which aggressive diuresis is recommended, if the patient is clinically able. A CTA of the chest is ordered, for which the patient will likely not be able to tolerate given her current respiratory status) respiratory rate close to 30, with a pCO2 within the 60's on BIPAP. Labs Labs: Laboratory Results - last 24 hr 11/03/24 11/03/24 11/03/24 16:44 17:30 18:52 WBC 9.1 RBC 3.93 L Hgb 10.8 L Hct 34.5 L MCV 87.8 D MCH 27.5 MCHC 31.3 L RDW 16.0 H Plt Count 246 MPV 10.5 H Immature Gran % (Auto) 0.7 H Neut % (Auto) 89.7 H Lymph % (Auto) 6.0 L [place] % (Auto) 3.5 Eos % (Auto) 0.0 Baso % (Auto) 0.1 L Lymph # (Auto) 0.54 L [place] # (Auto) 0.3 Eos # (Auto) 0.0 Baso # (Auto) 0.0 Abs Immat Gran (auto) 0.06 H Absolute Neuts (auto) 8.1 H Absolute Nucleated RBC 0.000 Band Neutrophils % Not Reportable Nucleated RBC % 0.0 Platelet Estimate Adequate Ovalocytes 1+ Schistocytes None seen Puncture Site ABG pH ABG pCO2 ABG pO2 ABG PO2/FiO2 Ratio ABG HCO3 ABG O2 Saturation ABG O2 Content ABG Base Excess A-a Gradient Oxyhemoglobin Total Hemoglobin O2 Delivery Device O2 Liters/Min FiO2 Expiratory Pressure Inspiratory Pressure Sodium 140 Potassium 3.5 Chloride 113 H Carbon Dioxide 18 L Anion Gap 9 BUN 33 H Creatinine 1.13 H Estim Creat Clear Calc 31 Estimated GFR 47 L Glucose 205 H POC Capillary Glucose 201 H Calcium 8.6 Magnesium Total Bilirubin AST ALT Alkaline Phosphatase NT-Pro-B Natriuret Pep Total Protein Albumin Nasal MRSA (PCR) Cancelled 11/03/24 11/03/24 11/04/24 18:52 21:17 00:29 WBC RBC Hgb Hct MCV MCH MCHC RDW Plt Count MPV Immature Gran % (Auto) Neut % (Auto) Lymph % (Auto) [place] % (Auto) Eos % (Auto) Baso % (Auto) Lymph # (Auto) [place] # (Auto) Eos # (Auto) Baso # (Auto) Abs Immat Gran (auto) Absolute Neuts (auto) Absolute Nucleated RBC Band Neutrophils % Nucleated RBC % Platelet Estimate Ovalocytes Schistocytes Puncture Site Right radial ABG pH 7.411 ABG pCO2 32.6 L ABG pO2 60.8 L ABG PO2/FiO2 Ratio 1.22 ABG HCO3 20.2 L ABG O2 Saturation 91.9 L ABG O2 Content 14.3 L ABG Base Excess -3.6 A-a Gradient 259.0 Oxyhemoglobin 90.0 Total Hemoglobin 11.3 L O2 Delivery Device Bipap O2 Liters/Min Not Reportable FiO2 50 Expiratory Pressure 6 Inspiratory Pressure 12 Sodium Potassium Chloride Carbon Dioxide Anion Gap BUN Creatinine Estim Creat Clear Calc Estimated GFR Glucose POC Capillary Glucose 193 H Calcium Magnesium Total Bilirubin AST ALT Alkaline Phosphatase NT-Pro-B Natriuret Pep Total Protein Albumin Nasal MRSA (PCR) Not detected 11/04/24 11/04/24 11/04/24 04:12 06:53 12:02 WBC 8.9 RBC 3.58 L Hgb 9.9 L Hct 31.7 L MCV 88.5 MCH 27.7 MCHC 31.2 L RDW 15.9 H Plt Count 241 MPV 10.4 Immature Gran % (Auto) 0.6 H Neut % (Auto) 85.2 H Lymph % (Auto) 7.2 L [place] % (Auto) 6.8 Eos % (Auto) 0.0 Baso % (Auto) 0.2 Lymph # (Auto) 0.64 L [place] # (Auto) 0.6 Eos # (Auto) 0.0 Baso # (Auto) 0.0 Abs Immat Gran (auto) 0.05 H Absolute Neuts (auto) 7.6 H Absolute Nucleated RBC 0.000 Band Neutrophils % Nucleated RBC % 0.0 Platelet Estimate Ovalocytes Schistocytes Puncture Site ABG pH ABG pCO2 ABG pO2 ABG PO2/FiO2 Ratio ABG HCO3 ABG O2 Saturation ABG O2 Content ABG Base Excess A-a Gradient Oxyhemoglobin Total Hemoglobin O2 Delivery Device O2 Liters/Min FiO2 Expiratory Pressure Inspiratory Pressure Sodium 141 Potassium 3.1 L Chloride 115 H Carbon Dioxide 19 L Anion Gap 7 BUN 36 H Creatinine 1.19 H Estim Creat Clear Calc 30 Estimated GFR 44 L Glucose 190 H POC Capillary Glucose 159 H 131 H Calcium 8.5 Magnesium 2.0 Total Bilirubin 0.4 AST 37 H ALT 19 Alkaline Phosphatase 90 NT-Pro-B Natriuret Pep 20238 H Total Protein 5.8 L Albumin 2.8 L Nasal MRSA (PCR)
--- NOTE | 2024-11-04 15:55 | P.CONPL_ITS ---
Assessment and Plan Assessment and plan (1) Acute respiratory failure: Qualifiers: Respiratory failure complication: hypoxia Qualified Code(s): J96.01 - Acute respiratory failure with hypoxia Code(s): J96.00 - Acute respiratory failure, unspecified whether with hypoxia or hypercapnia Status: Acute Assessment and Plan: She developed acute hypoxemic respiratory failure post op bowel surgery for adenocarcinoma; hospital weights suspicious, showing wt yesterday 64.3 kg, today 73.5 kg. She is getting diuresis with a good response to Lasix 40 mg IV. This should help significantly. She has a BNP which is pending. She does not appear to have a pulmonary infiltrate. She is not having purulent secretions. She is on broad coverage for abdominal surgery, elevated procalcitonin 2.3, and concern for infection, somewhere. She had an elevated wbc 10.3 k with left shift. She has no fever. She needs continued support with positive pressure, now on BiPAP which may be giving relief from volume overload. She has normal EF per last echo. (2) COPD (chronic obstructive pulmonary disease): Qualifiers: COPD type: chronic bronchitis Chronic bronchitis type: mixed simple and mucopurulent Qualified Code(s): J41.8 - Mixed simple and mucopurulent chronic bronchitis Code(s): J44.9 - Chronic obstructive pulmonary disease, unspecified Status: Acute Assessment and Plan: mild COPD per Dr Sarkar's note, 06/13/2022; normal spirometry and lung volumes, no significant bronchodilator response, diffusion capacity mildly decreased. FEV1% normal at 75%. She has few symptoms as baseline. (3) Obstructive sleep apnea: Code(s): G47.33 - Obstructive sleep apnea (adult) (pediatric) Status: Acute Assessment and Plan: compliant with PAP, has been on for years, she benefits from using it, has a [employer] company locally, although she cannot recall the name. Her current CPAP is less than 5 years old. History of Present Illness History of Present Illness Consult date: 11/04/24 Requesting physician: Edson Sharp MD Chief complaint: hypoxemia Narrative: pt was seen November 04, 2024 Room 231 NEW: Rosa Martino is here post op 10/31/2024 for attempted laparoscopic than open colostomy and placement of a mucosal fistula for distal sigmoid colonic obstruction; on the first post op day she was on 2 L/min O2, she became hypoxemic postoperatively, required increasing amounts of O2. Now, on high flow nasal cannula, 45 L/minute and FiO2 70%. Saturation is 94%. Her chest x-ray today is consistent with her pulmonary edema. She is being diuresed with Lasix. Her procalcitonin was elevated on 11/02/2024, 2.3. She does not have CO2 retention. She smoked up until this admission, 5-10 cigarettes per day. She did not actively try tobacco cessation because she wanted to do it on her own. At home, her activity is limited due to right hip pain. She said that she is not limited due to shortness of breath during her daily activities. She does not have a chronic cough. Her COPD symptoms are controlled. She is compliant with her CPAP. Today, BNP is high 26,000. 11/03/2024 arterial blood gases 3 11/03/2411/03 pH 7.35 7.41 pCO2 34 33 pO2 66 61 HCO3 18.4 20.2 sat 92.5% 92% O2 delivery cannula Bipap O2 8 L 50% rate IPAP 12 EPAP 6 She has mild COPD, controlled on Advair HFA at home and a rescue inhaler. She does not use home oxygen. She has smoked up until this admission. She has obstructive sleep apnea, compliant with CPAP. 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 Current medications: IV ibuprofen/Caldelor; atorvastatin, calcium and vitamin- D, enoxaparin, Lasix 40 mg IV for pulmonary edema, IV pantoprazole, nasal ipratropium, aspart insulin. Hydrocodone/acetaminophen prn. Coreg 6.25 mg q.12 hours Cefepime has been switched to meropenem; vancomycin was stopped when the MRSA swab returned negative. Fluticasone 115 mcg/salmeterol 21 mcg 1 puff twice a day; DuoNebs p.r.n. PMH: DM type II, dyslipidemia, COPD, ASPEN, HTN, CAD s/p CABG x 2 vessels 2012; stroke, stage 3 CKD, hx of iron deficiency anemia with a drop in her H&H on 05/27/2024, hemoglobin 5.4 grams/deciliter, hematocrit 20%. DATA' * 11/04/2024 CXR; IMPRESSION: Worsening bilateral pulmonary edema, when compared with previous examinations for which aggressive diuresis is recommended, if the patient is clinically able. A CTA of the chest is ordered, for which the patient will likely not be able to tolerate given her current respiratory status) respiratory rate close to 30, with a pCO2 within the 60's on BIPAP. * 11/03/2024 arterial blood gas pH 7.35, pCo2 34, pO2 66, HCO3 18, sat 90% on nasal cannula 8 L/60% * 10/29/2024 carcinoembryonic antigen 2.6, in the normal range; 05/27/2024 CEA was < 2.0, normal. * from Dr Sarkar's office note on 09/03/2024; June 13, 2022 showed normal spirometry and lung volumes. No significant bronchodilator response. Diffusion capacity mildly decreased. FEV1 to FVC ratio was normal at 75%. * 06/21/2024; LDCT @[facility]; There is no evidence of any significant mediastinal, hilar or axillary lymphadenopathy. There are atherosclerotic calcifications of the aorta and coronary arteries. There is no evidence of pleural or pericardial effusion. There is focal scarring in the anteromedial right upper lobe. No pulmonary nodule evident. Images through the upper abdomen reveal no abnormalities.Impression: Lung RADS 1: Negative. 12 month follow-up screening CT advised. * Review of Systems 2 Review of Systems: She denies leg swelling, has no nocturia. She sleeps 6 or 7 hours a night, takes a nap during the day for an hour but the nap is not refreshing. Her CPAP machine is less than 5 years old. 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 History of diverticulitis Chronic obstructive pulmonary disease Osteoarthritis of hips, bilateral Cigarette nicotine dependence with nicotine-induced disorder Stage 3a chronic kidney disease Obstructive sleep apnea Major depressive disorder in partial remission Iron deficiency Atherosclerosis of [place] coronary artery of [place] heart without angina pectoris Pure hypercholesterolemia, unspecified Essential (primary) hypertension Type 2 diabetes mellitus with chronic kidney disease Carpal tunnel syndrome Surgical History Surgical History (Updated 11/04/24 @ 18:02 by Chelsie Bullard MD) Hx of vaginal hysterectomy History of coronary artery bypass graft x 2 (2012) History of carotid endarterectomy (2007) Family History Family History Unknown Asthma Hypertension Depression Heart disease Lung disease Arthritis Cerebrovascular accident High cholesterol Social History Social History Social History: Surrogate medical decision maker: Lynn Mccarthy, daughter. Code status: Full code. Smoking packs per day: 0.5 Smoking cigarettes per day: 10.0 Years smoked: 45 Smoking pack-years: 22.50 Smoking status: Current every day smoker Alcohol intake: never Substance use: never Substance use type: does not use Do You Feel Safe in your Home?: Yes Lack of Transportation: No Lack of Food: Never True Current Housing: I Have Housing Concerned About Future Housing: No Difficulty Paying Gas/Electric Bills: No Difficulty Paying for Meds: No Currently Unemployed: No Education: High School Diploma/GED Difficulty w/ Childcare or Family Care: No Living arrangements: with family Occupation/Education: retired Spiritual care concerns: No Meds Home Medications and Allergies Home Medications ?Medication ?Instructions ?Recorded ?Confirmed ?Type aspirin 81 mg tablet,delayed 81 mg PO DAILY #90 tabs 08/18/23 10/29/24 Rx release famotidine 20 mg tablet 20 mg PO BID #180 tabs 08/18/23 10/29/24 Rx loratadine 10 mg tablet (Claritin) 10 mg PO DAILY #90 tabs 08/18/23 10/29/24 Rx kcnyvwdw-uuf-clvhp acid 0.4 1 tablet PO DAILY #90 tabs 08/18/23 10/29/24 Rx mg-lycopene 300 mcg-lutein 250 mcg tablet (Centrum Silver) calcium 500 mg (as 1 tablet PO DAILY 11/22/23 10/29/24 History carbonate)-vitamin D3 10 mcg (400 unit) tablet losartan 50 mg tablet 50 mg PO DAILY #90 tabs 05/10/24 10/29/24 Rx carvedilol 6.25 mg tablet 6.25 mg PO BID #180 tabs 08/07/24 10/29/24 Rx ferrous gluconate 324 mg (38 mg 324 mg PO DAILY #30 tabs 08/28/24 10/29/24 Rx iron) tablet atorvastatin 40 mg tablet 80 mg PO DAILY 09/03/24 10/29/24 History sertraline 100 mg tablet 100 mg PO BID #200 tabs 10/14/24 10/29/24 Rx ciprofloxacin HCl 500 mg tablet 500 mg PO Q12H #20 tabs 10/21/24 10/29/24 Rx ipratropium bromide 21 mcg (0.03 2 spray intranasal TID #30 mL 10/21/24 10/29/24 Rx %) nasal spray metronidazole 500 mg tablet 500 mg PO TID 10 days #30 tabs 10/21/24 10/29/24 Rx fluticasone 250 mcg-salmeterol 50 1 inh inhalation BID PRN COPD 10/29/24 10/29/24 History mcg/dose blistr powdr for inhalation (Advair Diskus) Allergies Allergy/AdvReac Type Severity Reaction Status Date / Time No Known Allergies Allergy Verified 10/31/24 06:22 Vital Signs Vital Signs - 24 hr 11/03/24 16:00 11/03/24 19:35 11/03/24 19:44 Temperature Pulse Rate 71 69 69 Respiratory Rate 20 20 Blood Pressure Pulse Oximetry Oxygen Delivery Oxygen Flow Rate Fraction of Inspired Oxygen 11/03/24 20:00 11/03/24 20:15 11/03/24 20:19 Temperature 36.4 C L Pulse Rate 77 78 Respiratory Rate 23 H Blood Pressure 171/82 H Pulse Oximetry 92 92 Oxygen Delivery High Flow Nasal Cannula Oxygen Flow Rate 8 Fraction of Inspired Oxygen 11/03/24 20:25 11/03/24 21:37 11/03/24 22:00 Temperature Pulse Rate 74 Respiratory Rate 27 H Blood Pressure Pulse Oximetry 93 Oxygen Delivery High Flow Nasal Cannula BiPAP Oxygen Flow Rate 8 Fraction of Inspired Oxygen 11/03/24 22:00 11/03/24 23:44 11/04/24 00:00 Temperature 36.4 C Pulse Rate 68 69 68 Respiratory Rate 22 H Blood Pressure 147/52 H Pulse Oximetry 94 Oxygen Delivery Oxygen Flow Rate Fraction of Inspired Oxygen 11/04/24 00:10 11/04/24 00:23 11/04/24 02:00 Temperature Pulse Rate 68 67 Respiratory Rate 28 H Blood Pressure Pulse Oximetry 94 95 Oxygen Delivery BiPAP BiPAP Oxygen Flow Rate Fraction of Inspired Oxygen 50 11/04/24 04:00 11/04/24 04:10 11/04/24 05:07 Temperature 36.4 C Pulse Rate 71 67 Respiratory Rate 24 H Blood Pressure 157/67 H Pulse Oximetry 90 91 Oxygen Delivery BiPAP Oxygen Flow Rate Fraction of Inspired Oxygen 60 11/04/24 06:00 11/04/24 08:00 11/04/24 08:00 Temperature 36.4 C Pulse Rate 64 65 Respiratory Rate 26 H Blood Pressure 153/67 H Pulse Oximetry 90 93 Oxygen Delivery BiPAP Oxygen Flow Rate 18 Fraction of Inspired Oxygen 60 11/04/24 08:00 11/04/24 09:05 11/04/24 09:05 Temperature Pulse Rate 62 66 66 Respiratory Rate 27 H Blood Pressure Pulse Oximetry Oxygen Delivery Oxygen Flow Rate Fraction of Inspired Oxygen 11/04/24 09:06 11/04/24 09:12 11/04/24 10:00 Temperature Pulse Rate 67 67 71 Respiratory Rate 29 H 28 H Blood Pressure Pulse Oximetry 93 Oxygen Delivery BiPAP Oxygen Flow Rate Fraction of Inspired Oxygen 11/04/24 10:40 11/04/24 11:25 11/04/24 12:00 Temperature Pulse Rate 71 69 Respiratory Rate 23 H 25 H Blood Pressure Pulse Oximetry 93 91 93 Oxygen Delivery High Flow Therapy with Na BiPAP BiPAP Oxygen Flow Rate 45 18 Fraction of Inspired Oxygen 75 60 11/04/24 12:00 11/04/24 12:00 11/04/24 14:22 Temperature 36.6 C Pulse Rate 70 73 68 Respiratory Rate 28 H 27 H Blood Pressure 174/74 H Pulse Oximetry 92 Oxygen Delivery Oxygen Flow Rate Fraction of Inspired Oxygen 11/04/24 14:31 Temperature Pulse Rate 69 Respiratory Rate 28 H Blood Pressure Pulse Oximetry Oxygen Delivery Oxygen Flow Rate Fraction of Inspired Oxygen Exam 2 Narrative: GEN: Alert, oriented, not in distress. She has a full face mask on, she can speak and I can understand her but I did not take it off due to her fragile oxygenation. HEENT: pupils are equal, EOMI, symmetrical face; oral membranes moist, NECK: Trachea is midline CHEST: Equal air entry, symmetric excursion, few scattered crackles posteriorly, no wheezing CV: Distant regular S1S2 no m/g/r ABD : (+) bowel sounds Extremities : no clubbing, cyanosis, or edema PSYCH: normal thought; she is propped up in bed, nods to questions, and can speak through the mask which I can understand. Results Laboratory Findings 11/06/24 03:31 11/07/24 10:36 ABG, PT/INR, D-dimer: ABG ABG pH 7.411 (7.350-7.450) 11/03/24 21:17 ABG pCO2 32.6 mmHg (35.0-45.0) L 11/03/24 21:17 ABG pO2 60.8 mmHg (80.0-100.0) L 11/03/24 21:17 ABG O2 Saturation 91.9 % (95.0-100.0) L 11/03/24 21:17 PT/INR, D-dimer PT 14.6 Seconds (11.1-14.7) 10/30/24 05:47 INR 1.2 10/30/24 05:47 Abnormal lab findings: Abnormal Labs 10/29/24 10/30/24 10/30/24 14:52 00:55 05:47 WBC RBC Hgb Hct MCHC 31.5 L RDW 14.8 H MPV Immature Gran % (Auto) 0.9 H Neut % (Auto) Lymph % (Auto) [place] % (Auto) 10.5 H Baso % (Auto) Lymph # (Auto) [place] # (Auto) 0.7 H Abs Immat Gran (auto) 0.06 H Absolute Neuts (auto) Absolute Nucleated RBC ABG pCO2 ABG pO2 ABG HCO3 ABG O2 Saturation ABG O2 Content Total Hemoglobin Sodium 135 L Potassium 3.2 L Chloride 108 H Carbon Dioxide BUN Creatinine Estimated GFR 54 L 57 L Glucose POC Capillary Glucose 120 H Calcium Total Bilirubin 0.1 L AST 55 H 47 H NT-Pro-B Natriuret Pep Total Protein 5.9 L Albumin 3.3 L 10/30/24 10/31/24 10/31/24 14:32 14:08 16:17 WBC RBC Hgb 11.8 L Hct MCHC 30.6 L 30.9 L RDW 15.1 H 15.3 H MPV Immature Gran % (Auto) 0.7 H Neut % (Auto) 82.7 H Lymph % (Auto) 10.4 L [place] % (Auto) 10.1 H Baso % (Auto) 0.1 L Lymph # (Auto) 0.72 L [place] # (Auto) Abs Immat Gran (auto) 0.05 H Absolute Neuts (auto) Absolute Nucleated RBC ABG pCO2 ABG pO2 ABG HCO3 ABG O2 Saturation ABG O2 Content Total Hemoglobin Sodium Potassium Chloride 111 H Carbon Dioxide 19 L BUN Creatinine Estimated GFR Glucose 131 H POC Capillary Glucose 159 H Calcium Total Bilirubin AST 41 H NT-Pro-B Natriuret Pep Total Protein 6.1 L Albumin 3.3 L 10/31/24 11/01/24 11/01/24 17:08 05:43 06:19 WBC 10.3 H RBC 3.79 L Hgb 10.5 L Hct 34.3 L MCHC 30.6 L RDW 15.4 H MPV Immature Gran % (Auto) Neut % (Auto) 81.8 H Lymph % (Auto) 11.5 L [place] % (Auto) Baso % (Auto) 0.1 L Lymph # (Auto) [place] # (Auto) Abs Immat Gran (auto) 0.05 H Absolute Neuts (auto) 8.4 H Absolute Nucleated RBC ABG pCO2 ABG pO2 ABG HCO3 ABG O2 Saturation ABG O2 Content Total Hemoglobin Sodium Potassium Chloride 113 H Carbon Dioxide 19 L BUN Creatinine Estimated GFR Glucose POC Capillary Glucose 124 H 113 H Calcium 7.8 L Total Bilirubin AST 37 H NT-Pro-B Natriuret Pep Total Protein 5.4 L Albumin 2.8 L 11/01/24 11/02/24 11/02/24 14:57 06:18 15:02 WBC RBC 3.15 L 3.66 L 3.81 L Hgb 8.8 L 10.1 L 10.6 L Hct 28.8 L 33.5 L 35.6 L MCHC 30.6 L 30.1 L 29.8 L RDW 15.8 H 15.9 H 15.9 H MPV Immature Gran % (Auto) Neut % (Auto) 78.2 H 82.0 H 85.8 H Lymph % (Auto) 12.6 L 8.8 L 6.9 L [place] % (Auto) Baso % (Auto) 0.1 L 0.1 L Lymph # (Auto) 0.72 L 0.60 L [place] # (Auto) Abs Immat Gran (auto) 0.04 H Absolute Neuts (auto) 7.5 H Absolute Nucleated RBC 0.020 H ABG pCO2 ABG pO2 ABG HCO3 ABG O2 Saturation ABG O2 Content Total Hemoglobin Sodium Potassium Chloride 114 H Carbon Dioxide 18 L BUN 22 H Creatinine Estimated GFR 55 L Glucose POC Capillary Glucose Calcium 7.8 L Total Bilirubin AST 37 H NT-Pro-B Natriuret Pep Total Protein 5.1 L Albumin 2.6 L 11/03/24 11/03/24 11/03/24 00:38 05:56 10:02 WBC RBC Hgb Hct MCHC RDW MPV Immature Gran % (Auto) Neut % (Auto) Lymph % (Auto) [place] % (Auto) Baso % (Auto) Lymph # (Auto) [place] # (Auto) Abs Immat Gran (auto) Absolute Neuts (auto) Absolute Nucleated RBC ABG pCO2 34.0 L ABG pO2 66.3 L ABG HCO3 18.4 L ABG O2 Saturation 92.5 L ABG O2 Content 13.5 L Total Hemoglobin 10.6 L Sodium Potassium 2.8 L* Chloride 111 H Carbon Dioxide 17 L BUN 28 H Creatinine 1.09 H Estimated GFR 49 L Glucose POC Capillary Glucose 106 H Calcium 8.2 L Total Bilirubin AST 37 H NT-Pro-B Natriuret Pep 99502 H Total Protein 5.4 L Albumin 2.7 L 11/03/24 11/03/24 11/03/24 11:55 16:44 17:30 WBC RBC 3.93 L Hgb 10.8 L Hct 34.5 L MCHC 31.3 L RDW 16.0 H MPV 10.5 H Immature Gran % (Auto) 0.7 H Neut % (Auto) 89.7 H Lymph % (Auto) 6.0 L [place] % (Auto) Baso % (Auto) 0.1 L Lymph # (Auto) 0.54 L [place] # (Auto) Abs Immat Gran (auto) 0.06 H Absolute Neuts (auto) 8.1 H Absolute Nucleated RBC ABG pCO2 ABG pO2 ABG HCO3 ABG O2 Saturation ABG O2 Content Total Hemoglobin Sodium Potassium Chloride 113 H Carbon Dioxide 18 L BUN 33 H Creatinine 1.13 H Estimated GFR 47 L Glucose 205 H POC Capillary Glucose 178 H 201 H Calcium Total Bilirubin AST NT-Pro-B Natriuret Pep Total Protein Albumin 11/03/24 11/04/24 11/04/24 21:17 00:29 04:12 WBC RBC 3.58 L Hgb 9.9 L Hct 31.7 L MCHC 31.2 L RDW 15.9 H MPV Immature Gran % (Auto) 0.6 H Neut % (Auto) 85.2 H Lymph % (Auto) 7.2 L [place] % (Auto) Baso % (Auto) Lymph # (Auto) 0.64 L [place] # (Auto) Abs Immat Gran (auto) 0.05 H Absolute Neuts (auto) 7.6 H Absolute Nucleated RBC ABG pCO2 32.6 L ABG pO2 60.8 L ABG HCO3 20.2 L ABG O2 Saturation 91.9 L ABG O2 Content 14.3 L Total Hemoglobin 11.3 L Sodium Potassium 3.1 L Chloride 115 H Carbon Dioxide 19 L BUN 36 H Creatinine 1.19 H Estimated GFR 44 L Glucose 190 H POC Capillary Glucose 193 H Calcium Total Bilirubin AST 37 H NT-Pro-B Natriuret Pep 81379 H Total Protein 5.8 L Albumin 2.8 L 11/04/24 11/04/24 06:53 12:02 WBC RBC Hgb Hct MCHC RDW MPV Immature Gran % (Auto) Neut % (Auto) Lymph % (Auto) [place] % (Auto) Baso % (Auto) Lymph # (Auto) [place] # (Auto) Abs Immat Gran (auto) Absolute Neuts (auto) Absolute Nucleated RBC ABG pCO2 ABG pO2 ABG HCO3 ABG O2 Saturation ABG O2 Content Total Hemoglobin Sodium Potassium Chloride Carbon Dioxide BUN Creatinine Estimated GFR Glucose POC Capillary Glucose 159 H 131 H Calcium Total Bilirubin AST NT-Pro-B Natriuret Pep Total Protein Albumin
[2024-11-04] MEDS: PERFLUTREN LIPID MICROSPHERES 1.5 ML VIAL DILUTED TO 10 ML TOTAL VOLUME IV PUSH (16:20)
--- NOTE | 2024-11-04 16:29 | IVDEFINITY ---
Prior to administration of IV Definity the patient was educated on the risks and benefits of the imaging enhancing agent including potential adverse side effects. The patient verbalized understanding. Allergies were verified. No exclusion criteria were identified and at least one of the following inclusion criteria were met: 1) physician request, 2) patient technically difficult to image (per the [place] [employer] guidelines of two or more segments not discernable within the apical view), or 3) questionable left ventricular function. ?
--- NOTE | 2024-11-04 20:14 | PCRCNOTE ---
11/03: 0200 treatment was missed
[2024-11-04] MEDS: METOPROLOL TARTRATE INJ 5 MG/5 ML VIAL IV PUSH (21:03)
[2024-11-05] VITALS (33 sets, daily range): BP systolic 122–168; BP diastolic 75–90; PULSE 67–141; RESP 17–30; TEMP 36.4–37; O2SAT 91–100
[2024-11-05] MEDS: IPRATROPIUM 0.5 MG/ALBUTEROL SULFATE 2.5 MG AMPUL.NEB 3 ML INHALATION ×2 (02:10→09:00)
[2024-11-05 04:39] LABS: Hematocrit 31.2 % (37.0-47.0); Hemoglobin 10.1 g/dL (12.0-15.0); Immature Granulocyte Percent A 0.7 % (0-0.5); Lymphocytes Absolute Auto 1.06 K/mm3 (0.9-3.2); Mean Corpuscular HGB Conc 32.4 g/dl (32-36); Mean Corpuscular Hemoglobin 27.7 pg (26-34); Mean Corpuscular Volume 85.5 fl (80-100); Nucleated Red Blood Cells Absolute Auto 0.000 K/mm3 (0.0-0.012); Nucleated Red Blood Cells Perc 0.0 % (0.0-0.2); Platelet Count Result 256 k/mm3 (150-375); Red Blood Count 3.65 M/mm3 (4.2-5.4); White Blood Count 8.3 K/mm3 (4.5-10.0)
[2024-11-05] MEDS: MEROPENEM 1 GM in SODIUM CHLORIDE 0.9% IV 100 ML 200 ML IVPB ×2 (04:57→17:14)
[2024-11-05 05:13] LABS: Alanine Aminotransferase 15 U/L (6-35); Albumin Level 2.9 g/dL (3.5-5.1); Alkaline Phosphatase 89 U/L (38-126); Anion Gap 8 mmol/L (4-12); Aspartate Amino Transferase 44 U/L (14-36); Bilirubin,Total 0.7 mg/dL (0.2-1.3); Blood Urea Nitrogen 43 mg/dL (7-17); Calcium 8.8 mg/dL (8.4-10.2); Carbon Dioxide 22 mmol/L (22-30); Chloride 112 mmol/L (98-107); Estimated CRCL calculation 37 ml/min; Estimated Glomerular Filt Rate 49; Glucose 137 mg/dL (65-110); Magnesium 2.1 mg/dL (1.6-2.3); Potassium 2.8 mmol/L (3.4-5.0); Sodium 142 mmol/L (137-145); Total Protein 5.8 g/dL (6.3-8.2)
[2024-11-05] MEDS: POTASSIUM CHLORIDE INJ 40 MEQ in SODIUM CHLORIDE 0.9% IV 500 ML 130 MEQ IVPB (05:34)
[2024-11-05] MEDS: POTASSIUM CHLORIDE 20 MEQ PACKET (FOR LIQUID) 40 MEQ PO (05:36)
--- NOTE | 2024-11-05 07:54 | PM.IMPN ---
Progress Note: A&P Assessment and Plan (1) Colonic obstruction: Code(s): K56.609 - Unspecified intestinal obstruction, unspecified as to partial versus complete obstruction Status: Acute Plan # Colonic obstruction: CT scan showed high-grade obstruction within the mid to distal sigmoid colon, lymphadenopathy, and aerated stool within the entirety of the colon. Sigmoidoscopy in mid September showed diverticulosis but was otherwise unremarkable. Continue empiric antibiotic to cover for possible diverticulitis. Further and definitive management as per the surgical service. 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 will consult oncology # CKD stage 3 Kidney function stable # Hypokalemia, hyponatremia Replete with potassium chloride Patient is on normal saline IV # Hypertension: home medications currenlty on hold # acute on chronic hypoxic respiratory failure requiring high oxygen 11/03/2024 Procalcitonin was elevated 2.3 changed antibiotic to meropenem and add vancomycin Sputum culture Chest x-ray with bilateral opacities noted. I suspect these are congestive changes and received 20 mg of Lasix 11/02/2024 another dose 11/03. She is cumulatively positive 16 L since admission BNP came back elevated at 15,000 as well. Use of CPAP at night time Placed on monitor and continuous oxygen which has progressively worsened requiring bipap Could also be COPD exacerbation With active wheezing. Give a dose of Solu-Medrol not much wheezing now, so will avoid solumedrol start lasix 40 mg iv bid. check echo fluid restriction 1500 cc per day montior cxr pulmonary consultation, rule out PE. stllnot edwina to do CTA diuresing well. cxr looks a bit better but still quite hypoxic. # afib with rvr overnigth. not able to give coreg. will hold. iv metoprolol scheduled. if needed will start iv diltiazem gtt. cardiology consult # Obstructive sleep apnea: CPAP will be provided for the patient to use while hospitalized. currently on bipap at night # Chronic obstructive pulmonary disease: No acute issues. Continue Advair Diskus. Subjective Date/time seen: 11/05/24 07:54 Interval history: continues to require bipap continuos. patient reports feels better. patient has afib with rvr overngiht, received a dose of metoprolol iv. Review of Systems Review of Systems: All systems reviewed & are unremarkable except as noted in HPI and below Exam Narrative: GENERAL: Pleasant, in no acute distress. Well-nourished. - EYES: EOMI. Anicteric. - HENT: Moist mucous membranes. - LUNGS: Diminished breath sounds bilaterally, coarse breath sounds with no wheezes no respiratory distress - CARDIOVASCULAR: afib with rvr, No murmur. No JVD. - ABDOMEN: Soft, mildly distended bowel sound positive, colostomy on left and ostomy bag on right midline incision covered with dressing which is clean dry and intact. - EXTREMITIES: No edema. Peripheral pulses 2+. Non-tender. - NEUROLOGIC: No focal neurological deficits. CN II-XII grossly intact. - PSYCHIATRIC: Awake, Alert and oriented x 3. Appropriate mood and affect. - SKIN: No rashes or lesions. Warm. - LYMPH: No cervical lymphadenopathy. Objective Data Vital Signs Vital Signs: Vital Signs - 24 hr 11/04/24 08:00 11/04/24 08:00 11/04/24 08:00 Temperature 97.6 F Pulse Rate 65 62 Respiratory Rate 26 H Blood Pressure 153/67 H Pulse Oximetry 90 93 Oxygen Delivery BiPAP Oxygen Flow Rate 18 Fraction of Inspired Oxygen 60 11/04/24 09:05 11/04/24 09:05 11/04/24 09:06 Temperature Pulse Rate 66 66 67 Respiratory Rate 27 H 29 H Blood Pressure Pulse Oximetry 93 Oxygen Delivery BiPAP Oxygen Flow Rate Fraction of Inspired Oxygen 11/04/24 09:12 11/04/24 10:00 11/04/24 10:40 Temperature Pulse Rate 67 71 71 Respiratory Rate 28 H 23 H Blood Pressure Pulse Oximetry 93 Oxygen Delivery High Flow Therapy with Na Oxygen Flow Rate 45 Fraction of Inspired Oxygen 75 11/04/24 11:25 11/04/24 12:00 11/04/24 12:00 Temperature Pulse Rate 69 70 Respiratory Rate 25 H Blood Pressure Pulse Oximetry 91 93 Oxygen Delivery BiPAP BiPAP Oxygen Flow Rate 18 Fraction of Inspired Oxygen 60 11/04/24 12:00 11/04/24 14:00 11/04/24 14:22 Temperature 98 F Pulse Rate 73 71 68 Respiratory Rate 28 H 27 H Blood Pressure 174/74 H Pulse Oximetry 92 Oxygen Delivery Oxygen Flow Rate Fraction of Inspired Oxygen 11/04/24 14:31 11/04/24 15:52 11/04/24 16:00 Temperature Pulse Rate 69 79 Respiratory Rate 28 H 29 H Blood Pressure Pulse Oximetry 94 92 Oxygen Delivery BiPAP BiPAP Oxygen Flow Rate 18 Fraction of Inspired Oxygen 60 11/04/24 16:00 11/04/24 16:00 11/04/24 18:00 Temperature 97.6 F Pulse Rate 74 73 69 Respiratory Rate 27 H Blood Pressure 152/74 H Pulse Oximetry 94 Oxygen Delivery Oxygen Flow Rate Fraction of Inspired Oxygen 11/04/24 19:49 11/04/24 20:00 11/04/24 20:09 Temperature Pulse Rate 128 H 124 H Respiratory Rate 26 H Blood Pressure Pulse Oximetry 92 Oxygen Delivery BiPAP Oxygen Flow Rate 18 Fraction of Inspired Oxygen 60 11/04/24 20:09 11/04/24 20:19 11/04/24 20:26 Temperature 97.6 F Pulse Rate 118 H 133 H 118 H Respiratory Rate 26 H 26 H 26 H Blood Pressure 135/60 Pulse Oximetry 99 100 99 Oxygen Delivery BiPAP BiPAP Oxygen Flow Rate Fraction of Inspired Oxygen 60 11/04/24 20:26 11/04/24 21:03 11/04/24 21:05 Temperature Pulse Rate 124 H 140 H 140 H Respiratory Rate 26 H Blood Pressure Pulse Oximetry Oxygen Delivery Oxygen Flow Rate Fraction of Inspired Oxygen 11/04/24 22:23 11/04/24 23:00 11/05/24 00:00 Temperature Pulse Rate 124 H 110 H Respiratory Rate 27 H Blood Pressure Pulse Oximetry 95 95 Oxygen Delivery BiPAP BiPAP Oxygen Flow Rate 18 Fraction of Inspired Oxygen 60 11/05/24 00:00 11/05/24 00:18 11/05/24 02:00 Temperature 97.5 F L Pulse Rate 123 H 127 H 120 H Respiratory Rate 26 H Blood Pressure 128/85 Pulse Oximetry 93 Oxygen Delivery Oxygen Flow Rate Fraction of Inspired Oxygen 11/05/24 02:10 11/05/24 02:18 11/05/24 02:50 Temperature Pulse Rate 124 H 124 H 113 H Respiratory Rate 26 H 26 H 27 H Blood Pressure Pulse Oximetry 96 Oxygen Delivery BiPAP Oxygen Flow Rate Fraction of Inspired Oxygen 11/05/24 04:00 11/05/24 04:00 11/05/24 04:55 Temperature 97.6 F Pulse Rate 108 H 125 H Respiratory Rate 26 H Blood Pressure 146/87 H Pulse Oximetry 94 95 Oxygen Delivery BiPAP Oxygen Flow Rate 18 Fraction of Inspired Oxygen 60 11/05/24 06:00 11/05/24 07:46 Temperature 98.1 F Pulse Rate 122 H 141 H Respiratory Rate 30 H Blood Pressure 131/77 Pulse Oximetry 100 Oxygen Delivery Oxygen Flow Rate Fraction of Inspired Oxygen Intake/Output Intake/Output: Intake & Output 11/02/24 11/03/24 11/04/24 11/05/24 23:59 23:59 23:59 23:59 Intake Total 4090 4460 760 Output Total 500 2100 1900 Balance 4090 3960 -1340 -1900 Meds/Results Medications: Active Medications Generic Name Dose Route Start Last Admin Trade Name Freq PRN Reason Stop Dose Admin Acetaminophen 650 mg 11/04/24 13:56 Acetaminophen 325 Mg Tablet PO Q4H PRN Mild Pain (1-3) or Fever Hydrocodone Bitart/Acetaminophen 1 tab 11/04/24 13:56 Hydrocodone/Acetaminophen (*Crx) 5-325 Mg Tablet PO Q4H PRN Pain Rated 4-6 Albuterol/Ipratropium 3 ml 11/03/24 14:00 11/05/24 02:10 Ipratropium 0.5 Mg/Albuterol Sulfate 2.5 Mg Ampul.Neb 3 Ml INHALATION 3 ml Q6HRT JANNIE Administration Atorvastatin Calcium 80 mg 10/30/24 09:00 11/04/24 09:03 Atorvastatin 40 Mg Tablet PO 80 mg DAILY JANNIE Administration Calcium Carbonate 500 mg 10/30/24 09:00 11/04/24 09:03 Calcium/Vitamin D 500 Mg/5 Mcg (200 I.U.) Tablet PO 500 mg DAILY JANNIE Administration Carvedilol 6.25 mg 10/29/24 21:00 11/04/24 21:05 Carvedilol 6.25 Mg Tablet PO 6.25 mg Q12HR JANNIE Administration Dextrose 12.5 gm 10/29/24 22:59 Dextrose 50% 25 Gm/50 Ml Syringe IV PUSH PRN PRN Hypoglycemia Protocol Enoxaparin Sodium 40 mg 11/01/24 09:00 11/04/24 09:03 Enoxaparin 40 Mg/0.4 Ml Syringe SUB-Q 40 mg DAILY JANNIE Administration Furosemide 40 mg 11/04/24 17:00 11/04/24 17:22 Furosemide Inj 40 Mg/4 Ml Vial IV PUSH 40 mg BID JANNIE Administration Glucagon 1 mg 10/29/24 22:59 Glucagon For Inj 1 Mg Vial IM PRN PRN Hypoglycemia Protocol Glucose 15 gm 10/29/24 22:59 Glucose Oral Gel 15 Gm Of Glucse In 37.5 Gm Tube PO PRN PRN Hypoglycemia Protocol Hydromorphone HCl 1 mg 10/31/24 13:20 11/01/24 23:47 Hydromorphone Hcl Inj (*Crx) 2 Mg/Ml Vial IV PUSH 1 mg Q3H PRN Administration Pain Rated 7-10 Dextrose 1,000 mls @ 100 mls/hr 10/29/24 22:59 Dextrose 5% 1,000 Ml IVPB PRN PRN Hypoglycemia Protocol Meropenem 1 gm/ Sodium 100 mls @ 200 mls/hr 11/03/24 16:00 11/05/24 04:57 Chloride IVPB 200 mls/hr Q12H JANNIE Administration Ibuprofen 800 mg in 200 mls @ 400 mls/hr 11/04/24 13:55 Caldolor 800 Mg/200 Ml IVPB Q8HR PRN Pain Rated 4-6 IF NPO Potassium Chloride 40 meq/ 520 mls @ 130 mls/hr 11/05/24 05:17 11/05/24 05:34 Sodium Chloride IVPB 11/05/24 09:16 130 mls/hr ONCE ONE Administration Insulin Aspart 2 - 5 units 10/30/24 00:00 11/05/24 05:42 Insulin Aspart (*Bkc) 100 Units/Ml SUB-Q Not Given Q6HR [facility] Protocol Ipratropium [place] 2 spray 10/29/24 17:00 11/03/24 17:26 Ipratropium Nasal [place] 0.03% 15 Ml Bottle NASAL 2 spray TID JANNIE Administration Losartan Potassium 50 mg 10/30/24 09:00 11/03/24 08:57 Losartan Potassium 50 Mg Tablet PO 50 mg DAILY JANNIE Administration Metoprolol Tartrate 5 mg 11/05/24 08:00 Metoprolol Tartrate Inj 5 Mg/5 Ml Vial IV PUSH Q6H JANNIE Ondansetron HCl 4 mg 10/29/24 15:17 10/30/24 21:43 Ondansetron Inj 4 Mg/2 Ml Vial IV PUSH 4 mg Q4H PRN Administration Nausea And Vomiting Ondansetron HCl 4 mg 10/29/24 15:30 Ondansetron Inj 4 Mg/2 Ml Vial IV PUSH Q4H PRN Nausea And Vomiting Pantoprazole Sodium 40 mg 10/30/24 09:00 11/04/24 09:03 Pantoprazole Sodium Iv 40 Mg Vial IV PUSH 40 mg QAM JANNIE Administration Fluticasone/Salmeterol 2 puff 10/29/24 20:00 11/04/24 20:09 Fluticasone/Salmeterol 115-21 Mcg Inhaler 1 Puff INHALATION 2 puff Q12HRT JANNIE Administration Sertraline HCl 100 mg 10/29/24 17:00 11/04/24 17:22 Sertraline Hcl 50 Mg Tablet PO 100 mg BID JANNIE Administration Radiology Results: ITS Impressions Abdomen/Pelvis CT 10/29/24 17:43 IMPRESSION: High-grade obstruction within the mid to distal sigmoid colon for which a malignancy is suspected. Aerated stool (with pneumatosis less likely) within the entirety of the colon, proximal to the mid to distal sigmoid colon. Retroperitoneal and mesenteric lymphadenopathy. Secondary signs suggesting hypovolemia. 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 Chest X-Ray 11/05/24 06:41 Impression: 1: Diffuse bilateral airspace disease stable, most likely edema versus pneumonia. Labs Labs: Laboratory Results - last 24 hr 11/04/24 11/04/24 11/05/24 12:02 18:27 00:29 WBC RBC Hgb Hct MCV MCH MCHC RDW Plt Count MPV Immature Gran % (Auto) Neut % (Auto) Lymph % (Auto) [place] % (Auto) Eos % (Auto) Baso % (Auto) Lymph # (Auto) [place] # (Auto) Eos # (Auto) Baso # (Auto) Abs Immat Gran (auto) Absolute Neuts (auto) Absolute Nucleated RBC Nucleated RBC % Sodium Potassium Chloride Carbon Dioxide Anion Gap BUN Creatinine Estim Creat Clear Calc Estimated GFR Glucose POC Capillary Glucose 131 H 129 H 132 H Calcium Magnesium Total Bilirubin AST ALT Alkaline Phosphatase Total Protein Albumin 11/05/24 04:16 WBC 8.3 RBC 3.65 L Hgb 10.1 L Hct 31.2 L MCV 85.5 MCH 27.7 MCHC 32.4 RDW 16.0 H Plt Count 256 MPV 10.5 H Immature Gran % (Auto) 0.7 H Neut % (Auto) 79.8 H Lymph % (Auto) 12.7 L [place] % (Auto) 6.7 Eos % (Auto) 0.0 Baso % (Auto) 0.1 L Lymph # (Auto) 1.06 [place] # (Auto) 0.6 Eos # (Auto) 0.0 Baso # (Auto) 0.0 Abs Immat Gran (auto) 0.06 H Absolute Neuts (auto) 6.7 Absolute Nucleated RBC 0.000 Nucleated RBC % 0.0 Sodium 142 Potassium 2.8 L* Chloride 112 H Carbon Dioxide 22 Anion Gap 8 BUN 43 H Creatinine 1.08 H Estim Creat Clear Calc 37 Estimated GFR 49 L Glucose 137 H POC Capillary Glucose Calcium 8.8 Magnesium 2.1 Total Bilirubin 0.7 AST 44 H ALT 15 Alkaline Phosphatase 89 Total Protein 5.8 L Albumin 2.9 L
[2024-11-05] MEDS: FLUTICASONE/SALMETEROL 115-21 MCG INHALER 1 PUFF 2 PUFF INHALATION ×2 (09:00→20:15)
[2024-11-05] MEDS: ENOXAPARIN 40 MG/0.4 ML SYRINGE SUB-Q (10:20)
[2024-11-05] MEDS: PANTOPRAZOLE SODIUM IV 40 MG VIAL IV PUSH (10:21)
[2024-11-05] MEDS: METOPROLOL TARTRATE INJ 5 MG/5 ML VIAL IV PUSH ×3 (10:22→20:44)
[2024-11-05] MEDS: CALCIUM/VITAMIN D 500 MG/5 MCG (200 I.U.) TABLET PO (10:23)
[2024-11-05] MEDS: FUROSEMIDE INJ 40 MG/4 ML VIAL IV PUSH ×2 (10:23→17:17)
--- NOTE | 2024-11-05 11:03 | PM.PNGS ---
Progress Note: A&P Assessment and Plan (1) Colonic obstruction: Code(s): K56.609 - Unspecified intestinal obstruction, unspecified as to partial versus complete obstruction Status: Acute Assessment and Plan: Patient tolerating a regular diet without nausea or vomiting. Transverse colostomy and mucous fistula are retracted, but appear viable and are functioning. Wound/ostomy nurses are following and plan to do ostomy teaching with patient once her respiratory status improves. Pathology showing metastatic adenocarcinoma. Oncology consulted, but it appears they have not been able to speak wwith patient yet. Patient and daughter are aware of diagnosis. (2) Acute respiratory failure: Qualifiers: Respiratory failure complication: hypoxia Qualified Code(s): J96.01 - Acute respiratory failure with hypoxia Code(s): J96.00 - Acute respiratory failure, unspecified whether with hypoxia or hypercapnia Status: Acute Assessment and Plan: Patient remains on continuous BiPAP. BNP up to 26,000 yesterday. Patient on Lasix and fluid restriction diet. Potassium down to 2.8 and being replaced by Hospitalist. Chest x-ray demonstrated diffuse bilateral airspace disease stable, most likely edema versus pneumonia. Echo ordered, but not obtained yet. (3) Atrial fibrillation with rapid ventricular response: Code(s): I48.91 - Unspecified atrial fibrillation Status: Acute Assessment and Plan: Patient was tachypneic and tachycardic last night. She was found to be in AFib with RVR. Cardiology consulted. (4) Coronary artery disease: Code(s): I25.10 - Atherosclerotic heart disease of [place] coronary artery without angina pectoris Status: Acute Plan I have discussed the patient's case and plan of care with Dr. Campos. Subjective Subjective Date/Time Seen: 11/05/24 11:03 Post Op day: 5 (Attempted robotic assisted laparoscopic transverse loop colostomy with conversion to open transverse and colostomy and placement of mucous fistula) Patient reports: no new complaints Interval history: Patient tachycardic and tachypneic overnight and into this morning. Per hospitalist note, patient went into afib with RVR overnight. Cardiology consulted. WBC remains stable. Oncology consulted, but it appears they have not been by yet. Still on continuous BiPap. On Airvo upon visit today, but likely just a break from bipap. Tolerating heart healthy diet without nausea or vomiting. Exam GI: Inspection: non-distended and other ( ostomy patent and functioning, hard to see mucosa due to excessive stool) Auscultation: normal bowel sounds Other: Abdomen mildly distended and soft. Midline incision dressing is dry and intact. Transverse colostomy has large amount of loose, brown stool in bag. Difficult to assess stoma due to excessive stool, but appears pink and viable, slightly retracted. Mucous fistula has one small ball of hard stool in the bag, otherwise empty. Stoma is slightly dark/dusky and retracted. Objective Data Vital Signs Vital Signs: Vital Signs - 24 hr 11/04/24 11:25 11/04/24 12:00 11/04/24 12:00 Temperature Pulse Rate 69 70 Respiratory Rate 25 H Blood Pressure Pulse Oximetry 91 93 Oxygen Delivery BiPAP BiPAP Oxygen Flow Rate 18 Fraction of Inspired Oxygen 60 11/04/24 12:00 11/04/24 14:00 11/04/24 14:22 Temperature 98 F Pulse Rate 73 71 68 Respiratory Rate 28 H 27 H Blood Pressure 174/74 H Pulse Oximetry 92 Oxygen Delivery Oxygen Flow Rate Fraction of Inspired Oxygen 11/04/24 14:31 11/04/24 15:52 11/04/24 16:00 Temperature Pulse Rate 69 79 Respiratory Rate 28 H 29 H Blood Pressure Pulse Oximetry 94 92 Oxygen Delivery BiPAP BiPAP Oxygen Flow Rate 18 Fraction of Inspired Oxygen 60 11/04/24 16:00 11/04/24 16:00 11/04/24 18:00 Temperature 97.6 F Pulse Rate 74 73 69 Respiratory Rate 27 H Blood Pressure 152/74 H Pulse Oximetry 94 Oxygen Delivery Oxygen Flow Rate Fraction of Inspired Oxygen 11/04/24 19:49 11/04/24 20:00 11/04/24 20:09 Temperature Pulse Rate 128 H 124 H Respiratory Rate 26 H Blood Pressure Pulse Oximetry 92 Oxygen Delivery BiPAP Oxygen Flow Rate 18 Fraction of Inspired Oxygen 60 11/04/24 20:09 11/04/24 20:19 11/04/24 20:26 Temperature 97.6 F Pulse Rate 118 H 133 H 118 H Respiratory Rate 26 H 26 H 26 H Blood Pressure 135/60 Pulse Oximetry 99 100 99 Oxygen Delivery BiPAP BiPAP Oxygen Flow Rate Fraction of Inspired Oxygen 60 11/04/24 20:26 11/04/24 21:03 11/04/24 21:05 Temperature Pulse Rate 124 H 140 H 140 H Respiratory Rate 26 H Blood Pressure Pulse Oximetry Oxygen Delivery Oxygen Flow Rate Fraction of Inspired Oxygen 11/04/24 22:23 11/04/24 23:00 11/05/24 00:00 Temperature Pulse Rate 124 H 110 H Respiratory Rate 27 H Blood Pressure Pulse Oximetry 95 95 Oxygen Delivery BiPAP BiPAP Oxygen Flow Rate 18 Fraction of Inspired Oxygen 60 11/05/24 00:00 11/05/24 00:18 11/05/24 02:00 Temperature 97.5 F L Pulse Rate 123 H 127 H 120 H Respiratory Rate 26 H Blood Pressure 128/85 Pulse Oximetry 93 Oxygen Delivery Oxygen Flow Rate Fraction of Inspired Oxygen 11/05/24 02:10 11/05/24 02:18 11/05/24 02:50 Temperature Pulse Rate 124 H 124 H 113 H Respiratory Rate 26 H 26 H 27 H Blood Pressure Pulse Oximetry 96 Oxygen Delivery BiPAP Oxygen Flow Rate Fraction of Inspired Oxygen 11/05/24 04:00 11/05/24 04:00 11/05/24 04:55 Temperature 97.6 F Pulse Rate 108 H 125 H Respiratory Rate 26 H Blood Pressure 146/87 H Pulse Oximetry 94 95 Oxygen Delivery BiPAP Oxygen Flow Rate 18 Fraction of Inspired Oxygen 60 11/05/24 06:00 11/05/24 07:46 11/05/24 09:13 Temperature 98.1 F Pulse Rate 122 H 141 H 135 H Respiratory Rate 30 H 30 H Blood Pressure 131/77 Pulse Oximetry 100 95 Oxygen Delivery BiPAP Oxygen Flow Rate Fraction of Inspired Oxygen 11/05/24 09:14 11/05/24 10:22 Temperature Pulse Rate 119 H Respiratory Rate Blood Pressure Pulse Oximetry 95 Oxygen Delivery BiPAP Oxygen Flow Rate Fraction of Inspired Oxygen 60 Intake/Output Intake/Output: Intake & Output 11/02/24 11/03/24 11/04/24 11/05/24 23:59 23:59 23:59 23:59 Intake Total 4090 4460 760 Output Total 500 2100 1900 Balance 4090 3960 -1340 -1900 Meds/Results Medications: Active Medications Generic Name Dose Route Start Last Admin Trade Name Freq PRN Reason Stop Dose Admin Acetaminophen 650 mg 11/04/24 13:56 Acetaminophen 325 Mg Tablet PO Q4H PRN Mild Pain (1-3) or Fever Hydrocodone Bitart/Acetaminophen 1 tab 11/04/24 13:56 Hydrocodone/Acetaminophen (*Crx) 5-325 Mg Tablet PO Q4H PRN Pain Rated 4-6 Albuterol/Ipratropium 3 ml 11/03/24 14:00 11/05/24 09:00 Ipratropium 0.5 Mg/Albuterol Sulfate 2.5 Mg Ampul.Neb 3 Ml INHALATION 3 ml Q6HRT JANNIE Administration Atorvastatin Calcium 80 mg 10/30/24 09:00 11/04/24 09:03 Atorvastatin 40 Mg Tablet PO 80 mg DAILY JANNIE Administration Calcium Carbonate 500 mg 10/30/24 09:00 11/05/24 10:23 Calcium/Vitamin D 500 Mg/5 Mcg (200 I.U.) Tablet PO 500 mg DAILY JANNIE Administration Carvedilol 6.25 mg 10/29/24 21:00 11/04/24 21:05 Carvedilol 6.25 Mg Tablet PO 6.25 mg Q12HR JANNIE Administration Dextrose 12.5 gm 10/29/24 22:59 Dextrose 50% 25 Gm/50 Ml Syringe IV PUSH PRN PRN Hypoglycemia Protocol Enoxaparin Sodium 40 mg 11/01/24 09:00 11/05/24 10:20 Enoxaparin 40 Mg/0.4 Ml Syringe SUB-Q 40 mg DAILY JANNIE Administration Furosemide 40 mg 11/04/24 17:00 11/05/24 10:23 Furosemide Inj 40 Mg/4 Ml Vial IV PUSH 40 mg BID JANNIE Administration Glucagon 1 mg 10/29/24 22:59 Glucagon For Inj 1 Mg Vial IM PRN PRN Hypoglycemia Protocol Glucose 15 gm 10/29/24 22:59 Glucose Oral Gel 15 Gm Of Glucse In 37.5 Gm Tube PO PRN PRN Hypoglycemia Protocol Hydromorphone HCl 1 mg 10/31/24 13:20 11/01/24 23:47 Hydromorphone Hcl Inj (*Crx) 2 Mg/Ml Vial IV PUSH 1 mg Q3H PRN Administration Pain Rated 7-10 Dextrose 1,000 mls @ 100 mls/hr 10/29/24 22:59 Dextrose 5% 1,000 Ml IVPB PRN PRN Hypoglycemia Protocol Meropenem 1 gm/ Sodium 100 mls @ 200 mls/hr 11/03/24 16:00 11/05/24 04:57 Chloride IVPB 200 mls/hr Q12H JANNIE Administration Ibuprofen 800 mg in 200 mls @ 400 mls/hr 11/04/24 13:55 Caldolor 800 Mg/200 Ml IVPB Q8HR PRN Pain Rated 4-6 IF NPO Insulin Aspart 2 - 5 units 10/30/24 00:00 11/05/24 05:42 Insulin Aspart (*Bkc) 100 Units/Ml SUB-Q Not Given Q6HR [facility] Protocol Ipratropium [place] 2 spray 10/29/24 17:00 11/03/24 17:26 Ipratropium Nasal [place] 0.03% 15 Ml Bottle NASAL 2 spray TID JANNIE Administration Losartan Potassium 50 mg 10/30/24 09:00 11/03/24 08:57 Losartan Potassium 50 Mg Tablet PO 50 mg DAILY JANNIE Administration Metoprolol Tartrate 5 mg 11/05/24 08:00 11/05/24 10:22 Metoprolol Tartrate Inj 5 Mg/5 Ml Vial IV PUSH 5 mg Q6H JANNIE Administration Ondansetron HCl 4 mg 10/29/24 15:30 Ondansetron Inj 4 Mg/2 Ml Vial IV PUSH Q4H PRN Nausea And Vomiting Pantoprazole Sodium 40 mg 10/30/24 09:00 11/05/24 10:21 Pantoprazole Sodium Iv 40 Mg Vial IV PUSH 40 mg QAM JANNIE Administration Fluticasone/Salmeterol 2 puff 10/29/24 20:00 11/05/24 09:00 Fluticasone/Salmeterol 115-21 Mcg Inhaler 1 Puff INHALATION 2 puff Q12HRT JANNIE Administration Sertraline HCl 100 mg 10/29/24 17:00 11/04/24 17:22 Sertraline Hcl 50 Mg Tablet PO 100 mg BID JANNIE Administration Radiology Results: ITS Impressions Abdomen/Pelvis CT 10/29/24 17:43 IMPRESSION: High-grade obstruction within the mid to distal sigmoid colon for which a malignancy is suspected. Aerated stool (with pneumatosis less likely) within the entirety of the colon, proximal to the mid to distal sigmoid colon. Retroperitoneal and mesenteric lymphadenopathy. Secondary signs suggesting hypovolemia. 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 Chest X-Ray 11/05/24 06:41 Impression: 1: Diffuse bilateral airspace disease stable, most likely edema versus pneumonia. Labs Labs: Laboratory Results - last 24 hr 11/04/24 11/04/24 11/05/24 12:02 18:27 00:29 WBC RBC Hgb Hct MCV MCH MCHC RDW Plt Count MPV Immature Gran % (Auto) Neut % (Auto) Lymph % (Auto) [place] % (Auto) Eos % (Auto) Baso % (Auto) Lymph # (Auto) [place] # (Auto) Eos # (Auto) Baso # (Auto) Abs Immat Gran (auto) Absolute Neuts (auto) Absolute Nucleated RBC Nucleated RBC % Sodium Potassium Chloride Carbon Dioxide Anion Gap BUN Creatinine Estim Creat Clear Calc Estimated GFR Glucose POC Capillary Glucose 131 H 129 H 132 H Calcium Magnesium Total Bilirubin AST ALT Alkaline Phosphatase Total Protein Albumin 11/05/24 04:16 WBC 8.3 RBC 3.65 L Hgb 10.1 L Hct 31.2 L MCV 85.5 MCH 27.7 MCHC 32.4 RDW 16.0 H Plt Count 256 MPV 10.5 H Immature Gran % (Auto) 0.7 H Neut % (Auto) 79.8 H Lymph % (Auto) 12.7 L [place] % (Auto) 6.7 Eos % (Auto) 0.0 Baso % (Auto) 0.1 L Lymph # (Auto) 1.06 [place] # (Auto) 0.6 Eos # (Auto) 0.0 Baso # (Auto) 0.0 Abs Immat Gran (auto) 0.06 H Absolute Neuts (auto) 6.7 Absolute Nucleated RBC 0.000 Nucleated RBC % 0.0 Sodium 142 Potassium 2.8 L* Chloride 112 H Carbon Dioxide 22 Anion Gap 8 BUN 43 H Creatinine 1.08 H Estim Creat Clear Calc 37 Estimated GFR 49 L Glucose 137 H POC Capillary Glucose Calcium 8.8 Magnesium 2.1 Total Bilirubin 0.7 AST 44 H ALT 15 Alkaline Phosphatase 89 Total Protein 5.8 L Albumin 2.9 L
--- NOTE | 2024-11-05 11:12 | PM.CNCAR ---
Assessment and Plan Assessment and plan (1) Atrial fibrillation with rapid ventricular response: Code(s): I48.91 - Unspecified atrial fibrillation Status: Acute Plan New diagnosis of AFib with RVR spontaneously cardioverted to sinus rhythm-currently heart rates in the 70s; she is asymptomatic from AFib Acute systolic heart failure with moderately depressed LVEF of 35 to 40% which is new Acute right heart failure-new Acute hypoxic respiratory failure COPD exacerbation High-grade mid to distal sigmoid colon obstruction status post open transverse end colostomy and placement of mucous fistula and peritoneal biopsy x2 on 10/31/2024- pathology shows metastatic adenocarcinoma Hypokalemia with potassium of 2.8 Plan: -AFib is most likely secondary to stress of acute illness. She spontaneously cardioverted back to sinus rhythm. She is at risk of stroke given she is going in and out of atrial fibrillation. Recommend anticoagulation for AFib when safe from surgical standpoint -Increase Coreg to 12.5 mg p.o. b.i.d. -Guideline directed medical therapy for systolic heart failure. Add empagliflozin 10 mg daily. Add HOLLY-inhibitor/Arb/Entresto if blood pressure tolerates and renal function normal. Add spironolactone 25 mg daily if renal function normal -She has no chest pain currently or prior to this admission. No indication for cardiac catheterization at this time. However given new drop in LVEF would recommend an outpatient evaluation of coronaries by stress test or cardiac catheterization after she recovers from her acute illness -Continue statin -IV Lasix 40 mg b.i.d. -Check and replace electrolytes to keep potassium greater than 4 and magnesium greater than 2 -Check daily weights and ins and outs -Check renal function daily -Continue to monitor on telemetry -Check TSH and free T4 -Management of other medical problems per primary team History of Present Illness History of Present Illness Consult date/time: 11/05/24 11:12 Reason For Visit: hypoxemia Narrative: 74-year-old female with history of CAD, hyperlipidemia, saccular aneurysm of infrarenal abdominal aorta, COPD, CKD stage IIIA, obstructive sleep apnea on CPAP, major depression in partial remission, iron deficiency, carpal tunnel syndrome, type 2 diabetes mellitus presents with chief complaints of abdominal pain, alternating diarrhea and constipation, nausea and emesis. Abdominal imaging revealed high-grade obstruction within the mid to distal sigmoid colon, lymphadenopathy, and aerated stool within the entirety of the colon. She is status post open transverse end colostomy and placement of mucous fistula and peritoneal biopsy x2 on 10/31/2024. Pathology came back with metastatic adenocarcinoma. Oncology has been consulted. During this hospitalization patient developed new onset AFib with RVR and Cardiology is consulted for further recommendations. Patient denies any chest pain, palpitations, dizziness, lightheadedness, presyncope, syncope, recent weight gain, leg swelling. She states that her abdominal pain has resolved after surgery. She reports chronic shortness of breath secondary to COPD. On postop day 1 she was noted to have hypoxic respiratory failure requiring increased oxygen. Pulmonary was consulted given her history of COPD. She smoked up until this admission, 5-10 cigarettes per day. She did not actively try tobacco cessation because she wanted to do it on her own. At home, her activity is limited due to right hip pain. She said that she is not limited due to shortness of breath during her daily activities. S Workup: Hemoglobin: 10.1 Potassium: 2.8 Creatinine: 1.08 NT proBNP: 49545 Troponin: Not checked EKG: Not on chart Telemetry: Sinus rhythm with rate in the 70s at this time Limited TTE: LVEF moderately reduced to 35-40% with paradoxical septal motion suggestive of prior cardiac surgery. RV is dilated with reduced systolic function. Chest x-ray: diffuse bilateral airspace disease, most likely edema Prior cardiac workup: Echo in 08/2024 at outside hospital: LVEF 60-65%, grade 1 diastolic function, normal RV systolic function, mild MR, mild TR, trace AR Review of Systems Review of Systems: A complete review of systems was performed and negative other than those mentioned in the [facility] Past Medical History Medical History (Updated 11/05/24 @ 11:32 by Chantale Navarro PA-C) Saccular aneurysm Saccular aneurysmal dilatation of infrarenal abdominal aorta. History of diverticulitis Chronic obstructive pulmonary disease Osteoarthritis of hips, bilateral Cigarette nicotine dependence with nicotine-induced disorder Stage 3a chronic kidney disease Obstructive sleep apnea Major depressive disorder in partial remission Iron deficiency Atherosclerosis of [place] coronary artery of [place] heart without angina pectoris Pure hypercholesterolemia, unspecified Essential (primary) hypertension Type 2 diabetes mellitus with chronic kidney disease Carpal tunnel syndrome Surgical History Surgical History (Updated 11/04/24 @ 18:02 by Chelsie Bullard MD) Hx of vaginal hysterectomy History of coronary artery bypass graft x 2 (2012) History of carotid endarterectomy (2007) Family History Family History Unknown Asthma Hypertension Depression Heart disease Lung disease Arthritis Cerebrovascular accident High cholesterol Social History Social History Social History: Surrogate medical decision maker: Lynn Mccarthy, daughter. Code status: Full code. Smoking packs per day: 0.5 Smoking cigarettes per day: 10.0 Years smoked: 45 Smoking pack-years: 22.50 Smoking status: Current every day smoker Alcohol intake: never Substance use: never Substance use type: does not use Do You Feel Safe in your Home?: Yes Lack of Transportation: No Lack of Food: Never True Current Housing: I Have Housing Concerned About Future Housing: No Difficulty Paying Gas/Electric Bills: No Difficulty Paying for Meds: No Currently Unemployed: No Education: High School Diploma/GED Difficulty w/ Childcare or Family Care: No Living arrangements: with family Occupation/Education: retired Spiritual care concerns: No Meds Home Medications and Allergies Home Medications ?Medication ?Instructions ?Recorded ?Confirmed ?Type aspirin 81 mg tablet,delayed 81 mg PO DAILY #90 tabs 08/18/23 10/29/24 Rx release famotidine 20 mg tablet 20 mg PO BID #180 tabs 08/18/23 10/29/24 Rx loratadine 10 mg tablet (Claritin) 10 mg PO DAILY #90 tabs 08/18/23 10/29/24 Rx rnonkbtm-ekv-nlbzs acid 0.4 1 tablet PO DAILY #90 tabs 08/18/23 10/29/24 Rx mg-lycopene 300 mcg-lutein 250 mcg tablet (Centrum Silver) calcium 500 mg (as 1 tablet PO DAILY 11/22/23 10/29/24 History carbonate)-vitamin D3 10 mcg (400 unit) tablet losartan 50 mg tablet 50 mg PO DAILY #90 tabs 05/10/24 10/29/24 Rx carvedilol 6.25 mg tablet 6.25 mg PO BID #180 tabs 08/07/24 10/29/24 Rx ferrous gluconate 324 mg (38 mg 324 mg PO DAILY #30 tabs 08/28/24 10/29/24 Rx iron) tablet atorvastatin 40 mg tablet 80 mg PO DAILY 09/03/24 10/29/24 History sertraline 100 mg tablet 100 mg PO BID #200 tabs 10/14/24 10/29/24 Rx ciprofloxacin HCl 500 mg tablet 500 mg PO Q12H #20 tabs 10/21/24 10/29/24 Rx ipratropium bromide 21 mcg (0.03 2 spray intranasal TID #30 mL 10/21/24 10/29/24 Rx %) nasal spray metronidazole 500 mg tablet 500 mg PO TID 10 days #30 tabs 10/21/24 10/29/24 Rx fluticasone 250 mcg-salmeterol 50 1 inh inhalation BID PRN COPD 10/29/24 10/29/24 History mcg/dose blistr powdr for inhalation (Advair Diskus) Allergies Allergy/AdvReac Type Severity Reaction Status Date / Time No Known Allergies Allergy Verified 10/31/24 06:22 Vital Signs Vital Signs - 24 hr 11/04/24 11:25 11/04/24 12:00 11/04/24 12:00 Temperature Pulse Rate 69 70 Respiratory Rate 25 H Blood Pressure Pulse Oximetry 91 93 Oxygen Delivery BiPAP BiPAP Oxygen Flow Rate 18 Fraction of Inspired Oxygen 60 11/04/24 12:00 11/04/24 14:00 11/04/24 14:22 Temperature 36.6 C Pulse Rate 73 71 68 Respiratory Rate 28 H 27 H Blood Pressure 174/74 H Pulse Oximetry 92 Oxygen Delivery Oxygen Flow Rate Fraction of Inspired Oxygen 11/04/24 14:31 11/04/24 15:52 11/04/24 16:00 Temperature Pulse Rate 69 79 Respiratory Rate 28 H 29 H Blood Pressure Pulse Oximetry 94 92 Oxygen Delivery BiPAP BiPAP Oxygen Flow Rate 18 Fraction of Inspired Oxygen 60 11/04/24 16:00 11/04/24 16:00 11/04/24 18:00 Temperature 36.4 C Pulse Rate 74 73 69 Respiratory Rate 27 H Blood Pressure 152/74 H Pulse Oximetry 94 Oxygen Delivery Oxygen Flow Rate Fraction of Inspired Oxygen 11/04/24 19:49 11/04/24 20:00 11/04/24 20:09 Temperature Pulse Rate 128 H 124 H Respiratory Rate 26 H Blood Pressure Pulse Oximetry 92 Oxygen Delivery BiPAP Oxygen Flow Rate 18 Fraction of Inspired Oxygen 60 11/04/24 20:09 11/04/24 20:19 11/04/24 20:26 Temperature 36.4 C Pulse Rate 118 H 133 H 118 H Respiratory Rate 26 H 26 H 26 H Blood Pressure 135/60 Pulse Oximetry 99 100 99 Oxygen Delivery BiPAP BiPAP Oxygen Flow Rate Fraction of Inspired Oxygen 60 11/04/24 20:26 11/04/24 21:03 11/04/24 21:05 Temperature Pulse Rate 124 H 140 H 140 H Respiratory Rate 26 H Blood Pressure Pulse Oximetry Oxygen Delivery Oxygen Flow Rate Fraction of Inspired Oxygen 11/04/24 22:23 11/04/24 23:00 11/05/24 00:00 Temperature Pulse Rate 124 H 110 H Respiratory Rate 27 H Blood Pressure Pulse Oximetry 95 95 Oxygen Delivery BiPAP BiPAP Oxygen Flow Rate 18 Fraction of Inspired Oxygen 60 11/05/24 00:00 11/05/24 00:18 11/05/24 02:00 Temperature 36.4 C L Pulse Rate 123 H 127 H 120 H Respiratory Rate 26 H Blood Pressure 128/85 Pulse Oximetry 93 Oxygen Delivery Oxygen Flow Rate Fraction of Inspired Oxygen 11/05/24 02:10 11/05/24 02:18 11/05/24 02:50 Temperature Pulse Rate 124 H 124 H 113 H Respiratory Rate 26 H 26 H 27 H Blood Pressure Pulse Oximetry 96 Oxygen Delivery BiPAP Oxygen Flow Rate Fraction of Inspired Oxygen 11/05/24 04:00 11/05/24 04:00 11/05/24 04:55 Temperature 36.4 C Pulse Rate 108 H 125 H Respiratory Rate 26 H Blood Pressure 146/87 H Pulse Oximetry 94 95 Oxygen Delivery BiPAP Oxygen Flow Rate 18 Fraction of Inspired Oxygen 60 11/05/24 06:00 11/05/24 07:46 11/05/24 09:13 Temperature 36.7 C Pulse Rate 122 H 141 H 135 H Respiratory Rate 30 H 30 H Blood Pressure 131/77 Pulse Oximetry 100 95 Oxygen Delivery BiPAP Oxygen Flow Rate Fraction of Inspired Oxygen 11/05/24 09:14 11/05/24 10:22 Temperature Pulse Rate 119 H Respiratory Rate Blood Pressure Pulse Oximetry 95 Oxygen Delivery BiPAP Oxygen Flow Rate Fraction of Inspired Oxygen 60 Exam Narrative: General: Alert oriented x3, no acute distress Neck: Supple, JVD + Chest: Bilaterally clear to auscultation, no rales or rhonchi Cardiac: S1, S2 +, regular rate, regular rhythm, no murmurs or rubs Extremities: Bilateral lower extremity edema 1+, no skin rash Neurologic: Alert and oriented x3, no focal neurological deficits Results Labs and Meds 11/05/24 04:16 11/05/24 04:16 Lab results: Cardiac Enzymes 11/05/24 Range/Units 04:16 AST 44 H (14-36) U/L CBC 11/05/24 Range/Units 04:16 WBC 8.3 (4.5-10.0) K/mm3 RBC 3.65 L (4.2-5.4) M/mm3 Hgb 10.1 L (12.0-15.0) g/dL Hct 31.2 L (37.0-47.0) % Plt Count 256 (150-375) k/mm3 Lymph # (Auto) 1.06 (0.9-3.2) K/mm3 [place] # (Auto) 0.6 (0.1-0.6) K/mm3 Eos # (Auto) 0.0 (0-0.3) K/mm3 Baso # (Auto) 0.0 (0.0-0.1) K/mm3 Comprehensive Metabolic Panel 11/05/24 Range/Units 04:16 Sodium 142 (137-145) mmol/L Potassium 2.8 L* (3.4-5.0) mmol/L Chloride 112 H (98-107) mmol/L Carbon Dioxide 22 (22-30) mmol/L BUN 43 H (7-17) mg/dL Creatinine 1.08 H (0.7-1.0) mg/dL Glucose 137 H (65-110) mg/dL Calcium 8.8 (8.4-10.2) mg/dL AST 44 H (14-36) U/L ALT 15 (6-35) U/L Alkaline Phosphatase 89 (38-126) U/L Total Protein 5.8 L (6.3-8.2) g/dL Albumin 2.9 L (3.5-5.1) g/dL Intake and Output 11/04/24 11/05/24 11/05/24 23:59 07:59 15:59 Intake Total 220 Output Total 500 1900 Balance -280 -1900 Intake: IV 100 Meropenem 1 gm In Sodium 100 Chloride 0.9% IV 100 ml @ 200 mls/hr IVPB Q12H [facility] Rx#: [id number] Oral 120 Output: Urine 500 1900 Other: Number of Bowel Movements Today 1 Patient Weight 11/05/24 23:59 Weight 68.4 kg
[2024-11-05] MEDS: LIDOCAINE 1% PF INJ 5 ML VIAL INFILTRATE (11:30)
--- NOTE | 2024-11-05 11:53 | PC.NURSE ---
Dr Sharp informed that we have no oncology coverage until November 18, 2024.
--- NOTE | 2024-11-05 12:32 | PC.NURSE ---
This RN made the PA from surgery (making rounds) aware that oncology is not available until November 18, 2024. She verbalized that she would let Dr Campos aware.
[2024-11-05] MEDS: IPRATROPIUM BR 0.02% INH SOLN 0.5 MG/2.5 ML VIAL INHALATION ×2 (15:00→20:14)
--- NOTE | 2024-11-05 18:52 | P.CONONC_ITS ---
Assessment and Plan Assessment and plan (1) Metastatic adenocarcinoma: Code(s): C79.9 - Secondary malignant neoplasm of unspecified site Status: Acute Assessment and Plan: Patient is the 74-year-old female presented with 2 month history of nausea and constipation. She was not able to finish the colonoscopy due to extreme angulation of the colon. Barium enema revealed distal sigmoid colon stricture. Patient had robotic laparoscopic transverse loop colostomy with conversion to open transfers and colostomy and placement of mucous fistula done with incisional peritoneal masses biopsy x2 on October 29, 2024. Peritoneal mass biopsy came back positive for metastatic adenocarcinoma. CT abdomen and pelvis done on October 29 showed high-grade obstruction within the mid to distal sigmoid colon with retroperitoneal and mesenteric lymphadenopathy. I have discussed these finding with patient and the daughter on the phone in detail. I have informed her the stage of this cancer and the likely primary site is sigmoid colon. We have discussed the treatment in detail. I recommended palliative chemotherapy. I also recommended MediPort placement. I will perform PET scan prior to starting chemotherapy as an outpatient. Have answered all the questions to patient and the daughter satisfaction. I have provided them my office information for follow-up. She will let me know if she has agreeable to chemotherapy then we will consider MediPort placement in the hospital. HPI Data of Consult Date/Time: 11/05/24 18:52 Requesting Physician: Subhash Campos MD Primary Care Provider: Santy Sarkar MD Consult Narrative Narrative: Rosa Martino is a 74 year old female without any previous history of malignancy, history of COPD, stage 3 kidney disease, obstructive sleep apnea, hypertension, type 2 diabetes and smoking for more than 50 years duration came into the hospital for the evaluation or diverticulitis. She presented with lower abdominal pain, nausea and constipation for a free off and on for 2 months duration. She was previously seen by Dr. Templeton and EGD was performed that came back fairly unremarkable. Colonoscopy was attempted but could not be completed due to extreme angulation in the sigmoid colon. Patient had barium enema done on October 18 that demonstrated normal rectum however contrast was unable to pass beyond the high-grade stricture in the distal sigmoid colon. On October 31 patient had laparoscopic transverse loop colostomy with conversion to open transfers and colostomy and placement of his stool or done. Patient also had laparoscopic incisional peritoneal mass biopsies done x2. Pathology from the peritoneal mass biopsy came back positive for metastatic adenocarcinoma. Previous CT scan done on October 29 showed high-grade obstruction within the mid to distal sigmoid colon for which malignancy is suspected along with retroperitoneal and mesenteric lymphadenopathy. Review of Systems 2 Review of Systems: Twelve point review of system was reviewed [facility] Past Medical History Medical History (Updated 11/05/24 @ 18:56 by Eddie Gunn MD) Metastatic adenocarcinoma Saccular aneurysm Saccular aneurysmal dilatation of infrarenal abdominal aorta. History of diverticulitis Chronic obstructive pulmonary disease Osteoarthritis of hips, bilateral Cigarette nicotine dependence with nicotine-induced disorder Stage 3a chronic kidney disease Obstructive sleep apnea Major depressive disorder in partial remission Iron deficiency Atherosclerosis of [place] coronary artery of [place] heart without angina pectoris Pure hypercholesterolemia, unspecified Essential (primary) hypertension Type 2 diabetes mellitus with chronic kidney disease Carpal tunnel syndrome Surgical History Surgical History (Updated 11/04/24 @ 18:02 by Chelsie Bullard MD) Hx of vaginal hysterectomy History of coronary artery bypass graft x 2 (2012) History of carotid endarterectomy (2007) Family History Family History Unknown Asthma Hypertension Depression Heart disease Lung disease Arthritis Cerebrovascular accident High cholesterol Social History Social History Social History: Surrogate medical decision maker: Lynn Mccarthy, daughter. Code status: Full code. Smoking packs per day: 0.5 Smoking cigarettes per day: 10.0 Years smoked: 45 Smoking pack-years: 22.50 Smoking status: Current every day smoker Alcohol intake: never Substance use: never Substance use type: does not use Do You Feel Safe in your Home?: Yes Lack of Transportation: No Lack of Food: Never True Current Housing: I Have Housing Concerned About Future Housing: No Difficulty Paying Gas/Electric Bills: No Difficulty Paying for Meds: No Currently Unemployed: No Education: High School Diploma/GED Difficulty w/ Childcare or Family Care: No Living arrangements: with family Occupation/Education: retired Spiritual care concerns: No Meds Home Medications and Allergies Home Medications ?Medication ?Instructions ?Recorded ?Confirmed ?Type aspirin 81 mg tablet,delayed 81 mg PO DAILY #90 tabs 08/18/23 10/29/24 Rx release famotidine 20 mg tablet 20 mg PO BID #180 tabs 08/18/23 10/29/24 Rx loratadine 10 mg tablet (Claritin) 10 mg PO DAILY #90 tabs 08/18/23 10/29/24 Rx omdayfgs-ipr-gfvcu acid 0.4 1 tablet PO DAILY #90 tabs 08/18/23 10/29/24 Rx mg-lycopene 300 mcg-lutein 250 mcg tablet (Centrum Silver) calcium 500 mg (as 1 tablet PO DAILY 11/22/23 10/29/24 History carbonate)-vitamin D3 10 mcg (400 unit) tablet losartan 50 mg tablet 50 mg PO DAILY #90 tabs 05/10/24 10/29/24 Rx carvedilol 6.25 mg tablet 6.25 mg PO BID #180 tabs 08/07/24 10/29/24 Rx ferrous gluconate 324 mg (38 mg 324 mg PO DAILY #30 tabs 08/28/24 10/29/24 Rx iron) tablet atorvastatin 40 mg tablet 80 mg PO DAILY 09/03/24 10/29/24 History sertraline 100 mg tablet 100 mg PO BID #200 tabs 10/14/24 10/29/24 Rx ciprofloxacin HCl 500 mg tablet 500 mg PO Q12H #20 tabs 10/21/24 10/29/24 Rx ipratropium bromide 21 mcg (0.03 2 spray intranasal TID #30 mL 10/21/24 10/29/24 Rx %) nasal spray metronidazole 500 mg tablet 500 mg PO TID 10 days #30 tabs 10/21/24 10/29/24 Rx fluticasone 250 mcg-salmeterol 50 1 inh inhalation BID PRN COPD 10/29/24 10/29/24 History mcg/dose blistr powdr for inhalation (Advair Diskus) Allergies Allergy/AdvReac Type Severity Reaction Status Date / Time No Known Allergies Allergy Verified 10/31/24 06:22 Vital Signs Vital Signs - 24 hr 11/04/24 19:49 11/04/24 20:00 11/04/24 20:09 Temperature Pulse Rate 128 H 124 H Respiratory Rate 26 H Blood Pressure Pulse Oximetry 92 Oxygen Delivery BiPAP Oxygen Flow Rate 18 Fraction of Inspired Oxygen 60 11/04/24 20:09 11/04/24 20:19 11/04/24 20:26 Temperature 36.4 C Pulse Rate 118 H 133 H 118 H Respiratory Rate 26 H 26 H 26 H Blood Pressure 135/60 Pulse Oximetry 99 100 99 Oxygen Delivery BiPAP BiPAP Oxygen Flow Rate Fraction of Inspired Oxygen 60 11/04/24 20:26 11/04/24 21:03 11/04/24 21:05 Temperature Pulse Rate 124 H 140 H 140 H Respiratory Rate 26 H Blood Pressure Pulse Oximetry Oxygen Delivery Oxygen Flow Rate Fraction of Inspired Oxygen 11/04/24 22:23 11/04/24 23:00 11/05/24 00:00 Temperature Pulse Rate 124 H 110 H Respiratory Rate 27 H Blood Pressure Pulse Oximetry 95 95 Oxygen Delivery BiPAP BiPAP Oxygen Flow Rate 18 Fraction of Inspired Oxygen 60 11/05/24 00:00 11/05/24 00:18 11/05/24 02:00 Temperature 36.4 C L Pulse Rate 123 H 127 H 120 H Respiratory Rate 26 H Blood Pressure 128/85 Pulse Oximetry 93 Oxygen Delivery Oxygen Flow Rate Fraction of Inspired Oxygen 11/05/24 02:10 11/05/24 02:18 11/05/24 02:50 Temperature Pulse Rate 124 H 124 H 113 H Respiratory Rate 26 H 26 H 27 H Blood Pressure Pulse Oximetry 96 Oxygen Delivery BiPAP Oxygen Flow Rate Fraction of Inspired Oxygen 11/05/24 04:00 11/05/24 04:00 11/05/24 04:55 Temperature 36.4 C Pulse Rate 108 H 125 H Respiratory Rate 26 H Blood Pressure 146/87 H Pulse Oximetry 94 95 Oxygen Delivery BiPAP Oxygen Flow Rate 18 Fraction of Inspired Oxygen 60 11/05/24 06:00 11/05/24 07:46 11/05/24 08:00 Temperature 36.7 C Pulse Rate 122 H 141 H 74 Respiratory Rate 30 H 20 Blood Pressure 131/77 Pulse Oximetry 100 91 Oxygen Delivery BiPAP Oxygen Flow Rate Fraction of Inspired Oxygen 80 11/05/24 08:00 11/05/24 08:30 11/05/24 08:40 Temperature Pulse Rate 135 H 130 H 131 H Respiratory Rate 22 H 21 H Blood Pressure Pulse Oximetry Oxygen Delivery Oxygen Flow Rate Fraction of Inspired Oxygen 11/05/24 09:13 11/05/24 09:14 11/05/24 10:00 Temperature Pulse Rate 135 H 130 H Respiratory Rate 30 H Blood Pressure Pulse Oximetry 95 95 Oxygen Delivery BiPAP BiPAP Oxygen Flow Rate Fraction of Inspired Oxygen 60 11/05/24 10:22 11/05/24 10:45 11/05/24 12:00 Temperature 36.4 C L Pulse Rate 119 H 74 Respiratory Rate 20 Blood Pressure 161/90 H Pulse Oximetry 94 91 Oxygen Delivery High Flow Therapy with Na Oxygen Flow Rate 45 Fraction of Inspired Oxygen 80 11/05/24 12:00 11/05/24 12:00 11/05/24 13:12 Temperature Pulse Rate 74 78 81 Respiratory Rate 18 Blood Pressure Pulse Oximetry 98 Oxygen Delivery High Flow Therapy with Na Oxygen Flow Rate 45 Fraction of Inspired Oxygen 80 11/05/24 15:00 11/05/24 15:15 11/05/24 15:49 Temperature 36.7 C Pulse Rate 73 74 74 Respiratory Rate 20 21 H 18 Blood Pressure 122/75 Pulse Oximetry 98 Oxygen Delivery Oxygen Flow Rate Fraction of Inspired Oxygen 11/05/24 16:00 11/05/24 16:00 11/05/24 17:50 Temperature Pulse Rate 74 74 Respiratory Rate 18 26 H Blood Pressure Pulse Oximetry 98 95 Oxygen Delivery High Flow Therapy with Na BiPAP Oxygen Flow Rate 45 Fraction of Inspired Oxygen 80 11/05/24 18:00 Temperature Pulse Rate 74 Respiratory Rate Blood Pressure Pulse Oximetry Oxygen Delivery Oxygen Flow Rate Fraction of Inspired Oxygen Exam 2 Narrative: Lungs are clear to auscultation bilaterally Cardiovascular regular rate rhythm no murmurs Abdomen is slightly distended bowel sounds are diminished Extremities no edema Results Labs 11/05/24 04:16 11/05/24 04:16 Labs: Short CBC 11/05/24 Range/Units 04:16 WBC 8.3 (4.5-10.0) K/mm3 Hgb 10.1 L (12.0-15.0) g/dL Hct 31.2 L (37.0-47.0) % Plt Count 256 (150-375) k/mm3 BMP 11/05/24 04:16 Sodium 142 Potassium 2.8 L* Chloride 112 H Carbon Dioxide 22 BUN 43 H Creatinine 1.08 H Glucose 137 H Calcium 8.8 Liver Function 11/05/24 Range/Units 04:16 Total Bilirubin 0.7 (0.2-1.3) mg/dL AST 44 H (14-36) U/L ALT 15 (6-35) U/L Alkaline Phosphatase 89 (38-126) U/L Albumin 2.9 L (3.5-5.1) g/dL
[2024-11-05] MEDS: ENOXAPARIN 80 MG/0.8 ML SYRINGE 68 MG SUB-Q (20:50)
[2024-11-06] VITALS (31 sets, daily range): BP systolic 117–185; BP diastolic 63–88; PULSE 59–144; RESP 17–28; TEMP 36.3–36.9; O2SAT 90–100
[2024-11-06] MEDS: IPRATROPIUM BR 0.02% INH SOLN 0.5 MG/2.5 ML VIAL INHALATION ×4 (01:14→21:31)
[2024-11-06] MEDS: METOPROLOL TARTRATE INJ 5 MG/5 ML VIAL IV PUSH ×5 (01:28→22:04)
[2024-11-06] MEDS: MEROPENEM 1 GM in SODIUM CHLORIDE 0.9% IV 100 ML 200 ML IVPB ×2 (03:37→17:41)
[2024-11-06 03:49] LABS: Hematocrit 32.3 % (37.0-47.0); Hemoglobin 10.4 g/dL (12.0-15.0); Immature Granulocyte Percent A 1.8 % (0-0.5); Lymphocytes Absolute Auto 1.36 K/mm3 (0.9-3.2); Mean Corpuscular HGB Conc 32.2 g/dl (32-36); Mean Corpuscular Hemoglobin 27.3 pg (26-34); Mean Corpuscular Volume 84.8 fl (80-100); Nucleated Red Blood Cells Absolute Auto 0.030 K/mm3 (0.0-0.012); Nucleated Red Blood Cells Perc 0.4 % (0.0-0.2); Platelet Count Result 256 k/mm3 (150-375); Red Blood Count 3.81 M/mm3 (4.2-5.4); White Blood Count 8.2 K/mm3 (4.5-10.0)
[2024-11-06 04:14] LABS: Alanine Aminotransferase 22 U/L (6-35); Albumin Level 3.0 g/dL (3.5-5.1); Alkaline Phosphatase 129 U/L (38-126); Anion Gap 8 mmol/L (4-12); Aspartate Amino Transferase 57 U/L (14-36); Bilirubin,Total 0.5 mg/dL (0.2-1.3); Blood Urea Nitrogen 57 mg/dL (7-17); Calcium 9.0 mg/dL (8.4-10.2); Carbon Dioxide 32 mmol/L (22-30); Chloride 109 mmol/L (98-107); Estimated CRCL calculation 41 ml/min; Estimated Glomerular Filt Rate 57; Glucose 157 mg/dL (65-110); Magnesium 2.0 mg/dL (1.6-2.3); Potassium 2.7 mmol/L (3.4-5.0); Sodium 149 mmol/L (137-145); Total Protein 6.0 g/dL (6.3-8.2)
[2024-11-06] MEDS: KCL 20 MEQ/SW 100 ML 100 ML 50 MEQ IVPB (06:29)
[2024-11-06] MEDS: POTASSIUM CHLORIDE 20 MEQ PACKET (FOR LIQUID) 40 MEQ PO ×2 (06:32→17:30)
--- NOTE | 2024-11-06 07:05 | PM.PNCARD ---
Progress Note: A&P Assessment and Plan (1) Atrial fibrillation with rapid ventricular response: Code(s): I48.91 - Unspecified atrial fibrillation Status: Acute (2) Acute systolic heart failure: Code(s): I50.21 - Acute systolic (congestive) heart failure Status: Acute Plan New diagnosis of AFib with RVR spontaneously cardioverted to sinus rhythm-currently heart rates in the 70s; she is asymptomatic from AFib ----TSH normal Acute systolic heart failure with moderately depressed LVEF of 35 to 40% which is new Acute hypoxic respiratory failure COPD exacerbation High-grade mid to distal sigmoid colon obstruction status post open transverse end colostomy and placement of mucous fistula and peritoneal biopsy x2 on 10/31/2024- pathology shows metastatic adenocarcinoma Hypokalemia with potassium of 2.7 Plan: -AFib is most likely secondary to stress of acute illness. She spontaneously cardioverted back to sinus rhythm. She is at risk of stroke given she is going in and out of atrial fibrillation. Recommend anticoagulation with Xarelto 20 mg daily when safe from surgical standpoint -Continue Coreg 6.25 mg p.o. b.i.d. -Guideline directed medical therapy for systolic heart failure. Continue Coreg. Add empagliflozin 10 mg daily. Add lisinopril 10 mg daily. Add spironolactone 25 mg daily if renal function normal -She has no chest pain currently or prior to this admission. No indication for cardiac catheterization at this time. However given new drop in LVEF would recommend an outpatient evaluation of coronaries by stress test or cardiac catheterization after she recovers from her acute illness -Continue statin -IV Lasix 40 mg b.i.d. -Check and replace electrolytes to keep potassium greater than 4 and magnesium greater than 2 -Check daily weights and ins and outs -Check renal function daily -Continue to monitor on telemetry -Management of other medical problems per primary team Subjective Date/time seen: 11/06/24 07:05 Interval history: Reason for encounter: AFib with RVR Interval history: Patient denies any chest pain, shortness of breath, palpitations, dizziness. Telemetry shows sinus rhythm with heart rate in the 60s to 70s range. Review of Systems Cardiovascular: Comments: As per HPI Respiratory: Comments: As per HPI Exam Narrative: General: Alert oriented x3, no acute distress Neck: Supple, no JVD Chest: Bilaterally clear to auscultation, no rales or rhonchi Cardiac: S1, S2 +, regular rate, regular rhythm, no murmurs or rubs Extremities: No pedal edema, no skin rash Neurologic: Alert and oriented x3, no focal neurological deficits Objective Data Vital Signs Vital Signs: Vital Signs - 24 hr 11/05/24 07:46 11/05/24 08:00 11/05/24 08:00 Temperature 36.7 C Pulse Rate 141 H 74 135 H Respiratory Rate 30 H 20 Blood Pressure 131/77 Pulse Oximetry 100 91 Oxygen Delivery BiPAP Oxygen Flow Rate Fraction of Inspired Oxygen 80 11/05/24 08:30 11/05/24 08:40 11/05/24 09:13 Temperature Pulse Rate 130 H 131 H 135 H Respiratory Rate 22 H 21 H 30 H Blood Pressure Pulse Oximetry 95 Oxygen Delivery BiPAP Oxygen Flow Rate Fraction of Inspired Oxygen 11/05/24 09:14 11/05/24 10:00 11/05/24 10:22 Temperature Pulse Rate 130 H 119 H Respiratory Rate Blood Pressure Pulse Oximetry 95 Oxygen Delivery BiPAP Oxygen Flow Rate Fraction of Inspired Oxygen 60 11/05/24 10:45 11/05/24 12:00 11/05/24 12:00 Temperature 36.4 C L Pulse Rate 74 74 Respiratory Rate 20 18 Blood Pressure 161/90 H Pulse Oximetry 94 91 98 Oxygen Delivery High Flow Therapy with Na High Flow Therapy with Na Oxygen Flow Rate 45 45 Fraction of Inspired Oxygen 80 80 11/05/24 12:00 11/05/24 13:12 11/05/24 15:00 Temperature Pulse Rate 78 81 73 Respiratory Rate 20 Blood Pressure Pulse Oximetry Oxygen Delivery Oxygen Flow Rate Fraction of Inspired Oxygen 11/05/24 15:15 11/05/24 15:49 11/05/24 16:00 Temperature 36.7 C Pulse Rate 74 74 74 Respiratory Rate 21 H 18 18 Blood Pressure 122/75 Pulse Oximetry 98 98 Oxygen Delivery High Flow Therapy with Na Oxygen Flow Rate 45 Fraction of Inspired Oxygen 80 11/05/24 16:00 11/05/24 17:50 11/05/24 18:00 Temperature Pulse Rate 74 74 Respiratory Rate 26 H Blood Pressure Pulse Oximetry 95 Oxygen Delivery BiPAP Oxygen Flow Rate Fraction of Inspired Oxygen 11/05/24 19:52 11/05/24 20:00 11/05/24 20:00 Temperature 37.0 C Pulse Rate 68 70 Respiratory Rate 17 Blood Pressure 168/81 H Pulse Oximetry 94 95 Oxygen Delivery BiPAP Oxygen Flow Rate Fraction of Inspired Oxygen 60 11/05/24 20:14 11/05/24 20:14 11/05/24 20:24 Temperature Pulse Rate 68 68 70 Respiratory Rate 26 H 26 H 22 H Blood Pressure Pulse Oximetry 96 Oxygen Delivery BiPAP Oxygen Flow Rate Fraction of Inspired Oxygen 11/05/24 20:44 11/05/24 22:18 11/05/24 22:22 Temperature Pulse Rate 70 67 70 Respiratory Rate 26 H Blood Pressure Pulse Oximetry 96 Oxygen Delivery BiPAP Oxygen Flow Rate Fraction of Inspired Oxygen 11/06/24 00:00 11/06/24 00:00 11/06/24 00:00 Temperature 36.6 C Pulse Rate 72 72 Respiratory Rate 17 Blood Pressure 147/68 H Pulse Oximetry 94 96 Oxygen Delivery BiPAP Oxygen Flow Rate Fraction of Inspired Oxygen 60 11/06/24 01:14 11/06/24 01:14 11/06/24 01:23 Temperature Pulse Rate 68 68 70 Respiratory Rate 27 H 28 H 25 H Blood Pressure Pulse Oximetry 98 Oxygen Delivery BiPAP Oxygen Flow Rate Fraction of Inspired Oxygen 11/06/24 01:28 11/06/24 01:55 11/06/24 03:10 Temperature 36.9 C Pulse Rate 69 67 67 Respiratory Rate 17 Blood Pressure 166/85 H Pulse Oximetry 94 Oxygen Delivery Oxygen Flow Rate Fraction of Inspired Oxygen 11/06/24 04:00 11/06/24 04:00 11/06/24 05:54 Temperature Pulse Rate 63 61 Respiratory Rate Blood Pressure Pulse Oximetry 98 Oxygen Delivery BiPAP Oxygen Flow Rate Fraction of Inspired Oxygen 60 Intake/Output Intake/Output: Intake & Output 11/03/24 11/04/24 11/05/24 11/06/24 23:59 23:59 23:59 23:59 Intake Total 4460 760 1277 Output Total 500 5673 3457 4892 Balance 3151 -4507 -6518 -8926 Meds/Results Medications: Active Medications Generic Name Dose Route Start Last Admin Trade Name Freq PRN Reason Stop Dose Admin Acetaminophen 650 mg 11/04/24 13:56 Acetaminophen 325 Mg Tablet PO Q4H PRN Mild Pain (1-3) or Fever Hydrocodone Bitart/Acetaminophen 1 tab 11/04/24 13:56 Hydrocodone/Acetaminophen (*Crx) 5-325 Mg Tablet PO Q4H PRN Pain Rated 4-6 Atorvastatin Calcium 80 mg 10/30/24 09:00 11/04/24 09:03 Atorvastatin 40 Mg Tablet PO 80 mg DAILY JANNIE Administration Calcium Carbonate 500 mg 10/30/24 09:00 11/05/24 10:23 Calcium/Vitamin D 500 Mg/5 Mcg (200 I.U.) Tablet PO 500 mg DAILY JANNIE Administration Carvedilol 6.25 mg 10/29/24 21:00 11/04/24 21:05 Carvedilol 6.25 Mg Tablet PO 6.25 mg Q12HR JANNIE Administration Dextrose 12.5 gm 10/29/24 22:59 Dextrose 50% 25 Gm/50 Ml Syringe IV PUSH PRN PRN Hypoglycemia Protocol Enoxaparin Sodium 68 mg 11/05/24 21:00 11/05/24 20:50 Enoxaparin 80 Mg/0.8 Ml Syringe SUB-Q 68 mg Q12HR JANNIE Administration Furosemide 40 mg 11/04/24 17:00 11/05/24 17:17 Furosemide Inj 40 Mg/4 Ml Vial IV PUSH 40 mg BID JANNIE Administration Glucagon 1 mg 10/29/24 22:59 Glucagon For Inj 1 Mg Vial IM PRN PRN Hypoglycemia Protocol Glucose 15 gm 10/29/24 22:59 Glucose Oral Gel 15 Gm Of Glucse In 37.5 Gm Tube PO PRN PRN Hypoglycemia Protocol Hydromorphone HCl 1 mg 10/31/24 13:20 11/01/24 23:47 Hydromorphone Hcl Inj (*Crx) 2 Mg/Ml Vial IV PUSH 1 mg Q3H PRN Administration Pain Rated 7-10 Dextrose 1,000 mls @ 100 mls/hr 10/29/24 22:59 Dextrose 5% 1,000 Ml IVPB PRN PRN Hypoglycemia Protocol Meropenem 1 gm/ Sodium 100 mls @ 200 mls/hr 11/03/24 16:00 11/06/24 03:37 Chloride IVPB 200 mls/hr Q12H JANNIE Administration Ibuprofen 800 mg in 200 mls @ 400 mls/hr 11/04/24 13:55 Caldolor 800 Mg/200 Ml IVPB Q8HR PRN Pain Rated 4-6 IF NPO Potassium Chloride 100 mls @ 50 mls/hr 11/06/24 06:10 11/06/24 06:29 Kcl 20 Meq/Sw 100 Ml IVPB 11/06/24 08:09 50 mls/hr ONCE ONE Administration Insulin Aspart 2 - 5 units 10/30/24 00:00 11/05/24 13:15 Insulin Aspart (*Bkc) 100 Units/Ml SUB-Q Not Given Q6HR [facility] Protocol Ipratropium [place] 2 spray 10/29/24 17:00 11/03/24 17:26 Ipratropium Nasal [place] 0.03% 15 Ml Bottle NASAL 2 spray TID JANNIE Administration Ipratropium [place] 0.5 mg 11/05/24 14:00 11/06/24 01:14 Ipratropium Br 0.02% Inh Soln 0.5 Mg/2.5 Ml Vial INHALATION 0.5 mg Q6HRT JANNIE Administration Levalbuterol HCl 1.25 mg 11/05/24 14:00 11/06/24 01:14 Levalbuterol Neb 1.25 Mg/3 Ml INHALATION 1.25 mg Q6HRT JANNIE Administration Losartan Potassium 50 mg 10/30/24 09:00 11/03/24 08:57 Losartan Potassium 50 Mg Tablet PO 50 mg DAILY JANNIE Administration Metoprolol Tartrate 5 mg 11/05/24 08:00 11/06/24 01:28 Metoprolol Tartrate Inj 5 Mg/5 Ml Vial IV PUSH 5 mg Q6H JANNIE Administration Ondansetron HCl 4 mg 10/29/24 15:30 Ondansetron Inj 4 Mg/2 Ml Vial IV PUSH Q4H PRN Nausea And Vomiting Pantoprazole Sodium 40 mg 10/30/24 09:00 11/05/24 10:21 Pantoprazole Sodium Iv 40 Mg Vial IV PUSH 40 mg QAM JANNIE Administration Fluticasone/Salmeterol 2 puff 10/29/24 20:00 11/05/24 20:15 Fluticasone/Salmeterol 115-21 Mcg Inhaler 1 Puff INHALATION 2 puff Q12HRT JANNIE Administration Sertraline HCl 100 mg 10/29/24 17:00 11/04/24 17:22 Sertraline Hcl 50 Mg Tablet PO 100 mg BID JANNIE Administration Sodium Chloride 10 ml 11/05/24 14:00 Central Line Flush IV PUSH Q8HR JANNIE Sodium Chloride 10 ml 11/05/24 12:18 Central Line Flush IV PUSH PRN PRN with TPN bag changes Sodium Chloride 20 ml 11/05/24 12:18 Central Line Flush IV PUSH PRN PRN after blood draws Radiology Results: ITS Impressions Abdomen/Pelvis CT 10/29/24 17:43 IMPRESSION: High-grade obstruction within the mid to distal sigmoid colon for which a malignancy is suspected. Aerated stool (with pneumatosis less likely) within the entirety of the colon, proximal to the mid to distal sigmoid colon. Retroperitoneal and mesenteric lymphadenopathy. Secondary signs suggesting hypovolemia. 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 Chest X-Ray 11/05/24 12:32 Impression: 1: Stable diffuse bilateral airspace disease, most likely edema. Labs Labs: Laboratory Results - last 24 hr 11/05/24 11/05/24 11/06/24 12:21 18:21 00:09 WBC RBC Hgb Hct MCV MCH MCHC RDW Plt Count MPV Immature Gran % (Auto) Neut % (Auto) Lymph % (Auto) Mitchell % (Auto) Eos % (Auto) Baso % (Auto) Lymph # (Auto) Mitchell # (Auto) Eos # (Auto) Baso # (Auto) Abs Immat Gran (auto) Absolute Neuts (auto) Absolute Nucleated RBC Nucleated RBC % Sodium Potassium Chloride Carbon Dioxide Anion Gap BUN Creatinine Estim Creat Clear Calc Estimated GFR Glucose POC Capillary Glucose 143 H 190 H 181 H Calcium Magnesium Total Bilirubin AST ALT Alkaline Phosphatase Total Protein Albumin 11/06/24 11/06/24 03:31 05:35 WBC 8.2 RBC 3.81 L Hgb 10.4 L Hct 32.3 L MCV 84.8 MCH 27.3 MCHC 32.2 RDW 15.9 H Plt Count 256 MPV 10.4 Immature Gran % (Auto) 1.8 H Neut % (Auto) 75.1 H Lymph % (Auto) 16.6 L Mitchell % (Auto) 6.2 Eos % (Auto) 0.1 Baso % (Auto) 0.2 Lymph # (Auto) 1.36 Mitchell # (Auto) 0.5 Eos # (Auto) 0.0 Baso # (Auto) 0.0 Abs Immat Gran (auto) 0.15 H Absolute Neuts (auto) 6.2 Absolute Nucleated RBC 0.030 H Nucleated RBC % 0.4 H Sodium 149 H Potassium 2.7 L* Chloride 109 H Carbon Dioxide 32 H Anion Gap 8 BUN 57 H D Creatinine 0.96 Estim Creat Clear Calc 41 Estimated GFR 57 L Glucose 157 H POC Capillary Glucose 129 H Calcium 9.0 Magnesium 2.0 Total Bilirubin 0.5 AST 57 H ALT 22 Alkaline Phosphatase 129 H Total Protein 6.0 L Albumin 3.0 L
[2024-11-06 07:09] LABS: CA 19-9 10 U/mL (0-35)
[2024-11-06] MEDS: FLUTICASONE/SALMETEROL 115-21 MCG INHALER 1 PUFF 2 PUFF INHALATION ×2 (08:01→21:31)
--- NOTE | 2024-11-06 08:30 | P.PNIM_ITS ---
Progress Note: A&P Assessment and Plan (1) Colonic obstruction: Code(s): K56.609 - Unspecified intestinal obstruction, unspecified as to partial versus complete obstruction Status: Acute Plan # Colonic obstruction: CT scan showed high-grade obstruction within the mid to distal sigmoid colon, lymphadenopathy, and aerated stool within the entirety of the colon. Sigmoidoscopy in mid September showed diverticulosis but was otherwise unremarkable. Continue empiric antibiotic to cover for possible diverticulitis. Further and definitive management as per the surgical service. 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 oncology consulted. mediport placement when stable or prior to discahrge. # CKD stage 3 Kidney function stable # Hypokalemia, hyponatremia Replete with potassium chloride Patient is on normal saline IV recheck in evening and replace as needed hypernatremic 11/06: will rehceck. if needed will add D5w # Hypertension: home medications currenlty on hold # acute on chronic hypoxic respiratory failure requiring high oxygen 11/03/2024 Procalcitonin was elevated 2.3 changed antibiotic to meropenem and add vancomycin Sputum culture Chest x-ray with bilateral opacities noted. I suspect these are congestive changes and received 20 mg of Lasix 11/02/2024 another dose 11/03. She is cumulatively positive 16 L since admission BNP came back elevated at 15,000 as well. Use of CPAP at night time Placed on monitor and continuous oxygen which has progressively worsened requiring bipap Could also be COPD exacerbation With active wheezing. received a dose of Solu- Medrol not much wheezing now, so will avoid solumedrol start lasix 40 mg iv bid. check echo fluid restriction 1500 cc per day montior cxr pulmonary consultation, rule out PE. stll not edwina to do CTA diuresing well. cxr improving. wean oxygen as tolerated. # afib with rvr overnigth. not able to give coreg. will hold. iv metoprolol scheduled. if needed will start iv diltiazem gtt. cardiology consult spontaneously converted to sinus rhythm started anticoagulation with lovenox echo wtih ef 35-40% gdmt when able. # Obstructive sleep apnea: CPAP will be provided for the patient to use while hospitalized. currently on bipap at night # Chronic obstructive pulmonary disease: No acute issues. Continue Advair Diskus. Subjective Date/time seen: 11/06/24 08:30 Interval history: on bipap overnight, feels better. back to sinus rhythm yesterday afternoon, no nausea, vomiting. Review of Systems Review of Systems: All systems reviewed & are unremarkable except as noted in HPI and below Exam Narrative: GENERAL: Pleasant, in no acute distress. Well-nourished. on BIPAP - EYES: EOMI. Anicteric. - HENT: Moist mucous membranes. - LUNGS: Diminished breath sounds bilat erally, coarse breath sounds with no wheezes no respiratory distress - CARDIOVASCULAR: regular rate and rhyth m, sinus on tele, No murmur. No JVD. - ABDOMEN: Soft, mildly distended bowel sound positive, colostomy on left and ostomy bag on right midline incision covered with dressing which is clean dry and intact. - EXTREMITIES: No edema. Peripheral puls es 2+. Non-tender. - NEUROLOGIC: No focal neurological defi cits. CN II-XII grossly intact. - PSYCHIATRIC: Awake, Alert and oriented x 3. Appropriate mood and affect. - SKIN: No rashes or lesions. Warm. - LYMPH: No cervical lymphadenopathy. Objective Data Vital Signs Vital Signs: Vital Signs - 24 hr 11/05/24 08:40 11/05/24 09:13 11/05/24 09:14 Temperature Pulse Rate 131 H 135 H Respiratory Rate 21 H 30 H Blood Pressure Pulse Oximetry 95 95 Oxygen Delivery BiPAP BiPAP Oxygen Flow Rate Fraction of Inspired Oxygen 60 11/05/24 10:00 11/05/24 10:22 11/05/24 10:45 Temperature Pulse Rate 130 H 119 H Respiratory Rate Blood Pressure Pulse Oximetry 94 Oxygen Delivery High Flow Therapy with Na Oxygen Flow Rate 45 Fraction of Inspired Oxygen 80 11/05/24 12:00 11/05/24 12:00 11/05/24 12:00 Temperature 97.5 F L Pulse Rate 74 74 78 Respiratory Rate 20 18 Blood Pressure 161/90 H Pulse Oximetry 91 98 Oxygen Delivery High Flow Therapy with Na Oxygen Flow Rate 45 Fraction of Inspired Oxygen 80 11/05/24 13:12 11/05/24 15:00 11/05/24 15:15 Temperature Pulse Rate 81 73 74 Respiratory Rate 20 21 H Blood Pressure Pulse Oximetry Oxygen Delivery Oxygen Flow Rate Fraction of Inspired Oxygen 11/05/24 15:49 11/05/24 16:00 11/05/24 16:00 Temperature 98.0 F Pulse Rate 74 74 74 Respiratory Rate 18 18 Blood Pressure 122/75 Pulse Oximetry 98 98 Oxygen Delivery High Flow Therapy with Na Oxygen Flow Rate 45 Fraction of Inspired Oxygen 80 11/05/24 17:50 11/05/24 18:00 11/05/24 19:52 Temperature Pulse Rate 74 Respiratory Rate 26 H Blood Pressure Pulse Oximetry 95 94 Oxygen Delivery BiPAP BiPAP Oxygen Flow Rate Fraction of Inspired Oxygen 60 11/05/24 20:00 11/05/24 20:00 11/05/24 20:14 Temperature 98.6 F Pulse Rate 68 70 68 Respiratory Rate 17 26 H Blood Pressure 168/81 H Pulse Oximetry 95 96 Oxygen Delivery BiPAP Oxygen Flow Rate Fraction of Inspired Oxygen 11/05/24 20:14 11/05/24 20:24 11/05/24 20:44 Temperature Pulse Rate 68 70 70 Respiratory Rate 26 H 22 H Blood Pressure Pulse Oximetry Oxygen Delivery Oxygen Flow Rate Fraction of Inspired Oxygen 11/05/24 22:18 11/05/24 22:22 11/06/24 00:00 Temperature 97.8 F Pulse Rate 67 70 72 Respiratory Rate 26 H 17 Blood Pressure 147/68 H Pulse Oximetry 96 94 Oxygen Delivery BiPAP Oxygen Flow Rate Fraction of Inspired Oxygen 11/06/24 00:00 11/06/24 00:00 11/06/24 01:14 Temperature Pulse Rate 72 68 Respiratory Rate 27 H Blood Pressure Pulse Oximetry 96 Oxygen Delivery BiPAP Oxygen Flow Rate Fraction of Inspired Oxygen 60 11/06/24 01:14 11/06/24 01:23 11/06/24 01:28 Temperature Pulse Rate 68 70 69 Respiratory Rate 28 H 25 H Blood Pressure Pulse Oximetry 98 Oxygen Delivery BiPAP Oxygen Flow Rate Fraction of Inspired Oxygen 11/06/24 01:55 11/06/24 03:10 11/06/24 04:00 Temperature 98.5 F Pulse Rate 67 67 Respiratory Rate 17 Blood Pressure 166/85 H Pulse Oximetry 94 98 Oxygen Delivery BiPAP Oxygen Flow Rate Fraction of Inspired Oxygen 60 11/06/24 04:00 11/06/24 05:54 11/06/24 07:44 Temperature 97.6 F Pulse Rate 63 61 61 Respiratory Rate 24 H Blood Pressure 185/83 H Pulse Oximetry 96 Oxygen Delivery Oxygen Flow Rate Fraction of Inspired Oxygen Intake/Output Intake/Output: Intake & Output 11/03/24 11/04/24 11/05/24 11/06/24 23:59 23:59 23:59 23:59 Intake Total 4460 760 1277 Output Total 500 2100 3600 1500 Balance 0091 -2228 -5562 -4309 Meds/Results Medications: Active Medications Generic Name Dose Route Start Last Admin Trade Name Freq PRN Reason Stop Dose Admin Acetaminophen 650 mg 11/04/24 13:56 Acetaminophen 325 Mg Tablet PO Q4H PRN Mild Pain (1-3) or Fever Hydrocodone Bitart/Acetaminophen 1 tab 11/04/24 13:56 Hydrocodone/Acetaminophen (*Crx) 5-325 Mg Tablet PO Q4H PRN Pain Rated 4-6 Atorvastatin Calcium 80 mg 10/30/24 09:00 11/04/24 09:03 Atorvastatin 40 Mg Tablet PO 80 mg DAILY JANNIE Administration Calcium Carbonate 500 mg 10/30/24 09:00 11/05/24 10:23 Calcium/Vitamin D 500 Mg/5 Mcg (200 I.U.) Tablet PO 500 mg DAILY JANNIE Administration Carvedilol 6.25 mg 10/29/24 21:00 11/04/24 21:05 Carvedilol 6.25 Mg Tablet PO 6.25 mg Q12HR JANNIE Administration Dextrose 12.5 gm 10/29/24 22:59 Dextrose 50% 25 Gm/50 Ml Syringe IV PUSH PRN PRN Hypoglycemia Protocol Enoxaparin Sodium 68 mg 11/05/24 21:00 11/05/24 20:50 Enoxaparin 80 Mg/0.8 Ml Syringe SUB-Q 68 mg Q12HR JANNIE Administration Furosemide 40 mg 11/04/24 17:00 11/05/24 17:17 Furosemide Inj 40 Mg/4 Ml Vial IV PUSH 40 mg BID JANNIE Administration Glucagon 1 mg 10/29/24 22:59 Glucagon For Inj 1 Mg Vial IM PRN PRN Hypoglycemia Protocol Glucose 15 gm 10/29/24 22:59 Glucose Oral Gel 15 Gm Of Glucse In 37.5 Gm Tube PO PRN PRN Hypoglycemia Protocol Hydromorphone HCl 1 mg 10/31/24 13:20 11/01/24 23:47 Hydromorphone Hcl Inj (*Crx) 2 Mg/Ml Vial IV PUSH 1 mg Q3H PRN Administration Pain Rated 7-10 Dextrose 1,000 mls @ 100 mls/hr 10/29/24 22:59 Dextrose 5% 1,000 Ml IVPB PRN PRN Hypoglycemia Protocol Meropenem 1 gm/ Sodium 100 mls @ 200 mls/hr 11/03/24 16:00 11/06/24 03:37 Chloride IVPB 200 mls/hr Q12H JANNIE Administration Ibuprofen 800 mg in 200 mls @ 400 mls/hr 11/04/24 13:55 Caldolor 800 Mg/200 Ml IVPB Q8HR PRN Pain Rated 4-6 IF NPO Insulin Aspart 2 - 5 units 10/30/24 00:00 11/05/24 13:15 Insulin Aspart (*Bkc) 100 Units/Ml SUB-Q Not Given Q6HR JANNIE Protocol Ipratropium [place] 2 spray 10/29/24 17:00 11/03/24 17:26 Ipratropium Nasal [place] 0.03% 15 Ml Bottle NASAL 2 spray TID JANNIE Administration Ipratropium [place] 0.5 mg 11/05/24 14:00 11/06/24 08:00 Ipratropium Br 0.02% Inh Soln 0.5 Mg/2.5 Ml Vial INHALATION 0.5 mg Q6HRT JANNIE Administration Levalbuterol HCl 1.25 mg 11/05/24 14:00 11/06/24 08:00 Levalbuterol Neb 1.25 Mg/3 Ml INHALATION 1.25 mg Q6HRT JANNIE Administration Losartan Potassium 50 mg 10/30/24 09:00 11/03/24 08:57 Losartan Potassium 50 Mg Tablet PO 50 mg DAILY JANNIE Administration Metoprolol Tartrate 5 mg 11/05/24 08:00 11/06/24 01:28 Metoprolol Tartrate Inj 5 Mg/5 Ml Vial IV PUSH 5 mg Q6H JANNIE Administration Ondansetron HCl 4 mg 10/29/24 15:30 Ondansetron Inj 4 Mg/2 Ml Vial IV PUSH Q4H PRN Nausea And Vomiting Pantoprazole Sodium 40 mg 10/30/24 09:00 11/05/24 10:21 Pantoprazole Sodium Iv 40 Mg Vial IV PUSH 40 mg QAM JANNIE Administration Fluticasone/Salmeterol 2 puff 10/29/24 20:00 11/06/24 08:01 Fluticasone/Salmeterol 115-21 Mcg Inhaler 1 Puff INHALATION 2 puff Q12HRT JANNIE Administration Sertraline HCl 100 mg 10/29/24 17:00 11/04/24 17:22 Sertraline Hcl 50 Mg Tablet PO 100 mg BID JANNIE Administration Sodium Chloride 10 ml 11/05/24 14:00 Central Line Flush IV PUSH Q8HR JANNIE Sodium Chloride 10 ml 11/05/24 12:18 Central Line Flush IV PUSH PRN PRN with TPN bag changes Sodium Chloride 20 ml 11/05/24 12:18 Central Line Flush IV PUSH PRN PRN after blood draws Radiology Results: ITS Impressions Abdomen/Pelvis CT 10/29/24 17:43 IMPRESSION: High-grade obstruction within the mid to distal sigmoid colon for which a malignancy is suspected. Aerated stool (with pneumatosis less likely) within the entirety of the colon, proximal to the mid to distal sigmoid colon. Retroperitoneal and mesenteric lymphadenopathy. Secondary signs suggesting hypovolemia. 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 Chest X-Ray 11/06/24 08:23 Impression: 1: Possible mild improvement of diffuse bilateral airspace disease which may represent edema, pneumonia or ARDS. Labs Labs: Laboratory Results - last 24 hr 11/05/24 11/05/24 11/05/24 04:14 12:21 18:21 WBC RBC Hgb Hct MCV MCH MCHC RDW Plt Count MPV Immature Gran % (Auto) Neut % (Auto) Lymph % (Auto) Charles % (Auto) Eos % (Auto) Baso % (Auto) Lymph # (Auto) Charles # (Auto) Eos # (Auto) Baso # (Auto) Abs Immat Gran (auto) Absolute Neuts (auto) Absolute Nucleated RBC Nucleated RBC % Sodium Potassium Chloride Carbon Dioxide Anion Gap BUN Creatinine Estim Creat Clear Calc Estimated GFR Glucose POC Capillary Glucose 143 H 190 H Calcium Magnesium Total Bilirubin AST ALT Alkaline Phosphatase Total Protein Albumin CA 19-9 Antigen 10 11/06/24 11/06/24 11/06/24 00:09 03:31 05:35 WBC 8.2 RBC 3.81 L Hgb 10.4 L Hct 32.3 L MCV 84.8 MCH 27.3 MCHC 32.2 RDW 15.9 H Plt Count 256 MPV 10.4 Immature Gran % (Auto) 1.8 H Neut % (Auto) 75.1 H Lymph % (Auto) 16.6 L Charles % (Auto) 6.2 Eos % (Auto) 0.1 Baso % (Auto) 0.2 Lymph # (Auto) 1.36 Charles # (Auto) 0.5 Eos # (Auto) 0.0 Baso # (Auto) 0.0 Abs Immat Gran (auto) 0.15 H Absolute Neuts (auto) 6.2 Absolute Nucleated RBC 0.030 H Nucleated RBC % 0.4 H Sodium 149 H Potassium 2.7 L* Chloride 109 H Carbon Dioxide 32 H Anion Gap 8 BUN 57 H D Creatinine 0.96 Estim Creat Clear Calc 41 Estimated GFR 57 L Glucose 157 H POC Capillary Glucose 181 H 129 H Calcium 9.0 Magnesium 2.0 Total Bilirubin 0.5 AST 57 H ALT 22 Alkaline Phosphatase 129 H Total Protein 6.0 L Albumin 3.0 L CA 19-9 Antigen
[2024-11-06] MEDS: IPRATROPIUM NASAL SPRAY 0.03% 15 ML BOTTLE 2 SPRAY NASAL ×9 (09:00→17:42)
[2024-11-06] MEDS: EMPAGLIFLOZIN 10 MG TABLET PO (09:37)
[2024-11-06] MEDS: ENOXAPARIN 80 MG/0.8 ML SYRINGE 68 MG SUB-Q ×2 (09:38→20:26)
[2024-11-06] MEDS: FUROSEMIDE INJ 40 MG/4 ML VIAL IV PUSH ×2 (09:39→17:30)
[2024-11-06] MEDS: CALCIUM/VITAMIN D 500 MG/5 MCG (200 I.U.) TABLET PO (09:39)
[2024-11-06] MEDS: PANTOPRAZOLE SODIUM IV 40 MG VIAL IV PUSH (09:40)
[2024-11-06 10:01] LABS: Thyroid Stimulating Hormone Reflex 0.965 uIU/mL (0.465-4.68)
--- NOTE | 2024-11-06 11:06 | P.PNGS_ITS ---
Progress Note: A&P Assessment and Plan (1) Colonic obstruction: Code(s): K56.609 - Unspecified intestinal obstruction, unspecified as to partial versus complete obstruction Status: Acute Assessment and Plan: * Tolerating a diet and ostomy functioning. Midline incision healing well without any signs of infection. Mucous fistula dusky but viable. * Wound/ostomy nurses following and will plan to do teaching with patient before discharge. * Pathology showed metastatic adenocarcinoma. Daughter spoke with Oncology last night and had a discussion with the patient this morning. They have decided to consult Hospice today. (2) Acute respiratory failure: Qualifiers: Respiratory failure complication: hypoxia Qualified Code(s): J96.01 - Acute respiratory failure with hypoxia Code(s): J96.00 - Acute respiratory failure, unspecified whether with hypoxia or hypercapnia Status: Acute (3) Atrial fibrillation with rapid ventricular response: Code(s): I48.91 - Unspecified atrial fibrillation Status: Acute (4) Coronary artery disease: Code(s): I25.10 - Atherosclerotic heart disease of [place] coronary artery without angina pectoris Status: Acute Plan I have discussed the patient's case and plan of care with Dr. Campos. Subjective Subjective Date/Time Seen: 11/06/24 11:06 Interval history: Patient seen with her daughter at the bedside. She denies any abdominal pain, nausea, or vomiting. She was able to take a break from the BiPAP and is on A irvo this morning. She is tolerating a solid diet without any issues. She has stool coming from her ostomy and minimal stool in the bag of the mucous fistula. Patient and daughter have decided to consult with hospice after speaking with oncology last night. Exam Const: General: comfortable and no acute distress GI: Inspection: non-distended GI Palp: Yes Soft to palpation, No Tenderness to palpation present (GI) and No Guarding due to palpation present (GI) Other: Midline incision dry and ernie intact, no erythema. Transverse colostomy has soft brown stool in bag with stoma slightly retracted but pink and viable. Mucous fistula has small amount of formed stool in the bag and stoma is slightly dark/dusky and retracted. Objective Data Vital Signs Vital Signs: Vital Signs - 24 hr 11/05/24 12:00 11/05/24 12:00 11/05/24 12:00 Temperature 97.5 F L Pulse Rate 74 74 78 Respiratory Rate 20 18 Blood Pressure 161/90 H Pulse Oximetry 91 98 Oxygen Delivery High Flow Therapy with Na Oxygen Flow Rate 45 Fraction of Inspired Oxygen 80 11/05/24 13:12 11/05/24 15:00 11/05/24 15:15 Temperature Pulse Rate 81 73 74 Respiratory Rate 20 21 H Blood Pressure Pulse Oximetry Oxygen Delivery Oxygen Flow Rate Fraction of Inspired Oxygen 11/05/24 15:49 11/05/24 16:00 11/05/24 16:00 Temperature 98.0 F Pulse Rate 74 74 74 Respiratory Rate 18 18 Blood Pressure 122/75 Pulse Oximetry 98 98 Oxygen Delivery High Flow Therapy with Na Oxygen Flow Rate 45 Fraction of Inspired Oxygen 80 11/05/24 17:50 11/05/24 18:00 11/05/24 19:52 Temperature Pulse Rate 74 Respiratory Rate 26 H Blood Pressure Pulse Oximetry 95 94 Oxygen Delivery BiPAP BiPAP Oxygen Flow Rate Fraction of Inspired Oxygen 60 11/05/24 20:00 11/05/24 20:00 11/05/24 20:14 Temperature 98.6 F Pulse Rate 68 70 68 Respiratory Rate 17 26 H Blood Pressure 168/81 H Pulse Oximetry 95 96 Oxygen Delivery BiPAP Oxygen Flow Rate Fraction of Inspired Oxygen 11/05/24 20:14 11/05/24 20:24 11/05/24 20:44 Temperature Pulse Rate 68 70 70 Respiratory Rate 26 H 22 H Blood Pressure Pulse Oximetry Oxygen Delivery Oxygen Flow Rate Fraction of Inspired Oxygen 11/05/24 22:18 11/05/24 22:22 11/06/24 00:00 Temperature 97.8 F Pulse Rate 67 70 72 Respiratory Rate 26 H 17 Blood Pressure 147/68 H Pulse Oximetry 96 94 Oxygen Delivery BiPAP Oxygen Flow Rate Fraction of Inspired Oxygen 11/06/24 00:00 11/06/24 00:00 11/06/24 01:14 Temperature Pulse Rate 72 68 Respiratory Rate 27 H Blood Pressure Pulse Oximetry 96 Oxygen Delivery BiPAP Oxygen Flow Rate Fraction of Inspired Oxygen 60 11/06/24 01:14 11/06/24 01:23 11/06/24 01:28 Temperature Pulse Rate 68 70 69 Respiratory Rate 28 H 25 H Blood Pressure Pulse Oximetry 98 Oxygen Delivery BiPAP Oxygen Flow Rate Fraction of Inspired Oxygen 11/06/24 01:55 11/06/24 03:10 11/06/24 04:00 Temperature 98.5 F Pulse Rate 67 67 Respiratory Rate 17 Blood Pressure 166/85 H Pulse Oximetry 94 98 Oxygen Delivery BiPAP Oxygen Flow Rate Fraction of Inspired Oxygen 60 11/06/24 04:00 11/06/24 05:54 11/06/24 07:44 Temperature 97.6 F Pulse Rate 63 61 61 Respiratory Rate 24 H Blood Pressure 185/83 H Pulse Oximetry 96 Oxygen Delivery Oxygen Flow Rate Fraction of Inspired Oxygen 11/06/24 08:00 11/06/24 08:00 11/06/24 08:08 Temperature Pulse Rate 72 70 Respiratory Rate 20 20 Blood Pressure Pulse Oximetry 92 Oxygen Delivery High Flow Therapy with Na Oxygen Flow Rate 40 Fraction of Inspired Oxygen 75 11/06/24 09:39 Temperature Pulse Rate 70 Respiratory Rate Blood Pressure Pulse Oximetry Oxygen Delivery Oxygen Flow Rate Fraction of Inspired Oxygen Intake/Output Intake/Output: Intake & Output 11/03/24 11/04/24 11/05/24 11/06/24 23:59 23:59 23:59 23:59 Intake Total 4460 760 1277 0 Output Total 500 2100 3600 1500 Balance 5140 -8568 -4910 -2604 Meds/Results Medications: Active Medications Generic Name Dose Route Start Last Admin Trade Name Freq PRN Reason Stop Dose Admin Acetaminophen 650 mg 11/04/24 13:56 Acetaminophen 325 Mg Tablet PO Q4H PRN Mild Pain (1-3) or Fever Hydrocodone Bitart/Acetaminophen 1 tab 11/04/24 13:56 Hydrocodone/Acetaminophen (*Crx) 5-325 Mg Tablet PO Q4H PRN Pain Rated 4-6 Atorvastatin Calcium 80 mg 10/30/24 09:00 11/04/24 09:03 Atorvastatin 40 Mg Tablet PO 80 mg DAILY JANNIE Administration Calcium Carbonate 500 mg 10/30/24 09:00 11/06/24 09:39 Calcium/Vitamin D 500 Mg/5 Mcg (200 I.U.) Tablet PO 500 mg DAILY JANNIE Administration Carvedilol 6.25 mg 10/29/24 21:00 11/04/24 21:05 Carvedilol 6.25 Mg Tablet PO 6.25 mg Q12HR JANNIE Administration Dextrose 12.5 gm 10/29/24 22:59 Dextrose 50% 25 Gm/50 Ml Syringe IV PUSH PRN PRN Hypoglycemia Protocol Empagliflozin 10 mg 11/06/24 09:00 11/06/24 09:37 Empagliflozin 10 Mg Tablet PO 10 mg DAILY JANNIE Administration Enoxaparin Sodium 68 mg 11/05/24 21:00 11/06/24 09:38 Enoxaparin 80 Mg/0.8 Ml Syringe SUB-Q 68 mg Q12HR JANNIE Administration Furosemide 40 mg 11/04/24 17:00 11/06/24 09:39 Furosemide Inj 40 Mg/4 Ml Vial IV PUSH 40 mg BID JANNIE Administration Glucagon 1 mg 10/29/24 22:59 Glucagon For Inj 1 Mg Vial IM PRN PRN Hypoglycemia Protocol Glucose 15 gm 10/29/24 22:59 Glucose Oral Gel 15 Gm Of Glucse In 37.5 Gm Tube PO PRN PRN Hypoglycemia Protocol Hydromorphone HCl 1 mg 10/31/24 13:20 11/01/24 23:47 Hydromorphone Hcl Inj (*Crx) 2 Mg/Ml Vial IV PUSH 1 mg Q3H PRN Administration Pain Rated 7-10 Dextrose 1,000 mls @ 100 mls/hr 10/29/24 22:59 Dextrose 5% 1,000 Ml IVPB PRN PRN Hypoglycemia Protocol Meropenem 1 gm/ Sodium 100 mls @ 200 mls/hr 11/03/24 16:00 11/06/24 03:37 Chloride IVPB 200 mls/hr Q12H JANNIE Administration Ibuprofen 800 mg in 200 mls @ 400 mls/hr 11/04/24 13:55 Caldolor 800 Mg/200 Ml IVPB Q8HR PRN Pain Rated 4-6 IF NPO Insulin Aspart 2 - 5 units 10/30/24 00:00 11/05/24 13:15 Insulin Aspart (*Bkc) 100 Units/Ml SUB-Q Not Given Q6HR [facility] Protocol Ipratropium [place] 2 spray 10/29/24 17:00 11/06/24 09:40 Ipratropium Nasal [place] 0.03% 15 Ml Bottle NASAL 2 spray TID JANNIE Administration Ipratropium [place] 0.5 mg 11/05/24 14:00 11/06/24 08:00 Ipratropium Br 0.02% Inh Soln 0.5 Mg/2.5 Ml Vial INHALATION 0.5 mg Q6HRT JANNIE Administration Levalbuterol HCl 1.25 mg 11/05/24 14:00 11/06/24 08:00 Levalbuterol Neb 1.25 Mg/3 Ml INHALATION 1.25 mg Q6HRT JANNIE Administration Lisinopril 10 mg 11/06/24 09:00 11/06/24 09:38 Lisinopril 10 Mg Tablet PO 10 mg DAILY JANNIE Administration Losartan Potassium 50 mg 10/30/24 09:00 11/03/24 08:57 Losartan Potassium 50 Mg Tablet PO 50 mg DAILY JANNIE Administration Metoprolol Tartrate 5 mg 11/05/24 08:00 11/06/24 09:39 Metoprolol Tartrate Inj 5 Mg/5 Ml Vial IV PUSH 5 mg Q6H JANNIE Administration Ondansetron HCl 4 mg 10/29/24 15:30 Ondansetron Inj 4 Mg/2 Ml Vial IV PUSH Q4H PRN Nausea And Vomiting Pantoprazole Sodium 40 mg 10/30/24 09:00 11/06/24 09:40 Pantoprazole Sodium Iv 40 Mg Vial IV PUSH 40 mg QAM JANNIE Administration Fluticasone/Salmeterol 2 puff 10/29/24 20:00 11/06/24 08:01 Fluticasone/Salmeterol 115-21 Mcg Inhaler 1 Puff INHALATION 2 puff Q12HRT JANNIE Administration Sertraline HCl 100 mg 10/29/24 17:00 11/04/24 17:22 Sertraline Hcl 50 Mg Tablet PO 100 mg BID JANNIE Administration Sodium Chloride 10 ml 11/05/24 14:00 Central Line Flush IV PUSH Q8HR JANNIE Sodium Chloride 10 ml 11/05/24 12:18 Central Line Flush IV PUSH PRN PRN with TPN bag changes Sodium Chloride 20 ml 11/05/24 12:18 Central Line Flush IV PUSH PRN PRN after blood draws Radiology Results: ITS Impressions Abdomen/Pelvis CT 10/29/24 17:43 IMPRESSION: High-grade obstruction within the mid to distal sigmoid colon for which a malignancy is suspected. Aerated stool (with pneumatosis less likely) within the entirety of the colon, proximal to the mid to distal sigmoid colon. Retroperitoneal and mesenteric lymphadenopathy. Secondary signs suggesting hypovolemia. 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 Chest X-Ray 11/06/24 08:23 Impression: 1: Possible mild improvement of diffuse bilateral airspace disease which may represent edema, pneumonia or ARDS. Labs Labs: Laboratory Results - last 24 hr 11/05/24 11/05/24 11/05/24 04:14 12:21 18:21 WBC RBC Hgb Hct MCV MCH MCHC RDW Plt Count MPV Immature Gran % (Auto) Neut % (Auto) Lymph % (Auto) [place] % (Auto) Eos % (Auto) Baso % (Auto) Lymph # (Auto) [place] # (Auto) Eos # (Auto) Baso # (Auto) Abs Immat Gran (auto) Absolute Neuts (auto) Absolute Nucleated RBC Nucleated RBC % Sodium Potassium Chloride Carbon Dioxide Anion Gap BUN Creatinine Estim Creat Clear Calc Estimated GFR Glucose POC Capillary Glucose 143 H 190 H Calcium Magnesium Total Bilirubin AST ALT Alkaline Phosphatase Total Protein Albumin CA 19-9 Antigen 10 TSH (Reflex) 11/06/24 11/06/24 11/06/24 00:09 03:31 05:35 WBC 8.2 RBC 3.81 L Hgb 10.4 L Hct 32.3 L MCV 84.8 MCH 27.3 MCHC 32.2 RDW 15.9 H Plt Count 256 MPV 10.4 Immature Gran % (Auto) 1.8 H Neut % (Auto) 75.1 H Lymph % (Auto) 16.6 L [place] % (Auto) 6.2 Eos % (Auto) 0.1 Baso % (Auto) 0.2 Lymph # (Auto) 1.36 [place] # (Auto) 0.5 Eos # (Auto) 0.0 Baso # (Auto) 0.0 Abs Immat Gran (auto) 0.15 H Absolute Neuts (auto) 6.2 Absolute Nucleated RBC 0.030 H Nucleated RBC % 0.4 H Sodium 149 H Potassium 2.7 L* Chloride 109 H Carbon Dioxide 32 H Anion Gap 8 BUN 57 H D Creatinine 0.96 Estim Creat Clear Calc 41 Estimated GFR 57 L Glucose 157 H POC Capillary Glucose 181 H 129 H Calcium 9.0 Magnesium 2.0 Total Bilirubin 0.5 AST 57 H ALT 22 Alkaline Phosphatase 129 H Total Protein 6.0 L Albumin 3.0 L CA 19-9 Antigen TSH (Reflex) 0.965
[2024-11-06] MEDS: CENTRAL LINE FLUSH 10 ML IV PUSH ×4 (13:56→20:28)
[2024-11-06 16:29] LABS: Anion Gap 8 mmol/L (4-12); Blood Urea Nitrogen 50 mg/dL (7-17); Calcium 9.0 mg/dL (8.4-10.2); Carbon Dioxide 34 mmol/L (22-30); Chloride 104 mmol/L (98-107); Estimated CRCL calculation 37 ml/min; Estimated Glomerular Filt Rate 58; Glucose 125 mg/dL (65-110); Potassium 2.4 mmol/L (3.4-5.0); Sodium 146 mmol/L (137-145)
--- NOTE | 2024-11-06 16:34 | PC.NURSE ---
This RN left a message for Dr Sharp, reporting a potassium level of 2.4. In the message this RN requested MD to return call or place orders so that we would know the message was received, also stated that if didn't hear back in 15 min. will try to call back for potassium replacement orders.
--- NOTE | 2024-11-06 16:46 | PC.NURSE ---
Dr Sharp returned call related to potassium level and orders received at this time.
[2024-11-06] MEDS: KCL 40 MEQ/WATER 100 ML 100 ML 25 ML IVPB (18:18)
--- NOTE | 2024-11-06 19:40 | PC.NURSE ---
Discussed code status with patient and patient's daughter. The decision was made by the patient to change code status to DNR. MICHAEL Spear is the second nurse to witness this decision and Jennifer Hazel was updated via telephone of the decision. Family stated they are hoping to take the patient home on hospice tomorrow.
[2024-11-06] MEDS: HYDROcodone/acetaminophen (*CRX) 5-325 MG TABLET 1 TAB PO (20:27)
[2024-11-07] VITALS (34 sets, daily range): BP systolic 140–169; BP diastolic 62–89; PULSE 56–108; RESP 16–24; TEMP 36.4–36.9; O2SAT 92–98
[2024-11-07] MEDS: IPRATROPIUM BR 0.02% INH SOLN 0.5 MG/2.5 ML VIAL INHALATION ×4 (02:32→19:51)
[2024-11-07] MEDS: METOPROLOL TARTRATE INJ 5 MG/5 ML VIAL IV PUSH ×4 (03:39→20:19)
[2024-11-07] MEDS: MEROPENEM 1 GM in SODIUM CHLORIDE 0.9% IV 100 ML 200 ML IVPB ×2 (03:39→15:35)
[2024-11-07 05:30] LABS: Anion Gap 4 mmol/L (4-12); Blood Urea Nitrogen 49 mg/dL (7-17); Calcium 9.2 mg/dL (8.4-10.2); Carbon Dioxide 37 mmol/L (22-30); Chloride 101 mmol/L (98-107); Estimated CRCL calculation 38 ml/min; Estimated Glomerular Filt Rate 60; Glucose 137 mg/dL (65-110); Magnesium 2.1 mg/dL (1.6-2.3); Potassium 3.2 mmol/L (3.4-5.0); Sodium 142 mmol/L (137-145)
[2024-11-07] MEDS: CENTRAL LINE FLUSH 10 ML IV PUSH ×3 (06:07→20:20)
--- NOTE | 2024-11-07 06:19 | PM.EVENT ---
Event Note Event Note Event Note: Patient's potassium earlier noted to be 2.4. Recheck, 3.2. Replacing with KCl 40 mEq powder. Magnesium is 2.1.
[2024-11-07] MEDS: FLUTICASONE/SALMETEROL 115-21 MCG INHALER 1 PUFF 2 PUFF INHALATION ×2 (07:58→19:51)
--- NOTE | 2024-11-07 09:52 | PCNFU ---
Nutrition Follow-Up Complete: Moderate protein calorie malnutrition related to altered GI function as evidenced by intakes <75% needs >1 month; weight loss 6%/1 month; moderate muscle wasting and fat loss Meet estimated nutrition needs - Progressing with diet. Continue same goal Diet advancement as medically able - Goal is met Goal: Pt current nutrition is Heart healthy diet, fluid restriction 1500 ml/day, Ensure +HP TID . Nutrition recommendation: No new recommendations. Continue current nutrition care plan and orders. Agree with orders Last recorded weight is 67.4 kg. Bowel Motility: +1 BM 11/07, colostomy Labs Review ed: K+ 3.2, BUN 49, Glu 137 Meds Noted: Protonix Skin: Surgical incision, ostomy Additional Notes: Pt starting to eat more on heart healthy diet. Drinking some Ensure. Found to have colon cancer, meeting with hospice. Continue to monitor Monitoring diet orders, output, weights, labs, plan of care Follow up in 5 days
[2024-11-07] MEDS: FUROSEMIDE INJ 40 MG/4 ML VIAL IV PUSH ×2 (10:24→16:38)
[2024-11-07] MEDS: PANTOPRAZOLE SODIUM IV 40 MG VIAL IV PUSH (10:24)
[2024-11-07] MEDS: CALCIUM/VITAMIN D 500 MG/5 MCG (200 I.U.) TABLET PO (10:25)
[2024-11-07] MEDS: EMPAGLIFLOZIN 10 MG TABLET PO (10:25)
[2024-11-07] MEDS: ENOXAPARIN 80 MG/0.8 ML SYRINGE 68 MG SUB-Q ×2 (10:25→20:19)
[2024-11-07 11:07] LABS: Anion Gap 8 mmol/L (4-12); Blood Urea Nitrogen 50 mg/dL (7-17); Calcium 9.2 mg/dL (8.4-10.2); Carbon Dioxide 34 mmol/L (22-30); Chloride 103 mmol/L (98-107); Estimated CRCL calculation 42 ml/min; Estimated Glomerular Filt Rate > 60; Glucose 137 mg/dL (65-110); Potassium 3.0 mmol/L (3.4-5.0); Sodium 145 mmol/L (137-145)
--- NOTE | 2024-11-07 13:29 | P.PNIM_ITS ---
Progress Note: A&P Assessment and Plan (1) Colonic obstruction: Code(s): K56.609 - Unspecified intestinal obstruction, unspecified as to partial versus complete obstruction Status: Acute Plan # Colonic obstruction: CT scan showed high-grade obstruction within the mid to distal sigmoid colon, lymphadenopathy, and aerated stool within the entirety of the colon. Sigmoidoscopy in mid September showed diverticulosis but was otherwise unremarkable. Continue empiric antibiotic meropenem to cover for possible diverticulitis. Further and definitive management as per the surgical service. 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 oncology consulted. ptient decided hospice at time of discharge # CKD stage 3 Kidney function stable # Hypokalemia, hyponatremia Replete with potassium chloride will replete with IV K hypernatremic 11/06: remove fluid restriction # Hypertension: metoprolol. lisinopril. # acute on chronic hypoxic respiratory failure requiring high oxygen 11/03/2024 Procalcitonin was elevated 2.3 meropenem Sputum culture Chest x-ray with bilateral opacities noted. BNP came back elevated at 15,000 as well. Use of CPAP at night time Placed on monitor and continuous oxygen which has progressively worsened requiring bipap Could also be COPD exacerbation With active wheezing. received a dose of Solu- Medrol not much wheezing now, so will avoid solumedrol continue lasix 40 mg iv bid. echo LVEF 35% rule out PE. stll not edwina to do CTA diuresing well. cxr improving. wean oxygen as tolerated. # afib with rvr overnigth. metoprolol . cardiology on board spontaneously converted to sinus rhythm anticoagulation with lovenox echo wtih ef 35-40% gdmt when able. # Obstructive sleep apnea: CPAP will be provided for the patient to use while hospitalized. currently on bipap at night # Chronic obstructive pulmonary disease: No acute issues. Continue Advair Diskus. Subjective Date/time seen: 11/07/24 13:29 Interval history: Patient was seen and examined at bedside. She denies any chest pain, shortness of breath, palpitations, dizziness. she is asking to be DNR DNI for now until time of discharge home on Hospice. Hospice referral ordered. Had hypokalemia. did not tolerate po potassium will give IV. Review of Systems Review of Systems: 12 systems were reviewed and are negativ e except for as per HPI. All systems reviewed & are unremarkable except as noted in HPI and below Exam Narrative: GENERAL: Pleasant, in no acute distress. Well-nourished. on BIPAP - EYES: EOMI. Anicteric. - HENT: Moist mucous membranes. - LUNGS: Diminished breath sounds bilat erally, coarse breath sounds with no wheezes no respiratory distress - CARDIOVASCULAR: regular rate and rhyth m, sinus on tele, No murmur. No JVD. - ABDOMEN: Soft, mildly distended bowel sound positive, colostomy on left and ostomy bag on right midline incision covered with dressing which is clean dry and intact. - EXTREMITIES: No edema. Peripheral puls es 2+. Non-tender. - NEUROLOGIC: No focal neurological defi cits. CN II-XII grossly intact. - PSYCHIATRIC: Awake, Alert and oriented x 3. Appropriate mood and affect. - SKIN: No rashes or lesions. Warm. - LYMPH: No cervical lymphadenopathy. Objective Data Vital Signs Vital Signs: Vital Signs - 24 hr 11/06/24 13:55 11/06/24 14:13 11/06/24 14:14 Temperature Pulse Rate 60 76 61 Respiratory Rate 20 23 H Blood Pressure Pulse Oximetry 93 Oxygen Delivery BiPAP Oxygen Flow Rate Fraction of Inspired Oxygen 11/06/24 14:18 11/06/24 16:00 11/06/24 16:00 Temperature Pulse Rate 63 63 59 L Respiratory Rate 20 20 Blood Pressure Pulse Oximetry 93 Oxygen Delivery BiPAP Oxygen Flow Rate Fraction of Inspired Oxygen 75 11/06/24 16:00 11/06/24 18:00 11/06/24 19:07 Temperature 98.1 F Pulse Rate 67 143 H 142 H Respiratory Rate 24 H Blood Pressure 166/78 H Pulse Oximetry 91 Oxygen Delivery Oxygen Flow Rate Fraction of Inspired Oxygen 11/06/24 19:56 11/06/24 20:00 11/06/24 20:00 Temperature 97.5 F L Pulse Rate 137 H 144 H Respiratory Rate 17 Blood Pressure 143/88 H Pulse Oximetry 93 Oxygen Delivery BiPAP Oxygen Flow Rate Fraction of Inspired Oxygen 11/06/24 21:30 11/06/24 21:32 11/06/24 21:36 Temperature Pulse Rate 133 H 133 H 133 H Respiratory Rate 24 H 24 H Blood Pressure Pulse Oximetry 92 92 Oxygen Delivery BiPAP BiPAP Oxygen Flow Rate Fraction of Inspired Oxygen 60 11/06/24 22:00 11/06/24 22:04 11/06/24 22:56 Temperature Pulse Rate 137 H 144 H 132 H Respiratory Rate 22 H Blood Pressure Pulse Oximetry Oxygen Delivery Oxygen Flow Rate Fraction of Inspired Oxygen 11/06/24 23:29 11/07/24 00:00 11/07/24 00:00 Temperature 97.4 F L Pulse Rate 70 66 Respiratory Rate 17 Blood Pressure 117/63 Pulse Oximetry 100 Oxygen Delivery BiPAP Oxygen Flow Rate Fraction of Inspired Oxygen 60 11/07/24 01:13 11/07/24 02:00 11/07/24 02:32 Temperature 98.4 F Pulse Rate 108 H 64 60 Respiratory Rate 16 18 Blood Pressure 167/89 H Pulse Oximetry 98 Oxygen Delivery Oxygen Flow Rate Fraction of Inspired Oxygen 11/07/24 02:35 11/07/24 02:43 11/07/24 03:39 Temperature Pulse Rate 60 61 68 Respiratory Rate 18 18 Blood Pressure Pulse Oximetry 96 Oxygen Delivery BiPAP Oxygen Flow Rate Fraction of Inspired Oxygen 11/07/24 03:53 11/07/24 04:00 11/07/24 04:00 Temperature 97.8 F Pulse Rate 68 57 L Respiratory Rate 16 Blood Pressure 149/79 H Pulse Oximetry 98 Oxygen Delivery BiPAP Oxygen Flow Rate Fraction of Inspired Oxygen 60 11/07/24 06:00 11/07/24 06:03 11/07/24 06:05 Temperature Pulse Rate 58 L 57 L 57 L Respiratory Rate 19 19 Blood Pressure Pulse Oximetry 95 Oxygen Delivery BiPAP Oxygen Flow Rate Fraction of Inspired Oxygen 11/07/24 06:14 11/07/24 07:53 11/07/24 08:00 Temperature 97.6 F Pulse Rate 62 65 Respiratory Rate 18 16 Blood Pressure 154/83 H Pulse Oximetry 96 95 Oxygen Delivery High Flow Therapy with Na Oxygen Flow Rate 40 Fraction of Inspired Oxygen 85 11/07/24 08:00 11/07/24 10:00 11/07/24 10:24 Temperature Pulse Rate 71 66 65 Respiratory Rate Blood Pressure Pulse Oximetry Oxygen Delivery Oxygen Flow Rate Fraction of Inspired Oxygen 11/07/24 11:38 Temperature 98.3 F Pulse Rate 61 Respiratory Rate 24 H Blood Pressure 169/86 H Pulse Oximetry 97 Oxygen Delivery Oxygen Flow Rate Fraction of Inspired Oxygen Intake/Output Intake/Output: Intake & Output 11/04/24 11/05/24 11/06/24 11/07/24 23:59 23:59 23:59 23:59 Intake Total 760 1277 440 340 Output Total 2100 1860 3708 1600 [id number] [id number] [phone] [phone] Meds/Results Medications: Active Medications Generic Name Dose Route Start Last Admin Trade Name Freq PRN Reason Stop Dose Admin Acetaminophen 650 mg 11/04/24 13:56 Acetaminophen 325 Mg Tablet PO Q4H PRN Mild Pain (1-3) or Fever Hydrocodone Bitart/Acetaminophen 1 tab 11/04/24 13:56 11/06/24 20:27 Hydrocodone/Acetaminophen (*Crx) 5-325 Mg Tablet PO 1 tab Q4H PRN Administration Pain Rated 4-6 Atorvastatin Calcium 80 mg 10/30/24 09:00 11/04/24 09:03 Atorvastatin 40 Mg Tablet PO 80 mg DAILY JANNIE Administration Calcium Carbonate 500 mg 10/30/24 09:00 11/07/24 10:25 Calcium/Vitamin D 500 Mg/5 Mcg (200 I.U.) Tablet PO 500 mg DAILY JANNIE Administration Carvedilol 6.25 mg 10/29/24 21:00 11/04/24 21:05 Carvedilol 6.25 Mg Tablet PO 6.25 mg Q12HR JANNIE Administration Dextrose 12.5 gm 10/29/24 22:59 Dextrose 50% 25 Gm/50 Ml Syringe IV PUSH PRN PRN Hypoglycemia Protocol Empagliflozin 10 mg 11/06/24 09:00 11/07/24 10:25 Empagliflozin 10 Mg Tablet PO 10 mg DAILY JANNIE Administration Enoxaparin Sodium 68 mg 11/05/24 21:00 11/07/24 10:25 Enoxaparin 80 Mg/0.8 Ml Syringe SUB-Q 68 mg Q12HR JANNIE Administration Furosemide 40 mg 11/04/24 17:00 11/07/24 10:24 Furosemide Inj 40 Mg/4 Ml Vial IV PUSH 40 mg BID JANNIE Administration Glucagon 1 mg 10/29/24 22:59 Glucagon For Inj 1 Mg Vial IM PRN PRN Hypoglycemia Protocol Glucose 15 gm 10/29/24 22:59 Glucose Oral Gel 15 Gm Of Glucse In 37.5 Gm Tube PO PRN PRN Hypoglycemia Protocol Hydromorphone HCl 1 mg 10/31/24 13:20 11/01/24 23:47 Hydromorphone Hcl Inj (*Crx) 2 Mg/Ml Vial IV PUSH 1 mg Q3H PRN Administration Pain Rated 7-10 Dextrose 1,000 mls @ 100 mls/hr 10/29/24 22:59 Dextrose 5% 1,000 Ml IVPB PRN PRN Hypoglycemia Protocol Meropenem 1 gm/ Sodium 100 mls @ 200 mls/hr 11/03/24 16:00 11/07/24 10:35 Chloride IVPB Infused Q12H JANNIE Infusion Ibuprofen 800 mg in 200 mls @ 400 mls/hr 11/04/24 13:55 Caldolor 800 Mg/200 Ml IVPB Q8HR PRN Pain Rated 4-6 IF NPO Potassium Chloride 100 mls @ 25 mls/hr 11/07/24 11:29 Kcl 40 Meq/Water 100 Ml IVPB 11/07/24 15:28 ONCE ONE Insulin Aspart 2 - 5 units 10/30/24 00:00 11/07/24 06:06 Insulin Aspart (*Bkc) 100 Units/Ml SUB-Q Not Given Q6HR [facility] Protocol Ipratropium [place] 2 spray 10/29/24 17:00 11/07/24 10:25 Ipratropium Nasal [place] 0.03% 15 Ml Bottle NASAL Not Given TID JANNIE Ipratropium [place] 0.5 mg 11/05/24 14:00 11/07/24 06:02 Ipratropium Br 0.02% Inh Soln 0.5 Mg/2.5 Ml Vial INHALATION 0.5 mg Q6HRT JANNIE Administration Levalbuterol HCl 1.25 mg 11/05/24 14:00 11/07/24 06:02 Levalbuterol Neb 1.25 Mg/3 Ml INHALATION 1.25 mg Q6HRT JANNIE Administration Lisinopril 10 mg 11/06/24 09:00 11/07/24 10:25 Lisinopril 10 Mg Tablet PO 10 mg DAILY JANNIE Administration Losartan Potassium 50 mg 10/30/24 09:00 11/03/24 08:57 Losartan Potassium 50 Mg Tablet PO 50 mg DAILY JANNIE Administration Metoprolol Tartrate 5 mg 11/05/24 08:00 11/07/24 10:24 Metoprolol Tartrate Inj 5 Mg/5 Ml Vial IV PUSH 5 mg Q6H JANNIE Administration Ondansetron HCl 4 mg 10/29/24 15:30 Ondansetron Inj 4 Mg/2 Ml Vial IV PUSH Q4H PRN Nausea And Vomiting Pantoprazole Sodium 40 mg 10/30/24 09:00 11/07/24 10:24 Pantoprazole Sodium Iv 40 Mg Vial IV PUSH 40 mg QAM JANNIE Administration Fluticasone/Salmeterol 2 puff 10/29/24 20:00 11/07/24 07:58 Fluticasone/Salmeterol 115-21 Mcg Inhaler 1 Puff INHALATION 2 puff Q12HRT JANNIE Administration Sertraline HCl 100 mg 10/29/24 17:00 11/04/24 17:22 Sertraline Hcl 50 Mg Tablet PO 100 mg BID JANNIE Administration Sodium Chloride 10 ml 11/05/24 14:00 11/07/24 06:07 Central Line Flush IV PUSH 10 ml Q8HR JANNIE Administration Sodium Chloride 10 ml 11/05/24 12:18 Central Line Flush IV PUSH PRN PRN with TPN bag changes Sodium Chloride 20 ml 11/05/24 12:18 Central Line Flush IV PUSH PRN PRN after blood draws Radiology Results: ITS Impressions Abdomen/Pelvis CT 10/29/24 17:43 IMPRESSION: High-grade obstruction within the mid to distal sigmoid colon for which a malignancy is suspected. Aerated stool (with pneumatosis less likely) within the entirety of the colon, proximal to the mid to distal sigmoid colon. Retroperitoneal and mesenteric lymphadenopathy. Secondary signs suggesting hypovolemia. 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 Chest X-Ray 11/06/24 08:23 Impression: 1: Possible mild improvement of diffuse bilateral airspace disease which may represent edema, pneumonia or ARDS. Labs Labs: Laboratory Results - last 24 hr 11/06/24 11/06/24 11/07/24 16:05 18:38 04:45 Sodium 146 H 142 Potassium 2.4 L* 3.2 L Chloride 104 101 Carbon Dioxide 34 H 37 H Anion Gap 8 4 BUN 50 H 49 H Creatinine 0.94 0.91 Estim Creat Clear Calc 37 38 Estimated GFR 58 L 60 Glucose 125 H 137 H POC Capillary Glucose 188 H Calcium 9.0 9.2 Magnesium 2.1 11/07/24 11/07/24 10:36 11:16 Sodium 145 Potassium 3.0 L Chloride 103 Carbon Dioxide 34 H Anion Gap 8 BUN 50 H Creatinine 0.83 Estim Creat Clear Calc 42 Estimated GFR > 60 Glucose 137 H POC Capillary Glucose 131 H Calcium 9.2 Magnesium Quality VTE Prophylaxis VTE prophylaxis: mechanical ordered
[2024-11-07] MEDS: SODIUM CHLORIDE 0.9% IV 500 ML 30 ML (13:35)
[2024-11-07] MEDS: KCL 40 MEQ/WATER 100 ML 100 ML 25 ML IVPB (13:37)
--- NOTE | 2024-11-07 16:19 | P.PN_ITS ---
Progress Note: A&P Assessment and Plan (1) Atrial fibrillation with rapid ventricular response: Code(s): I48.91 - Unspecified atrial fibrillation Status: Acute Assessment and Plan: She has had spontaneous conversion back to sinus rhythm. Cardiology saw the patient and recommended systemic anticoagulation when okay with surgery but with the decision to pursue hospice care, will not place her on Eliquis or Coumadin. (2) Metastatic adenocarcinoma: Code(s): C79.9 - Secondary malignant neoplasm of unspecified site Status: Acute Assessment and Plan: Primary tumor is likely sigmoid adenocarcinoma. After discussion with Oncology the patient and her daughter have agreed that they want to pursue hospice care other than palliative chemotherapy. Hospice has already done their assessment and plans for discharge home the hospice are pending. She still has ernie in place her incision and these can be removed in about 1 week with the hospice nurses at home if they are comfortable doing that. I can discharge her when home hospice plans are completed and she appears medically stable. (3) Acute respiratory failure: Qualifiers: Respiratory failure complication: hypoxia Qualified Code(s): J96.01 - Acute respiratory failure with hypoxia Code(s): J96.00 - Acute respiratory failure, unspecified whether with hypoxia or hypercapnia Status: Acute Assessment and Plan: Patient is breathing better with aggressive diuresis. Potassium is low and is being repleted. 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 She went acute respiratory failure and was transferred to the IMU and placed on CPAP and aggressively diuresed with IV Lasix due to pulmonary edema. AFib which spontaneously converted to sinus rhythm. Today she is feeling better and breathing easier. Potassium is still low at 3.0 and she is getting aggressive potassium replacement. She is now down to high-flow nasal cannula. Tolerating solid food without difficulty. No longer having any crampy abdominal pain or any nausea vomiting. Good output from her ostomy. Ostomy nurses are following. Last evening the patient and daughter had a long discussion after talking with Dr. Gunn and his recommendations and prognosis. They have made a decision to pursue hospice care. Exam GI: Other: Abdomen is soft and nondistended. Stool output from the right upper quadrant end transverse colostomy. Echoes is pink. No leaking from around the ostomy bag. Left upper quadrant mucous fistula minimal output. Mucosa still looks a little dark and the stoma seems to be mildly retracted. However there is no leaking around the mucous fistula. Midline incision is healing well. Port site incisions healing well with ernie in place. No redness or drainage around the incisions. Objective Data Vital Signs Vital Signs: Vital Signs - 24 hr 11/06/24 18:00 11/06/24 19:07 11/06/24 19:56 Temperature 36.4 C L Pulse Rate 143 H 142 H 137 H Respiratory Rate 17 Blood Pressure 143/88 H Pulse Oximetry 93 Oxygen Delivery Oxygen Flow Rate Fraction of Inspired Oxygen 11/06/24 20:00 11/06/24 20:00 11/06/24 21:30 Temperature Pulse Rate 144 H 133 H Respiratory Rate Blood Pressure Pulse Oximetry 92 Oxygen Delivery BiPAP BiPAP Oxygen Flow Rate Fraction of Inspired Oxygen 11/06/24 21:32 11/06/24 21:36 11/06/24 22:00 Temperature Pulse Rate 133 H 133 H 137 H Respiratory Rate 24 H 24 H Blood Pressure Pulse Oximetry 92 Oxygen Delivery BiPAP Oxygen Flow Rate Fraction of Inspired Oxygen 60 11/06/24 22:04 11/06/24 22:56 11/06/24 23:29 Temperature 36.3 C L Pulse Rate 144 H 132 H 70 Respiratory Rate 22 H 17 Blood Pressure 117/63 Pulse Oximetry 100 Oxygen Delivery Oxygen Flow Rate Fraction of Inspired Oxygen 11/07/24 00:00 11/07/24 00:00 11/07/24 01:13 Temperature 36.9 C Pulse Rate 66 108 H Respiratory Rate 16 Blood Pressure 167/89 H Pulse Oximetry 98 Oxygen Delivery BiPAP Oxygen Flow Rate Fraction of Inspired Oxygen 60 11/07/24 02:00 11/07/24 02:32 11/07/24 02:35 Temperature Pulse Rate 64 60 60 Respiratory Rate 18 18 Blood Pressure Pulse Oximetry 96 Oxygen Delivery BiPAP Oxygen Flow Rate Fraction of Inspired Oxygen 11/07/24 02:43 11/07/24 03:39 11/07/24 03:53 Temperature 36.6 C Pulse Rate 61 68 68 Respiratory Rate 18 16 Blood Pressure 149/79 H Pulse Oximetry 98 Oxygen Delivery Oxygen Flow Rate Fraction of Inspired Oxygen 11/07/24 04:00 11/07/24 04:00 11/07/24 06:00 Temperature Pulse Rate 57 L 58 L Respiratory Rate Blood Pressure Pulse Oximetry Oxygen Delivery BiPAP Oxygen Flow Rate Fraction of Inspired Oxygen 60 11/07/24 06:03 11/07/24 06:05 11/07/24 06:14 Temperature Pulse Rate 57 L 57 L 62 Respiratory Rate 19 19 18 Blood Pressure Pulse Oximetry 95 Oxygen Delivery BiPAP Oxygen Flow Rate Fraction of Inspired Oxygen 11/07/24 07:53 11/07/24 08:00 11/07/24 08:00 Temperature 36.4 C Pulse Rate 65 71 Respiratory Rate 16 Blood Pressure 154/83 H Pulse Oximetry 96 95 Oxygen Delivery High Flow Therapy with Na Oxygen Flow Rate 40 Fraction of Inspired Oxygen 85 11/07/24 10:00 11/07/24 10:24 11/07/24 11:38 Temperature 36.8 C Pulse Rate 66 65 61 Respiratory Rate 24 H Blood Pressure 169/86 H Pulse Oximetry 97 Oxygen Delivery Oxygen Flow Rate Fraction of Inspired Oxygen 11/07/24 12:00 11/07/24 13:42 11/07/24 13:50 Temperature Pulse Rate 61 60 62 Respiratory Rate 20 20 Blood Pressure Pulse Oximetry Oxygen Delivery Oxygen Flow Rate Fraction of Inspired Oxygen 11/07/24 14:00 11/07/24 14:48 11/07/24 15:31 Temperature 36.4 C Pulse Rate 67 67 Respiratory Rate 18 Blood Pressure 140/62 Pulse Oximetry 96 95 Oxygen Delivery High Flow Nasal Cannula Oxygen Flow Rate 15 Fraction of Inspired Oxygen 11/07/24 15:35 Temperature Pulse Rate 66 Respiratory Rate Blood Pressure Pulse Oximetry Oxygen Delivery Oxygen Flow Rate Fraction of Inspired Oxygen Intake/Output Intake/Output: Intake & Output 11/04/24 11/05/24 11/06/24 11/07/24 23:59 23:59 23:59 23:59 Intake Total 760 1277 440 340 Output Total 2100 9830 3700 [id number] [id number] [phone] [phone] Meds/Results Medications: Active Medications Generic Name Dose Route Start Last Admin Trade Name Freq PRN Reason Stop Dose Admin Acetaminophen 650 mg 11/04/24 13:56 Acetaminophen 325 Mg Tablet PO Q4H PRN Mild Pain (1-3) or Fever Hydrocodone Bitart/Acetaminophen 1 tab 11/04/24 13:56 11/06/24 20:27 Hydrocodone/Acetaminophen (*Crx) 5-325 Mg Tablet PO 1 tab Q4H PRN Administration Pain Rated 4-6 Atorvastatin Calcium 80 mg 10/30/24 09:00 11/04/24 09:03 Atorvastatin 40 Mg Tablet PO 80 mg DAILY JANNIE Administration Calcium Carbonate 500 mg 10/30/24 09:00 11/07/24 10:25 Calcium/Vitamin D 500 Mg/5 Mcg (200 I.U.) Tablet PO 500 mg DAILY JANNIE Administration Carvedilol 6.25 mg 10/29/24 21:00 11/04/24 21:05 Carvedilol 6.25 Mg Tablet PO 6.25 mg Q12HR JANNIE Administration Dextrose 12.5 gm 10/29/24 22:59 Dextrose 50% 25 Gm/50 Ml Syringe IV PUSH PRN PRN Hypoglycemia Protocol Empagliflozin 10 mg 11/06/24 09:00 11/07/24 10:25 Empagliflozin 10 Mg Tablet PO 10 mg DAILY JANNIE Administration Enoxaparin Sodium 68 mg 11/05/24 21:00 11/07/24 10:25 Enoxaparin 80 Mg/0.8 Ml Syringe SUB-Q 68 mg Q12HR JANNIE Administration Furosemide 40 mg 11/04/24 17:00 11/07/24 10:24 Furosemide Inj 40 Mg/4 Ml Vial IV PUSH 40 mg BID JANNIE Administration Glucagon 1 mg 10/29/24 22:59 Glucagon For Inj 1 Mg Vial IM PRN PRN Hypoglycemia Protocol Glucose 15 gm 10/29/24 22:59 Glucose Oral Gel 15 Gm Of Glucse In 37.5 Gm Tube PO PRN PRN Hypoglycemia Protocol Hydromorphone HCl 1 mg 10/31/24 13:20 11/01/24 23:47 Hydromorphone Hcl Inj (*Crx) 2 Mg/Ml Vial IV PUSH 1 mg Q3H PRN Administration Pain Rated 7-10 Dextrose 1,000 mls @ 100 mls/hr 10/29/24 22:59 Dextrose 5% 1,000 Ml IVPB PRN PRN Hypoglycemia Protocol Meropenem 1 gm/ Sodium 100 mls @ 200 mls/hr 11/03/24 16:00 11/07/24 15:35 Chloride IVPB 200 mls/hr Q12H JANNIE Administration Ibuprofen 800 mg in 200 mls @ 400 mls/hr 11/04/24 13:55 Caldolor 800 Mg/200 Ml IVPB Q8HR PRN Pain Rated 4-6 IF NPO Insulin Aspart 2 - 5 units 10/30/24 00:00 11/07/24 13:36 Insulin Aspart (*Bkc) 100 Units/Ml SUB-Q Not Given Q6HR [facility] Protocol Ipratropium [place] 2 spray 10/29/24 17:00 11/07/24 10:25 Ipratropium Nasal [place] 0.03% 15 Ml Bottle NASAL Not Given TID JANNIE Ipratropium [place] 0.5 mg 11/05/24 14:00 11/07/24 13:41 Ipratropium Br 0.02% Inh Soln 0.5 Mg/2.5 Ml Vial INHALATION 0.5 mg Q6HRT JANNIE Administration Levalbuterol HCl 1.25 mg 11/05/24 14:00 11/07/24 13:41 Levalbuterol Neb 1.25 Mg/3 Ml INHALATION 1.25 mg Q6HRT JANNIE Administration Lisinopril 10 mg 11/06/24 09:00 11/07/24 10:25 Lisinopril 10 Mg Tablet PO 10 mg DAILY JANNIE Administration Metoprolol Tartrate 5 mg 11/05/24 08:00 11/07/24 15:35 Metoprolol Tartrate Inj 5 Mg/5 Ml Vial IV PUSH 5 mg Q6H JANNIE Administration Ondansetron HCl 4 mg 10/29/24 15:30 Ondansetron Inj 4 Mg/2 Ml Vial IV PUSH Q4H PRN Nausea And Vomiting Pantoprazole Sodium 40 mg 10/30/24 09:00 11/07/24 10:24 Pantoprazole Sodium Iv 40 Mg Vial IV PUSH 40 mg QAM JANNIE Administration Fluticasone/Salmeterol 2 puff 10/29/24 20:00 11/07/24 07:58 Fluticasone/Salmeterol 115-21 Mcg Inhaler 1 Puff INHALATION 2 puff Q12HRT JANNIE Administration Sertraline HCl 100 mg 10/29/24 17:00 11/04/24 17:22 Sertraline Hcl 50 Mg Tablet PO 100 mg BID JANNIE Administration Sodium Chloride 10 ml 11/05/24 14:00 11/07/24 15:35 Central Line Flush IV PUSH 10 ml Q8HR JANNIE Administration Sodium Chloride 10 ml 11/05/24 12:18 Central Line Flush IV PUSH PRN PRN with TPN bag changes Sodium Chloride 20 ml 11/05/24 12:18 Central Line Flush IV PUSH PRN PRN after blood draws Radiology Results: ITS Impressions Abdomen/Pelvis CT 10/29/24 17:43 IMPRESSION: High-grade obstruction within the mid to distal sigmoid colon for which a malignancy is suspected. Aerated stool (with pneumatosis less likely) within the entirety of the colon, proximal to the mid to distal sigmoid colon. Retroperitoneal and mesenteric lymphadenopathy. Secondary signs suggesting hypovolemia. 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 Chest X-Ray 11/06/24 08:23 Impression: 1: Possible mild improvement of diffuse bilateral airspace disease which may represent edema, pneumonia or ARDS. Labs Labs: Laboratory Results - last 24 hr 11/06/24 11/06/24 11/07/24 16:05 18:38 04:45 Sodium 146 H 142 Potassium 2.4 L* 3.2 L Chloride 104 101 Carbon Dioxide 34 H 37 H Anion Gap 8 4 BUN 50 H 49 H Creatinine 0.94 0.91 Estim Creat Clear Calc 37 38 Estimated GFR 58 L 60 Glucose 125 H 137 H POC Capillary Glucose 188 H Calcium 9.0 9.2 Magnesium 2.1 11/07/24 11/07/24 10:36 11:16 Sodium 145 Potassium 3.0 L Chloride 103 Carbon Dioxide 34 H Anion Gap 8 BUN 50 H Creatinine 0.83 Estim Creat Clear Calc 42 Estimated GFR > 60 Glucose 137 H POC Capillary Glucose 131 H Calcium 9.2 Magnesium
[2024-11-07 20:31] LABS: Anion Gap 4 mmol/L (4-12); Blood Urea Nitrogen 46 mg/dL (7-17); Calcium 9.2 mg/dL (8.4-10.2); Carbon Dioxide 39 mmol/L (22-30); Chloride 94 mmol/L (98-107); Estimated CRCL calculation 39 ml/min; Estimated Glomerular Filt Rate > 60; Glucose 129 mg/dL (65-110); Potassium 3.2 mmol/L (3.4-5.0); Sodium 137 mmol/L (137-145)
[2024-11-08] VITALS (17 sets, daily range): BP systolic 128–130; BP diastolic 65–90; PULSE 56–151; RESP 16–18; TEMP 36.6–36.7; O2SAT 91–100
[2024-11-08] MEDS: METOPROLOL TARTRATE INJ 5 MG/5 ML VIAL IV PUSH ×4 (01:19→13:54)
[2024-11-08] MEDS: IPRATROPIUM BR 0.02% INH SOLN 0.5 MG/2.5 ML VIAL INHALATION ×2 (01:46→09:01)
[2024-11-08] MEDS: MEROPENEM 1 GM in SODIUM CHLORIDE 0.9% IV 100 ML 200 ML IVPB (02:48)
[2024-11-08] MEDS: CENTRAL LINE FLUSH 10 ML IV PUSH (02:49)
[2024-11-08] MEDS: ONDANSETRON INJ 4 MG/2 ML VIAL IV PUSH ×2 (05:37→13:54)
[2024-11-08 06:01] LABS: Hematocrit 40.9 % (37.0-47.0); Hemoglobin 12.6 g/dL (12.0-15.0); Mean Corpuscular HGB Conc 30.8 g/dl (32-36); Mean Corpuscular Hemoglobin 27.0 pg (26-34); Mean Corpuscular Volume 87.6 fl (80-100); Platelet Count Result 291 k/mm3 (150-375); Red Blood Count 4.67 M/mm3 (4.2-5.4); White Blood Count 9.6 K/mm3 (4.5-10.0)
[2024-11-08 06:27] LABS: Anion Gap 5 mmol/L (4-12); Blood Urea Nitrogen 43 mg/dL (7-17); Calcium 9.0 mg/dL (8.4-10.2); Carbon Dioxide 38 mmol/L (22-30); Chloride 95 mmol/L (98-107); Estimated CRCL calculation 42 ml/min; Estimated Glomerular Filt Rate > 60; Glucose 137 mg/dL (65-110); Potassium 3.0 mmol/L (3.4-5.0); Sodium 138 mmol/L (137-145)
[2024-11-08] MEDS: ENOXAPARIN 80 MG/0.8 ML SYRINGE 68 MG SUB-Q (08:54)
[2024-11-08] MEDS: PANTOPRAZOLE SODIUM IV 40 MG VIAL IV PUSH (08:55)
[2024-11-08] MEDS: EMPAGLIFLOZIN 10 MG TABLET PO (08:55)
[2024-11-08] MEDS: FUROSEMIDE INJ 40 MG/4 ML VIAL IV PUSH (08:55)
[2024-11-08] MEDS: CALCIUM/VITAMIN D 500 MG/5 MCG (200 I.U.) TABLET PO (08:56)
[2024-11-08] MEDS: FLUTICASONE/SALMETEROL 115-21 MCG INHALER 1 PUFF 2 PUFF INHALATION (09:00)
[2024-11-08] MEDS: IPRATROPIUM NASAL SPRAY 0.03% 15 ML BOTTLE 2 SPRAY NASAL (09:30)
[2024-11-08] MEDS: KCL 40 MEQ/WATER 100 ML 100 ML 25 ML IVPB (10:54)
--- NOTE | 2024-11-08 11:00 | PM.DS ---
DS: Admitting Diagnosis Discharge Date 11/08/24 Admitting Diagnosis bowel obstruction DS: Discharge Diagnosis Discharge Diagnosis (1) Colonic obstruction: Code(s): K56.609 - Unspecified intestinal obstruction, unspecified as to partial versus complete obstruction Status: Acute Plan hospice will discharge patient home with hospice # Colonic obstruction: CT scan showed high-grade obstruction within the mid to distal sigmoid colon, lymphadenopathy, and aerated stool within the entirety of the colon. Sigmoidoscopy in mid September showed diverticulosis but was otherwise unremarkable. Continue empiric antibiotic meropenem to cover for possible diverticulitis. Further and definitive management as per the surgical service. 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 oncology consulted. patient decided hospice at time of discharge # CKD stage 3 Kidney function stable # Hypokalemia, hyponatremia Replete with potassium chloride will replete with IV K hypernatremic 11/06: remove fluid restriction # Hypertension: metoprolol. lisinopril. # acute on chronic hypoxic respiratory failure requiring high oxygen 11/03/2024 Procalcitonin was elevated 2.3 meropenem completed Sputum culture Chest x-ray with bilateral opacities noted. BNP came back elevated at 15,000 as well. Use of CPAP at night time Placed on monitor and continuous oxygen which has progressively worsened requiring bipap Could also be COPD exacerbation With active wheezing. received a dose of Solu-Medrol not much wheezing now, so will avoid solumedrol continue lasix echo LVEF 35% rule out PE. stll not edwina to do CTA diuresing well. cxr improving. wean oxygen as tolerated. # afib with rvr overnigth. metoprolol . cardiology on board spontaneously converted to sinus rhythm echo wtih ef 35-40% gdmt when able. # Obstructive sleep apnea: CPAP will be provided for the patient to use while hospitalized. currently on bipap at night # Chronic obstructive pulmonary disease: No acute issues. Continue Advair Diskus. DS: Summary Hospital Course Reason for hospitalization: Abdominal pain, constipation Hospital Course: Patient is a 74-year-old female with past medical history of diverticulitis, COPD, stage IIIA CKD, ASPEN, HTN, T2DM and multiple other medical problems who was seen in outpatient general surgery clinic by Dr. Campos for evaluation of diverticulitis. Patient had been experiencing lower abdominal pain, nausea and constipation for roughly 2 months. She has previously been following with Dr. Templeton in GI, who referred her to our office. Patient was hospitalized roughly 5 months ago for iron deficiency anemia. GI was consulted at this time and obtained EGD and colonoscopy. Stool was hemoccult positive at this time. EGD was fairly benign. Colonoscopy was attempted, but due to extreme angulation in the sigmoid, only sigmoidoscopy was performed. The instrument was changed to a gastroscope but it was still not possible to advance proximally. Patient had a repeat sigmoidoscopy done on 09/19/2024, but again was unable to have full colonoscopy due to stenosis noted in the sigmoid colon with significant sigmoid angulation. Multiple nonbleeding diverticula present in sigmoid colon. On 10/18/2024, a barium enema was performed and demonstrated a normal rectum, however contrast was unable to be passed beyond the high-grade stricture in the distal sigmoid colon which could be related to acute diverticulitis, scarring related to chronic diverticulitis, or malignancy. At this point, patient was referred to general surgery. Upon office visit patient's abdomen was soft, moderately distended with mild diffuse tenderness. It was noted that patient likely has a near total obstruction of the sigmoid colon based on clinical evidence and imaging. Patient also admitted that she has not had a bowel movement in almost [address] Campos recommended admission to the hospital and possible urgent colonic diversion. Patient was admitted on 10/29/2024. Surgery team was consulted. 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 Oncology was consulted. Recommended chemotherapy. Patient had AFib with RVR. Cardiology was consulted to comment Xarelto and. Right control. LVEF showed 35-40%. Added spironolactone, Coreg, statin, Lasix. Consult for pneumonia versus COPD exacerbation. Patient treated with IV meropenem. Patient and her family decided discharged to home with hospice. Status at Discharge Overall status at discharge: patient is progressing back to baseline Time Spent with Patient Time attestation: Total time spent providing and/or coordinating discharge services: Time spent: Greater than 30 minutes Exam Narrative: GENERAL: Pleasant, in no acute distress. Well-nourished. on BIPAP - EYES: EOMI. Anicteric. - HENT: Moist mucous membranes. - LUNGS: Diminished breath sounds bilaterally, coarse breath sounds with no wheezes no respiratory distress - CARDIOVASCULAR: regular rate and rhythm, sinus on tele, No murmur. No JVD. - ABDOMEN: Soft, mildly distended bowel sound positive, colostomy on left and ostomy bag on right midline incision covered with dressing which is clean dry and intact. - EXTREMITIES: No edema. Peripheral pulses 2+. Non-tender. - NEUROLOGIC: No focal neurological deficits. CN II-XII grossly intact. - PSYCHIATRIC: Awake, Alert and oriented x 3. Appropriate mood and affect. - SKIN: No rashes or lesions. Warm. - LYMPH: No cervical lymphadenopathy. DS: Data Data Completed and Pending Completed studies during hospitalization: Pending at discharge 10/31/24 10:52 Surgical [PTH] Routine Labs on day of discharge: Labs from last 24 hours 11/08/24 11/07/24 11/07/24 05:50 23:47 20:13 WBC 9.6 RBC 4.67 Hgb 12.6 Hct 40.9 MCV 87.6 MCH 27.0 MCHC 30.8 L RDW 15.7 H Plt Count 291 MPV 10.7 H Sodium 138 137 Potassium 3.0 L 3.2 L Chloride 95 L 94 L Carbon Dioxide 38 H 39 H Anion Gap 5 4 BUN 43 H 46 H Creatinine 0.82 0.88 Estim Creat Clear Calc 42 39 Estimated GFR > 60 > 60 Glucose 137 H 129 H POC Capillary Glucose 156 H Calcium 9.0 9.2 11/07/24 11/07/24 11:16 10:36 WBC RBC Hgb Hct MCV MCH MCHC RDW Plt Count MPV Sodium 145 Potassium 3.0 L Chloride 103 Carbon Dioxide 34 H Anion Gap 8 BUN 50 H Creatinine 0.83 Estim Creat Clear Calc 42 Estimated GFR > 60 Glucose 137 H POC Capillary Glucose 131 H Calcium 9.2 Discharge Plan Discharge Attending physician on discharge: Jasmin Stubbs Consulting providers: Kyleigh Chowdary; Chelsie Bulladr; Elizbaeth Garza; Jasmin Stubbs; Eddie Gunn Discharging Clinician: Jasmin Stubbs Anticipated Discharge Date/Time: 11/08/24 11:08 Patient Disposition: Hospice - Home Activity: as tolerated Diet: as tolerated Discharge Instructions: Per Care Coordination, patient and daughter at bedside have agreed to pursue hospice care with [facility]. Do not lift more than 10 pounds for the next 6 weeks. Ok to continue regular diet at home. No general surgery follow up is necessary unless issues arise like swelling, severe pain, bleeding, or signs of infection to either stoma. Hospice care should remove ernie in 1 week and manage all stoma and colostomy care. Collaborate with hospice care for pain control and management of symptoms. Call our office at with any questions. Patient Instructions: PICC (Peripherally Inserted Central Catheter) (DC) Patient Language: Romanian Stand Alone Forms: General Discharge Information Follow-up/Referrals: Santy Sarkar MD [Primary Care Provider] - 1 Week Discharge Medications: New Jardiance 10 mg Tablet 10 mg PO DAILY Qty: 30 0RF Xarelto 20 mg tablet 20 mg PO DAILY Qty: 30 0RF Rx Instructions: must administer with evening meal furosemide [Lasix] 40 mg tablet 40 mg PO DAILY Qty: 30 0RF carvedilol [Coreg] 6.25 mg tablet 6.25 mg PO BID Qty: 60 0RF Rx Instructions: must administer with a meal/food spironolactone [Aldactone] 25 mg tablet 25 mg PO DAILY Qty: 30 0RF Continued aspirin 81 mg tablet,delayed release (DR/EC) 81 mg PO DAILY Qty: 90 0RF famotidine 20 mg tablet 20 mg PO BID Qty: 180 0RF loratadine [Claritin] 10 mg tablet 10 mg PO DAILY Qty: 90 0RF Centrum Silver 0.4 mg-300 mcg- 250 mcg tablet 1 tablet PO DAILY Qty: 90 0RF atorvastatin 40 mg tablet 80 mg PO DAILY calcium carbonate-vitamin D3 500 mg-10 mcg (400 unit) tablet 1 tablet PO DAILY ipratropium bromide 21 mcg (0.03 %) spray,non-aerosol 2 spray intranasal TID Qty: 30 0RF Rx Instructions: administer into each nostril fluticasone propion-salmeterol [Advair Diskus] 250-50 mcg/dose blister with device 1 inh inhalation BID PRN (Reason: COPD) losartan 50 mg tablet 50 mg PO DAILY Qty: 90 1RF carvedilol 6.25 mg tablet 6.25 mg PO BID Qty: 180 0RF ferrous gluconate 324 mg (38 mg iron) tablet 324 mg PO DAILY Qty: 30 3RF sertraline 100 mg tablet 100 mg PO BID Qty: 200 1RF Discontinued metronidazole 500 mg tablet 500 mg PO TID 10 Days Qty: 30 0RF ciprofloxacin HCl 500 mg tablet 500 mg PO Q12H Qty: 20 0RF Date of admission: 10/29/24 15:11 Primary Care Provider: Santy Sarkar Admitting Provider: Subhash Campos Attending physician on admission: Subhash Campos Condition: Stable Quality VTE Prophylaxis VTE prophylaxis: mechanical ordered
--- NOTE | 2024-11-08 11:11 | PM.PNCARD ---
Progress Note: A&P Assessment and Plan (1) Atrial fibrillation with rapid ventricular response: Code(s): I48.91 - Unspecified atrial fibrillation Status: Acute (2) Acute systolic heart failure: Code(s): I50.21 - Acute systolic (congestive) heart failure Status: Acute Plan New diagnosis of AFib with RVR spontaneously cardioverted to sinus rhythm-currently heart rates in the 70s; she is asymptomatic from AFib ----TSH normal Acute systolic heart failure with moderately depressed LVEF of 35 to 40% which is new Acute hypoxic respiratory failure COPD exacerbation High-grade mid to distal sigmoid colon obstruction status post open transverse end colostomy and placement of mucous fistula and peritoneal biopsy x2 on 10/31/2024- pathology shows metastatic adenocarcinoma Hypokalemia with potassium of 2.7 Plan: -AFib is most likely secondary to stress of acute illness. reverted back to atrial fibrillation with RVR this morning. Coreg has been on hold, resume for rate control. -Continue guideline directed medical therapy for systolic heart failure. -She has no chest pain currently or prior to this admission. No indication for cardiac catheterization at this time. Do not plan on any type of ischemic evaluation as she is being discharged on hospice -Continue statin -Check and replace electrolytes to keep potassium greater than 4 and magnesium greater than 2 -Check daily weights and ins and outs -Check renal function daily -Continue to monitor on telemetry -She is being discharged on hospice today. Cardiology will sign off. Subjective Date/time seen: 11/08/24 11:11 Interval history: Reason for encounter: AFib with RVR Interval history: Patient denies any chest pain, shortness of breath, palpitations, dizziness. Telemetry shows sinus rhythm with heart rate in the 60s to 70s range. Date of service 11/08/2024: She went back into atrial fibrillation earlier this morning, rates in the 120's - 140's. She denies palpitations, chest pain. Review of Systems Review of Systems: A complete review of systems was performed and negative other than those mentioned in the HPI Exam Narrative: General: Alert oriented x3, no acute distress Neck: Supple, no JVD Chest: Bilaterally clear to auscultation, no rales or rhonchi Cardiac: S1, S2 +, tachycardic, irregularly irregular, no murmurs or rubs Extremities: No pedal edema, no skin rash Neurologic: Alert and oriented x3, no focal neurological deficits Objective Data Vital Signs Vital Signs: Vital Signs - 24 hr 11/07/24 11:38 11/07/24 12:00 11/07/24 13:42 Temperature 36.8 C Pulse Rate 61 61 60 Respiratory Rate 24 H 20 Blood Pressure 169/86 H Pulse Oximetry 97 Oxygen Delivery Oxygen Flow Rate Fraction of Inspired Oxygen 11/07/24 13:50 11/07/24 14:00 11/07/24 14:48 Temperature Pulse Rate 62 67 Respiratory Rate 20 Blood Pressure Pulse Oximetry 96 Oxygen Delivery High Flow Nasal Cannula Oxygen Flow Rate 15 Fraction of Inspired Oxygen 11/07/24 15:31 11/07/24 15:35 11/07/24 16:00 Temperature 36.4 C Pulse Rate 67 66 56 L Respiratory Rate 18 Blood Pressure 140/62 Pulse Oximetry 95 Oxygen Delivery Oxygen Flow Rate Fraction of Inspired Oxygen 11/07/24 18:00 11/07/24 19:52 11/07/24 19:52 Temperature Pulse Rate 56 L 57 L Respiratory Rate 18 Blood Pressure Pulse Oximetry 92 Oxygen Delivery High Flow Nasal Cannula Oxygen Flow Rate 12 Fraction of Inspired Oxygen 11/07/24 20:00 11/07/24 20:00 11/07/24 20:00 Temperature 36.5 C Pulse Rate 58 L 60 Respiratory Rate 20 Blood Pressure 149/73 H Pulse Oximetry 95 97 Oxygen Delivery BiPAP Oxygen Flow Rate Fraction of Inspired Oxygen 60 11/07/24 20:03 11/07/24 20:13 11/07/24 20:19 Temperature Pulse Rate 62 65 68 Respiratory Rate 18 23 H Blood Pressure Pulse Oximetry 94 Oxygen Delivery BiPAP Oxygen Flow Rate Fraction of Inspired Oxygen 11/07/24 22:00 11/07/24 23:57 11/08/24 00:00 Temperature 36.4 C Pulse Rate 68 65 65 Respiratory Rate 19 16 Blood Pressure 149/62 H Pulse Oximetry 98 98 Oxygen Delivery BiPAP Oxygen Flow Rate Fraction of Inspired Oxygen 60 11/08/24 00:00 11/08/24 01:46 11/08/24 01:46 Temperature Pulse Rate 85 134 H 134 H Respiratory Rate 18 18 Blood Pressure Pulse Oximetry 100 Oxygen Delivery BiPAP Oxygen Flow Rate Fraction of Inspired Oxygen 11/08/24 02:00 11/08/24 02:48 11/08/24 03:12 Temperature Pulse Rate 123 H 143 H Respiratory Rate Blood Pressure Pulse Oximetry 100 Oxygen Delivery BiPAP Oxygen Flow Rate Fraction of Inspired Oxygen 60 11/08/24 04:00 11/08/24 04:00 11/08/24 07:50 Temperature 36.6 C 36.7 C Pulse Rate 125 H 82 56 L Respiratory Rate 18 18 Blood Pressure 128/90 130/65 Pulse Oximetry 100 92 Oxygen Delivery Oxygen Flow Rate Fraction of Inspired Oxygen 11/08/24 08:55 11/08/24 09:05 11/08/24 09:07 Temperature Pulse Rate 124 H 121 H Respiratory Rate 18 Blood Pressure Pulse Oximetry 94 Oxygen Delivery Room Air Oxygen Flow Rate Fraction of Inspired Oxygen 11/08/24 09:09 11/08/24 09:14 Temperature Pulse Rate 123 H Respiratory Rate 18 Blood Pressure Pulse Oximetry 91 Oxygen Delivery High Flow Therapy with Na Oxygen Flow Rate 20 Fraction of Inspired Oxygen 60 Intake/Output Intake/Output: Intake & Output 11/05/24 11/06/24 11/07/24 11/08/24 23:59 23:59 23:59 23:59 Intake Total 1277 440 800 990 Output Total 3850 3700 3150 1750 [facility] -[phone] -2350 -760 Meds/Results Medications: Active Medications Generic Name Dose Route Start Last Admin Trade Name Freq PRN Reason Stop Dose Admin Acetaminophen 650 mg 11/04/24 13:56 Acetaminophen 325 Mg Tablet PO Q4H PRN Mild Pain (1-3) or Fever Hydrocodone Bitart/Acetaminophen 1 tab 11/04/24 13:56 11/06/24 20:27 Hydrocodone/Acetaminophen (*Crx) 5-325 Mg Tablet PO 1 tab Q4H PRN Administration Pain Rated 4-6 Atorvastatin Calcium 80 mg 10/30/24 09:00 11/04/24 09:03 Atorvastatin 40 Mg Tablet PO 80 mg DAILY JANNIE Administration Calcium Carbonate 500 mg 10/30/24 09:00 11/08/24 08:56 Calcium/Vitamin D 500 Mg/5 Mcg (200 I.U.) Tablet PO 500 mg DAILY JANNIE Administration Carvedilol 6.25 mg 10/29/24 21:00 11/04/24 21:05 Carvedilol 6.25 Mg Tablet PO 6.25 mg Q12HR JANNIE Administration Dextrose 12.5 gm 10/29/24 22:59 Dextrose 50% 25 Gm/50 Ml Syringe IV PUSH PRN PRN Hypoglycemia Protocol Empagliflozin 10 mg 11/06/24 09:00 11/08/24 08:55 Empagliflozin 10 Mg Tablet PO 10 mg DAILY JANNIE Administration Enoxaparin Sodium 68 mg 11/05/24 21:00 11/08/24 08:54 Enoxaparin 80 Mg/0.8 Ml Syringe SUB-Q 68 mg Q12HR JANNIE Administration Furosemide 40 mg 11/04/24 17:00 11/08/24 08:55 Furosemide Inj 40 Mg/4 Ml Vial IV PUSH 40 mg BID JANNIE Administration Glucagon 1 mg 10/29/24 22:59 Glucagon For Inj 1 Mg Vial IM PRN PRN Hypoglycemia Protocol Glucose 15 gm 10/29/24 22:59 Glucose Oral Gel 15 Gm Of Glucse In 37.5 Gm Tube PO PRN PRN Hypoglycemia Protocol Hydromorphone HCl 1 mg 10/31/24 13:20 11/01/24 23:47 Hydromorphone Hcl Inj (*Crx) 2 Mg/Ml Vial IV PUSH 1 mg Q3H PRN Administration Pain Rated 7-10 Dextrose 1,000 mls @ 100 mls/hr 10/29/24 22:59 Dextrose 5% 1,000 Ml IVPB PRN PRN Hypoglycemia Protocol Meropenem 1 gm/ Sodium 100 mls @ 200 mls/hr 11/03/24 16:00 11/08/24 02:48 Chloride IVPB 200 mls/hr Q12H JANNIE Administration Ibuprofen 800 mg in 200 mls @ 400 mls/hr 11/04/24 13:55 Caldolor 800 Mg/200 Ml IVPB Q8HR PRN Pain Rated 4-6 IF NPO Potassium Chloride 100 mls @ 25 mls/hr 11/08/24 10:10 11/08/24 10:54 Kcl 40 Meq/Water 100 Ml IVPB 11/08/24 14:09 25 mls/hr ONCE ONE Administration Insulin Aspart 2 - 5 units 10/30/24 00:00 11/08/24 08:53 Insulin Aspart (*Bkc) 100 Units/Ml SUB-Q Not Given Q6HR JANNIE Protocol Ipratropium [place] 2 spray 10/29/24 17:00 11/08/24 09:30 Ipratropium Nasal [place] 0.03% 15 Ml Bottle NASAL 2 spray TID JANNIE Administration Ipratropium [place] 0.5 mg 11/05/24 14:00 11/08/24 09:01 Ipratropium Br 0.02% Inh Soln 0.5 Mg/2.5 Ml Vial INHALATION 0.5 mg Q6HRT JANNIE Administration Levalbuterol HCl 1.25 mg 11/05/24 14:00 11/08/24 09:00 Levalbuterol Neb 1.25 Mg/3 Ml INHALATION 1.25 mg Q6HRT JANNIE Administration Lisinopril 10 mg 11/06/24 09:00 11/08/24 08:55 Lisinopril 10 Mg Tablet PO 10 mg DAILY JANNIE Administration Metoprolol Tartrate 5 mg 11/05/24 08:00 11/08/24 08:55 Metoprolol Tartrate Inj 5 Mg/5 Ml Vial IV PUSH 5 mg Q6H JANNIE Administration Ondansetron HCl 4 mg 10/29/24 15:30 11/08/24 05:37 Ondansetron Inj 4 Mg/2 Ml Vial IV PUSH 4 mg Q4H PRN Administration Nausea And Vomiting Pantoprazole Sodium 40 mg 10/30/24 09:00 11/08/24 08:55 Pantoprazole Sodium Iv 40 Mg Vial IV PUSH 40 mg QAM JANNIE Administration Fluticasone/Salmeterol 2 puff 10/29/24 20:00 11/08/24 09:00 Fluticasone/Salmeterol 115-21 Mcg Inhaler 1 Puff INHALATION 2 puff Q12HRT JANNIE Administration Sertraline HCl 100 mg 10/29/24 17:00 11/04/24 17:22 Sertraline Hcl 50 Mg Tablet PO 100 mg BID JANNIE Administration Sodium Chloride 10 ml 11/05/24 14:00 11/08/24 02:49 Central Line Flush IV PUSH 10 ml Q8HR JANNIE Administration Sodium Chloride 10 ml 11/05/24 12:18 Central Line Flush IV PUSH PRN PRN with TPN bag changes Sodium Chloride 20 ml 11/05/24 12:18 Central Line Flush IV PUSH PRN PRN after blood draws Radiology Results: ITS Impressions Abdomen/Pelvis CT 10/29/24 17:43 IMPRESSION: High-grade obstruction within the mid to distal sigmoid colon for which a malignancy is suspected. Aerated stool (with pneumatosis less likely) within the entirety of the colon, proximal to the mid to distal sigmoid colon. Retroperitoneal and mesenteric lymphadenopathy. Secondary signs suggesting hypovolemia. 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 Chest X-Ray 11/06/24 08:23 Impression: 1: Possible mild improvement of diffuse bilateral airspace disease which may represent edema, pneumonia or ARDS. Labs Labs: Laboratory Results - last 24 hr 11/07/24 11/07/24 11/07/24 11:16 20:13 23:47 WBC RBC Hgb Hct MCV MCH MCHC RDW Plt Count MPV Sodium 137 Potassium 3.2 L Chloride 94 L Carbon Dioxide 39 H Anion Gap 4 BUN 46 H Creatinine 0.88 Estim Creat Clear Calc 39 Estimated GFR > 60 Glucose 129 H POC Capillary Glucose 131 H 156 H Calcium 9.2 11/08/24 05:50 WBC 9.6 RBC 4.67 Hgb 12.6 Hct 40.9 MCV 87.6 MCH 27.0 MCHC 30.8 L RDW 15.7 H Plt Count 291 MPV 10.7 H Sodium 138 Potassium 3.0 L Chloride 95 L Carbon Dioxide 38 H Anion Gap 5 BUN 43 H Creatinine 0.82 Estim Creat Clear Calc 42 Estimated GFR > 60 Glucose 137 H POC Capillary Glucose Calcium 9.0
--- NOTE | 2024-11-08 14:30 | PC.NURSE ---
Eun with [facility] notified that ambulance has arrived. Daughter, Lynn, notified as well.
--- NOTE | 2024-11-08 14:57 | P.DS_ITS ---
DS: Admitting Diagnosis Discharge Date 11/08/2024 Admitting Diagnosis Distal sigmoid colonic obstruction DS: Discharge Diagnosis Discharge Diagnosis (1) Metastatic adenocarcinoma: Code(s): C79.9 - Secondary malignant neoplasm of unspecified site Status: Acute (2) Colonic obstruction: Code(s): K56.609 - Unspecified intestinal obstruction, unspecified as to partial versus complete obstruction Status: Acute DS: Summary Hospital Course Reason for hospitalization: Patient is a 74-year-old female who was initially sent to general surgery office for an outpatient evaluation due to a diagnosis of diverticulitis. She had had episodes of diverticulitis in the past and had a colonoscopy performed about 2 weeks prior to admission at which time the endoscopist was not able to traverse a strictured area in the mid to distal sigmoid colon with the colonoscope. A barium enema was then ordered and the barium would not traverse the area and so Gastrografin was then used and it showed a small amount of contrast that we get past the near obstruction. The patient then presented to my office for evaluation and she stated she had been feeling nauseous and not eating well for the past 2 weeks. She had not had a bowel movement in almost 2 weeks. She was admitted to the hospital because of the obstruction and CT scan abdomen pelvis was done showing severe stricturing of the mid to distal sigmoid colon with a differential diagnosis including diverticular stricture but malignancy certainly was a possibility as well. There were no liver lesions. CEA level was within normal limits. There was copious amounts of stool within the colon consistent with a distal colonic obstruction. No evidence of perforation was seen. She presents now for an attempt at a robotic assisted laparoscopic transverse loop colostomy with possible conversion open. Hospital Course: Patient was seen by Dr. Campos during an outpatient general surgery visit on 10/29/2024. Patient was noted to have near total obstruction of the sigmoid colon clinically and by imaging. She was admitted to the hospital for workup and possible urgent colonic diversion. Hospitalist team was consulted to manage her medical issues. CEA level normal. On 10/31 patient underwent attempted robotic assisted laparoscopic transverse loop colostomy with conversion to open transverse end colostomy and placement of mucous fistula. The patient tolerated the procedure well with no complications. She was awakened and taken to recovery in stable and satisfactory condition. The following day patient was doing well and was tolerating clear liquids. Kidney function remains stable. On 11/03 patient was advanced to a regular diet without any issues. Both ostomy and mucous fistula seemed to be functioning well. Retraction noted to both. Patient did have some hypokalemia and hyponatremia that was repleted with potassium chloride and normal saline IV. Chest x-ray was performed and demonstrated bilateral opacities suspected to be congestive changes. 20 mg of Lasix was given on 11/02 and another dose on 11/[place] [address]. Use of CPAP at nighttime. Placed on monitor and continuous oxygen which had continued to worsen requiring BiPAP. She was placed on fluid restriction 1500 cc per day. Pulmonology was consulted to rule out PE. On 11/04, patient's pathology came back and showed metastatic adenocarcinoma from GI tract primary. Sigmoid stricture most likely the primary area of malignancy. Dr. Abreu from oncology was consulted to evaluate the patient make recommendations on any adjuvant chemotherapy treatments. Oral potassium continued to be repleted does not remain low. Pulmonology consulted and suggested continued support with positive pressure, now on BiPAP which may be given relief from volume overload. Normal EF per last echo. Cardiology consult is with new diagnosis of AFib with RVR spontaneously cardioverted to sinus rhythm. Recommended anticoagulation for AFib once a from surgical standpoint. Increased Coreg to 12.5 mg b.i.d.. IV Lasix 40 mg b.i.d. oncology saw the patient on 11/05 and recommended palliative chemotherapy with MediPort placement. Patient and her daughter decided to forego hospice care with [facility]. Patient medically stable for discharge. No follow-up visit with general surgery necessary. Status at Discharge Functional status at discharge: independent ambulation Overall status at discharge: patient is back to baseline Time Spent with Patient Time attestation: Total time spent providing and/or coordinating discharge services: Time spent: Less than 30 minutes Exam Const: General: comfortable and no acute distress Eyes: General: appearance normal, both eyes and all related structures Neck: Neck: supple Resp: Effort & Inspection: normal respiratory effort GI: Inspection: non-distended GI Palp: Yes Soft to palpation Auscultation: normal bowel sounds Other: Abdomen is soft and nondistended. Stool output from the right upper quadrant end transverse colostomy. Stoma is pink. No leaking from around the ostomy bag. Left upper quadrant mucous fistula minimal output. Mucosa still looks a little dark and the stoma seems to be mildly retracted. However there is no leaking around the mucous fistula. Midline incision is healing well. Port site incisions healing well with ernie in place. No redness or drainage around the incisions. Skin: General skin exam: normal color and no rashes or lesions noted Extrem: General: normal to inspection Psych: Mental Status: mental status grossly normal DS: Data Data Completed and Pending Completed studies during hospitalization: Pending at discharge 10/31/24 10:52 Surgical [PTH] Routine Labs on day of discharge: Labs from last 24 hours 11/08/24 11/07/24 11/07/24 05:50 23:47 20:13 WBC 9.6 RBC 4.67 Hgb 12.6 Hct 40.9 MCV 87.6 MCH 27.0 MCHC 30.8 L RDW 15.7 H Plt Count 291 MPV 10.7 H Sodium 138 137 Potassium 3.0 L 3.2 L Chloride 95 L 94 L Carbon Dioxide 38 H 39 H Anion Gap 5 4 BUN 43 H 46 H Creatinine 0.82 0.88 Estim Creat Clear Calc 42 39 Estimated GFR > 60 > 60 Glucose 137 H 129 H POC Capillary Glucose 156 H Calcium 9.0 9.2 Discharge Plan Discharge Attending physician on discharge: Jasmin Stubbs Consulting providers: Kyleigh Chowdary; Chelsie Bullard; Elizabeth Garza; Jasmin Stubbs; Eddie Gunn Discharging Clinician: Jasmin Stubbs Anticipated Discharge Date/Time: 11/08/24 11:08 Patient Disposition: Hospice - Home Activity: as tolerated Diet: as tolerated Discharge Instructions: Per Care Coordination, patient and daughter at bedside have agreed to pursue hospice care with [facility]. Do not lift more than 10 pounds for the next 6 weeks. Ok to continue regular diet at home. No general surgery follow up is necessary unless issues arise like swelling, severe pain, bleeding, or signs of infection to either stoma. Hospice care should remove ernie in 1 week and manage all stoma and colostomy care. Collaborate with hospice care for pain control and management of symptoms. Call our office at with any questions. Patient Instructions: PICC (Peripherally Inserted Central Catheter) (DC) Patient Language: Luxembourgish Stand Alone Forms: General Discharge Information Follow-up/Referrals: Santy Sarkar MD [Primary Care Provider] - 1 Week Discharge Medications: New Jardiance 10 mg Tablet 10 mg PO DAILY Qty: 30 0RF Continued aspirin 81 mg tablet,delayed release (DR/EC) 81 mg PO DAILY Qty: 90 0RF famotidine 20 mg tablet 20 mg PO BID Qty: 180 0RF loratadine [Claritin] 10 mg tablet 10 mg PO DAILY Qty: 90 0RF Centrum Silver 0.4 mg-300 mcg- 250 mcg tablet 1 tablet PO DAILY Qty: 90 0RF atorvastatin 40 mg tablet 80 mg PO DAILY calcium carbonate-vitamin D3 500 mg-10 mcg (400 unit) tablet 1 tablet PO DAILY ipratropium bromide 21 mcg (0.03 %) spray,non-aerosol 2 spray intranasal TID Qty: 30 0RF Rx Instructions: administer into each nostril fluticasone propion-salmeterol [Advair Diskus] 250-50 mcg/dose blister with device 1 inh inhalation BID PRN (Reason: COPD) losartan 50 mg tablet 50 mg PO DAILY Qty: 90 1RF carvedilol 6.25 mg tablet 6.25 mg PO BID Qty: 180 0RF ferrous gluconate 324 mg (38 mg iron) tablet 324 mg PO DAILY Qty: 30 3RF sertraline 100 mg tablet 100 mg PO BID Qty: 200 1RF Discontinued metronidazole 500 mg tablet 500 mg PO TID 10 Days Qty: 30 0RF ciprofloxacin HCl 500 mg tablet 500 mg PO Q12H Qty: 20 0RF Date of admission: 10/29/24 15:11 Primary Care Provider: Santy Sarkar Admitting Provider: Subhash Campos Attending physician on admission: Subhash Campos Condition: Stable
== END 2024-11-08 14:40 | disposition hospice, home (50) | DRG 329 ==
LOC: ANH3MEDSUR 10-31 09:43 → ANHIMU 11-04 11:29 → ANH3MEDSUR 11-11 08:59 → ANHIMU 11-11 08:59
PROVIDERS: General Practice; Hospitalist; Internal Medicine; Nurse Practitioner Adult Health; Admitting Provider Surgery; PCP Family Medicine; Visit Provider Internal Medicine
DX: C18.7 Malignant neoplasm of sigmoid colon (principal); I50.21 Acute systolic (congestive) heart failure; J96.21 Acute and chronic respiratory failure with hypoxia; C78.6 Secondary malignant neoplasm of retroperitoneum and peritoneum; K56.609 Unspecified intestinal obstruction, unspecified as to partial versus complete obstruction; E44.1 Mild protein-calorie malnutrition; K91.71 Accidental puncture and laceration of a digestive system organ or structure during a digestive system procedure; E87.1 Hypo-osmolality and hyponatremia; J44.1 Chronic obstructive pulmonary disease with (acute) exacerbation; E87.0 Hyperosmolality and hypernatremia; I25.10 Atherosclerotic heart disease of native coronary artery without angina pectoris; I48.91 Unspecified atrial fibrillation; I12.9 Hypertensive chronic kidney disease with stage 1 through stage 4 chronic kidney disease, or unspecified chronic kidney disease; N18.31 Chronic kidney disease, stage 3a; D50.9 Iron deficiency anemia, unspecified; E87.6 Hypokalemia; E11.22 Type 2 diabetes mellitus with diabetic chronic kidney disease; E78.00 Pure hypercholesterolemia, unspecified; K57.30 Diverticulosis of large intestine without perforation or abscess without bleeding; M16.0 Bilateral primary osteoarthritis of hip; G47.33 Obstructive sleep apnea (adult) (pediatric); F32.4 Major depressive disorder, single episode, in partial remission; F17.210 Nicotine dependence, cigarettes, uncomplicated; Z95.1 Presence of aortocoronary bypass graft; Z79.82 Long term (current) use of aspirin; Z68.25 Body mass index [BMI] 25.0-25.9, adult; Z53.31 Laparoscopic surgical procedure converted to open procedure; Z51.5 Encounter for palliative care
CPT/HCPCS: 36415; 36569; 36600; 71045; 74177; 80048; 80053; 82378; 82805; 82948; 83605; 83735; 83880; 84145; 84443; 85018; 85025; 85027; 85610; 86301; 86850; 86900; 86901; 87641; 88305; 88331; 88342; 93308; 94002; 94003; 94640; A9270; C1751; C8924; J0616; J0692; J1100; J1171; J1650; J1741; J1815; J1836; J1938; J2003; J2004; J2185; J2270; J2405; J2470; J2704; J2919; J3010; J3373; J3480; J7030; J7040; J7120; Q9957; Q9967